=== PATIENT | female | born 1965 | race Caucasian/White ===

== ENCOUNTER → 2018-01-06 17:51 | Outpatient (CLI) | payer BC, SELFPAY ==
--- NOTE | 2018-01-06 17:52 | DI.MRI.S_ITS ---
PROCEDURE: MR KNEE RT WO CON INDICATIONS: catching of right knee TECHNIQUE: Noncontrast sagittal PD fast spin echo and T2 fast spin echo with fat saturation, sagittal 3-D FLASH with fat saturation; coronal T1 spin echo and PD fast spin echo with fat saturation, and axial PD fast spin echo with fat saturation through the knee. COMPARISON: [facility], MR, KNEE WITHOUT CONTRAST, 08/16/2014, 7:13. FINDINGS: Image quality: Excellent. 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 Complex tear involving the posterior horn, body of the lateral meniscus with marked truncation of the free margin. There is also partial extrusion of the body which demonstrates extremely macerated appearance Cruciate ligaments: The anterior and posterior cruciate ligaments appear intact. Medial structures: The medial collateral ligament appears intact. The posterior oblique ligament, semimembranosus tendon insertions, oblique popliteal ligament, and meniscocapsular junction appear intact. Visualized portions of the pes anserinus tendons appear normal. No abnormal bursal fluid. Lateral structures: The lateral collateral ligament demonstrates age indeterminate proximal sprain versus reactive change to meniscal pathology. The long and short heads of the biceps femoris tendon appear intact. The popliteus tendon appears normal; the popliteofibular ligament appears intact. The posterosuperior and anteroinferior popliteomeniscal fascicles appear intact. The arcuate and fabellofibular ligaments appear intact, on either side of the lateral inferior geniculate artery. Iliotibial band appears normal. Anterior structures: The quadriceps and patellar tendons appear intact although there is minimal probably chronic proximal and distal patellar tendinopathy. Mild prepatellar subcutaneous edema. Patellar alignment is normal. No femoral trochlear dysplasia or ventral trochlear prominence. No edema in the infrapatellar fat pad. Bones and cartilage: No bone marrow contusions or fractures. Within the medial compartment, there is low-grade surface fraying of the femoral and tibial articular cartilage. Within the lateral compartment, full thickness denudation of femoral and tibial articular cartilage is present. Within the patellofemoral compartment, there is mild diffuse partial thickness loss of the patellar and femoral trochlear cartilage without full-thickness defect. There is also near full-thickness posterior lateral femoral condyle articular cartilage loss with underlying subchondral signal change on image 16 series 5. Joint space: Guevara's cyst is present measuring 5.7 cm in the cephalocaudad dimension. Additionally, there is a ganglion cyst of the proximal tibiofibular articulation, with internal debris. This measures 1.2 x 1.2 cm on axial image 28 series 5 IMPRESSION: Complex tear of the lateral meniscus posterior horn and body with partial extrusion. 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 Guevara cyst. Ganglion cyst with internal debris at the proximal tibiofibular articulation. Dictated by: Bucky Stewart M.D. on 01/07/2018 at 12:51 Approved by: Bucky Stewart M.D. on 01/07/2018 at 13:04
== END ==
PROVIDERS: Family Provider Family Medicine; PCP Family Medicine; Visit Provider Family Medicine
DX: M25.561 Pain in right knee (principal); S83.271A Complex tear of lateral meniscus, current injury, right knee, initial encounter; M17.11 Unilateral primary osteoarthritis, right knee; M71.21 Synovial cyst of popliteal space [Baker], right knee; M67.461 Ganglion, right knee
CPT/HCPCS: 73721

== ENCOUNTER → 2018-04-10 09:27 | Outpatient (CLI) | payer BC, SELFPAY ==
[2018-04-10 10:13] LABS: Alanine Aminotransferase 31 IU/L (9-52); Albumin 4.6 g/dL (3.5-5.0); Albumin Globulin Ratio 1.7 (1.0-2.8); Alkaline Phosphatase 64 U/L (38-126); Aspartate Aminotransferase 22 IU/L (14-36); BUN Creatinine Ratio 13.8 (6-22); Bilirubin Total 0.6 mg/dL (0.2-1.3); Blood Urea Nitrogen 11 mg/dL (7-17); Calcium 9.7 mg/dL (8.4-10.2); Carbon Dioxide 25 mmol/L (22-32); Chloride 103 mmol/L (98-107); Cholesterol 211 mg/dL (140-199); Estimated Glomerular Filt Rate > 60.0 mL/min (>60); Globulin 2.7 g/dL (1.7-4.1); Glucose 109 mg/dL (70-100); HDL Cholesterol 69 mg/dL (40-60); HEMOLYSIS < 15 (0-50); LDL Cholesterol Calculated 115 mg/dL (<100); Potassium 4.8 mmol/L (3.4-5.1); Sodium 138 mmol/L (137-145); Total Protein 7.3 g/dL (6.3-8.2); Triglycerides 134 mg/dL (35-150)
[2018-04-10 10:28] LABS: Free T3, Triiodothyronine Free 2.94 pg/mL (2.77-5.27); Free T4, Direct Thyroxine 1.53 ng/dL (0.78-2.19)
[2018-04-10 10:42] LABS: Thyroid Stimulating Hormone 0.48 uIU/mL (0.47-4.68)
[2018-04-10 16:05] LABS: Add Manual Diff / Slide Review NO; Basophils Absolute Auto 0 /uL (0-100); Basophils Percent Auto 0.4 % (0-2); Eosinophils Absolute Auto 200 /uL (0-450); Hematocrit 46.4 % (36-46); Hemoglobin 15.1 g/dL (12.0-16.0); Lymphocytes Absolute Auto 2200 /uL (1100-4500); Mean Corpuscular HGB Conc 32.5 % (30-36); Mean Corpuscular Hemoglobin 32.1 PG (26-34); Mean Corpuscular Volume 98.8 fL (80-100); Monocytes Absolute Auto 700 /uL (0-900); Monocytes Percent Auto 8.3 % (3-14); Neutrophils Absolute Auto 5000 /uL (1500-7000); Neutrophils Percent Auto 62.3 % (50-75); Platelet Count 250 X10^3/uL (150-400); Red Cell Distribution Width 13.4 % (11.6-14.8)
== END ==
PROVIDERS: PCP Family Medicine; Visit Provider Family Medicine
DX: E03.9 Hypothyroidism, unspecified (principal); E66.9 Obesity, unspecified; F32.9 Major depressive disorder, single episode, unspecified; I10 Essential (primary) hypertension; Z00.01 Encounter for general adult medical examination with abnormal findings
CPT/HCPCS: 36415; 80053; 80061; 84439; 84443; 84481; 85025

== ENCOUNTER → 2018-05-30 08:12 | Outpatient (CLI) | payer OTHER, SELFPAY ==
--- NOTE | 2018-05-30 | DI.MRI.S_ITS ---
PROCEDURE: MR LUMBAR SPINE WO/W CON INDICATIONS: LUMBAR STENOSIS TECHNIQUE: Noncontrast sagittal T1 spin echo and T2 fast spin echo, sagittal STIR, axial T1 and T2 fast spin echo through the lumbar spine. In cases with scoliosis, additional coronal T2 fast spin echo may be performed. After the administration of contrast, sagittal and axial T1 spin echo with fat saturation through the lumbar spine. COMPARISON: [facility], CR, L-SPINE MINIMUM 4 VIEWS, 10/12/2015, 9:12. [facility], CT, L-SPINE WITHOUT CONTRAST, 10/12/2015, 8:54. [facility], MR, L-SPINE WITH CONTRAST, 03/14/2015, 19:36. [facility], MR, L-SPINE WITHOUT CONTRAST, 02/23/2015, 18:58. [facility], MR, L-SPINE WITHOUT CONTRAST, 11/01/2015, 10:50. FINDINGS: Image quality: Diagnostic, with note made of motion artifact. Alignment and curvature: There is mild grade 1 retrolisthesis at L2-L3, L4, and L4-L5. Minimal anterolisthesis is seen at L5-S1. Mild levoconvex scoliotic curvature is noted. Marrow: Marrow is of normal overall signal. No acute vertebral body compression fractures. No suspicious marrow enhancement. Spinal cord: Conus medullaris terminates at the L2 level. Visualized spinal cord demonstrates normal signal, without suspicious enhancement. Paraspinous soft tissues: Within the posterior postoperative bed, there is a rim-enhancing fluid collection seen, with a craniocaudal extent of 8 cm. Mild surrounding inflammatory changes can be seen, with generalized enhancement. T12-L1: No significant abnormality is seen. L1-L2: The disc height and disk signal are well-preserved. Mild generalized disc bulge is seen. Moderate facet joint hypertrophy is seen. Mild bilateral neural foraminal narrowing is seen. Moderate central canal narrowing is seen. When comparison is made with the prior examination, these findings are similar. L2-L3: Moderate to severe loss of disc height and disc signal is seen. Reactive marrow endplate changes are seen, which are hyperintense on T1-weighted and T2-weighted imaging and most consistent with fatty metaplasia (Modic type II changes). Moderate generalized disc bulge is seen. There has been removal of portions of the posterior elements. Moderate bilateral neural foraminal narrowing is seen. Moderate central canal narrowing is seen. The degree of central canal narrowing has improved compared to 2016. L3-L4: Moderate to severe loss of disc height and disc signal are seen. Endplate irregularity is seen. Reactive marrow endplate changes are seen, which are hyperintense on T1-weighted and T2-weighted imaging and most consistent with fatty metaplasia (Modic type II changes). There has been removal of portions of the posterior elements. Moderate facet joint hypertrophy is seen. Moderate disc bulge is seen, which is eccentric to the right. Moderate to severe bilateral neural foraminal narrowing is seen. There is a degree of compression seen upon the exiting nerve roots. Mild central canal narrowing is seen. Compared to 2016, the degree of central canal narrowing is clearly improved. L4-L5: At least moderate loss of disc height and disc signal can be seen. Endplate irregularity is seen. Reactive marrow endplate changes are seen, which demonstrate mixed T1 weighted and T2-weighted signal, and are attributed to a combination of edema and fatty metaplasia (Modic type I and Modic type II changes). Prominent facet hypertrophy is seen. There is moderate to severe bilateral neural foraminal narrowing seen, left greater than right. There is a degree of compression seen upon the exiting nerve roots. There has been removal of portions of the posterior elements. Mild central canal narrowing is seen. The degree of central canal narrowing is improved compared to the prior. L5-S1: Moderate loss of disc height is seen. Loss of disc signal is seen. Moderate disc bulge is seen, which is eccentric to the left. Moderate to prominent facet hypertrophy is seen. Moderate to severe bilateral neural foraminal narrowing is seen, left greater than right. There is a degree of compression seen upon the exiting nerve roots. Moderate central canal narrowing is seen. When comparison is made with the prior examination, these findings are similar. IMPRESSION: Since 2016, there has been removal of portions of the posterior elements, with improvement in the degrees of central canal narrowing. Numerous levels of neural foraminal narrowing are seen, with associated nerve root compression. Within the posterior postoperative bed, there is a seen a fluid collection with rim enhancement. This is felt most likely to be related to a benign postoperative seroma. Abscess is possible, yet considered to be less likely. Mild surrounding inflammatory changes are also seen. Dictated by: Graeme Avelar M.D. on 05/30/2018 at 9:15 Approved by: Graeme Avelar M.D. on 05/30/2018 at 9:25
== END ==
PROVIDERS: PCP Family Medicine; Visit Provider Neurological Surgery
DX: M48.061 Spinal stenosis, lumbar region without neurogenic claudication (principal)
CPT/HCPCS: 72158

== ENCOUNTER 2018-08-06 13:30 | Emergency (ER) | payer OTHER, BC, SELFPAY ==
--- NOTE | 2018-08-06 13:46 | DI.RAD.S_ITS ---
PROCEDURE: XR HAND LT MIN 3V INDICATIONS: Fell, pain on metacarpophalangeal joint of thumb TECHNIQUE: 3 views of the hand(s) acquired. COMPARISON: None. FINDINGS: Bones: No fractures or dislocations. Carpal bones are normally aligned. No suspicious bony lesions. Severe degenerative changes are present involving the basal joint of the thumb with prominent subluxation of the 1st metacarpal with respect to the trapezium. There may be fragmentation of the upper trapezium, which appears chronic. Minus variance is present. Soft tissues: No suspicious soft tissue calcifications. IMPRESSION: 1. No acute fracture of the left hand is appreciated. 2. Severe degenerative changes involving the basal joint of the thumb. Dictated by: Sanjay Mo M.D. on 08/06/2018 at 14:16 Approved by: Sanjay Mo M.D. on 08/06/2018 at 14:17
[2018-08-06 13:49] VITALS: BP 162/91; PULSE 66; RESP 16; TEMP 37.1; O2SAT 98; BMI 31.9
--- NOTE | 2018-08-06 13:55 | ED.UPPEXIN ---
HPI - Extremity Injury (Upper) <Stephany DelgadoWALTER - Last Filed: 08/06/18 20:39> General Chief Complaint: Extremity Injury, Upper Stated Complaint: Fall, thinks she broke her left hand Time Seen by Provider: 08/06/18 13:46 Source: patient Mode of arrival: ambulatory Limitations: no limitations History of Present Illness HPI narrative: 52-year-old female taking daily aspirin, presents emergency department today for complaints of constant 3/10 left thumb pain after tripping while she was feeling a bird feeder and falling on her knee and her left thumb. Patient's states the pain is worse with movement and better with rest, she has been icing it and took ibuprofen before coming to the emergency department. She states she landed on her left knee, she does not have this looked at, and she is not concerned significant injuries. Denies hitting her head, numbness, tingling, syncope, dizziness, chest pain, shortness of breath, or lacerations. MD complaint: injury to: left Onset (ago): hour(s) Place: home Severity: moderate Severity scale (1-10): 3 Relieving factors: cold therapy Exacerbating factors: movement of extremity Context: fall Treatments prior to arrival: cold therapy and NSAIDS Related Data Home Medications Medication Instructions Recorded Confirmed ASPIRIN (Aspirin) 81 mg PO Q DAY #0 01/15/11 05/21/18 amlodipine [Norvasc] 10 mg PO Q DAY #0 01/15/11 05/21/18 citalopram 20 mg tablet 20 mg PO DAILY 03/19/18 05/21/18 levothyroxine [Synthroid] 125 mcg PO DAILY 08/06/18 08/06/18 Previous Rx's Medication Instructions Recorded [estrogen pearls] 1 mg VAGINAL 2XW #30 tab-cap 04/14/18 albuterol sulfate HFA 90 2 puff INHALATION Q4HP PRN #3 inh 04/14/18 mcg/actuation aerosol inhaler pimecrolimus 1 % topical cream 1 applictn TOPICAL BID #30 gram 04/14/18 bupropion HCl SR 150 mg tablet,12 150 mg PO DAILY #30 each 08/11/18 hr sustained-release Allergies Allergy/AdvReac Type Severity Reaction Status Date / Time lisinopril [LISINOPRIL] Allergy Severe angioedema Verified 08/06/18 13:49 codeine [CODEINE] Allergy Mild nausea Verified 08/06/18 13:49 FLORA Inhibitors Allergy Verified 08/06/18 13:49 Opioids - Morphine Analogues AdvReac Verified 08/06/18 13:49 Review of Systems <WALTER Goldman - Last Filed: 08/06/18 20:39> Review of Systems REVIEW OF SYSTEMS: GENERAL: Denies fever or chills. HENT: No head trauma, hearing loss or sore throat. EYES: No loss of vision, double vision, eye pain, or irritation. CARDIOVASCULAR: No chest pain or syncope. RESPIRATORY: No shortness of breath or cough. GASTROINTESTINAL: No nausea, vomiting, diarrhea, or constipation. GENITOURINARY: No flank pain or dysuria. MUSCULOSKELETAL: No pain, weakness, or deformities. INTEGUMENTARY: No rash, lesions, or pruritus. NEURO: No numbness, tingling, memory loss, or confusion. PSYCH: No behavior or mood changes. PFSH <WALTER Goldman - Last Filed: 08/06/18 20:39> Medical History Anxiety (Chronic 1984) Asthma (Chronic 1974) Chronic back pain (Chronic 2004) Depression (Chronic 1984) Hypertension (Chronic 2009) Hypothyroidism (Chronic 2009) Ovarian cyst (Resolved) Surgical History History of cataract surgery (Acute ~01/2018) Anesthesia (Resolved) History of abdominoplasty (Resolved 1997) Family History Father Age: 81 Heart disease Hypertension Glaucoma Adenocarcinoma, lung Mother Age: 84 Alcoholism Brother No problems noted. Sister No problems noted. Social History marital status: household members: spouse occupational status: employed Smoking Status: Former smoker Family History Father Age: 81 Heart disease Hypertension Glaucoma Adenocarcinoma, lung Mother Age: 84 Alcoholism Brother No problems noted. Sister No problems noted. Social History marital status: household members: spouse occupational status: employed Smoking Status: Former smoker Exam <WALTER Goldman - Last Filed: 08/06/18 20:39> Initial Vital Signs Initial Vital Signs: Vital Signs Temperature 98.7 F 08/06/18 13:49 Pulse Rate 66 08/06/18 13:49 Respiratory Rate 16 08/06/18 13:49 Blood Pressure 162/91 H 08/06/18 13:49 Pulse Oximetry 98 08/06/18 13:49 PHYSICAL EXAMINATION: GENERAL: Well groomed, alert, and cooperative Answers questions promptly and appropriately. Vital signs noted. HENT: Normocephalic, atraumatic. RESPIRATORY: Normal respiratory rate, trachea midline, airway patent. No stridor, nasal flaring or accessory muscle use. MUSCULOSKELETAL: Normal gait and coordination. Equal tone and mass bilaterally. EXTREMITIES: CMS intact. Tenderness to metatarsal and proximal portion of thumb with palpation, full range of motion against resistance. No bruising or swelling noted. SKIN: Warm, dry, soft, appropriate color for ethnicity. No lesions, rashes, or wounds. NEURO: Alert and Oriented X 3. Good coordination. No ataxia, or sensory deficits, or cognitive issues. PSYCH: Appropriate affect and mood. <Evan Ruiz DO - Last Filed: 08/11/18 19:19> Initial Vital Signs Initial Vital Signs: Vital Signs Temperature 98.7 F 08/06/18 13:49 Pulse Rate 66 08/06/18 13:49 Respiratory Rate 16 08/06/18 13:49 Blood Pressure 162/91 H 08/06/18 13:49 Pulse Oximetry 98 08/06/18 13:49 Course <WALTER Goldman - Last Filed: 08/06/18 20:39> Orders Ordered: ED Orders 08/06/18 13:46 XR hand LT min 3V Stat Consultations Consultation #1: Patient staffed with Dr. Ruiz. Vital Signs - 8 hr 08/06/18 13:49 08/06/18 14:35 Temperature 98.7 F Pulse Rate 66 71 Respiratory Rate 16 16 Blood Pressure 162/91 H Blood Pressure [Right Arm] 130/70 Pulse Oximetry 98 <Evan Ruiz DO - Last Filed: 08/11/18 19:19> Orders Ordered: ED Orders 08/06/18 13:46 XR hand LT min 3V Stat Vital Signs - 8 hr 08/06/18 13:49 08/06/18 14:35 Temperature 98.7 F Pulse Rate 66 71 Respiratory Rate 16 16 Blood Pressure 162/91 H Blood Pressure [Right Arm] 130/70 Pulse Oximetry 98 MDM - Extremity Injury (Upper) <WALTER Goldman - Last Filed: 08/06/18 20:39> Medical Records Attestation: I reviewed the patient's medical records. Imaging Data Left hand: Radiologist's impression: [address] [address] XRay Report Signed Patient: Елена Carter [facility]#: [id number] : 1965Acct:[id number] Age/Sex: 52 / FDate of Service: 08/06/18 Loc: ED Accession Number: [id number] Procedure: XR hand LT min 3V Ordering Provider: Stephany Delgado PROCEDURE: XR HAND LT MIN 3V INDICATIONS: Fell, pain on metacarpophalangeal joint of thumb TECHNIQUE: 3 views of the hand(s) acquired. COMPARISON: None. FINDINGS: Bones: No fractures or dislocations. Carpal bones are normally aligned. No suspicious bony lesions. Severe degenerative changes are present involving the basal joint of the thumb with prominent subluxation of the 1st metacarpal with respect to the trapezium. There may be fragmentation of the upper trapezium, which appears chronic. Minus variance is present. Soft tissues: No suspicious soft tissue calcifications. IMPRESSION: 1. No acute fracture of the left hand is appreciated. 2. Severe degenerative changes involving the basal joint of the thumb. Dictated by: Sanjay Mo M.D. on 08/06/2018 at 14:16 Approved by: Sanjay Mo M.D. on 08/06/2018 at 14:17 [facility] Narrative Medical decision making narrative: Low suspicion for fracture you to lack of breathing, benign exam, and negative x-ray. Patient instructed to follow up for further testing if symptoms continue. Discharge Plan Departure Patient Disposition: Home Clinical Impression: Hand pain, left, Multiple allergies Contusion of left thumb Qualifiers: Encounter type: initial encounter Damage to nail status: with damage Qualified Code(s): S60.112A - Contusion of left thumb with damage to nail, initial encounter Discharge Date/Time: 08/06/18 14:45 Interventions: ED Discharge Assessment Last Done: 08/06/18 15:00 Instructions: DI for Contusion Activity Restrictions/Additional Instructions: Thank you for entrusting me with your care today. As discussed, her x-rays were negative for any fractures. However, if your pain persists I suggest being re-evaluated in a week or so. You the brace as needed for pain. You can use ibuprofen and ice for swelling. Please return to emergency department if you experience chest pain, shortness of breath for, changes in color of your limbs, uncontrolled vomiting, or syncope. Prescriptions: No Action ASPIRIN (Aspirin) 81 mg PO Q DAY Qty: 0 RF: 0 amlodipine [Norvasc] 10 MG tablet 10 mg PO Q DAY Qty: 0 RF: 0 bupropion HCl 150 mg tablet sustained-release 12 hr 150 mg PO DAILY Qty: 30 RF: 0 Ventolin HFA 90 mcg/actuation HFA aerosol inhaler 2 puff Inhalation Q4HP PRN (Reason: shortness of breath or wheezing) Qty: 3 RF: 3 pimecrolimus [Elidel] 1 % cream 1 applictn Topical BID Qty: 30 RF: 1 [estrogen pearls] 1 mg Vaginal 2XW Qty: 30 RF: 0 citalopram 20 mg tablet 20 mg PO DAILY RF: 0 levothyroxine [Synthroid] 125 mcg tablet 125 mcg PO DAILY RF: 0 Referrals: Reva Arteaga DO [Primary Care Provider] - <Evan Ruiz DO - Last Filed: 08/11/18 19:19> Cosign ED Attending Rebecca Attestation: I was immediately available in the department for consultation. Documentation has been reviewed. I agree with assessment and plan.
--- NOTE | 2018-08-06 13:59 | ED_ITS ---
HPI - Extremity Injury (Upper) <Stephany DelgadoWALTER - Last Filed: 08/06/18 20:39> General Chief Complaint: Extremity Injury, Upper Stated Complaint: Fall, thinks she broke her left hand Time Seen by Provider: 08/06/18 13:46 Source: patient Mode of arrival: ambulatory Limitations: no limitations History of Present Illness HPI narrative: 52-year-old female taking daily aspirin, presents emergency department today for complaints of constant 3/10 left thumb pain after tripping while she was feeling a bird feeder and falling on her knee and her left thumb. Patient's states the pain is worse with movement and better with rest, she has been icing it and took ibuprofen before coming to the emergency department. She states she landed on her left knee, she does not have this looked at, and she is not concerned significant injuries. Denies hitting her head, numbness, tingling, syncope, dizziness, chest pain, shortness of breath, or lacerations. MD complaint: injury to: left Onset (ago): hour(s) Place: home Severity: moderate Severity scale (1-10): 3 Relieving factors: cold therapy Exacerbating factors: movement of extremity Context: fall Treatments prior to arrival: cold therapy and NSAIDS Related Data Home Medications Medication Instructions Recorded Confirmed ASPIRIN (Aspirin) 81 mg PO Q DAY #0 01/15/11 05/21/18 amlodipine [Norvasc] 10 mg PO Q DAY #0 01/15/11 05/21/18 citalopram 20 mg tablet 20 mg PO DAILY 03/19/18 05/21/18 levothyroxine [Synthroid] 125 mcg PO DAILY 08/06/18 08/06/18 Previous Rx's Medication Instructions Recorded [estrogen pearls] 1 mg VAGINAL 2XW #30 tab-cap 04/14/18 albuterol sulfate HFA 90 2 puff INHALATION Q4HP PRN #3 inh 04/14/18 mcg/actuation aerosol inhaler pimecrolimus 1 % topical cream 1 applictn TOPICAL BID #30 gram 04/14/18 bupropion HCl SR 150 mg tablet,12 150 mg PO DAILY #30 each 08/11/18 hr sustained-release Allergies Allergy/AdvReac Type Severity Reaction Status Date / Time lisinopril [LISINOPRIL] Allergy Severe angioedema Verified 08/06/18 13:49 codeine [CODEINE] Allergy Mild nausea Verified 08/06/18 13:49 FLORA Inhibitors Allergy Verified 08/06/18 13:49 Opioids - Morphine Analogues AdvReac Verified 08/06/18 13:49 Review of Systems <WALTER Goldman - Last Filed: 08/06/18 20:39> Review of Systems REVIEW OF SYSTEMS: GENERAL: Denies fever or chills. HENT: No head trauma, hearing loss or sore throat. EYES: No loss of vision, double vision, eye pain, or irritation. CARDIOVASCULAR: No chest pain or syncope. RESPIRATORY: No shortness of breath or cough. GASTROINTESTINAL: No nausea, vomiting, diarrhea, or constipation. GENITOURINARY: No flank pain or dysuria. MUSCULOSKELETAL: No pain, weakness, or deformities. INTEGUMENTARY: No rash, lesions, or pruritus. NEURO: No numbness, tingling, memory loss, or confusion. PSYCH: No behavior or mood changes. PFSH <WALTER Goldman - Last Filed: 08/06/18 20:39> Medical History Anxiety (Chronic 1984) Asthma (Chronic 1974) Chronic back pain (Chronic 2004) Depression (Chronic 1984) Hypertension (Chronic 2009) Hypothyroidism (Chronic 2009) Ovarian cyst (Resolved) Surgical History History of cataract surgery (Acute ~01/2018) Anesthesia (Resolved) History of abdominoplasty (Resolved 1997) Family History Father Age: 81 Heart disease Hypertension Glaucoma Adenocarcinoma, lung Mother Age: 84 Alcoholism Brother No problems noted. Sister No problems noted. Social History marital status: household members: spouse occupational status: employed Smoking Status: Former smoker Family History Father Age: 81 Heart disease Hypertension Glaucoma Adenocarcinoma, lung Mother Age: 84 Alcoholism Brother No problems noted. Sister No problems noted. Social History marital status: household members: spouse occupational status: employed Smoking Status: Former smoker Exam <WALTER Goldman - Last Filed: 08/06/18 20:39> Initial Vital Signs Initial Vital Signs: Vital Signs Temperature 98.7 F 08/06/18 13:49 Pulse Rate 66 08/06/18 13:49 Respiratory Rate 16 08/06/18 13:49 Blood Pressure 162/91 H 08/06/18 13:49 Pulse Oximetry 98 08/06/18 13:49 PHYSICAL EXAMINATION: GENERAL: Well groomed, alert, and cooperative Answers questions promptly and appropriately. Vital signs noted. HENT: Normocephalic, atraumatic. RESPIRATORY: Normal respiratory rate, trachea midline, airway patent. No stridor, nasal flaring or accessory muscle use. MUSCULOSKELETAL: Normal gait and coordination. Equal tone and mass bilaterally. EXTREMITIES: CMS intact. Tenderness to metatarsal and proximal portion of thumb with palpation, full range of motion against resistance. No bruising or swelling noted. SKIN: Warm, dry, soft, appropriate color for ethnicity. No lesions, rashes, or wounds. NEURO: Alert and Oriented X 3. Good coordination. No ataxia, or sensory deficits, or cognitive issues. PSYCH: Appropriate affect and mood. <Evan Ruiz DO - Last Filed: 08/11/18 19:19> Initial Vital Signs Initial Vital Signs: Vital Signs Temperature 98.7 F 08/06/18 13:49 Pulse Rate 66 08/06/18 13:49 Respiratory Rate 16 08/06/18 13:49 Blood Pressure 162/91 H 08/06/18 13:49 Pulse Oximetry 98 08/06/18 13:49 Course <WALTER Goldman - Last Filed: 08/06/18 20:39> Orders Ordered: ED Orders 08/06/18 13:46 XR hand LT min 3V Stat Consultations Consultation #1: Patient staffed with Dr. Ruiz. Vital Signs - 8 hr 08/06/18 13:49 08/06/18 14:35 Temperature 98.7 F Pulse Rate 66 71 Respiratory Rate 16 16 Blood Pressure 162/91 H Blood Pressure [Right Arm] 130/70 Pulse Oximetry 98 <Evan Ruiz DO - Last Filed: 08/11/18 19:19> Orders Ordered: ED Orders 08/06/18 13:46 XR hand LT min 3V Stat Vital Signs - 8 hr 08/06/18 13:49 08/06/18 14:35 Temperature 98.7 F Pulse Rate 66 71 Respiratory Rate 16 16 Blood Pressure 162/91 H Blood Pressure [Right Arm] 130/70 Pulse Oximetry 98 MDM - Extremity Injury (Upper) <WALTER Goldman - Last Filed: 08/06/18 20:39> Medical Records Attestation: I reviewed the patient's medical records. Imaging Data Left hand: Radiologist's impression: [address] [address] XRay Report Signed Patient: Елена Carter [facility]#: [id number] : 1965Acct:[id number] Age/Sex: 52 / FDate of Service: 08/06/18 Loc: ED Accession Number: [id number] Procedure: XR hand LT min 3V Ordering Provider: Stephany Delgado PROCEDURE: XR HAND LT MIN 3V INDICATIONS: Fell, pain on metacarpophalangeal joint of thumb TECHNIQUE: 3 views of the hand(s) acquired. COMPARISON: None. FINDINGS: Bones: No fractures or dislocations. Carpal bones are normally aligned. No suspicious bony lesions. Severe degenerative changes are present involving the basal joint of the thumb with prominent subluxation of the 1st metacarpal with respect to the trapezium. There may be fragmentation of the upper trapezium, which appears chronic. Minus variance is present. Soft tissues: No suspicious soft tissue calcifications. IMPRESSION: 1. No acute fracture of the left hand is appreciated. 2. Severe degenerative changes involving the basal joint of the thumb. Dictated by: Sanjay Mo M.D. on 08/06/2018 at 14:16 Approved by: Sanjay Mo M.D. on 08/06/2018 at 14:17 [facility] Narrative Medical decision making narrative: Low suspicion for fracture you to lack of breathing, benign exam, and negative x-ray. Patient instructed to follow up for further testing if symptoms continue. Discharge Plan Departure Patient Disposition: Home Clinical Impression: Hand pain, left, Multiple allergies Contusion of left thumb Qualifiers: Encounter type: initial encounter Damage to nail status: with damage Qualified Code(s): S60.112A - Contusion of left thumb with damage to nail, initial encounter Discharge Date/Time: 08/06/18 14:45 Interventions: ED Discharge Assessment Last Done: 08/06/18 15:00 Instructions: DI for Contusion Activity Restrictions/Additional Instructions: Thank you for entrusting me with your care today. As discussed, her x-rays were negative for any fractures. However, if your pain persists I suggest being re- evaluated in a week or so. You the brace as needed for pain. You can use ibuprofen and ice for swelling. Please return to emergency department if you experience chest pain, shortness of breath for, changes in color of your limbs, uncontrolled vomiting, or syncope. Prescriptions: No Action ASPIRIN (Aspirin) 81 mg PO Q DAY Qty: 0 RF: 0 amlodipine [Norvasc] 10 MG tablet 10 mg PO Q DAY Qty: 0 RF: 0 bupropion HCl 150 mg tablet sustained-release 12 hr 150 mg PO DAILY Qty: 30 RF: 0 Ventolin HFA 90 mcg/actuation HFA aerosol inhaler 2 puff Inhalation Q4HP PRN (Reason: shortness of breath or wheezing) Qty: 3 RF: 3 pimecrolimus [Elidel] 1 % cream 1 applictn Topical BID Qty: 30 RF: 1 [estrogen pearls] 1 mg Vaginal 2XW Qty: 30 RF: 0 citalopram 20 mg tablet 20 mg PO DAILY RF: 0 levothyroxine [Synthroid] 125 mcg tablet 125 mcg PO DAILY RF: 0 Referrals: Reva Arteaga DO [Primary Care Provider] - <Evan Ruiz DO - Last Filed: 08/11/18 19:19> Cosign ED Attending Rebecca Attestation: I was immediately available in the depart ment for consultation. Documentation has been reviewed. I agree with assessment and plan.
[2018-08-06 14:35] VITALS: BP 130/70; PULSE 71; RESP 16
== END 2018-08-06 14:45 | disposition home or self-care (01) ==
PROVIDERS: Emergency Provider Nurse Practitioner; PCP Family Medicine
DX: S60.112A Contusion of left thumb with damage to nail, initial encounter (principal); M79.642 Pain in left hand; W01.0XXA Fall on same level from slipping, tripping and stumbling without subsequent striking against object, initial encounter; Z79.82 Long term (current) use of aspirin
CPT/HCPCS: 29130; 73130; 99282; 99283

== ENCOUNTER → 2018-11-20 08:30 | Outpatient (CLI) | payer OTHER, SELFPAY ==
--- NOTE | 2018-11-20 | DI.CT.S_ITS ---
PROCEDURE: CT LUMBAR SPINE WO CON INDICATIONS: Radiculopathy, lumbar region TECHNIQUE: Noncontrast 3 mm thick sections acquired from the T12 level to the sacrum. Sagittal and coronal reformats were constructed. For radiation dose reduction, the following was used: automated exposure control. COMPARISON: [facility], CT, L-SPINE WITHOUT CONTRAST, 10/12/2015, 8:54. [facility], CR, L-SPINE MINIMUM 4 VIEWS, 10/12/2015, 9:12. [facility], MR, L-SPINE WITHOUT CONTRAST, 11/01/2015, 10:50. [facility], MR, L-SPINE WITH CONTRAST, 03/14/2015, 19:36. [facility], MR, L-SPINE WITHOUT CONTRAST, 02/23/2015, 18:58. [facility], MR, MR LUMBAR SPINE WO/W CON, 05/30/2018, 8:29. FINDINGS: Image quality: Excellent. Bones: No acute vertebral body compression fractures. No suspicious lytic or blastic bony lesions. There is a stable bone island seen within the superior posterior aspect of the L1 vertebral body. Mild levoconvex scoliotic curvature is noted. There is mild retrolisthesis seen at L2-L3, L3-L4, and L4-L5, with mild grade 1 anterolisthesis at L5-S1. Bilateral pars defects are seen at L5. Postoperative change is seen, with removal of portions of posterior elements of L3 and L4. T11-T12: Moderate to severe loss of disc height is seen. Vacuum disc phenomenon is seen at this level. At least moderate disc bulge is seen. At least moderate bilateral neural foraminal narrowing can be seen. Moderate to severe central canal narrowing is seen. T12-L1: No significant abnormality is seen. L1-L2: The disc height is well-preserved. Moderate generalized disc bulge is seen. Moderate bilateral neural foraminal narrowing is seen. Moderate to prominent facet hypertrophy is seen. At least moderate central canal narrowing is seen. When comparison is made with the prior examination, these findings are similar. L2-L3: Moderate to severe loss of disc height and disc signal are seen. Moderate prominent disc bulge is seen. Endplate osteophyte formation can be seen, including posteriorly directed endplate osteophytes. Vacuum disc phenomenon is seen at this level. Moderate to severe bilateral neural foraminal narrowing is seen. Moderate central canal narrowing is seen. When comparison is made with the prior examination, these findings are similar. L3-L4: Moderate to severe loss of disc height and disc signal are seen. Endplate irregularity is seen. Endplate osteophytes are seen, including posteriorly directed osteophytes. There is severe bilateral neural foraminal narrowing seen. Moderate central canal narrowing is seen. When comparison is made with the prior examination, these findings are similar. L4-L5: Moderate to severe loss of disc height is seen. End plate irregularity and sclerosis can be seen. Endplate osteophyte formation is seen, including posteriorly directed endplate osteophytes. At least moderate central canal narrowing is seen. When comparison is made with the prior examination, these findings are similar. L5-S1: Moderate loss of disc height is seen. Vacuum disc phenomenon is seen at this level. Endplate irregularity and sclerosis can be seen. There is severe bilateral neural foraminal narrowing seen. Mild central canal narrowing is seen. When comparison is made with the prior examination, these findings are similar. Soft tissues: No retroperitoneal masses or hematomas. Visualized aorta is normal in caliber. IMPRESSION: Multiple levels of relatively prominent degenerative change are seen, which are similar to the prior examination. Dictated by: Graeme Avelar M.D. on 11/20/2018 at 9:11 Approved by: Graeme Avelar M.D. on 11/20/2018 at 9:19
== END ==
PROVIDERS: PCP Family Medicine; Visit Provider Neurological Surgery
DX: M47.26 Other spondylosis with radiculopathy, lumbar region (principal); M48.062 Spinal stenosis, lumbar region with neurogenic claudication
CPT/HCPCS: 72131

== ENCOUNTER 2019-02-01 17:55 | Emergency (ER) | payer OTHER, BC, SELFPAY ==
[2019-02-01 18:09] VITALS: BP 110/71; PULSE 86; RESP 18; TEMP 36.9; O2SAT 100
--- NOTE | 2019-02-01 19:01 | ED_ITS ---
HPI - Fever General Chief Complaint: Fever Stated Complaint: spinal surger T-10/spiked fever/vomiting Time Seen by Provider: 02/01/19 19:00 Source: patient Mode of arrival: Ambulatory Limitations: no limitations History of Present Illness HPI Narrative: The patient underwent lumbar surgery about 1.5 weeks ago. Yest erday she developed abdominal pain with nausea, vomiting fever. She also had a headache at a time. She has no rhinorrhea, sore throat, cough or chest pain. She has ongoing abdominal discomfort in the periumbilical area. She last vomited about 6:00 p.m. tonight. She has had no diarrhea, she has no lower abdominal pain. She has ongoing back pain since the surgery, but no increase in back pain. She has no significant change in neck pain, she has no lower extremity numbness or weakness. She has had no food that she would attribute to her GI symptoms. She had a fever 101 yesterday, there is no fever today. She denies dysuria or hematuria with the current symptoms. Related Data Home Medications Medication Instructions Recorded Confirmed ASPIRIN (Aspirin) 81 mg PO Q DAY #0 01/15/11 11/26/18 amlodipine [Norvasc] 10 mg PO Q DAY #0 01/15/11 11/26/18 citalopram 20 mg tablet 20 mg PO DAILY 03/19/18 11/26/18 levothyroxine [Synthroid] 125 mcg PO DAILY 08/06/18 11/26/18 gabapentin 300 mg capsule 300 mg PO BID 11/26/18 11/26/18 Previous Rx's Medication Instructions Recorded [estrogen pearls] 1 mg VAGINAL 2XW #30 tab-cap 04/14/18 albuterol sulfate 90 mcg/actuation 2 puff INHALATION Q4HP PRN #3 inh 04/14/18 aerosol inhaler pimecrolimus 1 % topical cream 1 applictn TOPICAL BID #30 gram 04/14/18 bupropion HCl 150 mg tablet,12 hr 150 mg PO DAILY #30 each 08/11/18 sustained-release ondansetron 4 mg PO Q4H PRN #14 tab 02/01/19 Allergies Allergy/AdvReac Type Severity Reaction Status Date / Time lisinopril [LISINOPRIL] Allergy Severe angioedema Verified 11/26/18 15:36 codeine [CODEINE] Allergy Mild nausea Verified 11/26/18 15:36 FLORA Inhibitors Allergy Verified 11/26/18 15:36 Opioids - Morphine Analogues AdvReac Verified 11/26/18 15:36 Review of Systems Constitutional Constitutional: Denies chills, Reports fever(s), Denies lethargy and Denies weakness Eyes Eyes: Denies change in vision and Denies eye discharge ENT Ears, Nose, Mouth, and Throat: Denies change in voice, Denies vertigo, Denies dizziness, Denies mouth pain, Denies nasal congestion, Denies neck pain and Denies sore throat Cardiovascular Cardiovascular: Denies chest pain, Denies irregular heart rhythm, Denies lightheadedness and Denies dyspnea Respiratory Respiratory: Denies cough, Denies dyspnea and Denies wheezing Gastrointestinal Gastrointestinal: Reports abdominal pain, Denies change in bowel habits, Denies diarrhea, Reports nausea and Reports vomiting Genitourinary Genitourinary: Denies hematuria, Denies dysuria, Denies flank pain, Denies urinary incontinence and Denies urinary urgency Musculoskeletal Musculoskeletal: Reports as per HPI, Reports back pain and Denies neck pain Integumentary/Breasts Skin/Breast: Denies pruritus, Denies erythema, Denies rash and Reports wounds (Recent lumbar surgery) Neurologic Neurologic: Denies confusion, Denies vertigo, Denies dizziness and Denies weakness Psychiatric Psychiatric: Denies anxiety, Denies confusion and Denies depression Hematologic/Lymphatic Hematologic/Lymphatic: Denies easy bleeding Allergic/Immunologic Allergic/Immunologic: Denies wheezing Patient History Medical History (Updated 02/01/19 @ 23:12 by Mike Fernandez MD) Anxiety (Chronic 1984) Asthma (Chronic 1974) Central sleep apnea (Chronic ~2013) Chronic back pain (Chronic 2004) Depression (Chronic 1984) Hypertension (Chronic 2009) Hypothyroidism (Chronic 2009) Obesity (BMI 30-39.9) (Chronic) Obstructive sleep apnea (Chronic ~2013) Ovarian cyst (Resolved) Surgical History (Updated 02/01/19 @ 19:22 by Mike Fernandez MD) Anesthesia (Resolved) History of abdominoplasty (Resolved 1997) History of cataract surgery (Acute ~01/2018) History of lumbar surgery (Acute) Family History Father Age: 82 Heart disease Hypertension Glaucoma Adenocarcinoma, lung Mother Age: 85 Alcoholism Brother No problems noted. Sister No problems noted. Social History marital status: household members: spouse occupational status: employed Smoking Status: Former smoker Smoking Status: Former smoker alcohol intake frequency: a few times a week Substance Use Type: marijuana Exam Initial Vital Signs Initial Vital Signs: Vital Signs Temperature 98.4 F 02/01/19 18:09 Pulse Rate 86 02/01/19 18:09 Respiratory Rate 18 02/01/19 18:09 Blood Pressure 110/71 02/01/19 18:09 Pulse Oximetry 100 02/01/19 18:09 Const General: cooperative and well developed Nutritional Appearance: well nourished Orientation: alert, awake, oriented x3 and not confused HENOH Head: normocephalic and atraumatic Mouth: oral mucosae normal and moist mucous membranes Throat: posterior oropharynx normal Eyes Conjunctivae: conjunctivae normal Neck Neck: no meningeal signs and No lymphadenopathy Resp Effort & Inspection: normal respiratory effort and able to speak in complete sentences Auscultation: clear to auscultation bilaterally, no rales, no rhonchi and no wheezes Cardio Rate: regular rate Rhythm: regular rhythm Heart Sounds: S1 normal, S2 normal, no click, no gallops, no murmurs and no rubs Pulses: normal peripheral pulses GI Inspection: non-distended Palpation: soft, no hepatosplenomegaly, No guarding, No pulsatile mass and tender (Periumbilical) Auscultation: normal bowel sounds Back/Spine/Pelvis Back: No CVA tenderness Other: Healing lumbar surgical site without inflammation, induration or fluctuance. The site seems to be healing well. Skin General: no rashes or lesions noted and No petechiae Neuro General: alert, oriented x3, gait normal and no focal motor deficits Speech: speech normal Motor: muscle tone normal throughout Extrem General: full ROM, no pedal edema and no calf tenderness Course Course Course Narrative: The patient has received 2 L of IV fluids. She has received Zofran as well as Toradol then Dilaudid for pain. CBC, procalcitonin and lactic acid were repeated after 2 L of hydration. All markers are improving. More importantly, the patient is feeling significantly better. She has no nausea vo miting, no abdominal discomfort the evaluation is most consistent with a gastroenteritis. There does not appear to be a complication of her recent back surgery. She was discharged home with Zofran for nausea. She has tramadol and Tylenol level at home. She is advised to return here for increasing pain, or fever. Orders Ordered: ED Orders 02/01/19 19:03 Blood Culture Stat Complete Blood Count AUTO DIFF Stat Comprehensive Metabolic Panel Stat Procalcitonin Stat 02/01/19 19:13 Lactate (Lactic Acid) Stat 02/01/19 21:07 Urine Microscopic Stat 02/01/19 21:37 Influenza A & B (PCR) Stat 02/01/19 21:55 Complete Blood Count AUTO DIFF Stat Lactate (Lactic Acid) Stat Procalcitonin Stat Discontinued Medications Hydromorphone HCl (Dilaudid) 1 mg IV NOW ONE Stop: 02/01/19 20:42 Last Admin: 02/01/19 20:52 Dose: 1 mg Documented by: JANICE Sodium Chloride (Normal Saline 0.9%) 1,000 mls @ 1,000 mls/hr IV BOLUS ONE Stop: 02/01/19 20:10 Last Infusion: 02/01/19 22:02 Dose: 0 mls/hr Documented by: Admin: 02/01/19 19:33 Dose: 1,000 mls/hr Documented by: JANICE Sodium Chloride (Normal Saline 0.9%) 1,000 mls @ 1,000 mls/hr IV BOLUS ONE Stop: 02/01/19 21:45 Last Infusion: 02/01/19 22:02 Dose: 0 mls/hr Documented by: Admin: 02/01/19 20:53 Dose: 1,000 mls/hr Documented by: JANICE Ketorolac Tromethamine (Toradol) 30 mg IV NOW ONE Stop: 02/01/19 19:12 Last Admin: 02/01/19 19:33 Dose: 30 mg Documented by: JANICE Ondansetron HCl (Zofran) 4 mg IV NOW ONE Stop: 02/01/19 19:12 Last Admin: 02/01/19 19:33 Dose: 4 mg Documented by: JANICE Ondansetron HCl (Zofran Odt Prepack) 1 bottle MISC SEEINSTR ONE Stop: 02/01/19 23:09 Vital Signs Vital signs: Vital Signs - 8 hr 02/01/19 18:09 02/01/19 21:06 02/01/19 23:44 Temperature 98.4 F Pulse Rate 86 81 88 Respiratory Rate 18 16 16 Blood Pressure 110/71 117/65 Blood Pressure [Right Arm] 124/70 Pulse Oximetry 100 97 97 MDM - Fever Lab Data Result diagrams: 02/01/19 21:55 02/01/19 19:03 Labs: Lab Results 02/01/19 02/01/19 02/01/19 Range/Units 19:03 19:03 19:03 WBC 28.7 H (4.5-11.0) X10^3/uL RBC 4.46 (4.0-5.2) X10^6/uL Hgb 14.6 (12.0-16.0) g/dL Hct 42.0 (36-46) % MCV 94.1 (80-100) fL MCH 32.7 (26-34) PG MCHC 34.8 (30-36) % RDW 12.7 (11.6-14.8) % Plt Count 192 (150-400) X10^3/uL Neut % (Auto) Not Reportable Lymph % (Auto) Not Reportable [place] % (Auto) Not Reportable Eos % (Auto) Not Reportable Baso % (Auto) Not Reportable Lymph # (Auto) Not Reportable [place] # (Auto) Not Reportable Baso # (Auto) Not Reportable Total Counted 100 Seg Neutrophils % 89.0 H (38-70) % Band Neutrophils % 6.0 (3-7) % Lymphocytes % (Manual) 2.0 L (25-45) % Monocytes % (Manual) 3.0 (2-11) % Neutrophils # (Manual) 76727 H (1211-2740) /uL RBC Morphology Normal morphology Sodium 137 (137-145) mmol/L Potassium 3.4 (3.4-5.1) mmol/L Chloride 101 (98-107) mmol/L Carbon Dioxide 28 (22-32) mmol/L BUN 11 (7-17) mg/dL Creatinine 0.90 (0.52-1.04) mg/dL Estimated GFR > 60.0 (>60) mL/min BUN/Creatinine Ratio 12.2 (6-22) Glucose 121 H (70-100) mg/dL Lactate (0.7-2.1) mmol/L Calcium 9.3 (8.4-10.2) mg/dL Total Bilirubin 0.8 (0.2-1.3) mg/dL AST 18 (14-36) IU/L ALT 16 (<35) IU/L Alkaline Phosphatase 73 (38-126) U/L Total Protein 7.2 (6.3-8.2) g/dL Albumin 4.1 (3.5-5.0) g/dL Globulin 3.1 (1.7-4.1) g/dL Albumin/Globulin Ratio 1.3 (1.0-2.8) Procalcitonin 1.40 H (<0.5) ng/mL Urine RBC (0-5/HPF) Urine WBC (0-5/HPF) Ur Squamous Epith Cells (0-5/HPF) Urine Bacteria (None) Ur Culture Indicated? Influenza A (RT-PCR) (NEGATIVE) Influenza B (RT-PCR) (NEGATIVE) 02/01/19 02/01/19 02/01/19 Range/Units 19:13 21:07 21:37 WBC (4.5-11.0) X10^3/uL RBC (4.0-5.2) X10^6/uL Hgb (12.0-16.0) g/dL Hct (36-46) % MCV (80-100) fL MCH (26-34) PG MCHC (30-36) % RDW (11.6-14.8) % Plt Count (150-400) X10^3/uL Neut % (Auto) Lymph % (Auto) [place] % (Auto) Eos % (Auto) Baso % (Auto) Lymph # (Auto) [place] # (Auto) Baso # (Auto) Total Counted Seg Neutrophils % (38-70) % Band Neutrophils % (3-7) % Lymphocytes % (Manual) (25-45) % Monocytes % (Manual) (2-11) % Neutrophils # (Manual) (9168-4391) /uL RBC Morphology Sodium (137-145) mmol/L Potassium (3.4-5.1) mmol/L Chloride (98-107) mmol/L Carbon Dioxide (22-32) mmol/L BUN (7-17) mg/dL Creatinine (0.52-1.04) mg/dL Estimated GFR (>60) mL/min BUN/Creatinine Ratio (6-22) Glucose (70-100) mg/dL Lactate 1.3 (0.7-2.1) mmol/L Calcium (8.4-10.2) mg/dL Total Bilirubin (0.2-1.3) mg/dL AST (14-36) IU/L ALT (<35) IU/L Alkaline Phosphatase (38-126) U/L Total Protein (6.3-8.2) g/dL Albumin (3.5-5.0) g/dL Globulin (1.7-4.1) g/dL Albumin/Globulin Ratio (1.0-2.8) Procalcitonin (<0.5) ng/mL Urine RBC 1-5/hpf (0-5/HPF) Urine WBC None seen (0-5/HPF) Ur Squamous Epith Cells 0-1 /hpf (0-5/HPF) Urine Bacteria Occasional (0-1) (None) Ur Culture Indicated? Cult not indicated Influenza A (RT-PCR) Flu a negative (NEGATIVE) Influenza B (RT-PCR) Flu b negative (NEGATIVE) 02/01/19 02/01/19 02/01/19 Range/Units 21:55 21:55 21:55 WBC 26.5 H (4.5-11.0) X10^3/uL RBC 3.93 L (4.0-5.2) X10^6/uL Hgb 12.7 (12.0-16.0) g/dL Hct 37.4 (36-46) % MCV 95.3 (80-100) fL MCH 32.3 (26-34) PG MCHC 33.8 (30-36) % RDW 12.6 (11.6-14.8) % Plt Count 169 (150-400) X10^3/uL Neut % (Auto) Not Reportable Lymph % (Auto) Not Reportable [place] % (Auto) Not Reportable Eos % (Auto) Not Reportable Baso % (Auto) Not Reportable Lymph # (Auto) Not Reportable [place] # (Auto) Not Reportable Baso # (Auto) Not Reportable Total Counted 100 Seg Neutrophils % 87.0 H (38-70) % Band Neutrophils % 3.0 (3-7) % Lymphocytes % (Manual) 3.0 L (25-45) % Monocytes % (Manual) 7.0 (2-11) % Neutrophils # (Manual) 15601 H (5049-1051) /uL RBC Morphology Normal morphology Sodium (137-145) mmol/L Potassium (3.4-5.1) mmol/L Chloride (98-107) mmol/L Carbon Dioxide (22-32) mmol/L BUN (7-17) mg/dL Creatinine (0.52-1.04) mg/dL Estimated GFR (>60) mL/min BUN/Creatinine Ratio (6-22) Glucose (70-100) mg/dL Lactate 0.7 (0.7-2.1) mmol/L Calcium (8.4-10.2) mg/dL Total Bilirubin (0.2-1.3) mg/dL AST (14-36) IU/L ALT (<35) IU/L Alkaline Phosphatase (38-126) U/L Total Protein (6.3-8.2) g/dL Albumin (3.5-5.0) g/dL Globulin (1.7-4.1) g/dL Albumin/Globulin Ratio (1.0-2.8) Procalcitonin 1.09 H (<0.5) ng/mL Urine RBC (0-5/HPF) Urine WBC (0-5/HPF) Ur Squamous Epith Cells (0-5/HPF) Urine Bacteria (None) Ur Culture Indicated? Influenza A (RT-PCR) (NEGATIVE) Influenza B (RT-PCR) (NEGATIVE) Urine Dip Bedside Urine Glucose Negative Bedside Urine Bilirubin - Negative Bedside Urine Ketone - Negative Urine Specific [place] 1.005 Bedside Urine Occult Blood + Bedside Urine pH 6.5 Bedside Urine Protein - Negative Bedside Urine Urobilinogen - Negative Bedside Urine Nitrite - Negative Bedside Urine Leukocytes +/- 15 Esterase Discharge Plan Departure Patient Disposition: Home Clinical Impression: Acute gastroenteritis Discharge Date/Time: 02/01/19 23:44 Instructions: DI for Viral Gastroenteritis -- Adult Activity Restrictions/Additional Instructions: Avoid anti-inflammatory such as Motrin or Aleve. Tylenol 2 tablets every 4 hours as needed for pain. Tramadol every 6 hours as needed for added pain control. Zofran every 4 hours as needed for nausea. Drink plenty of fluids and maintain good hydration. Advance to a normal diet as tolerated. Prescriptions: New ondansetron 4 mg tablet,disintegrating 4 mg PO Q4H PRN (Reason: nausea and vomiting) Qty: 14 RF: 0 No Action ASPIRIN (Aspirin) 81 mg PO Q DAY Qty: 0 RF: 0 amlodipine [Norvasc] 10 MG tablet 10 mg PO Q DAY Qty: 0 RF: 0 bupropion HCl 150 mg tablet sustained-release 12 hr 150 mg PO DAILY Qty: 30 RF: 0 Ventolin HFA 90 mcg/actuation HFA aerosol inhaler 2 puff Inhalation Q4HP PRN (Reason: shortness of breath or wheezing) Qty: 3 RF: 3 pimecrolimus [Elidel] 1 % cream 1 applictn Topical BID Qty: 30 RF: 1 [estrogen pearls] 1 mg Vaginal 2XW Qty: 30 RF: 0 citalopram 20 mg tablet 20 mg PO DAILY RF: 0 levothyroxine [Synthroid] 125 mcg tablet 125 mcg PO DAILY RF: 0 gabapentin 300 mg capsule 300 mg PO BID RF: 0 Referrals: Reva Arteaga DO [Primary Care Provider] -
[2019-02-01 19:28] LABS: Hemoglobin 14.6 g/dL (12.0-16.0); Mean Corpuscular HGB Conc 34.8 % (30-36); Mean Corpuscular Hemoglobin 32.7 PG (26-34); Mean Corpuscular Volume 94.1 fL (80-100); Platelet Count 192 X10^3/uL (150-400); Red Blood Cell Count 4.46 X10^6/uL (4.0-5.2); Red Cell Distribution Width 12.7 % (11.6-14.8); White Blood Cell Count 28.7 X10^3/uL (4.5-11.0)
[2019-02-01] MEDS: ONDANSETRON 4 MG/2 ML INJ IV (19:33)
[2019-02-01] MEDS: KETOROLAC 60 MG/2 ML VIAL 30 MG IV (19:33)
[2019-02-01] MEDS: SODIUM CHLORIDE 0.9% 1,000 ML 1000 ML IV ×2 (19:33→20:53)
[2019-02-01 19:40] LABS: Lactate (Lactic Acid) 1.3 mmol/L (0.7-2.1)
[2019-02-01 19:41] LABS: Alanine Aminotransferase 16 IU/L (<35); Albumin 4.1 g/dL (3.5-5.0); Albumin Globulin Ratio 1.3 (1.0-2.8); Alkaline Phosphatase 73 U/L (38-126); Aspartate Aminotransferase 18 IU/L (14-36); BUN Creatinine Ratio 12.2 (6-22); Bilirubin Total 0.8 mg/dL (0.2-1.3); Blood Urea Nitrogen 11 mg/dL (7-17); Calcium 9.3 mg/dL (8.4-10.2); Carbon Dioxide 28 mmol/L (22-32); Chloride 101 mmol/L (98-107); Estimated Glomerular Filt Rate > 60.0 mL/min (>60); Globulin 3.1 g/dL (1.7-4.1); Glucose 121 mg/dL (70-100); HEMOLYSIS 27 (0-50); Potassium 3.4 mmol/L (3.4-5.1); Sodium 137 mmol/L (137-145); Total Protein 7.2 g/dL (6.3-8.2)
[2019-02-01 19:44] LABS: Add Manual Diff / Slide Review YES
[2019-02-01 20:12] LABS: Neutrophils Absolute Manual 27265 /uL (3000-5900); RBC Morphology Normal Morphology; Total Cells Counted 100
[2019-02-01] MEDS: HYDROMORPHONE 1 MG INJ IV (20:52)
[2019-02-01 21:06] VITALS: BP 124/70; PULSE 81; RESP 16; O2SAT 97
[2019-02-01 21:19] LABS: WBC Urine None Seen (0-5/HPF)
[2019-02-01 21:32] LABS: Bacteria Urine Occasional (0-1); Culture Indicated Urine Cult Not Indicated; RBC Urine 1-5/HPF (0-5/HPF); Squamous Epithelial Cell Urine 0-1 /HPF (0-5/HPF)
[2019-02-01 22:08] LABS: Hematocrit 37.4 % (36-46); Hemoglobin 12.7 g/dL (12.0-16.0); Mean Corpuscular HGB Conc 33.8 % (30-36); Mean Corpuscular Hemoglobin 32.3 PG (26-34); Mean Corpuscular Volume 95.3 fL (80-100); Platelet Count 169 X10^3/uL (150-400); Red Blood Cell Count 3.93 X10^6/uL (4.0-5.2); Red Cell Distribution Width 12.6 % (11.6-14.8); White Blood Cell Count 26.5 X10^3/uL (4.5-11.0)
[2019-02-01 22:10] LABS: Add Manual Diff / Slide Review YES
[2019-02-01 22:12] LABS: Lactate (Lactic Acid) 0.7 mmol/L (0.7-2.1)
[2019-02-01 22:21] LABS: Influenza A - CEPHEID Flu A NEGATIVE (NEGATIVE); Influenza B - CEPHEID Flu B NEGATIVE (NEGATIVE)
[2019-02-01 22:32] LABS: Procalcitonin 1.09 ng/mL (<0.5)
[2019-02-01 22:38] LABS: Neutrophils Absolute Manual 23850 /uL (3000-5900); RBC Morphology Normal Morphology; Total Cells Counted 100
[2019-02-01 23:44] VITALS: BP 117/65; PULSE 88; RESP 16; O2SAT 97
[2019-02-02 12:34] LABS: Enterococcus species Not Detected (Not Detect); Listeria monocytogenes Not Detected (Not Detect); Methicillin-resistant gene Not Detected (Not Detect); Staphylococcus species Detected (Not Detect); Vancomycin-rest genes A/B Not Detected (Not Detect)
[2019-02-02 12:35] LABS: Acinetobacter baumannii Not Detected (Not Detect); Candida albicans Not Detected (Not Detect); Candida glabrata Not Detected (Not Detect); Candida krusei Not Detected (Not Detect); Candida parapsilosis Not Detected (Not Detect); Candida tropicalis Not Detected (Not Detect); E. coli Not Detected (Not Detect); Enterobacter cloacae complex Not Detected (Not Detect); Enterobacteriaceae species Not Detected (Not Detect); Haemophilus influenzae Not Detected (Not Detect); KPC (carbapenem-resist gene) Not Detected (Not Detect); Neisseria meningitidis Not Detected (Not Detect); Proteus species Not Detected (Not Detect); Pseudomonas aeruginosa Not Detected (Not Detect); Serratia marcescens Not Detected (Not Detect); Streptococcus agalactiae (Gr B Not Detected (Not Detect); Streptococcus pneumonia Not Detected (Not Detect); Streptococcus pyogenes (Gr A) Not Detected (Not Detect); Streptococcus species Not Detected (Not Detect)
== END 2019-02-01 23:44 | disposition home or self-care (01) ==
PROVIDERS: Emergency Provider Emergency Medicine; PCP Family Medicine
DX: K52.9 Noninfective gastroenteritis and colitis, unspecified (principal); Z98.890 Other specified postprocedural states; Y99.0 Civilian activity done for income or pay
CPT/HCPCS: 36415; 80053; 81003; 81015; 83605; 84145; 85025; 87040; 87150; 87186; 87205; 87502; 96361; 96374; 96375; 99281; 99284; J1170; J1885; J2405

== ENCOUNTER 2019-02-02 14:38 | Emergency (ER) | payer OTHER, BC, SELFPAY ==
[2019-02-02] VITALS (7 sets, daily range): BP systolic 119–135; BP diastolic 67–74; PULSE 70–86; RESP 15–20; TEMP 36.6; O2SAT 90–99
[2019-02-02] MEDS: SODIUM CHLORIDE 0.9% 1,000 ML 1000 ML IV (15:20)
[2019-02-02] MEDS: ONDANSETRON 4 MG/2 ML INJ IV ×2 (15:21→19:43)
[2019-02-02 15:27] LABS: Add Manual Diff / Slide Review NO; Basophils Absolute Auto 100 /uL (0-100); Basophils Percent Auto 0.5 % (0-2); Eosinophils Absolute Auto 100 /uL (0-450); Eosinophils Percent Auto 0.4 % (2-4); Hematocrit 38.5 % (36-46); Hemoglobin 12.9 g/dL (12.0-16.0); Lymphocytes Absolute Auto 1000 /uL (1100-4500); Lymphocytes Percent Auto 3.9 % (25-40); Mean Corpuscular HGB Conc 33.6 % (30-36); Mean Corpuscular Hemoglobin 32.3 PG (26-34); Mean Corpuscular Volume 96.1 fL (80-100); Monocytes Absolute Auto 1400 /uL (0-900); Monocytes Percent Auto 5.5 % (3-14); Neutrophils Absolute Auto 23200 /uL (1500-7000); Neutrophils Percent Auto 89.7 % (50-75); Platelet Count 163 X10^3/uL (150-400); Red Cell Distribution Width 12.9 % (11.6-14.8); White Blood Cell Count 25.9 X10^3/uL (4.5-11.0)
[2019-02-02 15:34] LABS: INR 1.4 (0.9-1.3); Prothrombin Time 16.1 SECONDS (10.1-12.7)
[2019-02-02 15:37] LABS: PTT Partial Thromboplastin Tim 30 SECONDS (26.4-36.2)
[2019-02-02 15:39] LABS: Alanine Aminotransferase 14 IU/L (<35); Albumin 3.7 g/dL (3.5-5.0); Albumin Globulin Ratio 1.3 (1.0-2.8); Alkaline Phosphatase 82 U/L (38-126); Aspartate Aminotransferase 13 IU/L (14-36); BUN Creatinine Ratio 12.5 (6-22); Bilirubin Total 0.8 mg/dL (0.2-1.3); Blood Urea Nitrogen 10 mg/dL (7-17); Carbon Dioxide 26 mmol/L (22-32); Chloride 105 mmol/L (98-107); Estimated Glomerular Filt Rate > 60.0 mL/min (>60); Globulin 2.9 g/dL (1.7-4.1); Glucose 102 mg/dL (70-100); HEMOLYSIS < 15 (0-50); Lactate (Lactic Acid) 1.1 mmol/L (0.7-2.1); Lipase 41 U/L (23-300); Sodium 140 mmol/L (137-145); Total Protein 6.6 g/dL (6.3-8.2)
[2019-02-02 15:40] LABS: Potassium 3.4 mmol/L (3.4-5.1)
--- NOTE | 2019-02-02 15:42 | ED_ITS ---
HPI - Recheck/Abnormal Lab/Rx General Chief Complaint: Recheck/Abnormal Lab/Rx Stated Complaint: positvie blood culture/told to come back in Time Seen by Provider: 02/02/19 15:24 Source: patient Mode of arrival: Ambulatory History of Present Illness HPI narrative: 53-year-old woman who is 2 weeks postop L3-[address] Abrams. Had been doing well postop until about 3 days ago when she started having aches chills nausea and vomiting. She was seen in the emergency room yesterday blood cultures were done and returned within 12 hours with 2/4 positive for Staph aureus. She continues to note significant fevers he is noting buttock and posterior upper thigh cramping as well as cramping through the upper thoracic region centrally. She has a slight headache without meningeal signs. She does not have significant abdominal pain nor chest pain. Her surgical site is clean and dry. There's no drainage from the area. Related Data Home Medications Medication Instructions Recorded Confirmed amlodipine [Norvasc] 10 mg PO Q DAY #0 01/15/11 02/02/19 aspirin 81 mg PO DAILY #0 01/15/11 02/02/19 citalopram 20 mg tablet 20 mg PO DAILY 03/19/18 02/02/19 levothyroxine [Synthroid] 125 mcg PO DAILY 08/06/18 02/02/19 gabapentin 300 mg capsule 300 mg PO BID 11/26/18 02/02/19 cyclobenzaprine 10 mg PO TID 02/02/19 02/02/19 Previous Rx's Medication Instructions Recorded [estrogen pearls] 1 mg VAGINAL 2XW #30 tab-cap 04/14/18 albuterol sulfate 90 mcg/actuation 2 puff INHALATION Q4HP PRN #3 inh 04/14/18 aerosol inhaler pimecrolimus 1 % topical cream 1 applictn TOPICAL BID #30 gram 04/14/18 bupropion HCl 150 mg tablet,12 hr 150 mg PO DAILY #30 each 08/11/18 sustained-release ondansetron 4 mg PO Q4H PRN #14 tab 02/01/19 Allergies Allergy/AdvReac Type Severity Reaction Status Date / Time lisinopril [LISINOPRIL] Allergy Severe angioedema Verified 11/26/18 15:36 codeine [CODEINE] Allergy Mild nausea Verified 11/26/18 15:36 FLORA Inhibitors Allergy Verified 11/26/18 15:36 Opioids - Morphine Analogues AdvReac Verified 11/26/18 15:36 Review of Systems Review of Systems ROS Unobtainable: All systems reviewed & are unremarkable except as noted in HPI and below Patient History Medical History Anxiety (Chronic 1984) Asthma (Chronic 1974) Central sleep apnea (Chronic ~2013) Chronic back pain (Chronic 2004) Depression (Chronic 1984) Hypertension (Chronic 2009) Hypothyroidism (Chronic 2009) Obesity (BMI 30-39.9) (Chronic) Obstructive sleep apnea (Chronic ~2013) Ovarian cyst (Resolved) Surgical History Anesthesia (Resolved) History of abdominoplasty (Resolved 1997) History of cataract surgery (Acute ~01/2018) History of lumbar surgery (Acute) Family History Father Age: 82 Heart disease Hypertension Glaucoma Adenocarcinoma, lung Mother Age: 85 Alcoholism Brother No problems noted. Sister No problems noted. Social History marital status: household members: spouse occupational status: employed Smoking Status: Former smoker Smoking Status: Former smoker alcohol intake frequency: a few times a week Substance Use Type: marijuana Exam Narrative Exam Narrative: General: Healthy appearing, in moderate distress. Able to give a complete and coherent history. Well-nourished well-developed HEENT: Moist mucous membranes, normal sclera with reactive pupils, Neck: No JVD, supple Respiratory: Lungs are clear to auscultation, no wheezing no rales no rhonchi. Full and symmetrical air movement Cardiac: Regular rate and rhythm no murmurs no bruits Abdomen: Soft nontender good bowel tones, no flank pain Skin: Warm and dry, no rashes Neurologic: Grossly neurologically intact with no obvious asymmetries or abnormalities Spine: nicely healing lumbar surgical site without erythema or obvious abscess Extremities: No trauma, well perfused Psych: Cooperative, appropriate insight and affect Initial Vital Signs Initial Vital Signs: Vital Signs Temperature 97.9 F 02/02/19 14:44 Pulse Rate 79 02/02/19 14:44 Respiratory Rate 20 02/02/19 14:44 Blood Pressure 135/74 02/02/19 14:44 Pulse Oximetry 99 02/02/19 14:44 Course Course Decision to Admit Date: 02/02/19 Decision to Admit time: 16:26 Additional Information: Have spoken to Dr Abrams. He recommended MR with and without contrast of the thoracic and lumbar spine. He also felt that admission was very appropriate and admitting to [facility] with a hospitalist consult would and neurosurgical consult would be the most effective way to care for this woman. He agreed with beginning antibiotics in the form of vancomycin and ceftriaxone. Pain has been moderately controlled at this time. Have spoken with the transfer center at [facility] to arrange transport as soon as the MRI has been completed. Dr. Abrams states that he can axis MRI results easily from [facility] Orders Ordered: ED Orders 02/02/19 14:57 Blood Culture Stat 02/02/19 15:08 Complete Blood Count AUTO DIFF Stat Comprehensive Metabolic Panel Stat Lactate (Lactic Acid) Stat Lipase Stat Partial Thromboplastin Time Stat Procalcitonin Stat Prothrombin Time INR Stat 02/02/19 15:54 MR lumbar spine wo/w con Stat MR thoracic spine wo/w con Stat 02/02/19 16:17 Urine Microscopic Stat Methocarbamol (Robaxin) 750 mg PO NOW ONE Stop: 02/02/19 19:06 Discontinued Medications Hydromorphone HCl (Dilaudid) 1 mg IV NOW ONE Stop: 02/02/19 15:55 Last Admin: 02/02/19 16:04 Dose: 1 mg Documented by: BENOIT Sodium Chloride (Normal Saline 0.9%) 1,000 mls @ 1,000 mls/hr IV BOLUS ONE Stop: 02/02/19 15:56 Last Infusion: 02/02/19 17:50 Dose: 0 mls/hr Documented by: Admin: 02/02/19 15:20 Dose: 1,000 mls/hr Documented by: TERRELL Ceftriaxone Sodium/Dextrose (Rocephin) 2 gm in 50 mls @ 100 mls/hr IV NOW ONE Stop: 02/02/19 16:24 Last Infusion: 02/02/19 16:32 Dose: 0 mls/hr Documented by: Admin: 02/02/19 16:04 Dose: 100 mls/hr Documented by: BENOIT Vancomycin HCl/Dextrose (Vancomycin) 1,500 mg in 300 mls @ 200 mls/hr IV 1730 HAZEL Stop: 02/02/19 18:59 Last Admin: 02/02/19 17:22 Dose: 200 mls/hr Documented by: TERRELL Ondansetron HCl (Zofran) 4 mg IV NOW ONE Stop: 02/02/19 15:18 Last Admin: 02/02/19 15:21 Dose: 4 mg Documented by: TERRELL Vancomycin HCl (Vancomycin Per Pharmacy) 1 request MISC NOW ONE Stop: 02/02/19 15:55 Last Admin: 02/02/19 18:13 Dose: Not Given Documented by: BENOIT Reevaluation(s) Reevaluation #1: Spoke with hospitalist at [facility], Dr. Billings. Accepts the patient. Working on the bed availability and then will arrange transport. She still has approximately 20 minutes in the MRI scanner. Time: 16:53 Reevaluation #2: MRI study and overall care is reviewed with Dr. Guevara, neurosurgeon. Patient will be transferred to [facility] to be admitted to the hospitalist service with neurosurgical consultation. She is stable at time of transfer and safe for transfer Time: 18:14 Vital Signs Vital signs: Vital Signs - 8 hr 02/02/19 14:44 02/02/19 15:20 02/02/19 15:26 Temperature 97.9 F Pulse Rate 79 72 76 Respiratory Rate 20 15 18 Blood Pressure 135/74 Blood Pressure [Right Arm] 122/70 122/70 Pulse Oximetry 99 97 98 02/02/19 18:40 Temperature Pulse Rate 86 Respiratory Rate 16 Blood Pressure Blood Pressure [Right Arm] 119/68 Pulse Oximetry 97 MDM - Recheck/Abnormal Lab/Rx Medical Records Attestation: I reviewed the patient's medical records. Lab Data Attestation: I reviewed the patient's lab results. Result diagrams: 02/02/19 15:08 02/02/19 15:08 Labs: Lab Results 02/02/19 02/02/19 02/02/19 Range/Units 15:08 15:08 15:08 WBC 25.9 H (4.5-11.0) X10^3/uL RBC 4.00 (4.0-5.2) X10^6/uL Hgb 12.9 (12.0-16.0) g/dL Hct 38.5 (36-46) % MCV 96.1 (80-100) fL MCH 32.3 (26-34) PG MCHC 33.6 (30-36) % RDW 12.9 (11.6-14.8) % Plt Count 163 (150-400) X10^3/uL Neut % (Auto) 89.7 H (50-75) % Lymph % (Auto) 3.9 L (25-40) % [place] % (Auto) 5.5 (3-14) % Eos % (Auto) 0.4 L (2-4) % Baso % (Auto) 0.5 (0-2) % Neut # (Auto) 75101 H (3779-8294) /uL Lymph # (Auto) 1000 L (7301-1698) /uL [place] # (Auto) 1400 H (0-900) /uL Eos # (Auto) 100 (0-450) /uL Baso # (Auto) 100 (0-100) /uL PT 16.1 H (10.1-12.7) SECONDS INR 1.4 H (0.9-1.3) APTT 30 (26.4-36.2) SECONDS Sodium (137-145) mmol/L Potassium (3.4-5.1) mmol/L Chloride (98-107) mmol/L Carbon Dioxide (22-32) mmol/L BUN (7-17) mg/dL Creatinine (0.52-1.04) mg/dL Estimated GFR (>60) mL/min BUN/Creatinine Ratio (6-22) Glucose (70-100) mg/dL Lactate (0.7-2.1) mmol/L Calcium (8.4-10.2) mg/dL Total Bilirubin (0.2-1.3) mg/dL AST (14-36) IU/L ALT (<35) IU/L Alkaline Phosphatase (38-126) U/L Total Protein (6.3-8.2) g/dL Albumin (3.5-5.0) g/dL Globulin (1.7-4.1) g/dL Albumin/Globulin Ratio (1.0-2.8) Lipase (23-300) U/L Procalcitonin 1.17 H (<0.5) ng/mL Urine RBC (0-5/HPF) Urine WBC (0-5/HPF) Ur Squamous Epith Cells (0-5/HPF) Urine Bacteria (None) Ur Culture Indicated? 02/02/19 02/02/19 02/02/19 Range/Units 15:08 15:08 16:17 WBC (4.5-11.0) X10^3/uL RBC (4.0-5.2) X10^6/uL Hgb (12.0-16.0) g/dL Hct (36-46) % MCV (80-100) fL MCH (26-34) PG MCHC (30-36) % RDW (11.6-14.8) % Plt Count (150-400) X10^3/uL Neut % (Auto) (50-75) % Lymph % (Auto) (25-40) % [place] % (Auto) (3-14) % Eos % (Auto) (2-4) % Baso % (Auto) (0-2) % Neut # (Auto) (4642-0925) /uL Lymph # (Auto) (4659-6021) /uL [place] # (Auto) (0-900) /uL Eos # (Auto) (0-450) /uL Baso # (Auto) (0-100) /uL PT (10.1-12.7) SECONDS INR (0.9-1.3) APTT (26.4-36.2) SECONDS Sodium 140 (137-145) mmol/L Potassium 3.4 (3.4-5.1) mmol/L Chloride 105 (98-107) mmol/L Carbon Dioxide 26 (22-32) mmol/L BUN 10 (7-17) mg/dL Creatinine 0.80 (0.52-1.04) mg/dL Estimated GFR > 60.0 (>60) mL/min BUN/Creatinine Ratio 12.5 (6-22) Glucose 102 H (70-100) mg/dL Lactate 1.1 (0.7-2.1) mmol/L Calcium 9.0 (8.4-10.2) mg/dL Total Bilirubin 0.8 (0.2-1.3) mg/dL AST 13 L (14-36) IU/L ALT 14 (<35) IU/L Alkaline Phosphatase 82 (38-126) U/L Total Protein 6.6 (6.3-8.2) g/dL Albumin 3.7 (3.5-5.0) g/dL Globulin 2.9 (1.7-4.1) g/dL Albumin/Globulin Ratio 1.3 (1.0-2.8) Lipase 41 (23-300) U/L Procalcitonin (<0.5) ng/mL Urine RBC 1-5/hpf (0-5/HPF) Urine WBC 0-1/hpf (0-5/HPF) Ur Squamous Epith Cells 1-5 /hpf (0-5/HPF) Urine Bacteria None seen (None) Ur Culture Indicated? Cult not indicated Urine Dip Bedside Urine Glucose 100 mg/dl Bedside Urine Bilirubin - Negative Bedside Urine Ketone - Negative Urine Specific [place] 1.010 Bedside Urine Occult Blood + Bedside Urine pH 7.0 Bedside Urine Protein +/- 15 Bedside Urine Urobilinogen +/- 1mg Bedside Urine Nitrite - Negative Bedside Urine Leukocytes - Negative Esterase Still significantly elevated white blood cell count. Blood cultures were repeated today. Two of 4 positive with Staph aureus last night. Lactic acid is currently pending. Imaging Data MRI lumbar spine with and without: Radiologist's impression: IMPRESSION: 1. There is a large rim-enhancing fluid collection at the dorsal midline of the operative bed, within the soft tissues having a craniocaudad length of 10.3 cm with a maximal AP and transverse dimension of 3.7 x 3.1 cm. 2. There is a anterior left-sided projection of the rim-enhancing fluid into the spinal canal through the operative bed to terminate adjacent to the L3-4 level of the left epidural space, but without visualized evidence of associated osteomyelitis, di scitis or a discrete epidural abscess above or below this level. The far anterior border of this left-sided epidural fluid extension is seen on series 15 image 27 post contrast imaging, L4-5 axial level. 3. Degenerative changes and postoperative change is present along the lumbosacral spine related to the recent operative intervention. Along the lower thoracic spine and the lumbosacral spine visualized no area of discitis or osteomyelitis is found. Note: Findings called to and discussed in detail with emergency physician caring for the patient. Dictated by: Roque Waldrop M.D. on 02/02/2019 at 17:46 MRI thoracic spine with and without contrast: Radiologist's impression: IMPRESSION: No epidural abscess, discitis or osteomyelitis is found. There is a pattern of generalized increased dural enhancement, a relatively nonspecific finding which can be associated with recent surgical intervention as is the reported clinical history for this patient. Please also refer to the lumbosacral spine MR scanning obtained today. Dictated by: Roque Waldrop M.D. on 02/02/2019 at 17:25 [facility] Narrative Medical decision making narrative: Significant worsening over the last 3 days with increasing pain spasms, fever, positive blood cultures, leukocytosis and headache. All strongly suggestive of a postoperative spinal infection. She currently is in MRI for further evaluation evaluation and will be transferred to [facility] for Dr. Abrams to further evaluate specifically in light of need for surgery or debridement with final diagnosis elucidated. At this time she is not tachycardic nor hypotensive and I do not suspect sepsis. Have started vancomycin and ceftriaxone. MRI confirmed a large abscess in the operative bed the L3-4 level without associated osteomyelitis diskitis or a discrete epidural abscess. Patient will be transferred to [facility] pain is controlled antibiotics have been initiated Critical Care Time Critical Care Time Critical Care Time: Yes Total Critical Care Time: 33 Attestation: Critical Care Time [33] minutes: Critical care time is separate from other billable procedures. This critical care time includes consultation with family and other consulting doctors, review of records, and interpretation of data from labs, EKGs and imaging as well as managements of possible epidural abscess, sepsis, significant neurologic compromise Discharge Plan Departure Patient Disposition: [facility] Clinical Impression: Post-operative wound abscess Complication, postoperative infection Qualifiers: Encounter type: subsequent encounter Postoperative infection type: deep incisional surgical site Qualified Code(s): T81.42XD - Infection following a procedure, deep incisional surgical site, subsequent encounter Prescriptions: No Action aspirin 81 mg Tablet,Delayed Release (Dr/Ec) 81 mg PO DAILY Qty: 0 RF: 0 amlodipine [Norvasc] 10 MG tablet 10 mg PO Q DAY Qty: 0 RF: 0 bupropion HCl 150 mg tablet sustained-release 12 hr 150 mg PO DAILY Qty: 30 RF: 0 Ventolin HFA 90 mcg/actuation HFA aerosol inhaler 2 puff Inhalation Q4HP PRN (Reason: shortness of breath or wheezing) Qty: 3 RF: 3 pimecrolimus [Elidel] 1 % cream 1 applictn Topical BID Qty: 30 RF: 1 [estrogen pearls] 1 mg Vaginal 2XW Qty: 30 RF: 0 citalopram 20 mg tablet 20 mg PO DAILY RF: 0 levothyroxine [Synthroid] 125 mcg tablet 125 mcg PO DAILY RF: 0 ondansetron 4 mg tablet,disintegrating 4 mg PO Q4H PRN (Reason: nausea and vomiting) Qty: 14 RF: 0 cyclobenzaprine 10 mg tablet 10 mg PO TID RF: 0 gabapentin 300 mg capsule 300 mg PO BID RF: 0 Referrals: Reva Arteaga DO [Primary Care Provider] -
--- NOTE | 2019-02-02 15:54 | DI.MRI.S_ITS ---
PROCEDURE: MR THORACIC SPINE WO/W CON INDICATIONS: fever, pain, + blood cultures 1.5 weeks post op L3-4 surg TECHNIQUE: Noncontrast sagittal T1 spin echo and T2 fast spin echo, sagittal STIR, axial T1 and T2 fast spin echo through the thoracic spine. After the administration of contrast, axial and sagittal T1 spin echo with fat saturation through the thoracic spine. COMPARISON: None. FINDINGS: Image quality: Excellent. Alignment and curvature: There is normal bony alignment. Marrow: Marrow is of normal overall signal. No acute vertebral body compression fractures. Spinal cord: Visualized spinal cord is of normal signal and size, without abnormal enhancement within. Note is made of generalized epidural enhancement consistent with the clinical history of recent surgical intervention. No epidural abscess is suspected. Paraspinous soft tissues: No paravertebral masses or abnormal enhancement. Note is made of dorsal soft tissue enhancement and edema within the fatty soft tissues extending from the low thoracic spine region below the imaging margin, in the lumbosacral spine region. Miscellaneous: Central canal and foramina appear widely patent at all scanned levels. IMPRESSION: No epidural abscess, discitis or osteomyelitis is found. There is a pattern of generalized increased dural enhancement, a relatively nonspecific finding which can be associated with recent surgical intervention as is the reported clinical history for this patient. Please also refer to the lumbosacral spine MR scanning obtained today. Dictated by: Roque Waldrop M.D. on 02/02/2019 at 17:25 Approved by: Roque Waldrop M.D. on 02/02/2019 at 17:29
--- NOTE | 2019-02-02 15:54 | DI.MRI.S_ITS ---
PROCEDURE: MR LUMBAR SPINE WO/W CON INDICATIONS: fever, pain, + blood cultures 1.5 weeks post op L3-4 surg TECHNIQUE: Noncontrast sagittal T1 spin echo and T2 fast spin echo, sagittal STIR, axial T1 and T2 fast spin echo through the lumbar spine. In cases with scoliosis, additional coronal T2 fast spin echo may be performed. After the administration of contrast, sagittal and axial T1 spin echo with fat saturation through the lumbar spine. COMPARISON: [facility], MR, MR LUMBAR SPINE WO/W CON, 05/30/2018, 8:29. FINDINGS: Image quality: Excellent. Alignment and curvature: There is normal bony alignment except for previously present mild retrolisthesis of L2 on L3 and slight anterolisthesis of L5 on S1. Marrow: Marrow is of normal overall signal. No acute vertebral body compression fractures or evidence of discitis/osteomyelitis. No suspicious marrow enhancement. Spinal cord: Conus medullaris terminates at the L1 level. Visualized spinal cord demonstrates normal signal, without suspicious enhancement. As was seen within the thoracic spine the dural surfaces aren't diffusely mildly enhancing, a finding often seen in the setting of recent operative intervention and not a definite indicator of infection along the dural surfaces. Paraspinous soft tissues: There is a posterior midline fluid collection that is abnormal, rim-enhancing, and has a maximal AP and transverse dimension of 3.7 x 10.3 cm. This tapers above and below, with the uppermost margin approximately that of the axial level of the L1-L2 disc space and the inferior extent at approximately the axial level of the L5-S1 disc space. The maximal transverse dimension is 3.1 cm. The inflammatory changes track anteriorly to the left of midline with a thin band of fluid tracking to the left margin of the thecal sac, near the left-sided facet joint medial border at L3-L4. IMPRESSION: 1. There is a large rim-enhancing fluid collection at the dorsal midline of the operative bed, within the soft tissues having a craniocaudad length of 10.3 cm with a maximal AP and transverse dimension of 3.7 x 3.1 cm. 2. There is a anterior left-sided projection of the rim-enhancing fluid into the spinal canal through the operative bed to terminate adjacent to the L3-4 level of the left epidural space, but without visualized evidence of associated osteomyelitis, discitis or a discrete epidural abscess above or below this level. The far anterior border of this left-sided epidural fluid extension is seen on series 15 image 27 post contrast imaging, L4-5 axial level. 3. Degenerative changes and postoperative change is present along the lumbosacral spine related to the recent operative intervention. Along the lower thoracic spine and the lumbosacral spine visualized no area of discitis or osteomyelitis is found. Note: Findings called to and discussed in detail with emergency physician caring for the patient. Dictated by: Roqeu Waldrop M.D. on 02/02/2019 at 17:46 Approved by: Roque Waldrop M.D. on 02/02/2019 at 17:59
[2019-02-02] MEDS: CEFTRIAXONE 2 GM/50 ML FROZ.PIGGY IV (16:04)
[2019-02-02] MEDS: HYDROMORPHONE 1 MG INJ IV ×2 (16:04→19:45)
[2019-02-02 16:18] LABS: Bacteria Urine None Seen
[2019-02-02 16:22] LABS: Procalcitonin 1.17 ng/mL (<0.5)
[2019-02-02 16:29] LABS: Culture Indicated Urine Cult Not Indicated; RBC Urine 1-5/HPF (0-5/HPF); Squamous Epithelial Cell Urine 1-5 /HPF (0-5/HPF); WBC Urine 0-1/HPF (0-5/HPF)
[2019-02-02] MEDS: VANCOMYCIN 1,500 MG/300 ML FROZ.PIGGY 200 MG IV (17:22)
[2019-02-02] MEDS: METHOCARBAMOL 500 MG TABLET 750 MG PO (19:35)
== END 2019-02-02 21:19 | disposition short-term general hospital (02) ==
PROVIDERS: Emergency Provider Emergency Medicine; PCP Family Medicine
DX: T81.49XA Infection following a procedure, other surgical site, initial encounter (principal); T81.42XD Infection following a procedure, deep incisional surgical site, subsequent encounter; Y99.0 Civilian activity done for income or pay
CPT/HCPCS: 36415; 72157; 72158; 80053; 81003; 81015; 83605; 83690; 84145; 85025; 85610; 85730; 87040; 96361; 96365; 96366; 96367; 96375; 96376; 99284; 99291; J0696; J1170; J2405

== ENCOUNTER → 2019-02-20 10:15 | Outpatient (CLI) | payer OTHER, BC, SELFPAY | PROVIDERS: PCP Family Medicine; Visit Provider Family Medicine | DX: S31.000A Unspecified open wound of lower back and pelvis without penetration into retroperitoneum, initial encounter (principal); T81.31XA Disruption of external operation (surgical) wound, not elsewhere classified, initial encounter | CPT/HCPCS: 11042; 99203 ==

== ENCOUNTER → 2019-02-24 08:58 | Outpatient (CLI) | payer OTHER, SELFPAY | PROVIDERS: PCP Family Medicine; Visit Provider Family Medicine | DX: S31.000A Unspecified open wound of lower back and pelvis without penetration into retroperitoneum, initial encounter (principal); T81.31XA Disruption of external operation (surgical) wound, not elsewhere classified, initial encounter | CPT/HCPCS: 11042; 97605 ==

== ENCOUNTER → 2019-02-24 11:09 | Outpatient (CLI) | payer OTHER, SELFPAY ==
[2019-02-24 11:53] LABS: Hematocrit 39.4 % (36-46); Hemoglobin 13.8 g/dL (12.0-16.0)
[2019-02-24 12:01] LABS: Albumin 4.4 g/dL (3.5-5.0)
== END ==
PROVIDERS: PCP Family Medicine; Visit Provider Family Medicine
DX: S31.000A Unspecified open wound of lower back and pelvis without penetration into retroperitoneum, initial encounter (principal); T81.31XA Disruption of external operation (surgical) wound, not elsewhere classified, initial encounter
CPT/HCPCS: 11042; 36415; 82040; 85014; 85018; 97605

== ENCOUNTER → 2019-02-26 14:05 | Outpatient (CLI) | payer OTHER, SELFPAY | PROVIDERS: PCP Family Medicine; Visit Provider Family Medicine | DX: S31.000A Unspecified open wound of lower back and pelvis without penetration into retroperitoneum, initial encounter (principal) | CPT/HCPCS: 97605 ==

== ENCOUNTER → 2019-03-05 14:04 | Outpatient (CLI) | payer OTHER, SELFPAY | PROVIDERS: PCP Family Medicine; Visit Provider Family Medicine | DX: S31.000A Unspecified open wound of lower back and pelvis without penetration into retroperitoneum, initial encounter (principal); T81.31XA Disruption of external operation (surgical) wound, not elsewhere classified, initial encounter | CPT/HCPCS: 11042; 97605 ==

== ENCOUNTER → 2019-03-09 11:27 | Outpatient (CLI) | payer OTHER, SELFPAY | PROVIDERS: PCP Family Medicine; Visit Provider Family Medicine | DX: S31.000A Unspecified open wound of lower back and pelvis without penetration into retroperitoneum, initial encounter (principal) | CPT/HCPCS: 97605 ==

== ENCOUNTER → 2019-03-12 10:35 | Outpatient (CLI) | payer OTHER, SELFPAY | PROVIDERS: PCP Family Medicine; Visit Provider Family Medicine | DX: S31.000A Unspecified open wound of lower back and pelvis without penetration into retroperitoneum, initial encounter (principal); T81.31XA Disruption of external operation (surgical) wound, not elsewhere classified, initial encounter | CPT/HCPCS: 11042; 97605 ==

== ENCOUNTER → 2019-03-17 15:02 | Outpatient (CLI) | payer OTHER, SELFPAY | PROVIDERS: PCP Family Medicine; Referring Provider Family Medicine; Visit Provider Family Medicine | DX: S31.000A Unspecified open wound of lower back and pelvis without penetration into retroperitoneum, initial encounter (principal) | CPT/HCPCS: 99213 ==

== ENCOUNTER → 2019-10-06 08:26 | Outpatient (CLI) | payer BC, SELFPAY ==
[2019-10-06 09:47] LABS: Add Manual Diff / Slide Review NO; Basophils Absolute Auto 100 /uL (0-100); Basophils Percent Auto 1.2 % (0-2); Eosinophils Absolute Auto 100 /uL (0-450); Eosinophils Percent Auto 2.3 % (2-4); Hematocrit 42.9 % (36-46); Hemoglobin 14.6 g/dL (12.0-16.0); Lymphocytes Absolute Auto 1600 /uL (1100-4500); Lymphocytes Percent Auto 25.6 % (25-40); Mean Corpuscular Hemoglobin 33.2 PG (26-34); Mean Corpuscular Volume 97.6 fL (80-100); Monocytes Absolute Auto 500 /uL (0-900); Monocytes Percent Auto 8.6 % (3-14); Neutrophils Absolute Auto 3800 /uL (1500-7000); Neutrophils Percent Auto 62.3 % (50-75); Platelet Count 235 X10^3/uL (150-400); Red Blood Cell Count 4.39 X10^6/uL (4.0-5.2); Red Cell Distribution Width 12.5 % (11.6-14.8); White Blood Cell Count 6.1 X10^3/uL (4.5-11.0)
[2019-10-06 10:15] LABS: Alanine Aminotransferase 15 IU/L (<35); Albumin 4.6 g/dL (3.5-5.0); Albumin Globulin Ratio 1.6 (1.0-2.8); Alkaline Phosphatase 65 U/L (38-126); Aspartate Aminotransferase 18 IU/L (14-36); BUN Creatinine Ratio 12.5 (6-22); Bilirubin Total 0.6 mg/dL (0.2-1.3); Blood Urea Nitrogen 13 mg/dL (7-17); Calcium 9.6 mg/dL (8.4-10.2); Carbon Dioxide 21 mmol/L (22-32); Chloride 107 mmol/L (98-107); Cholesterol 206 mg/dL (140-199); Estimated Glomerular Filt Rate 55.2 mL/min (>60); Globulin 2.8 g/dL (1.7-4.1); Glucose 109 mg/dL (70-100); HDL Cholesterol 50 mg/dL (40-60); HEMOLYSIS < 15 (0-50); LDL Cholesterol Calculated 108 mg/dL (<100); Potassium 4.3 mmol/L (3.4-5.1); Sodium 138 mmol/L (137-145); Total Protein 7.4 g/dL (6.3-8.2); Triglycerides 240 mg/dL (35-150)
[2019-10-06 10:44] LABS: TSH w/ Reflex to FT4 2.39 uIU/mL (0.47-4.68)
== END ==
PROVIDERS: PCP Family Medicine; Referring Provider Family Medicine; Visit Provider Family Medicine
DX: D64.9 Anemia, unspecified (principal); E03.9 Hypothyroidism, unspecified; E66.9 Obesity, unspecified; G47.33 Obstructive sleep apnea (adult) (pediatric); I10 Essential (primary) hypertension
CPT/HCPCS: 36415; 80053; 80061; 84443; 85025

== ENCOUNTER → 2019-10-09 13:00 | Outpatient (CLI) | payer BC, SELFPAY ==
[2019-10-09 13:13] LABS: Bacteria Urine None Seen
[2019-10-09 13:26] LABS: Appearance Urine UA CLEAR; Bilirubin Urine UA NEGATIVE (NEGATIVE); Color Urine UA YELLOW; Glucose Urine UA NEGATIVE (Negative); Ketones Urine UA NEGATIVE (NEGATIVE); Leukocyte Esterase Urine UA NEGATIVE (NEGATIVE); Nitrite Urine UA NEGATIVE (Negative); Occult Blood Urine UA TRACE-LYSED (Negative); Protein Urine UA NEGATIVE (Negative); Specific Gravity Urine UA <=1.005 (1.000-1.035); Urobilinogen Urine UA 0.2 E.U./dL (0.2)
[2019-10-09 13:30] LABS: pH Urine UA 7.5 (4.5-8.0)
[2019-10-09 13:34] LABS: RBC Urine 0-1/HPF (0-5/HPF); Squamous Epithelial Cell Urine 0-1 /HPF (0-5/HPF); WBC Urine 0-1/HPF (0-5/HPF)
[2019-10-09 13:35] LABS: Culture Indicated Urine Cult Not Indicated
[2019-10-09 15:09] LABS: Creatinine Urine Random 17.6 mg/dL
[2019-10-09 15:15] LABS: Microalbumin Urine Random < 0.6 mg/dL (0-1.6)
[2019-10-09 16:30] LABS: BUN Creatinine Ratio 15.6 (6-22); Blood Urea Nitrogen 14 mg/dL (7-17); Calcium 9.3 mg/dL (8.4-10.2); Carbon Dioxide 20 mmol/L (22-32); Chloride 106 mmol/L (98-107); Estimated Glomerular Filt Rate > 60.0 mL/min (>60); Glucose 97 mg/dL (70-100); HEMOLYSIS < 15 (0-50); Potassium 3.9 mmol/L (3.4-5.1); Sodium 137 mmol/L (137-145)
== END ==
PROVIDERS: PCP Family Medicine; Referring Provider Family Medicine; Visit Provider Family Medicine
DX: I10 Essential (primary) hypertension (principal)
CPT/HCPCS: 36415; 80048; 81001; 82043; 82570

== ENCOUNTER → 2019-10-14 16:48 | Outpatient (CLI) | payer BC, SELFPAY | PROVIDERS: PCP Family Medicine; Visit Provider Family Medicine | DX: N39.0 Urinary tract infection, site not specified (principal) | CPT/HCPCS: 87077; 87086; 87147 ==

== ENCOUNTER → 2019-11-06 13:19 | Outpatient (CLI) | payer BC, SELFPAY ==
[2019-11-06 13:25] LABS: Bacteria Urine None Seen; WBC Urine None Seen (0-5/HPF)
[2019-11-06 14:21] LABS: Appearance Urine UA CLEAR; Bilirubin Urine UA NEGATIVE (NEGATIVE); Color Urine UA YELLOW; Glucose Urine UA NEGATIVE (Negative); Ketones Urine UA NEGATIVE (NEGATIVE); Leukocyte Esterase Urine UA NEGATIVE (NEGATIVE); Nitrite Urine UA NEGATIVE (Negative); Occult Blood Urine UA 1+ (Negative); Protein Urine UA NEGATIVE (Negative); Specific Gravity Urine UA 1.015 (1.000-1.035); Urobilinogen Urine UA 0.2 E.U./dL (0.2)
[2019-11-06 14:24] LABS: pH Urine UA 7.5 (4.5-8.0)
[2019-11-06 14:25] LABS: Culture Indicated Urine Cult Not Indicated; RBC Urine 0-1/HPF (0-5/HPF)
[2019-11-06 15:35] LABS: Microalbumin Urine Random < 0.6 mg/dL (0-1.6)
== END ==
PROVIDERS: PCP Family Medicine; Referring Provider Family Medicine; Visit Provider Family Medicine
DX: I10 Essential (primary) hypertension (principal); R31.9 Hematuria, unspecified
CPT/HCPCS: 81001; 82043; 82570

== ENCOUNTER → 2019-12-28 09:14 | Outpatient (CLI) | payer OTHER, SELFPAY ==
[2019-12-28 10:32] LABS: Add Manual Diff / Slide Review NO; Basophils Absolute Auto 100 /uL (0-100); Basophils Percent Auto 0.6 % (0-2); Eosinophils Absolute Auto 200 /uL (0-450); Hematocrit 41.8 % (36-46); Hemoglobin 14.2 g/dL (12.0-16.0); Lymphocytes Absolute Auto 1700 /uL (1100-4500); Lymphocytes Percent Auto 22.5 % (25-40); Mean Corpuscular Hemoglobin 32.6 PG (26-34); Mean Corpuscular Volume 95.9 fL (80-100); Monocytes Absolute Auto 500 /uL (0-900); Monocytes Percent Auto 6.5 % (3-14); Neutrophils Absolute Auto 5300 /uL (1500-7000); Neutrophils Percent Auto 68.4 % (50-75); Platelet Count 214 X10^3/uL (150-400); Red Blood Cell Count 4.36 X10^6/uL (4.0-5.2); Red Cell Distribution Width 12.2 % (11.6-14.8); White Blood Cell Count 7.7 X10^3/uL (4.5-11.0)
[2019-12-28 10:56] LABS: Erythrocyte Sedimentation Rate 44 MM/HR (0-20)
[2019-12-28 14:47] LABS: C-Reactive Protein Quant 0.6 mg/dL (<1.0); Carbon Dioxide 24 mmol/L (22-32); Chloride 110 mmol/L (98-107); HEMOLYSIS < 15 (0-50); Potassium 3.9 mmol/L (3.4-5.1); Sodium 138 mmol/L (137-145)
== END ==
PROVIDERS: PCP Family Medicine; Referring Provider Orthopaedic Surgery; Visit Provider Orthopaedic Surgery
DX: Z01.812 Encounter for preprocedural laboratory examination (principal); Z01.818 Encounter for other preprocedural examination
CPT/HCPCS: 36415; 80051; 85025; 85651; 86140; 93005

== ENCOUNTER → 2020-01-09 10:05 | Outpatient (CLI) | payer OTHER, SELFPAY ==
[2020-01-09 11:06] LABS: COVID19 -Nasal RAPID Negative (Negative)
== END ==
PROVIDERS: PCP Family Medicine; Visit Provider Physician Assistant
DX: Z11.59 Encounter for screening for other viral diseases (principal)
CPT/HCPCS: 87635

== ENCOUNTER 2020-01-11 08:37 | Day surgery (SDC) | payer OTHER, SELFPAY ==
[2020-01-04 08:56] VITALS: BMI 29.8
[2020-01-11] VITALS (11 sets, daily range): BP systolic 98–122; BP diastolic 53–93; PULSE 67–87; RESP 12–20; TEMP 36–36.4; O2SAT 95–98; BMI 29.9
--- NOTE | 2020-01-11 08:56 | DI.RAD.S_ITS ---
PROCEDURE: XR KNEE RT 1TO2V INDICATIONS: post op films TECHNIQUE: To view(s) of the knee acquired. COMPARISON: None. FINDINGS: Bones: Patient is status post knee joint arthroplasty. Hardware components are in expected positions. Visualized bony structures are intact. Soft tissues: Overlying postoperative changes are noted. IMPRESSION: Normal alignment after right total knee arthroplasty. Dictated by: Roque Waldrop M.D. on 01/11/2020 at 12:58 Approved by: Roque Waldrop M.D. on 01/11/2020 at 12:58
[2020-01-11] MEDS: SCOPOLAMINE 1 PATCH TOP (09:25)
[2020-01-11] MEDS: ACETAMINOPHEN 325 MG TABLET 975 MG PO (09:25)
[2020-01-11] MEDS: CELECOXIB 200 MG CAPSULE PO (09:25)
[2020-01-11] MEDS: PREGABALIN 75 MG CAPSULE PO (09:26)
[2020-01-11] MEDS: LACTATED RINGERS 1,000 ML 42 ML IV ×2 (09:26→12:33)
--- NOTE | 2020-01-11 09:30 | PM.PREOP ---
Pre-operative Note COVID-19 COVID-19 status: Negative Result date/Date tested (Pos, Neg/Pending): 01/08/20 Interval Note History & Physical reviewed/Exam performed by Physician: Yes Changes to H&P: No
--- NOTE | 2020-01-11 09:31 | P.OP_ITS ---
Operative Date/Time/Diagnoses Date of procedure: 01/11/20 Time of procedure: 11:54 Pre-op diagnosis: Right knee osteoarthritis Post-op diagnosis: same Procedure & Clinicians Procedure: Right total knee arthroplasty Same procedure as scheduled: Yes Indications: The patient presents today for total knee arthroplasty after failure of conservative treatment. The nature of the procedure including the risks and benefits, alternatives, postoperative course and expected outcome were discussed and all questions answered. Consent was obtained. Operative site confirmed and marked. Surgeon: Georges Forde Certified Legal Investigator: Jh Mauricio Anesthesia Type: General, Spinal and Local Operative Notes Closure Type: primary Specimen(s): none sent Prosthetic devices, grafts, tissues, transplants, or devices: [facility] BCS: 6 femoral component, 4 tibial component, 10 mm BCS polyethylene tray and 32 x 9 mm round patella Applied: implant(s) Estimated Blood Loss (mL): 5 Blood products transfused: none Tourniquet time (min): 53 Procedure in detail: The patient was taken to the operative suite and placed under anesthesia. The patient was given prophylactic antibiotics prior to surgery. The patient was also given tranexamic acid, 1 g, just prior to surgery for postoperative hemostasis. The lateral knee was prepped and the joint injected with 20 mL of 1% Lidocaine with epinephrine. The knee was then prepped and draped in usual sterile fashion. The leg was exsanguinated with an Esmarch dressing and the tourniquet raised to 250 torr. A 15 cm anterior incision was made. Next a medial trivector arthrotomy was made. The extensor mechanism was marked to ensure accurate repair. Initial exposing dissection was carried out medially and laterally. The knee was then flexed and the intramedullary femoral guide valentin placed. The distal femoral cut was made in 6? of valgus at the +0 position. The femoral size was measured and the appropriate cutting block was then placed and the anterior, posterior and chamfer cuts made. The intramedullary tibial alignment valentin was then placed. The guide was set to remove approximately 9 mm from the less affected medial side. The proximal tibial cut was then made with an oscillating saw. All meniscus and bony debris was then removed. Posterior femoral osteophytes removed with a curved osteotome. Flexion extension gaps were checked. There is mild tightness laterally in both flexion extension. This was corrected using a 15 blade with a pie crust technique and the lateral capsule. The soft tissues were then injected with a combination of 20 mL of half percent Marcaine with epinephrine and 20 mL of Exparel. The trial components were then placed. The knee was then extended and the patellar thickness was measured and a cut made removing approximately 9 mm of bone. The patella was then sized and drilled. Some excess lateral bone was excised and the patellofemoral ligament released. The knee went into full extension and flexion beyond 130?. There was excellent medial-lateral balance throughout motion. Patellar tracking was excellent. The trial components were removed and the knee was cleansed with Pulsavac irrigation and dried. The final components were cemented with high viscosity vacuum mixed bone cement with antibiotics. The joint was filled with a dilute Betadine solution. The knee was held in extension and the patellar clamped until the cement was adequately cured. The knee was then irrigated. The extensor mechanism was closed with 5 interrupted #1 Vicryl sutures and a running Quill suture at approximately 90 degrees of flexion. The joint was then injected with a combination of 1 g of tranexamic acid and 20 mL of quarter percent Marcaine with epinephrine. The subcutaneous tissue was closed with 2 0 Vicryl. The skin was closed with absorbable subcuticular sutures and surgical adhesive. An Aquacel dressing and Balbir wrap were then applied. The patient tolerated the procedure well and was returned to recovery room in good condition. Complications: none Post-operative Condition: stable Disposition: PACU Plan for aftercare: [facility] Protocol.
[2020-01-11] MEDS: CEFAZOLIN 2 GM/100 ML FROZ.PIGGY IV ×2 (10:26→15:37)
--- NOTE | 2020-01-11 10:56 | SUR.OPER ---
Supine on padded OR bed. Pillow under head, arms secured on padded armboards <90 degree abduction. Safety belt across torso. Non-operative leg secured with tape over blanket over lower leg. Operative leg secured in Kaz positioner. Foam padded brace at thigh of operative leg.
[2020-01-11] MEDS: LIDOCAINE 1% W/EPI 20 ML INJ (11:01)
[2020-01-11] MEDS: BUPIVACAINE 0.25% W/ EPI (PF) 20 ML, TRANEXAMIC ACID 1,000 MG, SODIUM CHLORIDE 0.9% 10 ML INJ (11:01)
[2020-01-11] MEDS: TRANEXAMIC ACID 1,000 MG VIAL 1000 MG INJ (11:02)
[2020-01-11] MEDS: BUPIVACAINE 0.25% W/ EPI (PF) 40 ML, BUPIVACAINE LIPOSOME 266 MG, SODIUM CHLORIDE 0.9% ... INJ (11:02)
[2020-01-11] MEDS: LACTATED RINGERS 1,000 ML 100 ML IV (12:40)
[2020-01-11] MEDS: ACETAMINOPHEN 325 MG TABLET 650 MG PO (14:49)
[2020-01-11] MEDS: IBUPROFEN 400 MG TABLET PO ×2 (14:49→17:42)
--- NOTE | 2020-01-11 15:21 | PC.NURSE ---
PT RECEIVED TO ROOM 229 POST OP RIGHT TOTAL KNEE - FLORA WRAP TO LEG WITH NO OBVIOUS EDEMA OR DRAINAGE - + CMS ALTHOUGH SOMEWHAT NUMB AND FAR AWAY FEELING PER PT- MEDICATED WITH PO ACETAMINOPHEN/IBUPROFEN NEW ORDER RECEIVED FOR PO VISTARIL FOR C/O ITCH- VEGETARIAN DIET ORDERED VSS
[2020-01-11] MEDS: hydrOXYzine pamoate 25 MG CAPSULE PO (15:34)
--- NOTE | 2020-01-11 16:40 | PT.IIE ---
Current Diagnoses Unilateral primary osteoarthritis, right knee (01/11/20) Surgery Performed Operation Date: 01/11/20 10:00 Actual Procedures p Total Knee Arthroplasty(Right) - Georges Forde MD Surgical History (Last Updated 01/04/20 @ 09:14 by Zenia Cardoza RN) Anesthesia History of abdominoplasty (1997) History of cataract surgery (~01/2018) History of lumbar surgery History of surgery (01/2019) History of surgery (~02/2019) Medical History (Last Updated 10/07/19 @ 21:03 by Reva Arteaga DO) Anxiety (1984) Asthma (1974) Central sleep apnea (~2013) Chronic back pain (2004) Depression (1984) Hypertension (2009) Hypothyroidism (2009) Obesity (BMI 30-39.9) Obstructive sleep apnea (~2013) Ovarian cyst Physical Therapy Inpatient Evaluation/Re-Eval M1 PT/OT-IP Prior Functional Status Start: 01/11/20 13:30 Freq: NEEDED Status: Active Protocol: Document 01/11/20 16:16 AW (Rec: 01/11/20 16:40 AW [id number]) Medical Review Prior Functional Status Medical History Reviewed Yes Communication WNL. Pt is an effective verbal communicator. Mobility and Gait Pt ambulates without assistive device u to 2-3 miles. She uses trekking poles for hiking . Activities of Daily Living and IADL's Independent with all I/ADL's. 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 Prior Functional Level (Other details) Pt has had multiple spine surgeries since injury in 2017 . Social History Household Members spouse Living Arrangements House Number of Floors (Floors) Two Floors Number of Stairs To Enter/Railing? Level entrance. Pt plans to stay on the order entry administrator until able to manage stairs. Home Environment Standard Height Toilet,Tub/ Shower Home Equipment Front Wheel Walker,Straight Cane,Raised Toilet Seat w/ Armrests Employment Status Unemployed Additional Social History Comment Pt lives with her spouse, James , who works from home and will be available/able to assist. M2 PT-IP Current Condition Start: 01/11/20 13:30 Freq: NEEDED Status: Active Protocol: Document 01/11/20 16:16 AW (Rec: 01/11/20 16:40 AW [id number]) Physical Therapy Current Condition Current Condition Evaluation Date 01/11/20 Treatment Diagnosis R TKA; difficulty in walking Onset Date 01/11/20 Weight Bearing Status Weight Bearing Status Weight Bear as Tolerated M3 PT-IP Subjective Start: 01/11/20 13:30 Freq: NEEDED Status: Active Protocol: Document 01/11/20 16:16 AW (Rec: 01/11/20 16:40 AW [id number]) Subjective Physical Therapy Visit Type Type Initial Evaluation Visit Start Time 15:47 Visit Stop Time 16:10 Total Visit Minutes 23 Notes Pt's spouse, James, was present throughout. Number of PAI GOW DEALER Visits 0 Physical Therapy Visit Comments Patient Comments I'd really like to go home today. Patient Goals Return to more normal activity with less pain. Therapy Pain Assessment Pain When Pain Assessed During Mobility Pain Present Pain Present Denied Pain M4 PT-IP Mobility and Gait Start: 01/11/20 13:30 Freq: NEEDED Status: Active Protocol: Document 01/11/20 16:16 AW (Rec: 01/11/20 16:40 AW [id number]) PT-Bed Mobility Assessment Supine to Sit Supine to Sit Standby Assistance Sit to Supine Sit to Supine Standby Assistance Scooting Scooting to Edge of Bed Standby Assistance Scooting Up and Down in Bed Standby Assistance PT-Transfer Assessment Sit to and From Stand Sit to and from Stand Standby Assistance Equipment Transfer Assistive Device Gait Belt,Front Wheeled Walker Orthotic/Prosthetic Devices or Brace: No Transfers Transfer Destination Bed,Toilet Transfer Technique pt ambulated with FWW Transfer Ability Level of Assist Standby Assistance Comments Mobility Comments Pt was lying in the bed as PT arrived. RN reported she had already been up to the toilet with FWW. Pt completed all bed mobility with HOB [facility] SBA. BP was 119/65. Pt sat EOB and then stood with FWW SBA. She ambulated to the toilet where she transferred to and from SBA and completed all pericare IND. She then ambulated in the halls a total of 150 feet with FWW SBA. On return to the room, pt returned to the bed as ortho PA arrived. Gait Assessment Gait Gait Assistance Required: Standby Assistance Distance (Feet) 150 Assistive Devices Assistive Device Gait Belt,Front Wheeled Walker Orthotic/Prosthetic Devices or Brace: No Gait Deviations General Gait Pattern Antalgic,Decreased Stride Length,Decreased Feet Clearance,Flexed Trunk,Step-to Gait Factors Limiting Gait Function Factors Limiting Gait Function Decreased Activity Tolerance, Decreased Sensation,Decreased Strength,Limited Range of Motion,Pain Comments Gait Comments Gait was antalgic with decreased right stance time. Pt initiated gait with flexed trunk but was able to correct posture and gait pattern in response to cues. Stair Climbing Assessment Comments Stair Climbing Comments Not assessed. Pt will stay on the main level with no stairs to enter. PT-Balance Assessment Sitting Balance and Reactions Static Sitting Balance Ability Normal Dynamic Sitting Balance Ability Normal Standing Balance and Reactions Static Standing Balance Ability Good Dynamic Standing Balance Ability Good Device Used FWW M5 PT-IP Objective Assessments Start: 01/11/20 13:30 Freq: NEEDED Status: Active Protocol: Document 01/11/20 16:16 AW (Rec: 01/11/20 16:40 AW [id number]) Orientation Orientation/Cognition Level of Alertness Alert Orientation Name,Day of Week,Place, Situation Language Function Ability No Deficits Noted Safety Awareness Understands Safety Issues Memory Description No Deficits Noted Gross Range of Motion Lower Extremity ROM Assessment Right Impaired Strength Lower Extremity Strength Assessment Right Impaired Comments Strength Comments LLE grossly 5/5. R ankle eversion was limited on exam - likely due to effects of spinal anesthesia. Sensation Assessment Sensation Gross Sensation Right LE Impaired,Left LE Impaired Light Touch Impaired Sensation Description Numbness Muscle Tone Muscle Tone WNL Yes M6 PT-IP Treatment Start: 01/11/20 13:30 Freq: NEEDED Status: Active Protocol: Document 01/11/20 16:16 AW (Rec: 01/11/20 16:40 AW [id number]) Physical Therapy Treatment Exercises Exercises Ankle Pumps,Quad Sets,Heel Slides,Passive Knee Extension Hang Education Education Provided Weight Bearing Status,Post-Op Packet,Safety Other Treatments Other Treatment Performed Provided education on role of PT, plan of care, weightbearing status, and safe use of FWW. M7 PT-IP Assessment and Plan Start: 01/11/20 13:30 Freq: NEEDED Status: Active Protocol: Document 01/11/20 16:16 AW (Rec: 01/11/20 16:40 AW [id number]) PT Summary Assessment and Plan Potential Rehabilitation Potential Good Status of Condition at Evaluation Evolving Summary Impairments Pain,ROM,Strength,Sensation, Transfers,Gait,Activity Tolerance Assessment Summary Елена is a 54 yo woman seen for PT evaluation on POD0 following R TKA. She has history of multiple spine surgeries following an injury in 2017. Pt is independent in all regards at baseline. On evaluation, pt required no more than SBA for all mobility . PT anticipates pt will be safe for discharge with spouse assist once medically cleared . Pt will benefit from outpatient PT to progress ROM, strength, and functional mobility. Goals Bed Mobility Goal Independent Transfer Goal Independent,Front Wheeled Walker Gait Goal Independent,Front Wheel Walker Gait Distance 300 Days to Meet Goals 2 Frequency of Treatment Frequency Of Treatment Twice a Day Treatment Plan Physical Therapy Treatment Plan Bed Mobility Training,Transfer Training,Gait Training, Therapeutic Exercise,Balance Retraining,Post Op Education, Discharge Planning,Hot or Cold Pack Recommendations To Nursing Amount of Assist Needed Standby Assistance Discharge Recommendations PT Discharge Recommendations Home with Assistance, Outpatient PT Transportation Needs at Discharge Private Vehicle
[2020-01-11] MEDS: ONDANSETRON 4 MG ODT PO (16:53)
[2020-01-11] MEDS: HYDROMORPHONE 2 MG TABLET PO (17:11)
--- NOTE | 2020-01-11 17:56 | PC.NURSE ---
Pt discharge instructions given, questions answered, acknowledges understanding. IV in L forearm removed.. Pt escorted to car in WC per MACHINE FITTER. All belongings given to pt.
== END 2020-01-11 18:00 | disposition home or self-care (01) ==
LOC: OR 08:38 → AC 08:39 → ICU 12:41
PROVIDERS: PCP Family Medicine; Referring Provider Orthopaedic Surgery; Visit Provider Orthopaedic Surgery
PROC: 0SRC0JZ Replacement of Right Knee Joint with Synthetic Substitute, Open Approach (ICD-10-PCS; CPT 27447; principal; 2020-01-11 10:00)
DX: M17.11 Unilateral primary osteoarthritis, right knee (principal); I10 Essential (primary) hypertension; E03.9 Hypothyroidism, unspecified; G47.33 Obstructive sleep apnea (adult) (pediatric); J45.909 Unspecified asthma, uncomplicated; F41.9 Anxiety disorder, unspecified; E66.9 Obesity, unspecified; Z68.30 Body mass index [BMI] 30.0-30.9, adult
CPT/HCPCS: 27447; 73560; 87797; 97161; C1776; A9270; C9290; J0690; J1100; J2250; J2274; J2704

== ENCOUNTER → 2020-03-02 11:09 | Outpatient (CLI) | payer BC, SELFPAY ==
[2020-01-11 13:35] VITALS: BMI 29.9
--- NOTE | 2020-03-02 11:10 | DI.MG.S_ITS ---
BILATERAL DIGITAL SCREENING MAMMOGRAM 3D/2D WITH CAD: 03/02/2020 CLINICAL: Routine screening. Comparison is made to exams dated: 04/12/2016 mammogram - [facility], 12/03/2011 mammogram, and 09/29/2007 mammogram - [facility]. The tissue of both breasts is predominantly fatty. Current study was also evaluated with a Computer Aided Detection (CAD) system. No significant masses, calcifications, or other findings are seen in either breast. There has been no significant interval change. IMPRESSION: NEGATIVE There is no mammographic evidence of malignancy. A 1 year screening mammogram is recommended. This exam was interpreted at Station ID: [id number]. NOTE: For mammograms, a report in lay terms will be sent to the patient. Approximately 15% of breast malignancies will not be visualized mammographically. In the management of a palpable breast mass, a negative mammogram must not discourage biopsy of a clinically suspicious lesion. Electronically Signed By: Emily fletcher/onofre:03/02/2020 11:57:55 letter sent: Normal Exam ACR BI-RADS Category 1: Negative [id number]
== END ==
PROVIDERS: PCP Family Medicine; Referring Provider Family Medicine; Visit Provider Family Medicine
DX: Z12.31 Encounter for screening mammogram for malignant neoplasm of breast (principal)
CPT/HCPCS: 77063; 77067

== ENCOUNTER → 2020-03-11 11:03 | Outpatient (CLI) | payer OTHER, SELFPAY ==
[2020-01-11 13:35] VITALS: BMI 29.9
--- NOTE | 2020-03-11 | DI.RAD.S_ITS ---
PROCEDURE: FL KNEE INJECTION MR/CT LT COMPARISON: [facility], MR, MR KNEE LT W CON, 03/11/2020, 11:48. INDICATIONS: Internal derangement of left knee FINDINGS: After obtaining informed consent the medial left knee patellofemoral joint region was prepared and draped in sterile fashion and anesthetized with 1% lidocaine. Utilizing fluoroscopic guidance a 20 gauge needle was advanced into the joint space and through this pathway positioning was confirmed with a small amount of iodinated contrast. Thereafter the knee joint was treated with a dilute gadolinium/saline solution to assist in upcoming MR arthrography. IMPRESSION: Successful knee joint injection for MR arthrography. Dictated by: Roque Waldrop M.D. on 03/11/2020 at 12:52 Approved by: Roque Waldrop M.D. on 03/11/2020 at 12:53
--- NOTE | 2020-03-11 | DI.MRI.S_ITS ---
PROCEDURE: MR KNEE LT W CON INDICATIONS: Internal derangement of left knee TECHNIQUE: After the administration of 50 mL of dilute intra-articular Gadolinium contrast, sagittal T1 spin echo with fat saturation and PD fast spin echo with fat saturation, coronal T1 spin echo with and without fat saturation, coronal T2 fast spin echo with fat saturation, axial PD fast spin echo with fat saturation through the knee. COMPARISON: None. FINDINGS: Image quality: Excellent. Menisci: Amorphous high signal intensity within the posterior horn medial meniscus is present, without evidence of contrast within it on the fat saturated T1 sequences. 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 There is linear oblique and horizontally oriented high signal intensity within the lateral meniscal body and posterior horn, demonstrating superior and inferior articular surface extension, indicating complex tearing. There is lateral extrusion of the lateral meniscus. Detachment of the posterior horn lateral meniscus is present. Cruciate ligaments: The anterior and posterior cruciate ligaments appear intact. Medial structures: The medial collateral ligament appears intact. Visualized portions of the pes anserinus tendons appear normal. No abnormal bursal fluid. Lateral structures: The lateral collateral ligament, long and short heads of the biceps femoris tendon appear intact. The popliteus tendon appears normal. Iliotibial band appears normal. Anterior structures: The quadriceps and patellar tendons appear intact. Patellar alignment is normal. No femoral trochlear dysplasia or ventral trochlear prominence. No edema in the infrapatellar fat pad. Bone and cartilage: No bone marrow contusions or fractures. Mild tricompartmental periarticular osteophyte formation. There is moderate subchondral degenerative marrow edema and mild subchondral cyst formation within the mid and posterior weight-bearing aspects of the lateral femoral condyle. Mild subchondral degenerative marrow edema within the lateral tibial plateau. Mild tricompartmental periarticular osteophyte formation is present. Mild articular cartilage loss diffusely overlies the weight-bearing aspects of the medial femoral condyle and medial tibial plateau. Severe articular cartilage loss overlies the weight-bearing aspects of the lateral tibial plateau, as well as the mid and posterior weight-bearing aspects of the lateral femoral condyle. Articular cartilage fibrillation overlies the lateral patellar facet. Joint space: Small Guevara's cyst. Normal appearing synovial plicae are incidentally noted. No intra-articular bodies. IMPRESSION: 1. Tricompartmental osteoarthritis with associated articular cartilage loss. 2. Complex tearing of the lateral meniscus which demonstrates lateral extrusion and partial detachment. 3. Guevara's cyst. Dictated by: Reggie Elizalde M.D. on 03/11/2020 at 13:21 Approved by: Reggie Elizalde M.D. on 03/11/2020 at 13:25
== END ==
PROVIDERS: PCP Family Medicine; Referring Provider Family Medicine; Visit Provider Orthopaedic Surgery
DX: S83.232A Complex tear of medial meniscus, current injury, left knee, initial encounter (principal); M17.12 Unilateral primary osteoarthritis, left knee; M71.22 Synovial cyst of popliteal space [Baker], left knee
CPT/HCPCS: 27369; 73722; 77002

== ENCOUNTER → 2020-12-02 06:53 | Outpatient (CLI) | payer BC, SELFPAY ==
[2020-01-11 13:35] VITALS: BMI 29.9
[2020-12-02 08:16] LABS: Add Manual Diff / Slide Review NO; Basophils Absolute Auto 100 /uL (0-100); Basophils Percent Auto 1.2 % (0-2); Eosinophils Absolute Auto 300 /uL (0-450); Eosinophils Percent Auto 5.7 % (2-4); Hematocrit 42.6 % (36-46); Hemoglobin 14.2 g/dL (12.0-16.0); Lymphocytes Absolute Auto 1500 /uL (1100-4500); Lymphocytes Percent Auto 31.4 % (25-40); Mean Corpuscular HGB Conc 33.4 % (30-36); Mean Corpuscular Hemoglobin 32.4 PG (26-34); Mean Corpuscular Volume 97.1 fL (80-100); Monocytes Absolute Auto 600 /uL (0-900); Monocytes Percent Auto 12.4 % (3-14); Neutrophils Absolute Auto 2300 /uL (1500-7000); Neutrophils Percent Auto 49.3 % (50-75); Platelet Count 232 X10^3/uL (150-400); Red Blood Cell Count 4.39 X10^6/uL (4.0-5.2); Red Cell Distribution Width 12.1 % (11.6-14.8); White Blood Cell Count 4.7 X10^3/uL (4.5-11.0)
[2020-12-02 08:50] LABS: Alanine Aminotransferase 20 IU/L (<35); Albumin 4.4 g/dL (3.5-5.0); Albumin Globulin Ratio 1.5 (1.0-2.8); Alkaline Phosphatase 53 U/L (38-126); Aspartate Aminotransferase 25 IU/L (14-36); BUN Creatinine Ratio 16.9 (6-22); Bilirubin Total 0.5 mg/dL (0.2-1.3); Blood Urea Nitrogen 15 mg/dL (7-17); Calcium 9.4 mg/dL (8.4-10.2); Carbon Dioxide 29 mmol/L (22-32); Chloride 104 mmol/L (98-107); Cholesterol 229 mg/dL (140-199); Estimated Glomerular Filt Rate > 60.0 mL/min (>60); Globulin 2.9 g/dL (1.7-4.1); Glucose 104 mg/dL (70-100); HDL Cholesterol 55 mg/dL (40-60); HEMOLYSIS < 15 (0-50); LDL Cholesterol Calculated 144 mg/dL (<100); Potassium 4.3 mmol/L (3.4-5.1); Sodium 141 mmol/L (137-145); Total Protein 7.3 g/dL (6.3-8.2); Triglycerides 151 mg/dL (35-150)
[2020-12-02 09:23] LABS: TSH w/ Reflex to FT4 0.15 uIU/mL (0.47-4.68)
[2020-12-02 14:03] LABS: Free T4, Direct Thyroxine 1.42 ng/dL (0.78-2.19)
== END ==
PROVIDERS: PCP Family Medicine; Referring Provider Family Medicine; Visit Provider Family Medicine
DX: E03.9 Hypothyroidism, unspecified (principal); E66.9 Obesity, unspecified; I10 Essential (primary) hypertension
CPT/HCPCS: 36415; 80053; 80061; 84439; 84443; 85025

== ENCOUNTER → 2020-12-31 12:33 | Outpatient (CLI) | payer OTHER, BC, SELFPAY ==
[2020-01-11 13:35] VITALS: BMI 29.9
[2020-12-31 13:08] LABS: Add Manual Diff / Slide Review NO; Basophils Absolute Auto 100 /uL (0-100); Eosinophils Absolute Auto 200 /uL (0-450); Eosinophils Percent Auto 2.7 % (2-4); Hematocrit 41.4 % (36-46); Hemoglobin 14.3 g/dL (12.0-16.0); Lymphocytes Absolute Auto 2300 /uL (1100-4500); Lymphocytes Percent Auto 36.3 % (25-40); Mean Corpuscular HGB Conc 34.6 % (30-36); Mean Corpuscular Volume 95.4 fL (80-100); Monocytes Absolute Auto 600 /uL (0-900); Monocytes Percent Auto 9.4 % (3-14); Neutrophils Absolute Auto 3200 /uL (1500-7000); Neutrophils Percent Auto 50.6 % (50-75); Platelet Count 243 X10^3/uL (150-400); Red Blood Cell Count 4.34 X10^6/uL (4.0-5.2); Red Cell Distribution Width 12.3 % (11.6-14.8); White Blood Cell Count 6.3 X10^3/uL (4.5-11.0)
[2020-12-31 13:44] LABS: BUN Creatinine Ratio 15.7 (6-22); Blood Urea Nitrogen 14 mg/dL (7-17); Calcium 9.6 mg/dL (8.4-10.2); Carbon Dioxide 25 mmol/L (22-32); Chloride 104 mmol/L (98-107); Estimated Glomerular Filt Rate > 60.0 mL/min (>60); Glucose 93 mg/dL (70-100); HEMOLYSIS < 15 (0-50); Potassium 4.1 mmol/L (3.4-5.1); Sodium 138 mmol/L (137-145)
== END ==
PROVIDERS: PCP Family Medicine; Referring Provider Orthopaedic Surgery; Visit Provider Orthopaedic Surgery
DX: Z01.812 Encounter for preprocedural laboratory examination (principal); E66.9 Obesity, unspecified; R73.01 Impaired fasting glucose
CPT/HCPCS: 36415; 80048; 85025; 93005; 93010

== ENCOUNTER → 2021-01-09 14:42 | Outpatient (CLI) | payer OTHER, SELFPAY ==
[2020-01-11 13:35] VITALS: BMI 29.9
[2021-01-09 16:08] LABS: COVID19 -Nasal RAPID Negative (Negative)
== END ==
PROVIDERS: PCP Family Medicine; Referring Provider Nurse Practitioner Family; Visit Provider Nurse Practitioner Family
DX: Z20.822 Contact with and (suspected) exposure to COVID-19 (principal)
CPT/HCPCS: 87635

== ENCOUNTER → 2022-01-16 13:52 | Outpatient (CLI) | payer OTHER, SELFPAY ==
[2020-01-11 13:35] VITALS: BMI 29.9
--- NOTE | 2022-01-16 13:57 | DI.RAD.S_ITS ---
PROCEDURE: XR LUMBAR SPINE MIN 4V INDICATIONS: BACK PAIN TECHNIQUE: 5 views of the lumbar spine acquired, including flexion and extension views. COMPARISON: [facility], MR, MR LUMBAR SPINE WITHOUT CONTRAST, 06/09/2021, 10:17. CT, CT LUMBAR SPINE WO CON, 11/20/2018, 8:32. FINDINGS: Bones: 5 nonrib-bearing vertebrae are present. Mild levoscoliosis centered at the L3-L4 level. 3 mm retrolisthesis L2-L3 and L3-L4 and L4-L5. 2 mm spondylolisthesis L5-S1. Multilevel disc height loss with endplate sclerosis and spurring, severe at the L2-L3, L3-L4, L4-L5 and L5-S1 levels. Moderate facet joint arthropathy L4-L5 and L5-S1. No vertebral body compression fractures. No suspicious bony lesions. Soft tissues: Overlying bowel gas pattern is normal. No suspicious soft tissue calcifications. IMPRESSION: 1. Multilevel lumbar spine spondylosis. Dictated by: Jorgito Larose [facility] Interpreted: Reena Uribe MD on 01/16/2022 at 14:54 Transcribed by: JERONIMO on 01/16/2022 at 14:59 Approved by: Reena Uribe M.D. on 01/16/2022 at 16:16
== END ==
PROVIDERS: Referring Provider Physical Medicine & Rehabilitation; Visit Provider Physical Medicine & Rehabilitation
DX: M47.816 Spondylosis without myelopathy or radiculopathy, lumbar region (principal); M47.817 Spondylosis without myelopathy or radiculopathy, lumbosacral region; M54.9 Dorsalgia, unspecified; G89.29 Other chronic pain; Z98.890 Other specified postprocedural states
CPT/HCPCS: 72110

== ENCOUNTER 2022-02-27 12:30 | Outpatient (CLI) | payer OTHER, SELFPAY ==
[2020-01-11 13:35] VITALS: BMI 29.9
[2022-02-27] VITALS (10 sets, daily range): BP systolic 97–140; BP diastolic 52–79; PULSE 68–76; RESP 10–20; TEMP 36.3; O2SAT 95–97
--- NOTE | 2022-02-27 12:31 | DI.RAD.S_ITS ---
PROCEDURE: PAIN L/S TRANSFORAMINAL INJECT INDICATIONS: SPONDYLOSIS COMPARISON: None. FINDINGS: Fluoroscopic spot filming was performed to verify placement of spinal needles at the bilateral L4-L5 and L5-S1 neural foramina level(s), as labeled on the films. Appropriate location(s) of the needle tip(s) was confirmed by injection of iodinated contrast. IMPRESSION: Access needles at the bilateral L4-L5 and L5-S1 neural foramina for transforaminal epidural steroid injection. Dictated by: Dia Raza MD, PhD on 02/27/2022 at 14:18 Approved by: Dia Raza MD, PhD on 02/27/2022 at 14:19
[2022-02-27] MEDS: MIDAZOLAM 2 MG/2 ML VIAL 4 MG IV (13:20)
[2022-02-27] MEDS: DEXAMETHASONE 10 MG/ML VIAL 20 MG INJ (13:21)
[2022-02-27] MEDS: IOPAMIDOL 15 ML VIAL 3 ML INJ (13:21)
[2022-02-27] MEDS: BETAMETHASONE 30 MG/5 ML MDV 6 MG INJ (13:21)
[2022-02-27] MEDS: BUPIVACAINE 0.25% (PF) VIAL 2 ML INJ (13:22)
--- NOTE | 2022-02-27 13:38 | P.PCN_ITS ---
Date/Time/Diagnoses Date of procedure: 02/27/22 Time of procedure: 13:39 Pre-procedure diagnosis: 1. FORAMINAL STENOSIS WITH LE SYMPTOMS Post-procedure diagnosis: same Procedure Notes Procedure: 1. FLUOROSCOPICALLY GUIDED CONTRAST CONTROLLED TRANSFORAMINAL EPIDURAL STEROID INJECTION - LEFT L4/5 Indications: Елена is referred by Dr. Leyva for treatment of Foraminal Stenosis with Left LE Symptoms Physician: Mike Bean Total Fluoroscopy time (seconds): 20 Total sedation minutes: 16 Complications: none Procedure in detail & Post-procedure care: FINDINGS Foraminal Nerve Root Compression secondary to disc disease and facet hypertrophy DESCRIPTION OF PROCEDURE Following review of allergy and review of potential side effects and complications, including, but not necessarily limited to, infection, allergic reaction, local tissue breakdown, stroke, temporary or permanent nerve injury, paralysis, and possible , the patient indicated that the patient understood and agreed to proceed. An informed consent document was signed by the patient, witnessed by a nurse, and placed in the patient's chart. Additionally, other treatment options including medications, modalities, and physical therapy were reviewed with the patient. After review of previous anaesthesic history and IV conscious sedation the patient was deemed safe to proceed with today?s procedure with IV conscious sedation as ASA class II designation. Safety time-out was performed to confirm patient ID, procedure to be performed and site of procedure. IV sedation was accomplished with a combination of 4mg of Versed administered by the RN after DO order, titrated to patient comfort during the course of the procedure while the patient remained responsive to all verbal commands In the prone position following sterile prep and drape of the lumbar region, the left L4/5 posterior neuroforamen was identified fluoroscopically. The skin was anesthetized via a 25-gauge 1.5-inch needle with 1% lidocaine solution. At this point, a 25-gauge 3.5-inch spinal needle was atraumatically introduced and advanced under fluoroscopic guidance through the posterior left L4/5 neuroforamen to approximately the anterior aspect of the canal. Depth was confirmed on lateral view. Following negative aspiration, injection of approximately 1.5 cc of Isovue 200 under live fluoroscopy in the AP view confirmed excellent flow along the nerve root, into the epidural space without vascular or intrathecal uptake observed Radiological data, including multiple fluoroscopic views of the lumbosacral spine, reveal a spinal needle at the left L4/5 posterior neuroforamen. Subsequent views show flow of contrast material flowing superiorly and inferiorly along the nerve root confirming epidural flow. Subsequently, a test dose of 1.5 cc of 1% lidocaine solution was administered and patient was observed for two minutes for signs or symptoms of complications, including abdominal pain, shortness of breath, bilateral upper or lower extremity weakness, nausea and vomiting, prior to steroid injection. At this point, a total of 3cc or 20mg of dexamethasone and 6mg of betamethasone was injected without incident. The procedure tolerated the procedure well without signs or symptoms of complications prior to transfer to the recovery area continued monitoring without incident. The patient was then transferred to the recovery area where they were observed for an appropriate time after the injection. The patient reported a VAS score of 7 prior to the procedure and a post- procedure VAS of 0. POST OP INSTRUCTIONS The patient was provided a Pain Log to continue to record their response to the target-specific procedure prior to follow-up visit with their referring physician. Additionally, specific post-injection care instructions and a contact number to our office were provided if concerns arise regarding possible complications associated with the procedure are suspected.
--- NOTE | 2022-02-27 13:40 | P.PCN_ITS ---
Date/Time/Diagnoses Date of procedure: 02/27/22 Time of procedure: 13:40 Pre-procedure diagnosis: 1. FORAMINAL STENOSIS WITH LE SYMPTOMS Post-procedure diagnosis: same Procedure Notes Procedure: 1. FLUOROSCOPICALLY GUIDED CONTRAST CONTROLLED TRANSFORAMINAL EPIDURAL STEROID INJECTION - Left L5/S1 Indications: Елена is referred by Dr. Leyva for treatment of Foraminal Stenosis with Left LE Symptoms Physician: Mike Bean Total Fluoroscopy time (seconds): 20 Total sedation minutes: 16 Complications: none Procedure in detail & Post-procedure care: FINDINGS Foraminal Nerve Root Compression secondary to disc disease and facet hypertrophy DESCRIPTION OF PROCEDURE Following review of allergy and review of potential side effects and complications, including, but not necessarily limited to, infection, allergic reaction, local tissue breakdown, stroke, temporary or permanent nerve injury, paralysis, and possible , the patient indicated that the patient understood and agreed to proceed. An informed consent document was signed by the patient, witnessed by a nurse, and placed in the patient's chart. Additionally, other treatment options including medications, modalities, and physical therapy were reviewed with the patient. After review of previous anaesthesic history and IV conscious sedation the patient was deemed safe to proceed with today?s procedure with IV conscious sedation as ASA class II designation. Safety time-out was performed to confirm patient ID, procedure to be performed and site of procedure. IV sedation was accomplished with a combination of 4mg of Versed was administered by the RN after DO order, titrated to patient comfort during the course of the procedure while the patient remained responsive to all verbal commands In the prone position following sterile prep and drape of the lumbar region, the Left L5/S1 posterior neuroforamen was identified fluoroscopically. The skin was anesthetized via a 25-gauge 1.5-inch needle with 1% lidocaine solution. At this point, a 22-gauge 5-inch spinal needle was atraumatically introduced and advanced under fluoroscopic guidance through the posterior Left L5/S1 neuroforamen to approximately the anterior aspect of the canal. Depth was confirmed on lateral view. Following negative aspiration, injection of approximately 1.5 cc of Isovue 200 under live fluoroscopy in the AP view confirmed excellent flow along the nerve root, into the epidural space without vascular or intrathecal uptake observed Radiological data, including multiple fluoroscopic views of the lumbosacral spine, reveal a spinal needle at the Left L5/S1 posterior neuroforamen. Subsequent views show flow of contrast material flowing superiorly and inferiorly along the nerve root confirming epidural flow. Subsequently, a test dose of 1.5 cc of 1% lidocaine solution was administered and patient was observed for two minutes for signs or symptoms of complications, including abdominal pain, shortness of breath, bilateral upper or lower extremity weakness, nausea and vomiting, prior to steroid injection. At this point, a total of 3cc or 20mg of dexamethasone and 6mg of betamethasone was injected without incident. The procedure tolerated the procedure well without signs or symptoms of complications prior to transfer to the recovery area continued monitoring without incident. The patient was then transferred to the recovery area where they were observed for an appropriate time after the injection. The patient reported a VAS score of 7 prior to the procedure and a post-procedure VAS of 0. POST OP INSTRUCTIONS The patient was provided a Pain Log to continue to record their response to the target-specific procedure prior to follow-up visit with their referring physici an. Additionally, specific post-injection care instructions and a contact number to our office were provided if concerns arise regarding possible complications associated with the procedure are suspected.
--- NOTE | 2022-02-27 13:59 | PC.NURSE ---
Patient with c/o LLE weakness (at baseline) and a little worse post injection. Apparent to this RN more so is RLE weakness but the patient denies. Held for an additional 10 minutes post sedation protocol policy timeline due to that weakness. Patient reports that she is ready to go home and that her weakness is just fine. James, patient's SO to stand by assist out of the vehicle into the house which has no steps. Patient is insistent on discharge and that her weakness is at baseline.
== END 2022-02-27 14:04 | disposition home or self-care (01) ==
PROVIDERS: PCP Family Medicine; Referring Provider Physical Medicine & Rehabilitation; Visit Provider Physical Medicine & Rehabilitation
DX: M48.061 Spinal stenosis, lumbar region without neurogenic claudication (principal); M51.16 Intervertebral disc disorders with radiculopathy, lumbar region; M48.07 Spinal stenosis, lumbosacral region; M51.17 Intervertebral disc disorders with radiculopathy, lumbosacral region
CPT/HCPCS: 64483; 64484; 99152; J0702; J1100; J2250; J3490

== ENCOUNTER → 2022-03-16 08:21 | Outpatient (CLI) | payer BC, SELFPAY ==
[2020-01-11 13:35] VITALS: BMI 29.9
[2022-03-16 09:21] LABS: Hematocrit 39.4 % (36-46); Hemoglobin 13.6 g/dL (12.0-16.0); Mean Corpuscular HGB Conc 34.4 % (30-36); Mean Corpuscular Hemoglobin 33.2 PG (26-34); Mean Corpuscular Volume 96.4 fL (80-100); Platelet Count 209 X10^3/uL (150-400); Red Blood Cell Count 4.08 X10^6/uL (4.0-5.2); Red Cell Distribution Width 12.5 % (11.6-14.8); White Blood Cell Count 7.7 X10^3/uL (4.5-11.0)
[2022-03-16 10:22] LABS: Alanine Aminotransferase 17 IU/L (<35); Albumin 4.2 g/dL (3.5-5.0); Albumin Globulin Ratio 1.4 (1.0-2.8); Alkaline Phosphatase 51 U/L (38-126); Aspartate Aminotransferase 19 IU/L (14-36); Bilirubin Total 0.5 mg/dL (0.2-1.3); Blood Urea Nitrogen 16 mg/dL (7-17); Calcium 8.9 mg/dL (8.4-10.2); Carbon Dioxide 26 mmol/L (22-32); Chloride 102 mmol/L (98-107); Cholesterol 250 mg/dL (140-199); Estimated Glomerular Filt Rate > 60 mL/min (>60); Glucose 90 mg/dL (70-100); HDL Cholesterol 65 mg/dL (40-60); HEMOLYSIS < 15 (0-50); LDL Cholesterol Calculated 145 mg/dL (<100); Potassium 4.5 mmol/L (3.4-5.1); Sodium 138 mmol/L (137-145); Total Protein 7.2 g/dL (6.3-8.2); Triglycerides 201 mg/dL (35-150)
[2022-03-16 10:35] LABS: Free T3, Triiodothyronine Free 2.84 pg/mL (2.77-5.27); Free T4, Direct Thyroxine 1.36 ng/dL (0.78-2.19)
[2022-03-16 10:49] LABS: Thyroid Stimulating Hormone 0.272 uIU/mL (0.47-4.68)
[2022-03-16 10:55] LABS: Creatinine Urine Random 77.5 mg/dL
[2022-03-16 11:00] LABS: Microalbumin Urine Random < 0.6 mg/dL (0-1.6)
== END ==
PROVIDERS: PCP Family Medicine; Referring Provider Family Medicine; Visit Provider Family Medicine
DX: E03.9 Hypothyroidism, unspecified (principal); I10 Essential (primary) hypertension; Z01.419 Encounter for gynecological examination (general) (routine) without abnormal findings
CPT/HCPCS: 36415; 80053; 80061; 82043; 82570; 84439; 84443; 84481; 85027

== ENCOUNTER → 2022-05-05 10:03 | Outpatient (CLI) | payer MEDICARE, BC, SELFPAY ==
[2020-01-11 13:35] VITALS: BMI 29.9
--- NOTE | 2022-05-05 10:04 | DI.MG.S_ITS ---
BILATERAL DIGITAL SCREENING MAMMOGRAM 3D/2D WITH CAD: 05/05/2022 CLINICAL: Routine screening. Comparison is made to exams dated: 03/02/2020 mammogram, 04/12/2016 mammogram - [facility], and 12/03/2011 mammogram - [facility]. Both breasts are almost entirely fatty (category a/<25% glandular tissue). Current study was also evaluated with a Computer Aided Detection (CAD) system. No significant masses, calcifications, or other findings are seen in either breast. There has been no significant interval change. IMPRESSION: NEGATIVE There is no mammographic evidence of malignancy. A 1 year screening mammogram is recommended. Based on the Tyrer Cuzick model (a risk assessment model) the patient's lifetime risk is 5.7% and her 10 year risk is 1.8%. According to the ACR, ACS, and NCCN guidelines, an annual breast MRI exam along with mammogram is recommended if the patient's lifetime risk is 20% or greater. This exam was interpreted at Station ID: [id number]. NOTE: For mammograms, a report in lay terms will be sent to the patient. Approximately 15% of breast malignancies will not be visualized mammographically. In the management of a palpable breast mass, a negative mammogram must not discourage biopsy of a clinically suspicious lesion. Electronically Signed By: Dante [email or web address]:05/07/2022 09:05:22 letter sent: Normal Exam ACR BI-RADS Category 1: Negative [id number]
== END ==
PROVIDERS: PCP Family Medicine; Referring Provider Family Medicine; Visit Provider Family Medicine
DX: Z12.31 Encounter for screening mammogram for malignant neoplasm of breast (principal)
CPT/HCPCS: 77063; 77067

== ENCOUNTER 2022-06-26 10:26 | Outpatient (CLI) | payer OTHER, SELFPAY ==
[2020-01-11 13:35] VITALS: BMI 29.9
[2022-05-24 15:45] VITALS: BMI 29.9
[2022-06-26] VITALS (8 sets, daily range): BP systolic 117–135; BP diastolic 57–77; PULSE 67–77; RESP 12–20; O2SAT 96–98
--- NOTE | 2022-06-26 10:28 | DI.RAD.S_ITS ---
PROCEDURE: PAIN L/S TRANSFORAMINAL INJECT INDICATIONS: SPINAL STENOSIS COMPARISON: [facility], , PAIN L/S TRANSFORAMINAL INJECT, 02/27/2022, 14:19. FINDINGS: Fluoroscopic spot filming was performed to verify placement of a spinal needle at the L4-L5 level, as labeled on the films. Appropriate location of the needle tip was confirmed by injection of iodinated contrast. IMPRESSION: Intraprocedural examination within normal limits. Dictated by: Graeme Avelar M.D. on 06/26/2022 at 17:21 Approved by: Graeme Avelar M.D. on 06/26/2022 at 17:21
[2022-06-26] MEDS: MIDAZOLAM 2 MG/2 ML VIAL IV (12:03)
[2022-06-26] MEDS: BUPIVACAINE 0.25% (PF) VIAL 2 ML INJ (12:09)
[2022-06-26] MEDS: DEXAMETHASONE 10 MG/ML VIAL 20 MG INJ (12:09)
[2022-06-26] MEDS: BETAMETHASONE 30 MG/5 ML MDV 6 MG INJ (12:11)
[2022-06-26] MEDS: IOPAMIDOL 15 ML VIAL 3 ML INJ (12:11)
--- NOTE | 2022-06-26 12:21 | P.PCN_ITS ---
Date/Time/Diagnoses Date of procedure: 06/26/22 Time of procedure: 12:21 Pre-procedure diagnosis: 1. FORAMINAL STENOSIS WITH LE SYMPTOMS Post-procedure diagnosis: same Procedure Notes Procedure: 1. FLUOROSCOPICALLY GUIDED CONTRAST CONTROLLED TRANSFORAMINAL EPIDURAL STEROID INJECTION - LEFT L4/5 Indications: Елена is referred by Dr. Leyva for treatment of Foraminal Stenosis with Left LE Symptoms Physician: Mike Bean Total Fluoroscopy time (seconds): 13 Total sedation minutes: 14 Complications: none Procedure in detail & Post-procedure care: FINDINGS Foraminal Nerve Root Compression secondary to disc disease and facet hypertrophy DESCRIPTION OF PROCEDURE Following review of allergy and review of potential side effects and complications, including, but not necessarily limited to, infection, allergic reaction, local tissue breakdown, stroke, temporary or permanent nerve injury, paralysis, and possible , the patient indicated that the patient understood and agreed to proceed. An informed consent document was signed by the patient, witnessed by a nurse, and placed in the patient's chart. Additionally, other treatment options including medications, modalities, and physical therapy were reviewed with the patient. After review of previous anaesthesic history and IV conscious sedation the patient was deemed safe to proceed with today?s procedure with IV conscious sedation as ASA class II designation. Safety time-out was performed to confirm patient ID, procedure to be performed and site of procedure. IV sedation was accomplished with a combination of 2mg of Versed administered by the RN after DO order, titrated to patient comfort during the course of the procedure while the patient remained responsive to all verbal commands In the prone position following sterile prep and drape of the lumbar region, the left L4/5 posterior neuroforamen was identified fluoroscopically. The skin was anesthetized via a 25-gauge 1.5-inch needle with 1% lidocaine solution. At this point, a 25-gauge 3.5-inch spinal needle was atraumatically introduced and advanced under fluoroscopic guidance through the posterior left L4/5 neuroforamen to approximately the anterior aspect of the canal. Depth was confirmed on lateral view. Following negative aspiration, injection of approximately 1.5 cc of Isovue 200 under live fluoroscopy in the AP view confirmed excellent flow along the nerve root, into the epidural space without vascular or intrathecal uptake observed Radiological data, including multiple fluoroscopic views of the lumbosacral spine, reveal a spinal needle at the left L4/5 posterior neuroforamen. Subsequent views show flow of contrast material flowing superiorly and inferiorly along the nerve root confirming epidural flow. Subsequently, a test dose of 1.5 cc of 1% lidocaine solution was administered and patient was observed for two minutes for signs or symptoms of complications, including abdominal pain, shortness of breath, bilateral upper or lower extremity weakness, nausea and vomiting, prior to steroid injection. At this point, a total of 3cc or 20mg of dexamethasone and 6mg of betamethasone was injected without incident. The procedure tolerated the procedure well without signs or symptoms of complications prior to transfer to the recovery area continued monitoring without incident. The patient was then transferred to the recovery area where they were observed for an appropriate time after the injection. The patient reported a VAS score of 7 prior to the procedure and a post- procedure VAS of 0. POST OP INSTRUCTIONS The patient was provided a Pain Log to continue to record their response to the target-specific procedure prior to follow-up visit with their referring physician. Additionally, specific post-injection care instructions and a contact number to our office were provided if concerns arise regarding possible complications associated with the procedure are suspected.
== END 2022-06-26 12:38 | disposition home or self-care (01) ==
LOC: RAD 10:28
PROVIDERS: PCP Family Medicine; Referring Provider Physical Medicine & Rehabilitation; Visit Provider Physical Medicine & Rehabilitation
DX: M48.061 Spinal stenosis, lumbar region without neurogenic claudication (principal); M51.16 Intervertebral disc disorders with radiculopathy, lumbar region
CPT/HCPCS: 64483; 99152; J0702; J1100; J2250; J3490

== ENCOUNTER → 2022-08-17 10:19 | Outpatient (CLI) | payer OTHER, SELFPAY ==
[2022-05-24 15:45] VITALS: BMI 29.9
[2022-08-17 11:27] LABS: Cholesterol 243 mg/dL (140-199); HDL Cholesterol 72 mg/dL (40-60); LDL Cholesterol Calculated 123 mg/dL (<100); Triglycerides 238 mg/dL (35-150)
[2022-08-17 11:53] LABS: Free T3, Triiodothyronine Free 4.18 pg/mL (2.77-5.27); Free T4, Direct Thyroxine 1.38 ng/dL (0.78-2.19)
[2022-08-17 12:07] LABS: Thyroid Stimulating Hormone 0.016 uIU/mL (0.47-4.68)
[2022-08-18 04:09] LABS: Labcorp Hemoglobin (Hb) A1c 5.1 % (4.8-5.6)
== END ==
PROVIDERS: PCP Family Medicine; Referring Provider Family Medicine; Visit Provider Family Medicine
DX: E03.9 Hypothyroidism, unspecified (principal); I10 Essential (primary) hypertension
CPT/HCPCS: 36415; 80061; 83036; 84439; 84443; 84481

== ENCOUNTER 2022-09-13 10:25 | Outpatient (CLI) | payer OTHER, SELFPAY ==
[2022-05-24 15:45] VITALS: BMI 29.9
[2022-09-13] VITALS (8 sets, daily range): BP systolic 98–129; BP diastolic 55–73; PULSE 62–79; RESP 13–20; TEMP 36.7; O2SAT 95–98
--- NOTE | 2022-09-13 10:26 | DI.RAD.S_ITS ---
PROCEDURE: PAIN L/S TRANSFORAMINAL INJECT INDICATIONS: SPONDYLOSIS COMPARISON: [facility], , PAIN L/S TRANSFORAMINAL INJECT, 06/26/2022, 12:08. FINDINGS: Fluoroscopic spot filming was performed to verify placement of spinal needles on the left at the L4-L5 and L5-S1 levels, as labeled on the films. Appropriate location of the needle tips was confirmed by injection of iodinated contrast. IMPRESSION: Intraprocedural examination demonstrating appropriate positions of the needles. Dictated by: Graeme Avelar M.D. on 09/13/2022 at 12:57 Approved by: Graeme Avelar M.D. on 09/13/2022 at 12:58
[2022-09-13] MEDS: MIDAZOLAM 2 MG/2 ML VIAL IV (11:32)
[2022-09-13] MEDS: BETAMETHASONE 30 MG/5 ML MDV 6 MG INJ (11:37)
[2022-09-13] MEDS: DEXAMETHASONE 10 MG/ML VIAL 20 MG INJ (11:37)
[2022-09-13] MEDS: IOPAMIDOL 15 ML VIAL 3 ML INJ (11:37)
[2022-09-13] MEDS: BUPIVACAINE 0.25% (PF) VIAL 2 ML INJ (11:38)
--- NOTE | 2022-09-13 11:54 | PM.PROC.IR.1 ---
Date/Time/Diagnoses Date of procedure: 09/13/22 Time of procedure: 11:54 Pre-procedure diagnosis: 1. FORAMINAL STENOSIS WITH LE SYMPTOMS Post-procedure diagnosis: same Procedure Notes Procedure: 1. FLUOROSCOPICALLY GUIDED CONTRAST CONTROLLED TRANSFORAMINAL EPIDURAL STEROID INJECTION - Left L5/S1 Indications: Елена is referred by Dr. Leyva for treatment of Foraminal Stenosis with Left LE Symptoms Physician: Mike Bean Total Fluoroscopy time (seconds): 13 Total sedation minutes: 15 Complications: none Procedure in detail & Post-procedure care: FINDINGS Foraminal Nerve Root Compression secondary to disc disease and facet hypertrophy DESCRIPTION OF PROCEDURE Following review of allergy and review of potential side effects and complications, including, but not necessarily limited to, infection, allergic reaction, local tissue breakdown, stroke, temporary or permanent nerve injury, paralysis, and possible , the patient indicated that the patient understood and agreed to proceed. An informed consent document was signed by the patient, witnessed by a nurse, and placed in the patient's chart. Additionally, other treatment options including medications, modalities, and physical therapy were reviewed with the patient. After review of previous anaesthesic history and IV conscious sedation the patient was deemed safe to proceed with today?s procedure with IV conscious sedation as ASA class II designation. Safety time-out was performed to confirm patient ID, procedure to be performed and site of procedure. IV sedation was accomplished with a combination of 2mg of Versed and 50mcg was administered by the RN after DO order, titrated to patient comfort during the course of the procedure while the patient remained responsive to all verbal commands In the prone position following sterile prep and drape of the lumbar region, the Left L5/S1 posterior neuroforamen was identified fluoroscopically. The skin was anesthetized via a 25-gauge 1.5-inch needle with 1% lidocaine solution. At this point, a 25-gauge 3.5-inch spinal needle was atraumatically introduced and advanced under fluoroscopic guidance through the posterior Left L5/S1 neuroforamen to approximately the anterior aspect of the canal. Depth was confirmed on lateral view. Following negative aspiration, injection of approximately 1.5 cc of Isovue 200 under live fluoroscopy in the AP view confirmed excellent flow along the nerve root, into the epidural space without vascular or intrathecal uptake observed Radiological data, including multiple fluoroscopic views of the lumbosacral spine, reveal a spinal needle at the Left L5/S1 posterior neuroforamen. Subsequent views show flow of contrast material flowing superiorly and inferiorly along the nerve root confirming epidural flow. Subsequently, a test dose of 1.5cc of 1% lidocaine solution was administered and patient was observed for two minutes for signs or symptoms of complications, including abdominal pain, shortness of breath, bilateral upper or lower extremity weakness, nausea and vomiting, prior to steroid injection. At this point, a total of 3cc or 20mg of dexamethasone and 6mg of betamethasone was injected without incident. The procedure tolerated the procedure well without signs or symptoms of complications prior to transfer to the recovery area continued monitoring without incident. The patient was then transferred to the recovery area where they were observed for an appropriate time after the injection. The patient reported a VAS score of 8 prior to the procedure and a post-procedure VAS of 1. POST OP INSTRUCTIONS The patient was provided a Pain Log to continue to record their response to the target-specific procedure prior to follow-up visit with their referring physician. Additionally, specific post-injection care instructions and a contact number to our office were provided if concerns arise regarding possible complications associated with the procedure are suspected.
--- NOTE | 2022-09-13 11:55 | PM.PROC.IR.1 ---
Date/Time/Diagnoses Date of procedure: 09/13/22 Time of procedure: 11:55 Pre-procedure diagnosis: 1. FORAMINAL STENOSIS WITH LE SYMPTOMS Post-procedure diagnosis: same Procedure Notes Procedure: 1. FLUOROSCOPICALLY GUIDED CONTRAST CONTROLLED TRANSFORAMINAL EPIDURAL STEROID INJECTION - LEFT L4/5 Indications: Елена is referred by Dr. Leyva for treatment of Foraminal Stenosis with Left LE Symptoms Physician: Mike Bean Total Fluoroscopy time (seconds): 13 Total sedation minutes: 15 Complications: none Procedure in detail & Post-procedure care: FINDINGS Foraminal Nerve Root Compression secondary to disc disease and facet hypertrophy DESCRIPTION OF PROCEDURE Following review of allergy and review of potential side effects and complications, including, but not necessarily limited to, infection, allergic reaction, local tissue breakdown, stroke, temporary or permanent nerve injury, paralysis, and possible , the patient indicated that the patient understood and agreed to proceed. An informed consent document was signed by the patient, witnessed by a nurse, and placed in the patient's chart. Additionally, other treatment options including medications, modalities, and physical therapy were reviewed with the patient. After review of previous anaesthesic history and IV conscious sedation the patient was deemed safe to proceed with today?s procedure with IV conscious sedation as ASA class II designation. Safety time-out was performed to confirm patient ID, procedure to be performed and site of procedure. IV sedation was accomplished with a combination of 2mg of Versed administered by the RN after DO order, titrated to patient comfort during the course of the procedure while the patient remained responsive to all verbal commands In the prone position following sterile prep and drape of the lumbar region, the left L4/5 posterior neuroforamen was identified fluoroscopically. The skin was anesthetized via a 25-gauge 1.5-inch needle with 1% lidocaine solution. At this point, a 25-gauge 3.5-inch spinal needle was atraumatically introduced and advanced under fluoroscopic guidance through the posterior left L4/5 neuroforamen to approximately the anterior aspect of the canal. Depth was confirmed on lateral view. Following negative aspiration, injection of approximately 1.5 cc of Isovue 200 under live fluoroscopy in the AP view confirmed excellent flow along the nerve root, into the epidural space without vascular or intrathecal uptake observed Radiological data, including multiple fluoroscopic views of the lumbosacral spine, reveal a spinal needle at the left L4/5 posterior neuroforamen. Subsequent views show flow of contrast material flowing superiorly and inferiorly along the nerve root confirming epidural flow. Subsequently, a test dose of 1.5 cc of 1% lidocaine solution was administered and patient was observed for two minutes for signs or symptoms of complications, including abdominal pain, shortness of breath, bilateral upper or lower extremity weakness, nausea and vomiting, prior to steroid injection. At this point, a total of 3cc or 20mg of dexamethasone and 6mg of betamethasone was injected without incident. The procedure tolerated the procedure well without signs or symptoms of complications prior to transfer to the recovery area continued monitoring without incident. The patient was then transferred to the recovery area where they were observed for an appropriate time after the injection. The patient reported a VAS score of 8 prior to the procedure and a post-procedure VAS of 1. POST OP INSTRUCTIONS The patient was provided a Pain Log to continue to record their response to the target-specific procedure prior to follow-up visit with their referring physician. Additionally, specific post-injection care instructions and a contact number to our office were provided if concerns arise regarding possible complications associated with the procedure are suspected.
== END 2022-09-13 12:10 | disposition home or self-care (01) ==
LOC: RAD 10:26
PROVIDERS: PCP Family Medicine; Referring Provider Physical Medicine & Rehabilitation; Visit Provider Physical Medicine & Rehabilitation
DX: M48.061 Spinal stenosis, lumbar region without neurogenic claudication (principal); M48.07 Spinal stenosis, lumbosacral region; M51.17 Intervertebral disc disorders with radiculopathy, lumbosacral region; M51.16 Intervertebral disc disorders with radiculopathy, lumbar region; M47.27 Other spondylosis with radiculopathy, lumbosacral region; M47.26 Other spondylosis with radiculopathy, lumbar region
CPT/HCPCS: 64483; 64484; 99152; J0702; J1100; J2250; J3490

== ENCOUNTER → 2022-11-29 15:59 | Outpatient (CLI) | payer OTHER, SELFPAY ==
[2022-05-24 15:45] VITALS: BMI 29.9
--- NOTE | 2022-11-29 | DI.RAD.S_ITS ---
PROCEDURE: XR THORACIC SPINE 2V INDICATIONS: CHRONIC LBP TECHNIQUE: 3 views of the thoracic spine were acquired. COMPARISON: [facility], MR, MR THORACIC SPINE WO/W CON, 02/02/2019, 16:07. FINDINGS: Bones: No fractures or dislocations. No suspicious bony lesions. 12 pairs of ribs are noted, and appear intact where visualized. Mild right convexity curvature thoracolumbar spine centered T11. Multilevel degenerative changes of the thoracic spine are present. Soft tissues: No paravertebral stripe thickening. IMPRESSION: No thoracic vertebral body compression fracture identified. Dictated by: Robert Gonzalez M.D. on 11/30/2022 at 8:21 Approved by: Robert Gonzalez M.D. on 11/30/2022 at 8:26
--- NOTE | 2022-11-29 | DI.RAD.S_ITS ---
PROCEDURE: XR LUMBAR SPINE MIN 4V INDICATIONS: CHRONIC LBP TECHNIQUE: 5 views of the lumbar spine were acquired, including bilateral oblique views. COMPARISON: [facility], TONY, XR LUMBAR SPINE MIN 4V, 01/16/2022, 14:24. [facility], CR, L-SPINE MINIMUM 4 VIEWS, 10/12/2015, 9:12. FINDINGS: Bones: 5 nonrib-bearing vertebrae are present. No vertebral body compression fractures. No suspicious bony lesions. Minimal left convexity curvature centered at L3-L4. Severe multilevel degenerative changes with disc height loss, endplate spurring, and facet arthropathy. At least mild multilevel bony foraminal narrowing on oblique views. 4 mm anterolisthesis L5 on S1 4 mm retrolisthesis L4 on L5 6 mm retrolisthesis L3 on L4 5 mm retrolisthesis L2 on L3 Soft tissues: Overlying bowel gas pattern is normal. No suspicious soft tissue calcifications. IMPRESSION: Multilevel degenerative changes of the lumbar spine. Dictated by: Robert Gonzalez M.D. on 11/30/2022 at 8:16 Approved by: Robert Gonzalez M.D. on 11/30/2022 at 8:21
== END ==
PROVIDERS: PCP Family Medicine; Referring Provider Neurological Surgery; Visit Provider Neurological Surgery
DX: M54.50 Low back pain, unspecified (principal); G89.29 Other chronic pain; M54.6 Pain in thoracic spine
CPT/HCPCS: 72070; 72110

== ENCOUNTER → 2022-12-21 07:31 | Outpatient (CLI) | payer OTHER, SELFPAY ==
[2022-05-24 15:45] VITALS: BMI 29.9
[2022-12-21 09:16] LABS: Cholesterol 208 mg/dL (140-199); HDL Cholesterol 69 mg/dL (40-60); LDL Cholesterol Calculated 110 mg/dL (<100); Triglycerides 147 mg/dL (35-150)
[2022-12-21 09:21] LABS: High Sensitivity CRP - Cardiac 0.9 mg/L (1.0-3.0)
[2022-12-23 20:32] LABS: Lipoprotein (a) 9.3 nmol/L (<75.0)
== END ==
PROVIDERS: PCP Family Medicine; Referring Provider Family Medicine; Visit Provider Family Medicine
DX: E78.2 Mixed hyperlipidemia (principal); E03.9 Hypothyroidism, unspecified; I10 Essential (primary) hypertension
CPT/HCPCS: 36415; 80061; 83695; 86140

== ENCOUNTER → 2023-03-12 14:54 | Outpatient (CLI) | payer OTHER, SELFPAY ==
[2022-05-24 15:45] VITALS: BMI 29.9
[2023-03-15 03:34] LABS: Estradiol 6.3 pg/mL (.); Estriol,Serum <0.1 ng/mL (.); Estrone,Serum 16 pg/mL (.)
[2023-03-31 19:40] LABS: Estradiol, Sensitive 6.5
== END ==
PROVIDERS: PCP Family Medicine; Referring Provider Family Medicine; Visit Provider Family Medicine
DX: N95.9 Unspecified menopausal and perimenopausal disorder (principal); Z79.890 Hormone replacement therapy
CPT/HCPCS: 36415; 82670; 82677; 82679

== ENCOUNTER → 2023-06-03 13:25 | Outpatient (CLI) | payer OTHER, SELFPAY ==
[2022-05-24 15:45] VITALS: BMI 29.9
[2023-06-03 14:17] LABS: Add Manual Diff / Slide Review NO; Basophils Absolute Auto 100 /uL (0-100); Basophils Percent Auto 0.8 % (0-2); Eosinophils Absolute Auto 100 /uL (0-450); Eosinophils Percent Auto 1.6 % (2-4); Hematocrit 41.7 % (36-46); Hemoglobin 14.4 g/dL (12.0-16.0); Lymphocytes Absolute Auto 2100 /uL (1100-4500); Lymphocytes Percent Auto 29.4 % (25-40); Mean Corpuscular HGB Conc 34.6 % (30-36); Mean Corpuscular Hemoglobin 32.5 PG (26-34); Monocytes Absolute Auto 600 /uL (0-900); Monocytes Percent Auto 8.5 % (3-14); Neutrophils Absolute Auto 4300 /uL (1500-7000); Neutrophils Percent Auto 59.7 % (50-75); Platelet Count 192 X10^3/uL (150-400); Red Blood Cell Count 4.43 X10^6/uL (4.0-5.2); Red Cell Distribution Width 12.5 % (11.6-14.8); White Blood Cell Count 7.2 X10^3/uL (4.5-11.0)
[2023-06-03 14:37] LABS: BUN Creatinine Ratio 14.1 (6-22); Blood Urea Nitrogen 13 mg/dL (7-17); Calcium 9.4 mg/dL (8.4-10.2); Carbon Dioxide 28 mmol/L (22-32); Chloride 103 mmol/L (98-107); Estimated Glomerular Filt Rate > 60 mL/min (>60); Glucose 81 mg/dL (70-100); HEMOLYSIS < 15 (0-50); Potassium 4.2 mmol/L (3.4-5.1); Sodium 137 mmol/L (137-145)
== END ==
PROVIDERS: PCP Family Medicine; Referring Provider Neurological Surgery; Visit Provider Physician Assistant
DX: M48.062 Spinal stenosis, lumbar region with neurogenic claudication (principal); M54.16 Radiculopathy, lumbar region
CPT/HCPCS: 36415; 80048; 85025

== ENCOUNTER → 2023-09-05 10:09 | Outpatient (CLI) | payer OTHER, SELFPAY ==
[2022-05-24 15:45] VITALS: BMI 29.9
--- NOTE | 2023-09-05 10:14 | DI.RAD.S_ITS ---
PROCEDURE: XR LUMBAR SPINE MIN 4V INDICATIONS: BACK PAIN TECHNIQUE: 5 views of the lumbar spine acquired, including flexion and extension views. COMPARISON: [facility], , XR LUMBAR SPINE MIN 4V, 11/29/2022, 16:09. FINDINGS: Bones: 5 nonrib-bearing vertebrae are present. There is mild S shaped scoliosis of thoracolumbar spine not significantly changed in appearance compared to previous study. 6 mm retrolisthesis at L1-2, L2-3, L3-4 and L4-5 levels are seen. There is also 6 mm anterolisthesis of L5 on S1. Degenerative endplate changes, loss of disc height and bilateral facet arthrosis throughout lumbar spine is seen. No acute vertebral body compression fractures. No suspicious bony lesions. Soft tissues: Overlying bowel gas pattern is normal. No suspicious soft tissue calcifications. Flexion/extension: There is decreased range of motion without dynamic instability. IMPRESSION: 1. Mild S shaped scoliosis of thoracolumbar spine unchanged from prior study. Grade 1 retrolisthesis at L1-2 through L4-5 levels and grade 1 anterolisthesis at L5-S1 level. No acute compression fracture. Degenerative disc disease throughout lumbar spine. 2. Decreased range of motion on lateral flexion and extension views with preserved lumbar spine alignment. Dictated by: Chadwick Morris M.D. on 09/05/2023 at 13:22 Approved by: Chadwick Morris M.D. on 09/05/2023 at 13:24
== END ==
PROVIDERS: PCP Family Medicine; Referring Provider Neurological Surgery; Visit Provider Neurological Surgery
DX: M51.36 Other intervertebral disc degeneration, lumbar region (principal); M43.16 Spondylolisthesis, lumbar region; M43.17 Spondylolisthesis, lumbosacral region; M41.9 Scoliosis, unspecified; M54.50 Low back pain, unspecified; G89.29 Other chronic pain
CPT/HCPCS: 72110

== ENCOUNTER → 2023-09-16 14:02 | Outpatient (CLI) | payer OTHER, SELFPAY ==
[2022-05-24 15:45] VITALS: BMI 29.9
[2023-09-19 12:36] LABS: Dehydroepiandrosterone Sulfate 73.3 ug/dL (29.4-220.5)
[2023-09-19 13:43] LABS: Estradiol 15.6 pg/mL (.); Estriol,Serum <0.1 ng/mL (.); Estrone,Serum 18 pg/mL (.)
[2023-09-22 22:36] LABS: Percent Free Testosterone 1.11 % (0.50-2.80); Testosterone Free 0.12 ng/dL (0.10-0.85); Testosterone Total 10.6 ng/dL (.)
== END ==
PROVIDERS: PCP Family Medicine; Referring Provider Family Medicine; Visit Provider Family Medicine
DX: R68.82 Decreased libido (principal); Z79.890 Hormone replacement therapy
CPT/HCPCS: 36415; 82627; 82670; 82677; 82679; 84402; 84403

== ENCOUNTER → 2023-09-23 14:17 | Outpatient (CLI) | payer OTHER, SELFPAY ==
[2022-05-24 15:45] VITALS: BMI 29.9
--- NOTE | 2023-09-23 14:18 | DI.RAD.S_ITS ---
PROCEDURE: XR DEXA AXIAL SKELETON INDICATIONS: Bone Density Screening COMPARISON: None. FINDINGS: Lumbar Spine, L1, L3, and L4: Bone mineral density 1.199 g/cm2, T score 1.3, normal. Left Hip: Bone mineral density 0.810 g/cm2, T score -1.1, osteopenia. Left Femoral Neck: Bone mineral density 0.658 g/cm2, T score -1.7, osteopenia. Right Hip: Bone mineral density 0.828 g/cm2, T score -0.9, normal. Right Femoral Neck: Bone mineral density 0.688 g/cm2, T score -1.4, osteopenia. Fracture Risk Calculation (when applicable): 10-year fracture risk of a major osteoporotic fracture 8.0% and of a hip fracture 0.8%. (T score greater or equal to -1.0 to: NORMAL) (T score from -1.1 to -2.4: OSTEOPENIA) (T score less than or equal to -2.5: OSTEOPOROSIS) IMPRESSION: Osteopenia in bilateral hips elevates patient's 10 year fracture risk as described. Follow-up guidelines as follows: Osteoporosis: Consider a repeat DEXA and Vertebral Fracture Assessment (VFA) exam in 2 years or sooner if medically necessary, to reassess this patient's status. Osteopenia: Consider a repeat DEXA in 2-3 years to reassess this patient's status, or if there is a new clinical indication. Normal: Consider a repeat DEXA in 5 years or sooner, or if there is a new clinical indication. All treatment decisions require clinical judgment and consideration of individual patient factors, including patient preferences, comorbidities, previous drug use, risk factors not captured in the FRAX model (e.g., frailty, falls, vitamin D deficiency, increased bone turnover, interval significant decline in bone density ) and possible under- or over-estimation of fracture risk by FRAX. In addition, the NOF Guide recommends that FDA-approved medical therapies be considered in postmenopausal women and men age >= 50 years with a: * Hip or vertebral (clinical or morphometric) fracture * T-score of <=-2.5 at the spine or hip * Ten-year fracture probability by FRAX of >= 3% for hip fracture or >=20% for major osteoporotic fracture. People with diagnosed cases of osteoporosis or at high risk for fracture should have regular bone mineral density tests. For patients eligible for Medicare, routine testing is allowed once every 2 years. The testing frequency can be increased to one year for patients who have rapidly progressing disease, those who are receiving or discontinuing medical therapy to restore bone mass, or have additional risk factors. Dictated by: Emily Keating M.D. on 09/23/2023 at 16:51 Approved by: Emily Keating M.D. on 09/23/2023 at 16:52
--- NOTE | 2023-09-23 14:18 | DI.MG.S_ITS ---
BILATERAL DIGITAL SCREENING MAMMOGRAM 3D/2D WITH CAD: 09/23/2023 CLINICAL: Routine screening. Comparison is made to exams dated: 05/05/2022 mammogram, 03/02/2020 mammogram, and 04/12/2016 mammogram - [facility]. There are scattered areas of fibroglandular density in both breasts (category b / 25%-50% glandular tissue). Current study was also evaluated with a Computer Aided Detection (CAD) system. No significant masses, calcifications, or other findings are seen in either breast. There has been no significant interval change. IMPRESSION: NEGATIVE There is no mammographic evidence of malignancy. A 1 year screening mammogram is recommended. Based on the Tyrer Cuzick model (a risk assessment model) the patient's lifetime risk is 8.7% and her 10 year risk is 3.0%. According to the ACR, ACS, and NCCN guidelines, an annual breast MRI exam along with mammogram is recommended if the patient's lifetime risk is 20% or greater. This exam was interpreted at Station ID: [id number]. NOTE: For mammograms, a report in lay terms will be sent to the patient. Approximately 15% of breast malignancies will not be visualized mammographically. In the management of a palpable breast mass, a negative mammogram must not discourage biopsy of a clinically suspicious lesion. Electronically Signed By: Robert dee/onofre:09/23/2023 16:19:03 letter sent: Normal Exam ACR BI-RADS Category 1: Negative [id number]
== END ==
PROVIDERS: PCP Family Medicine; Referring Provider Family Medicine; Visit Provider Family Medicine
DX: Z12.31 Encounter for screening mammogram for malignant neoplasm of breast (principal); M85.89 Other specified disorders of bone density and structure, multiple sites; R92.323 Mammographic fibroglandular density, bilateral breasts
CPT/HCPCS: 77063; 77067; 77080

== ENCOUNTER → 2023-11-19 12:05 | Outpatient (CLI) | payer OTHER, SELFPAY ==
[2022-05-24 15:45] VITALS: BMI 29.9
[2023-11-19 14:18] LABS: TSH w/ Reflex to FT4 0.02 uIU/mL (0.47-4.68)
[2023-11-19 15:04] LABS: Free T4, Direct Thyroxine 1.42 ng/dL (0.78-2.19)
== END ==
PROVIDERS: PCP Family Medicine; Referring Provider Family Medicine; Visit Provider Family Medicine
DX: E03.9 Hypothyroidism, unspecified (principal); M85.80 Other specified disorders of bone density and structure, unspecified site; Z78.0 Asymptomatic menopausal state; Z79.890 Hormone replacement therapy
CPT/HCPCS: 36415; 82523; 82570; 82627; 82670; 84402; 84403; 84439; 84443

== ENCOUNTER → 2023-11-26 15:10 | Outpatient (CLI) | payer OTHER, SELFPAY ==
[2022-05-24 15:45] VITALS: BMI 29.9
--- NOTE | 2023-11-26 15:11 | DI.MRI.S_ITS ---
PROCEDURE: MR LUMBAR SPINE WO CON INDICATIONS: CHRONIC BILATERAL LOW BACK PAIN TECHNIQUE: Noncontrast sagittal T1 spin echo and T2 fast echo, sagittal STIR, and T2 fast spin echo through the lumbar spine. In cases with scoliosis, additional coronal T2 fast spin echo may be performed. COMPARISON: [facility] Outside Film, MR, MR LUMBAR SPINE WITHOUT CONTRAST, 06/09/2021, 10:17. FINDINGS: Image quality: Excellent Mild levoscoliosis of the lumbar spine, centered at L3. Mild retrolisthesis of L2 on L3, L3 on L4, L4 on L5. Grade 1 anterolisthesis of L5 on S1. Left pars defect at L5-S1. Multilevel fibrovascular endplate change, most pronounced and severe at L1-2. A small bone island is seen in the posterior L1 vertebral body. Conus terminates at L1-2, and is unremarkable. Right neural foraminal stenosis: Mild at L1-2, L2-3. Severe at L3-4, L4-5, and L5-S1. Left neural foraminal stenosis: Mild at L1-2, L2-3. Moderate at L3-4, L4-5 and L5-S1. Disc bulge at T10-T11, resulting in mild central canal stenosis, incompletely evaluated on sagittal view only. Axial images: T11-T12: Disc bulge. Severe bilateral facet arthropathy. Mild central canal stenosis. T12-L1: Disc bulge. Moderate bilateral facet arthropathy. No central canal stenosis. L1-2: Disc bulge. Mild bilateral facet arthropathy. Posterior decompression. No central canal stenosis. There is a small fluid collection in the midline subcutaneous fat of the posterior back, measuring 0.8 by 3.9 cm (axial by craniocaudal dimension. L2-3: Posterior decompression. Moderate right, mild left facet arthropathy. No central canal stenosis. Posterior disc uncovering. L3-4: Posterior decompression. Posterior disc uncovering. Severe right, mild left facet arthropathy. No central canal stenosis. L4-5: Severe right, moderate left facet arthropathy. No central canal stenosis. Visualized sacrum is intact. No abdominal aortic aneurysm. Small bilateral renal cysts. IMPRESSION: 1. Interval posterior decompression at L1-2 with small subcutaneous fluid collection in the midline posterior back. 2. Additional posterior decompression at L2-L4. 3. No significant central canal stenosis of the lumbar spine. 4. Multilevel neural foraminal stenosis as described above. Dictated by: Karma Dickey M.D. on 11/26/2023 at 16:16 Approved by: Karma Dickey M.D. on 11/26/2023 at 16:30
== END ==
PROVIDERS: PCP Family Medicine; Referring Provider Neurological Surgery; Visit Provider Neurological Surgery
DX: M47.816 Spondylosis without myelopathy or radiculopathy, lumbar region (principal); M51.360 Other intervertebral disc degeneration, lumbar region with discogenic back pain only; M48.061 Spinal stenosis, lumbar region without neurogenic claudication; M47.817 Spondylosis without myelopathy or radiculopathy, lumbosacral region; N28.1 Cyst of kidney, acquired; G89.29 Other chronic pain
CPT/HCPCS: 72148

== ENCOUNTER 2024-08-06 14:58 | Outpatient (CLI) | payer OTHER, SELFPAY ==
[2024-03-11 15:52] VITALS: BMI 29.9
[2024-08-06 16:05] VITALS: BP 128/72; PULSE 68; RESP 16; TEMP 36.8; O2SAT 99
[2024-08-06 16:21] VITALS: BP 141/63; PULSE 70; RESP 16; O2SAT 98
[2024-08-06] MEDS: MIDAZOLAM 2 MG/2 ML VIAL IV (16:25)
[2024-08-06] MEDS: BUPIVACAINE 0.5% (PF) 10 ML VIAL 2 ML INJ (16:27)
[2024-08-06] MEDS: iopamidoL 15 ML VIAL 3 ML INJ (16:27)
[2024-08-06 16:30] VITALS: BP 138/68; PULSE 69; RESP 16; O2SAT 97
--- NOTE | 2024-08-06 16:42 | P.PCN_ITS ---
Date/Time/Diagnoses Date of procedure: 08/06/24 Time of procedure: 16:42 Pre-procedure diagnosis: 1. FACET ARTHROPATHY Post-procedure diagnosis: same Procedure Notes Procedure: 1. Left L4, L5 and S1 MB BLOCKS LA Indications: Елена is referred by Dr. Leyva for treatment of Left Axial LBP. Physician: Mike Bean Total Fluoroscopy time (seconds): 7 Total sedation minutes: 12 Complications: none Procedure in detail & Post-procedure care: DESCRIPTION OF PROCEDURE Fluoroscopically guided, contrast-controlled left L4, L5 and S1 medial branch blocks with 0.5cc of 0.5% Marcaine. Following review of allergy and review of potential side effects and complications, including, but not necessarily limited to, infection, allergic reaction, local tissue breakdown, nerve injury, paralysis, stroke and possible , the patient indicated that the patient understood and agreed to proceed. An informed consent document was signed by the patient, witnessed by a nurse, and placed in the patient's chart. After review of previous anaesthesic history and IV conscious sedation the patient was deemed safe to proceed with today?s procedure with IV conscious sedation as ASA class II designation. Safety time-out was performed to confirm patient ID, procedure to be performed and site of procedure. IV sedation was accomplished with a combination of 2mg of Versed was administered by the RN after DO order, titrated to patient comfort during the course of the procedure while the patient remained responsive to all verbal commands. In the prone position, following sterile prep and drape of the lumbar region, t he left L4, L5 and S1 anatomical location of the medial branch of the dorsal ramus was identified fluoroscopically. Subsequently an anesthetic skin wheal using 1% lidocaine solution was initiated at each of the anatomical spots. Subsequently then a 22-gauge 3.5-inch spinal needle was atraumatically introduced and advanced under fluoroscopic guidance at each of the corresponding sites at the left L4, L5 and S1 MB. After negative aspiration, 0.2cc of Isovue 200 was injected, confirming placement without vascular or intrathecal uptake. Subsequently then 0.5cc of 0.5% Marcaine solution was injected at each of the corresponding sites at the left L4, L5 and S1 medial branch locations. The patient tolerated the procedure well without signs or symptoms of complications. The patient tolerated the procedure well without signs or symptoms of complications prior to transfer to the recovery area continued monitoring without incident. Post-procedure, the patient was monitored initiating provocative activities to measure the amount of relief from block of the facetogenic pain. The patient reported a VAS of 7 prior to the procedure and a post-procedure VAS of 1. It has been a pleasure to assist in the diagnostic and therapeutic care of your patient. POST OP INSTRUCTIONS The patient was provided with a Pain Log to complete over the next several hours and subsequent days prior to the patient's follow up with the ordering physician. If the patient has coil winding supervisor relief to the solution applied, then they may be a candidate for medial branch rhizotomy. The patient is aware, was provided, once again, with a Pain Log and will follow up with the referring physician for review and clinical correlation.
[2024-08-06 16:45] VITALS: BP 113/72; PULSE 70; RESP 16; O2SAT 96
[2024-08-06 16:50] VITALS: BP 126/78; PULSE 67; RESP 16; O2SAT 96
[2024-08-06 16:56] VITALS: BP 135/71; PULSE 66; RESP 16; O2SAT 99
== END 2024-08-06 17:00 | disposition admitted as inpatient to this hospital (09) ==
PROVIDERS: Family Provider Family Medicine; PCP Family Medicine; Referring Provider Family Medicine; Visit Provider Physical Medicine & Rehabilitation
DX: M47.816 Spondylosis without myelopathy or radiculopathy, lumbar region (principal); M47.817 Spondylosis without myelopathy or radiculopathy, lumbosacral region
CPT/HCPCS: 64493; 64494; 99152; J2250

== ENCOUNTER 2024-09-18 11:30 | Outpatient (RCR) | payer OTHER, SELFPAY ==
[2024-03-11 15:52] VITALS: BMI 29.9
--- NOTE | 2024-04-29 15:40 | PT.OIE ---
Current Diagnoses Spondylosis without myelopathy or radiculopathy, lumbar region (04/29/24) Other specified postprocedural states (04/29/24) Past Medical History (Last Reviewed 03/11/24 @ 15:46 by Mike Bean DO) Anxiety (1984) Asthma (1974) Central sleep apnea (~2013) Chronic back pain (2004) Depression (1984) Facet arthropathy, lumbar Hypertension (2009) Hypothyroidism (2009) Impaired fasting glucose Left foot drop Lumbosacral radiculopathy at L5 Obesity (BMI 30-39.9) Obstructive sleep apnea (~2013) Ovarian cyst Spondylolisthesis, lumbar region Past Surgical History (Last Reviewed 03/11/24 @ 15:46 by Mike Bean DO) Anesthesia History of abdominoplasty (1997) History of cataract surgery (~01/2018) History of lumbar surgery History of surgery (01/2019) History of surgery (~02/2019) History of total right knee replacement (01/11/20) Visit Care Team Role Provider Type Rajani Leyva DO Family Provider Physician Primary Care Provider Specialty: Medical Address: [address] [place] [address], [address], [place], [address] Email: [email or web address] Mike Bean DO Attending Provider Physician Referring Provider Specialty: Interventional Radiology Physiatry Pain Management Address: [facility] [place], [address] Email: [email or web address] Physical Therapy Initial Evaluation PT-OP-A Visit Information Start: 04/29/24 12:57 Freq: Status: Active Protocol: Document 04/29/24 12:20 DCW (Rec: 04/29/24 13:03 DCW [id number]) Out-Patient Physical Therapy Visit Information Visit Information Visit Type Initial Evaluation Visit Start Time 12:20 Visit Stop Time 13:00 Visit Number 1 Number of NUTRITION SPECIALIST Visits 0 Evaluation Information Evaluation Date 04/29/24 PT-OP-B Current Condition Start: 04/29/24 12:57 Freq: Status: Active Protocol: Document 04/29/24 12:20 DCW (Rec: 04/30/24 15:40 DCW [id number]) Current Condition History of Current Condition Onset Date Multi-year history Current Complaints Low back pain, occasional radicular symptoms History of Current Condition Pt is a 58 year old female presenting with a multi-year history of low back pain, complicated by multiple surgeries, including multi- level laminectomies, the most recent being in May 2023, which was an L1-2 lami decompression. Pt notes this most recent surgery seemed to help a lot with her radicular symptoms, as well as prior left foot drop, although she does still have occasional left-sided symptoms. Reports her lumbar pain is constant, but Gabapentin and Celebrex seem to help a lot. Admits most of her preferred activities, including gardening, driving, and hiking , all aggravate her back. Has been in PT previously off and on at a different clinic, but felt like she needed a fresh start elsewhere. Treatment Goals Patient/Caregiver Goals I want to get stronger and be better able to do things that I need to do. PT-OP-C Subjective Start: 04/29/24 12:57 Freq: Status: Active Protocol: Document 04/29/24 12:20 DCW (Rec: 04/29/24 13:03 DCW [id number]) OP-PT Subjective Patient Comments Patient Comments I've been in PT for a while elsewhere, and just feel like I hit a wall, and I'm ready for something different. Patient Questionnaires Oswestry Low Back Index Oswestry Score 21/50 = 42% Oswestry Impairment 40 to 59% Impaired (Score 40- 59) PT-OP-K Range of Motion Start: 04/29/24 12:57 Freq: Status: Active Protocol: Document 04/29/24 12:20 DCW (Rec: 04/30/24 15:40 DCW [id number]) Lumbar Spine Range of Motion Lumbar Spine Active Degrees Testing Position Standing Flexion 83 Extension 10 Lateral Flexion Left 52 Lateral Flexion Right 53 Comments Lateral flexion measured in cm from fingertips to floor PT-OP-L Special Tests Start: 04/29/24 12:57 Freq: Status: Active Protocol: Document 04/29/24 12:20 DCW (Rec: 04/30/24 15:40 DCW [id number]) Special Tests Lumbar Spine Special Tests ROSARIO Test Results Negative Straight Leg Raise Test Results Negative Slump Test Results Negative Compression Test Results Positive with left rotation and left lateral flexion A-P Shearing Test Results Mildly positive PT-OP-M Strength Start: 04/29/24 12:57 Freq: Status: Active Protocol: Document 04/29/24 12:20 DCW (Rec: 04/30/24 15:40 DCW [id number]) Hip Strength Hip Manual Muscle Testing Right Flexion (L2) 4 Good Abduction 4 Good Adduction 4 Good External Rotation 4 Good Internal Rotation 4 Good Left Flexion (L2) 3+ Fair+ Abduction 3+ Fair+ Adduction 3+ Fair+ External Rotation 4 Good Internal Rotation 4 Good Knee Strength Knee Manual Muscle Testing Right Flexion (S2) 4 Good Extension (L3) 4 Good Left Flexion (S2) 4- Good- Extension (L3) 4- Good- Ankle/Foot Strength Ankle and Foot Manual Muscle Testing Right Dorsiflexion (L4) 4 Good Left Dorsiflexion (L4) 3+ Fair+ PT-OP-Q Treatments Start: 04/29/24 12:57 Freq: Status: Active Protocol: Document 04/29/24 12:20 DCW (Rec: 04/29/24 13:03 DCW [id number]) Therapeutic Exercises Supine Exercises PPT Supine Exercise Name PPT /c Bracing Sitting Exercises Piriformis Sitting Exercise Name Figure-4 stretch Side bilateral PT-OP-T Assessment and Plan Start: 04/29/24 12:57 Freq: Status: Active Protocol: Document 04/29/24 12:20 DCW (Rec: 04/30/24 15:40 DCW [id number]) Physical Therapy Assessment Rehab Potential Rehabilitation Potential Fair Evaluation Complexity Number of Personal Factors/Comorbidities 3 or More Number of Body Systems Impaired 4 or More Clinical Presentation at Evaluation Unstable Impairments Impairments Activity Tolerance,Functional Activities,Functional Mobility ,Pain,ROM,Soft Tissue Mobility ,Strength,Tone Other Concerns Barriers to Rehabilitation Chronicity of condition, multiple surgeries, prior rehab attempts, radicular symptoms Goals Three Impairment Pt unable to hike uphill without pain Usp Goal (LTG) Pt to report ability to hike uphill for 10 minutes with <3/ 10 lumbar pain LTG Duration 06/29/24 Two Impairment Pt must restrict gardening to 20 minutes due to pain Event Promoter Goal (LTG) Pt to improve hip MMT to at least 4/5 in all planes and improved core stabilization in order to increase amount of time she can spend doing gardening pain-free to >45 minutes LTG Duration 06/29/24 One Impairment Pt does not have an appropriate home exercise program Short Term Goal (STG) Pt to be independent and compliant with an appropriate HEP STG Duration 05/30/24 Assessment Summary Assessment Pt presents with signs and symptoms consistent with referring diagnosis. Pt exhibits decreased left-sided LE strength, limitations in lumbar mobility, and a decreased ability to participate in her preferred activities. Limited to ~20 minutes while gardening, and is in quite a lot of pain when driving more than 60+ minutes , making trips to [place] difficult. Also limited with her ability to hike, as uphill ambulation is very difficult. Pt did have difficulty with simple PPT and abdominal bracing, stating it increased pain in her back. Pt instructed to practice PPT with 50% TrA contraction to perform without pain. Pt also provided with seated piriformis stretch, as she frequently experiences a deep posterior pain in her left hip . Pt should benefit from core and LE strengthening, STM, flexibility, increasing activity tolerance, and pain control. Physical Therapy Plan Frequency and Duration Frequency of Treatment 2x/Week Plan of Care Start Date 04/29/24 Plan of Care End Date 06/29/24 Therapeutic Interventions Therapeutic Interventions Home Exercise Program,Joint Mobilizations,Manual Therapy, Neuromuscular Re-education, Patient/Caregiver Education, Self-Care/Home Management,Soft Tissue Mobilization, Therapeutic Activities, Therapeutic Exercises Modalities Cold Pack/Ice Massage,Electric Stimulation,Hot Packs Next Visit Focus/Plan Next Note Type Treatment Note Next Visit Plan Hip/core strengthening, flexibility, activity tolerance, pain control
--- NOTE | 2024-04-29 15:41 | PT.OPPOC ---
Physical, Occupational & Speech Therapy At [facility] Current Diagnoses Spondylosis without myelopathy or radiculopathy, lumbar region (04/29/24) Other specified postprocedural states (04/29/24) Visit Care Team Role Provider Type Rajani Leyva DO Family Provider Physician Primary Care Provider Specialty: Medical Address: [address] [place] [address], [address], [place], [address] Email: [email or web address] Mike Bean DO Attending Provider Physician Referring Provider Specialty: Interventional Radiology Physiatry Pain Management Address: [address], [place], [address] Email: [email or web address] Plan Of Care PT-OP-B Current Condition Start: 04/29/24 12:57 Freq: Status: Active Protocol: Document 04/29/24 12:20 DCW (Rec: 04/30/24 15:40 DCW [id number]) Current Condition History of Current Condition Onset Date Multi-year history Current Complaints Low back pain, occasional radicular symptoms History of Current Condition Pt is a 58 year old female presenting with a multi-year history of low back pain, complicated by multiple surgeries, including multi- level laminectomies, the most recent being in May 2023, which was an L1-2 lami decompression. Pt notes this most recent surgery seemed to help a lot with her radicular symptoms, as well as prior left foot drop, although she does still have occasional left-sided symptoms. Reports her lumbar pain is constant, but Gabapentin and Celebrex seem to help a lot. Admits most of her preferred activities, including gardening, driving, and hiking , all aggravate her back. Has been in PT previously off and on at a different clinic, but felt like she needed a fresh start elsewhere. Treatment Goals Patient/Caregiver Goals I want to get stronger and be better able to do things that I need to do. PT-OP-T Assessment and Plan Start: 04/29/24 12:57 Freq: Status: Active Protocol: Document 04/29/24 12:20 DCW (Rec: 04/30/24 15:40 [facility] [id number]) Physical Therapy Assessment Rehab Potential Rehabilitation Potential Fair Evaluation Complexity Number of Personal Factors/Comorbidities 3 or More Number of Body Systems Impaired 4 or More Clinical Presentation at Evaluation Unstable Impairments Impairments Activity Tolerance,Functional Activities,Functional Mobility ,Pain,ROM,Soft Tissue Mobility ,Strength,Tone Other Concerns Barriers to Rehabilitation Chronicity of condition, multiple surgeries, prior rehab attempts, radicular symptoms Goals Three Impairment Pt unable to hike uphill without pain Shelter Goal (LTG) Pt to report ability to hike uphill for 10 minutes with <3/ 10 lumbar pain LTG Duration 06/29/24 Two Impairment Pt must restrict gardening to 20 minutes due to pain Occupancy Specialist Goal (LTG) Pt to improve hip MMT to at least 4/5 in all planes and improved core stabilization in order to increase amount of time she can spend doing gardening pain-free to >45 minutes LTG Duration 06/29/24 One Impairment Pt does not have an appropriate home exercise program Short Term Goal (STG) Pt to be independent and compliant with an appropriate HEP STG Duration 05/30/24 Assessment Summary Assessment Pt presents with signs and symptoms consistent with referring diagnosis. Pt exhibits decreased left-sided LE strength, limitations in lumbar mobility, and a decreased ability to participate in her preferred activities. Limited to ~20 minutes while gardening, and is in quite a lot of pain when driving more than 60+ minutes , making trips to [place] difficult. Also limited with her ability to hike, as uphill ambulation is very difficult. Pt did have difficulty with simple PPT and abdominal bracing, stating it increased pain in her back. Pt instructed to practice PPT with 50% TrA contraction to perform without pain. Pt also provided with seated piriformis stretch, as she frequently experiences a deep posterior pain in her left hip . Pt should benefit from core and LE strengthening, STM, flexibility, increasing activity tolerance, and pain control. Physical Therapy Plan Frequency and Duration Frequency of Treatment 2x/Week Plan of Care Start Date 04/29/24 Plan of Care End Date 06/29/24 Therapeutic Interventions Therapeutic Interventions Home Exercise Program,Joint Mobilizations,Manual Therapy, Neuromuscular Re-education, Patient/Caregiver Education, Self-Care/Home Management,Soft Tissue Mobilization, Therapeutic Activities, Therapeutic Exercises Modalities Cold Pack/Ice Massage,Electric Stimulation,Hot Packs Next Visit Focus/Plan Next Note Type Treatment Note Next Visit Plan Hip/core strengthening, flexibility, activity tolerance, pain control Plan of Care Dates Plan of Care Start Date 04/29/24 Plan of Care End Date 06/29/24 Electronically Signed by: Regino Graff, PT 04/30/24 [id number] If you are in agreement with this Plan of Care, please return a signed and dated copy. I have reviewed this Plan of Care and certify that the skilled therapy services above are required to meet the patient?s needs. Physician Signature Date Printed Name and Credentials Clinical Instructor Signature Printed Name and Credentials
--- NOTE | 2024-05-04 14:33 | PT.OTN ---
Current Diagnoses Spondylosis without myelopathy or radiculopathy, lumbar region (05/04/24) Other specified postprocedural states (05/04/24) Physical Therapy Treatment Note PT-OP-A Visit Information Start: 04/29/24 12:57 Freq: Status: Active Protocol: Document 05/04/24 13:45 DCW (Rec: 05/04/24 14:31 DCW [id number]) Out-Patient Physical Therapy Visit Information Visit Information Visit Type Treatment Note Visit Start Time 13:45 Visit Stop Time 14:30 Visit Number 2 Number of NONPROFIT FUNDRAISER Visits 0 Evaluation Information Evaluation Date 04/29/24 PT-OP-B Current Condition Start: 04/29/24 12:57 Freq: Status: Active Protocol: Document 04/29/24 12:20 DCW (Rec: 04/30/24 15:40 DCW [id number]) Current Condition History of Current Condition Onset Date Multi-year history Current Complaints Low back pain, occasional radicular symptoms History of Current Condition Pt is a 58 year old female presenting with a multi-year history of low back pain, complicated by multiple surgeries, including multi- level laminectomies, the most recent being in May 2023, which was an L1-2 lami decompression. Pt notes this most recent surgery seemed to help a lot with her radicular symptoms, as well as prior left foot drop, although she does still have occasional left-sided symptoms. Reports her lumbar pain is constant, but Gabapentin and Celebrex seem to help a lot. Admits most of her preferred activities, including gardening, driving, and hiking , all aggravate her back. Has been in PT previously off and on at a different clinic, but felt like she needed a fresh start elsewhere. Treatment Goals Patient/Caregiver Goals I want to get stronger and be better able to do things that I need to do. PT-OP-C Subjective Start: 04/29/24 12:57 Freq: Status: Active Protocol: Document 05/04/24 13:45 DCW (Rec: 05/04/24 14:33 DCW [id number]) OP-PT Subjective Patient Comments Patient Comments Pt reports she has been practicing HEP, Posterior Pelvic Tilts are going better, pt able to perform without back pain when remembering to not tighten too forcefully. PT-OP-K Range of Motion Start: 04/29/24 12:57 Freq: Status: Active Protocol: Document 04/29/24 12:20 DCW (Rec: 04/30/24 15:40 DCW [id number]) Lumbar Spine Range of Motion Lumbar Spine Active Degrees Testing Position Standing Flexion 83 Extension 10 Lateral Flexion Left 52 Lateral Flexion Right 53 Comments Lateral flexion measured in cm from fingertips to floor PT-OP-L Special Tests Start: 04/29/24 12:57 Freq: Status: Active Protocol: Document 04/29/24 12:20 DCW (Rec: 04/30/24 15:40 DCW [id number]) Special Tests Lumbar Spine Special Tests ROSARIO Test Results Negative Straight Leg Raise Test Results Negative Slump Test Results Negative Compression Test Results Positive with left rotation and left lateral flexion A-P Shearing Test Results Mildly positive PT-OP-M Strength Start: 04/29/24 12:57 Freq: Status: Active Protocol: Document 04/29/24 12:20 DCW (Rec: 04/30/24 15:40 DCW [id number]) Hip Strength Hip Manual Muscle Testing Right Flexion (L2) 4 Good Abduction 4 Good Adduction 4 Good External Rotation 4 Good Internal Rotation 4 Good Left Flexion (L2) 3+ Fair+ Abduction 3+ Fair+ Adduction 3+ Fair+ External Rotation 4 Good Internal Rotation 4 Good Knee Strength Knee Manual Muscle Testing Right Flexion (S2) 4 Good Extension (L3) 4 Good Left Flexion (S2) 4- Good- Extension (L3) 4- Good- Ankle/Foot Strength Ankle and Foot Manual Muscle Testing Right Dorsiflexion (L4) 4 Good Left Dorsiflexion (L4) 3+ Fair+ PT-OP-Q Treatments Start: 04/29/24 12:57 Freq: Status: Active Protocol: Document 05/04/24 13:45 DCW (Rec: 05/04/24 14:31 DCW [id number]) Gym Equipment Therapeutic Ball Trunk Flexion Exercise Details Trunk Flexion Stretch Ball Size/Color Green - 65 cm Body Position Sitting Bridging Exercise Details Bridging /c feet on T-ball Ball Size/Color Red - 55 cm LTR Exercise Details LTR Ball Size/Color Red - 55 cm Body Position Supine Therapeutic Exercises Supine Exercises SLR Supine Exercise Name PPT /c SLR Side bilateral Marching Supine Exercise Name Marching /c PPT Side bilateral Standing Exercises Hip Extension Standing Exercise Name Hip Extension Side bilateral Resistance Green Rows Standing Exercise Name Rows Side bilateral Pec Stretch Standing Exercise Name Corner Pec Stretch Side bilateral Pallof Press Standing Exercise Name Pallof Press Side bilateral Resistance Green Other Exercises Resisted Ambulation Other Exercise Name Resisted Side-stepping Resistance Green PT-OP-T Assessment and Plan Start: 04/29/24 12:57 Freq: Status: Active Protocol: Document 05/04/24 13:45 DCW (Rec: 05/04/24 14:31 DCW [id number]) Physical Therapy Assessment Impairments Impairments Activity Tolerance,Functional Activities,Functional Mobility ,Pain,ROM,Soft Tissue Mobility ,Strength,Tone Goals Three Impairment Pt unable to hike uphill without pain Long-Term Goal (LTG) Pt to report ability to hike uphill for 10 minutes with <3/ 10 lumbar pain LTG Duration 06/29/24 Two Impairment Pt must restrict gardening to 20 minutes due to pain Switch Tender Goal (LTG) Pt to improve hip MMT to at least 4/5 in all planes and improved core stabilization in order to increase amount of time she can spend doing gardening pain-free to >45 minutes LTG Duration 06/29/24 One Impairment Pt does not have an appropriate home exercise program Short Term Goal (STG) Pt to be independent and compliant with an appropriate HEP STG Duration 05/30/24 Assessment Summary Assessment Tolerated treatment well, pt admits frustration to how quickly core and hip muscles fatigue. Added some posture exercises due to pt complaints of frequently feeling like she has a forward flexed posture at baseline, especially when first getting up in the morning. Continue to focus on core/hip strength and activity tolerance. Physical Therapy Plan Frequency and Duration Frequency of Treatment 2x/Week Plan of Care Start Date 04/29/24 Plan of Care End Date 06/29/24 Therapeutic Interventions Therapeutic Interventions Home Exercise Program,Joint Mobilizations,Manual Therapy, Neuromuscular Re-education, Patient/Caregiver Education, Self-Care/Home Management,Soft Tissue Mobilization, Therapeutic Activities, Therapeutic Exercises Modalities Cold Pack/Ice Massage,Electric Stimulation,Hot Packs Next Visit Focus/Plan Next Note Type Treatment Note Next Visit Plan Hip/core strengthening, flexibility, activity tolerance, pain control
--- NOTE | 2024-05-14 14:52 | PT.OTN ---
Current Diagnoses Spondylosis without myelopathy or radiculopathy, lumbar region (05/14/24) Other specified postprocedural states (05/14/24) Physical Therapy Treatment Note PT-OP-A Visit Information Start: 04/29/24 12:57 Freq: Status: Active Protocol: Document 05/14/24 12:58 AB (Rec: 05/14/24 14:52 AB [id number]) Out-Patient Physical Therapy Visit Information Visit Information Visit Type Treatment Note Visit Start Time 13:04 Visit Stop Time 13:48 Visit Number 3 Number of ENGRAVING PRESS OPERATOR Visits 1 Evaluation Information Evaluation Date 04/29/24 PT-OP-B Current Condition Start: 04/29/24 12:57 Freq: Status: Active Protocol: Document 04/29/24 12:20 DCW (Rec: 04/30/24 15:40 DCW [id number]) Current Condition History of Current Condition Onset Date Multi-year history Current Complaints Low back pain, occasional radicular symptoms History of Current Condition Pt is a 58 year old female presenting with a multi-year history of low back pain, complicated by multiple surgeries, including multi- level laminectomies, the most recent being in May 2023, which was an L1-2 lami decompression. Pt notes this most recent surgery seemed to help a lot with her radicular symptoms, as well as prior left foot drop, although she does still have occasional left-sided symptoms. Reports her lumbar pain is constant, but Gabapentin and Celebrex seem to help a lot. Admits most of her preferred activities, including gardening, driving, and hiking , all aggravate her back. Has been in PT previously off and on at a different clinic, but felt like she needed a fresh start elsewhere. Treatment Goals Patient/Caregiver Goals I want to get stronger and be better able to do things that I need to do. PT-OP-C Subjective Start: 04/29/24 12:57 Freq: Status: Active Protocol: Document 05/14/24 12:58 AB (Rec: 05/14/24 14:52 AB [id number]) OP-PT Subjective Patient Comments Patient Comments Patient reports feeling stiffer post having a massage yesterday, comments it was a deeper massage, comments she went for a walk and that helped. 3.5/10 back pain start of session. PT-OP-K Range of Motion Start: 04/29/24 12:57 Freq: Status: Active Protocol: Document 04/29/24 12:20 DCW (Rec: 04/30/24 15:40 DCW [id number]) Lumbar Spine Range of Motion Lumbar Spine Active Degrees Testing Position Standing Flexion 83 Extension 10 Lateral Flexion Left 52 Lateral Flexion Right 53 Comments Lateral flexion measured in cm from fingertips to floor PT-OP-L Special Tests Start: 04/29/24 12:57 Freq: Status: Active Protocol: Document 04/29/24 12:20 DCW (Rec: 04/30/24 15:40 DCW [id number]) Special Tests Lumbar Spine Special Tests ROSARIO Test Results Negative Straight Leg Raise Test Results Negative Slump Test Results Negative Compression Test Results Positive with left rotation and left lateral flexion A-P Shearing Test Results Mildly positive PT-OP-M Strength Start: 04/29/24 12:57 Freq: Status: Active Protocol: Document 04/29/24 12:20 DCW (Rec: 04/30/24 15:40 DCW [id number]) Hip Strength Hip Manual Muscle Testing Right Flexion (L2) 4 Good Abduction 4 Good Adduction 4 Good External Rotation 4 Good Internal Rotation 4 Good Left Flexion (L2) 3+ Fair+ Abduction 3+ Fair+ Adduction 3+ Fair+ External Rotation 4 Good Internal Rotation 4 Good Knee Strength Knee Manual Muscle Testing Right Flexion (S2) 4 Good Extension (L3) 4 Good Left Flexion (S2) 4- Good- Extension (L3) 4- Good- Ankle/Foot Strength Ankle and Foot Manual Muscle Testing Right Dorsiflexion (L4) 4 Good Left Dorsiflexion (L4) 3+ Fair+ PT-OP-Q Treatments Start: 04/29/24 12:57 Freq: Status: Active Protocol: Document 05/14/24 12:58 AB (Rec: 05/14/24 14:52 AB [id number]) Therapeutic Exercises Supine Exercises abdominal bracing with LE movement Supine Exercise Name 1. bent knee fall out 2. LE ext from hooklying Reps/Minutes 1. X 1 2. X 10 Comments verbal cues to brace as LE moves away from core piriformis Supine Exercise Name from hooklying Reps/Minutes 60 sec X 2 each LE Comments verbal and tactile Sitting Exercises Rhythmic stabilization Sitting Exercise Name HEP Resistance light to very light Reps/Minutes 2-3 min Comments all directions fwd, back lat, rot very light with rot Piriformis Sitting Exercise Name Figure-4 stretch Side bilateral Resistance HEP Reps/Minutes 60 sec each each LE Standing Exercises calf stretch Standing Exercise Name gastroc and soleus Side left Reps/Minutes 60 sec each Comments verbal and visual cues Pec Stretch Standing Exercise Name Corner Pec Stretch Side bilateral Reps/Minutes 60 sec each UE Comments single arm on wall this session Pallof Press Standing Exercise Name Pallof Press Side bilateral Resistance level one light blue Equipment Used Radio Engineer band issued due to c/ o back pain with band used at home Comments vc to monitored for pain and VC to lower UE's Manual Therapy Treatment Manual Techniques MET for R AI L PI and pubic shotgun Reps/Duration 6 X 6 sec each Comments with dowel from hooklying position PT-OP-T Assessment and Plan Start: 04/29/24 12:57 Freq: Status: Active Protocol: Document 05/14/24 12:58 AB (Rec: 05/14/24 14:52 AB [id number]) Physical Therapy Assessment Goals Three Impairment Pt unable to hike uphill without pain Mcfp Goal (LTG) Pt to report ability to hike uphill for 10 minutes with <3/ 10 lumbar pain LTG Duration 06/29/24 Two Impairment Pt must restrict gardening to 20 minutes due to pain Mcfp Goal (LTG) Pt to improve hip MMT to at least 4/5 in all planes and improved core stabilization in order to increase amount of time she can spend doing gardening pain-free to >45 minutes LTG Duration 06/29/24 One Impairment Pt does not have an appropriate home exercise program Short Term Goal (STG) Pt to be independent and compliant with an appropriate HEP STG Duration 05/30/24 Assessment Summary Assessment Елена rates pain 1/10 back pain 2/10 glute pain end of session. Of note L great toe 5 cm from wall with knee to wall PROM body over ankle DF. Physical Therapy Plan Frequency and Duration Frequency of Treatment 2x/Week Plan of Care Start Date 04/29/24 Plan of Care End Date 06/29/24 Therapeutic Interventions Therapeutic Interventions Home Exercise Program,Joint Mobilizations,Manual Therapy, Neuromuscular Re-education, Patient/Caregiver Education, Self-Care/Home Management,Soft Tissue Mobilization, Therapeutic Activities, Therapeutic Exercises Modalities Cold Pack/Ice Massage,Electric Stimulation,Hot Packs Next Visit Focus/Plan Next Note Type Treatment Note Next Visit Plan Hip/core strengthening, flexibility, activity tolerance, pain control
--- NOTE | 2024-06-01 13:02 | PT.OTN ---
Current Diagnoses Spondylosis without myelopathy or radiculopathy, lumbar region (06/01/24) Other specified postprocedural states (06/01/24) Physical Therapy Treatment Note PT-OP-A Visit Information Start: 04/29/24 12:57 Freq: Status: Active Protocol: Document 06/01/24 12:16 DCW (Rec: 06/01/24 13:02 DCW [id number]) Out-Patient Physical Therapy Visit Information Visit Information Visit Type Treatment Note Visit Start Time 12:16 Visit Stop Time 13:00 Visit Number 4 Number of CRAWLER TRACTOR OPERATOR Visits 0 Evaluation Information Evaluation Date 04/29/24 PT-OP-B Current Condition Start: 04/29/24 12:57 Freq: Status: Active Protocol: Document 04/29/24 12:20 DCW (Rec: 04/30/24 15:40 DCW [id number]) Current Condition History of Current Condition Onset Date Multi-year history Current Complaints Low back pain, occasional radicular symptoms History of Current Condition Pt is a 58 year old female presenting with a multi-year history of low back pain, complicated by multiple surgeries, including multi- level laminectomies, the most recent being in May 2023, which was an L1-2 lami decompression. Pt notes this most recent surgery seemed to help a lot with her radicular symptoms, as well as prior left foot drop, although she does still have occasional left-sided symptoms. Reports her lumbar pain is constant, but Gabapentin and Celebrex seem to help a lot. Admits most of her preferred activities, including gardening, driving, and hiking , all aggravate her back. Has been in PT previously off and on at a different clinic, but felt like she needed a fresh start elsewhere. Treatment Goals Patient/Caregiver Goals I want to get stronger and be better able to do things that I need to do. PT-OP-C Subjective Start: 04/29/24 12:57 Freq: Status: Active Protocol: Document 06/01/24 12:16 DCW (Rec: 06/01/24 13:02 DCW [id number]) OP-PT Subjective Patient Comments Patient Comments I was traveling, and I am stiff and sore today. Otherwise, I do think I'm doing much better. Has had a little bit of tingling down her left glute, but nothing worse. Swimming causes a little bit of spasm in her low back, but feels better after stretching. Has been able to walk 3+ miles without numbness PT-OP-K Range of Motion Start: 04/29/24 12:57 Freq: Status: Active Protocol: Document 04/29/24 12:20 DCW (Rec: 04/30/24 15:40 DCW [id number]) Lumbar Spine Range of Motion Lumbar Spine Active Degrees Testing Position Standing Flexion 83 Extension 10 Lateral Flexion Left 52 Lateral Flexion Right 53 Comments Lateral flexion measured in cm from fingertips to floor PT-OP-L Special Tests Start: 04/29/24 12:57 Freq: Status: Active Protocol: Document 04/29/24 12:20 DCW (Rec: 04/30/24 15:40 DCW [id number]) Special Tests Lumbar Spine Special Tests ROSARIO Test Results Negative Straight Leg Raise Test Results Negative Slump Test Results Negative Compression Test Results Positive with left rotation and left lateral flexion A-P Shearing Test Results Mildly positive PT-OP-M Strength Start: 04/29/24 12:57 Freq: Status: Active Protocol: Document 04/29/24 12:20 DCW (Rec: 04/30/24 15:40 DCW [id number]) Hip Strength Hip Manual Muscle Testing Right Flexion (L2) 4 Good Abduction 4 Good Adduction 4 Good External Rotation 4 Good Internal Rotation 4 Good Left Flexion (L2) 3+ Fair+ Abduction 3+ Fair+ Adduction 3+ Fair+ External Rotation 4 Good Internal Rotation 4 Good Knee Strength Knee Manual Muscle Testing Right Flexion (S2) 4 Good Extension (L3) 4 Good Left Flexion (S2) 4- Good- Extension (L3) 4- Good- Ankle/Foot Strength Ankle and Foot Manual Muscle Testing Right Dorsiflexion (L4) 4 Good Left Dorsiflexion (L4) 3+ Fair+ PT-OP-Q Treatments Start: 04/29/24 12:57 Freq: Status: Active Protocol: Document 06/01/24 12:16 DCW (Rec: 06/01/24 13:02 DCW [id number]) Gym Equipment Therapeutic Ball Pelvic Tilts Exercise Details Pelvic Tilts/Circles Ball Size/Color Green - 65 cm Body Position Sitting LTR Exercise Details LTR Ball Size/Color Red - 55 cm Body Position Supine Therapeutic Exercises Sidelying Exercises Open Book Sidelying Exercise Name Open Book Side bilateral Comments VCs to follow arm with eyes to increase rotation Standing Exercises Hip Hiking Standing Exercise Name Hip Hiking Side bilateral Equipment Used 6 step Pallof Press Standing Exercise Name Pallof Press Side bilateral Resistance Blue Comments Review of proper technique Manual Therapy Treatment Consent Patient gave verbal consent for manual Yes treatment Soft Tissue Mobilization Paraspinals Body Location T/L paraspinals, L>R Mobilization Type Sustained Pressure,Trigger Point Release Intensity/Depth Moderate Body Position Sidelying PT-OP-T Assessment and Plan Start: 04/29/24 12:57 Freq: Status: Active Protocol: Document 06/01/24 12:16 DCW (Rec: 06/01/24 13:02 DCW [id number]) Physical Therapy Assessment Impairments Impairments Activity Tolerance,Functional Activities,Functional Mobility ,Pain,ROM,Soft Tissue Mobility ,Strength,Tone Goals Three Impairment Pt unable to hike uphill without pain Penitentiary Goal (LTG) Pt to report ability to hike uphill for 10 minutes with <3/ 10 lumbar pain LTG Duration 06/29/24 Two Impairment Pt must restrict gardening to 20 minutes due to pain Ground Support Equipment Mechanic Goal (LTG) Pt to improve hip MMT to at least 4/5 in all planes and improved core stabilization in order to increase amount of time she can spend doing gardening pain-free to >45 minutes LTG Duration 06/29/24 One Impairment Pt does not have an appropriate home exercise program Short Term Goal (STG) Pt to be independent and compliant with an appropriate HEP STG Duration 05/30/24 Assessment Summary Assessment Pt had difficult time with segmental movement of hips vs back, instructed to work on lateral hip movement and PPT/ APT in sitting. Continue to focus on functional mobility, pain control, and strengthening. Physical Therapy Plan Frequency and Duration Frequency of Treatment 2x/Week Plan of Care Start Date 04/29/24 Plan of Care End Date 06/29/24 Therapeutic Interventions Therapeutic Interventions Home Exercise Program,Joint Mobilizations,Manual Therapy, Neuromuscular Re-education, Patient/Caregiver Education, Self-Care/Home Management,Soft Tissue Mobilization, Therapeutic Activities, Therapeutic Exercises Modalities Cold Pack/Ice Massage,Electric Stimulation,Hot Packs Next Visit Focus/Plan Next Note Type Treatment Note Next Visit Plan Hip/core strengthening, flexibility, activity tolerance, pain control
--- NOTE | 2024-06-04 15:14 | PT.OTN ---
Physical Therapy Treatment Note PT-OP-A Visit Information Start: 04/29/24 12:57 Freq: Status: Active Protocol: Document 06/04/24 13:07 NBM (Rec: 06/04/24 13:51 NBM Laptop) Out-Patient Physical Therapy Visit Information Visit Information Visit Type Treatment Note Visit Start Time 13:08 Visit Stop Time 13:49 Visit Number 5 Number of SENIOR SHAREPOINT DEVELOPER Visits 1 PT-OP-B Current Condition Start: 04/29/24 12:57 Freq: Status: Active Protocol: Document 04/29/24 12:20 DCW (Rec: 04/30/24 15:40 DCW [id number]) Current Condition History of Current Condition Onset Date Multi-year history Current Complaints Low back pain, occasional radicular symptoms History of Current Condition Pt is a 58 year old female presenting with a multi-year history of low back pain, complicated by multiple surgeries, including multi- level laminectomies, the most recent being in May 2023, which was an L1-2 lami decompression. Pt notes this most recent surgery seemed to help a lot with her radicular symptoms, as well as prior left foot drop, although she does still have occasional left-sided symptoms. Reports her lumbar pain is constant, but Gabapentin and Celebrex seem to help a lot. Admits most of her preferred activities, including gardening, driving, and hiking , all aggravate her back. Has been in PT previously off and on at a different clinic, but felt like she needed a fresh start elsewhere. Treatment Goals Patient/Caregiver Goals I want to get stronger and be better able to do things that I need to do. PT-OP-C Subjective Start: 04/29/24 12:57 Freq: Status: Active Protocol: Document 06/04/24 13:07 NBM (Rec: 06/04/24 13:51 NBM Laptop) OP-PT Subjective Patient Comments Patient Comments Елена reports when pain starts during exercises she tends to push through the pain to complete exercises, like this morning pain started with practicing single leg balance , and she's been gardening more with the weather, so is more sore. She notices she holds her breath. PT-OP-K Range of Motion Start: 04/29/24 12:57 Freq: Status: Active Protocol: Document 04/29/24 12:20 DCW (Rec: 04/30/24 15:40 DCW [id number]) Lumbar Spine Range of Motion Lumbar Spine Active Degrees Testing Position Standing Flexion 83 Extension 10 Lateral Flexion Left 52 Lateral Flexion Right 53 Comments Lateral flexion measured in cm from fingertips to floor PT-OP-L Special Tests Start: 04/29/24 12:57 Freq: Status: Active Protocol: Document 04/29/24 12:20 DCW (Rec: 04/30/24 15:40 DCW [id number]) Special Tests Lumbar Spine Special Tests ROSARIO Test Results Negative Straight Leg Raise Test Results Negative Slump Test Results Negative Compression Test Results Positive with left rotation and left lateral flexion A-P Shearing Test Results Mildly positive PT-OP-M Strength Start: 04/29/24 12:57 Freq: Status: Active Protocol: Document 04/29/24 12:20 DCW (Rec: 04/30/24 15:40 DCW [id number]) Hip Strength Hip Manual Muscle Testing Right Flexion (L2) 4 Good Abduction 4 Good Adduction 4 Good External Rotation 4 Good Internal Rotation 4 Good Left Flexion (L2) 3+ Fair+ Abduction 3+ Fair+ Adduction 3+ Fair+ External Rotation 4 Good Internal Rotation 4 Good Knee Strength Knee Manual Muscle Testing Right Flexion (S2) 4 Good Extension (L3) 4 Good Left Flexion (S2) 4- Good- Extension (L3) 4- Good- Ankle/Foot Strength Ankle and Foot Manual Muscle Testing Right Dorsiflexion (L4) 4 Good Left Dorsiflexion (L4) 3+ Fair+ PT-OP-Q Treatments Start: 04/29/24 12:57 Freq: Status: Active Protocol: Document 06/04/24 13:07 NB (Rec: 06/04/24 13:51 NBM Laptop) Gym Equipment Therapeutic Ball Pelvic Tilts Exercise Details Pelvic Tilts/Circles w/ TrA and breath focus Ball Size/Color Green - 65 cm Body Position Sitting Comments a/p, m/l, CW/CCW w/ hold for stretch as needed. -i/s to pt in self-monitoring TrA medial to ASIS and use of visual aids. improves segmental hip mobility. Therapeutic Activity Therapeutic Activity body mechanics Comments gardening 1/2 kneel and tall and short kneel. Improving self-awareness for TrA activation and breath and discussion of breaks as needed for positional changes instead of pushing through pain. Self-Care/Home Management Treatment Education Patient Education Body Mechanics,Home Exercise Program,Pain Management, Posture Other Education -Edu to pt of TrA m. A&P with interrelationship of diaphragm and pelvic floor to better understand why not to breathhold with exercises. - Muscle relaxation w/ diaphragmatic breathing in short kneeling for pain management w/ Thank you, body mantra. -Education to pt of upright posture correction and pt's tendency to overcorrect from thoracolumbar junction, and how to incorporate core and breath with posture and activity. PT-OP-T Assessment and Plan Start: 04/29/24 12:57 Freq: Status: Active Protocol: Document 06/04/24 13:07 NBM (Rec: 06/04/24 13:51 NBM Laptop) Physical Therapy Assessment Goals Three Impairment Pt unable to hike uphill without pain Correction Goal (LTG) Pt to report ability to hike uphill for 10 minutes with <3/ 10 lumbar pain LTG Duration 06/29/24 Two Impairment Pt must restrict gardening to 20 minutes due to pain Hospital Aide Goal (LTG) Pt to improve hip MMT to at least 4/5 in all planes and improved core stabilization in order to increase amount of time she can spend doing gardening pain-free to >45 minutes LTG Duration 06/29/24 One Impairment Pt does not have an appropriate home exercise program Short Term Goal (STG) Pt to be independent and compliant with an appropriate HEP STG Duration 05/30/24 Assessment Summary Assessment Treatment focus on segmental hip mobility, core strengthening, body mechanics with gardening, and posture. Significant time spent discussing importance of pain- free range with activities and how to incorporate Transverse abdominis m. and breathwork to improve low back pain, and pt is provided muscle relaxation technique with diaphragmatic breathing and mantra to improve pain management. Елена corona improved segmental hip mobility seated on therapy ball and improved self- awareness of appropriate TrA activation, breath, and upright posture. Physical Therapy Plan Frequency and Duration Frequency of Treatment 2x/Week Plan of Care Start Date 04/29/24 Plan of Care End Date 06/29/24 Therapeutic Interventions Therapeutic Interventions Home Exercise Program,Joint Mobilizations,Manual Therapy, Neuromuscular Re-education, Patient/Caregiver Education, Self-Care/Home Management,Soft Tissue Mobilization, Therapeutic Activities, Therapeutic Exercises Modalities Cold Pack/Ice Massage,Electric Stimulation,Hot Packs Next Visit Focus/Plan Next Note Type Treatment Note Next Visit Plan Hip/core strengthening, flexibility, activity tolerance, pain control
--- NOTE | 2024-06-08 13:00 | PT.OTN ---
Current Diagnoses Spondylosis without myelopathy or radiculopathy, lumbar region (06/08/24) Other specified postprocedural states (06/08/24) Physical Therapy Treatment Note PT-OP-A Visit Information Start: 04/29/24 12:57 Freq: Status: Active Protocol: Document 06/08/24 12:15 DCW (Rec: 06/08/24 13:00 DCW [id number]) Out-Patient Physical Therapy Visit Information Visit Information Visit Type Treatment Note Visit Start Time 12:16 Visit Stop Time 13:00 Visit Number 6 Number of WIRE WELDER Visits 0 Evaluation Information Evaluation Date 04/29/24 PT-OP-B Current Condition Start: 04/29/24 12:57 Freq: Status: Active Protocol: Document 04/29/24 12:20 DCW (Rec: 04/30/24 15:40 DCW [id number]) Current Condition History of Current Condition Onset Date Multi-year history Current Complaints Low back pain, occasional radicular symptoms History of Current Condition Pt is a 58 year old female presenting with a multi-year history of low back pain, complicated by multiple surgeries, including multi- level laminectomies, the most recent being in May 2023, which was an L1-2 lami decompression. Pt notes this most recent surgery seemed to help a lot with her radicular symptoms, as well as prior left foot drop, although she does still have occasional left-sided symptoms. Reports her lumbar pain is constant, but Gabapentin and Celebrex seem to help a lot. Admits most of her preferred activities, including gardening, driving, and hiking , all aggravate her back. Has been in PT previously off and on at a different clinic, but felt like she needed a fresh start elsewhere. Treatment Goals Patient/Caregiver Goals I want to get stronger and be better able to do things that I need to do. PT-OP-C Subjective Start: 04/29/24 12:57 Freq: Status: Active Protocol: Document 06/08/24 12:15 DCW (Rec: 06/08/24 13:00 DCW [id number]) OP-PT Subjective Patient Comments Patient Comments If I were to give it an all- day average, I'd say it's about a 2.5. Sometimes better, sometimes worse. 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 Over the past few years, it has seemed like there was always another surgery over the horizon, and I actually don't feel like that right now. PT-OP-K Range of Motion Start: 04/29/24 12:57 Freq: Status: Active Protocol: Document 04/29/24 12:20 DCW (Rec: 04/30/24 15:40 DCW [id number]) Lumbar Spine Range of Motion Lumbar Spine Active Degrees Testing Position Standing Flexion 83 Extension 10 Lateral Flexion Left 52 Lateral Flexion Right 53 Comments Lateral flexion measured in cm from fingertips to floor PT-OP-L Special Tests Start: 04/29/24 12:57 Freq: Status: Active Protocol: Document 04/29/24 12:20 DCW (Rec: 04/30/24 15:40 DCW [id number]) Special Tests Lumbar Spine Special Tests ROSARIO Test Results Negative Straight Leg Raise Test Results Negative Slump Test Results Negative Compression Test Results Positive with left rotation and left lateral flexion A-P Shearing Test Results Mildly positive PT-OP-M Strength Start: 04/29/24 12:57 Freq: Status: Active Protocol: Document 04/29/24 12:20 DCW (Rec: 04/30/24 15:40 DCW [id number]) Hip Strength Hip Manual Muscle Testing Right Flexion (L2) 4 Good Abduction 4 Good Adduction 4 Good External Rotation 4 Good Internal Rotation 4 Good Left Flexion (L2) 3+ Fair+ Abduction 3+ Fair+ Adduction 3+ Fair+ External Rotation 4 Good Internal Rotation 4 Good Knee Strength Knee Manual Muscle Testing Right Flexion (S2) 4 Good Extension (L3) 4 Good Left Flexion (S2) 4- Good- Extension (L3) 4- Good- Ankle/Foot Strength Ankle and Foot Manual Muscle Testing Right Dorsiflexion (L4) 4 Good Left Dorsiflexion (L4) 3+ Fair+ PT-OP-Q Treatments Start: 04/29/24 12:57 Freq: Status: Active Protocol: Document 06/08/24 12:15 DCW (Rec: 06/08/24 13:00 DCW [id number]) Gym Equipment Therapeutic Ball Trunk Flexion Exercise Details Trunk Flexion Stretch Ball Size/Color Red - 75 cm Body Position Sitting Comments Forward, Lateral lean Therapeutic Exercises Prone Exercises Child's Pose Prone Exercise Name Child's pose Plank Prone Exercise Name Kneeling plank Sitting Exercises Trunk extension Sitting Exercise Name Trunk Extension vs T-band Resistance Lv 3 Manual Therapy Treatment Soft Tissue Mobilization Paraspinals Body Location T/L paraspinals, L>R Mobilization Type Sustained Pressure,Trigger Point Release Intensity/Depth Moderate Body Position Sitting PT-OP-T Assessment and Plan Start: 04/29/24 12:57 Freq: Status: Active Protocol: Document 06/08/24 12:15 DCW (Rec: 06/08/24 13:00 DCW [id number]) Physical Therapy Assessment Impairments Impairments Activity Tolerance,Functional Activities,Functional Mobility ,Pain,ROM,Soft Tissue Mobility ,Strength,Tone Goals Three Impairment Pt unable to hike uphill without pain 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 Goal (LTG) Pt to report ability to hike uphill for 10 minutes with <3/ 10 lumbar pain LTG Duration 06/29/24 Two Impairment Pt must restrict gardening to 20 minutes due to pain [facility] Goal (LTG) Pt to improve hip MMT to at least 4/5 in all planes and improved core stabilization in order to increase amount of time she can spend doing gardening pain-free to >45 minutes LTG Duration 06/29/24 One Impairment Pt does not have an appropriate home exercise program Short Term Goal (STG) Pt to be independent and compliant with an appropriate HEP STG Duration 05/30/24 Assessment Summary Assessment Pt discussed clunk in low back occasionally with certain movements, able to somewhat replicate in on the clinic today, felt as though a T/L paraspinal muscle gliding over a bony prominence. Spent today focused on lumbar stretching and strengthening, pt happy with this focus. Physical Therapy Plan Frequency and Duration Frequency of Treatment 2x/Week Plan of Care Start Date 04/29/24 Plan of Care End Date 06/29/24 Therapeutic Interventions Therapeutic Interventions Home Exercise Program,Joint Mobilizations,Manual Therapy, Neuromuscular Re-education, Patient/Caregiver Education, Self-Care/Home Management,Soft Tissue Mobilization, Therapeutic Activities, Therapeutic Exercises Modalities Cold Pack/Ice Massage,Electric Stimulation,Hot Packs Next Visit Focus/Plan Next Note Type Treatment Note Next Visit Plan Hip/core strengthening, flexibility, activity tolerance, pain control
--- NOTE | 2024-06-11 15:45 | PT.OTN ---
Current Diagnoses Spondylosis without myelopathy or radiculopathy, lumbar region (06/11/24) Other specified postprocedural states (06/11/24) Physical Therapy Treatment Note PT-OP-A Visit Information Start: 04/29/24 12:57 Freq: Status: Active Protocol: Document 06/11/24 13:03 NBM (Rec: 06/11/24 13:56 NBM Laptop) Out-Patient Physical Therapy Visit Information Visit Information Visit Type Treatment Note Visit Start Time 13:04 Visit Stop Time 13:54 Visit Number 7 Number of NIPPLE MACHINE OPERATOR Visits 1 PT-OP-B Current Condition Start: 04/29/24 12:57 Freq: Status: Active Protocol: Document 04/29/24 12:20 DCW (Rec: 04/30/24 15:40 DCW [id number]) Current Condition History of Current Condition Onset Date Multi-year history Current Complaints Low back pain, occasional radicular symptoms History of Current Condition Pt is a 58 year old female presenting with a multi-year history of low back pain, complicated by multiple surgeries, including multi- level laminectomies, the most recent being in May 2023, which was an L1-2 lami decompression. Pt notes this most recent surgery seemed to help a lot with her radicular symptoms, as well as prior left foot drop, although she does still have occasional left-sided symptoms. Reports her lumbar pain is constant, but Gabapentin and Celebrex seem to help a lot. Admits most of her preferred activities, including gardening, driving, and hiking , all aggravate her back. Has been in PT previously off and on at a different clinic, but felt like she needed a fresh start elsewhere. Treatment Goals Patient/Caregiver Goals I want to get stronger and be better able to do things that I need to do. PT-OP-C Subjective Start: 04/29/24 12:57 Freq: Status: Active Protocol: Document 06/11/24 13:03 NBM (Rec: 06/11/24 13:56 NBM Laptop) OP-PT Subjective Patient Comments Patient Comments Елена reports she's trying to be more conscientious and mindful of what she's doing, and realized this morning she would have felt better if she had stretched first, so she stopped and stretched for two minutes and did feel better. She is more mindful of using core and it is challenging for her to use core and glutes and breathe at same time. Marching on back feels easy. She did the deep breathing exercises with mantra a few times this week and is changing her perspective to appreciate her body instead of resent it. PT-OP-K Range of Motion Start: 04/29/24 12:57 Freq: Status: Active Protocol: Document 04/29/24 12:20 DCW (Rec: 04/30/24 15:40 DCW [id number]) Lumbar Spine Range of Motion Lumbar Spine Active Degrees Testing Position Standing Flexion 83 Extension 10 Lateral Flexion Left 52 Lateral Flexion Right 53 Comments Lateral flexion measured in cm from fingertips to floor PT-OP-L Special Tests Start: 04/29/24 12:57 Freq: Status: Active Protocol: Document 04/29/24 12:20 DCW (Rec: 04/30/24 15:40 DCW [id number]) Special Tests Lumbar Spine Special Tests ROSARIO Test Results Negative Straight Leg Raise Test Results Negative Slump Test Results Negative Compression Test Results Positive with left rotation and left lateral flexion A-P Shearing Test Results Mildly positive PT-OP-M Strength Start: 04/29/24 12:57 Freq: Status: Active Protocol: Document 04/29/24 12:20 DCW (Rec: 04/30/24 15:40 DCW [id number]) Hip Strength Hip Manual Muscle Testing Right Flexion (L2) 4 Good Abduction 4 Good Adduction 4 Good External Rotation 4 Good Internal Rotation 4 Good Left Flexion (L2) 3+ Fair+ Abduction 3+ Fair+ Adduction 3+ Fair+ External Rotation 4 Good Internal Rotation 4 Good Knee Strength Knee Manual Muscle Testing Right Flexion (S2) 4 Good Extension (L3) 4 Good Left Flexion (S2) 4- Good- Extension (L3) 4- Good- Ankle/Foot Strength Ankle and Foot Manual Muscle Testing Right Dorsiflexion (L4) 4 Good Left Dorsiflexion (L4) 3+ Fair+ PT-OP-Q Treatments Start: 04/29/24 12:57 Freq: Status: Active Protocol: Document 06/11/24 13:03 NBM (Rec: 06/11/24 13:56 NBM Laptop) Therapeutic Exercises Supine Exercises bridging Supine Exercise Name w/ TrA and breath Reps/Minutes x1 Comments small range. Pain guarding, apprehension, breathholding observed. abdominal bracing with LE movement Supine Exercise Name added to HEP: 1. bent knee fall out 2. LE ext from hooklying (heel slides) Side bilateral Equipment Used w/ breathwork, self-monitoring TrA medial to ASIS, 2. pillow case on feet Reps/Minutes x10 ea w/ breathwork (= 10 breaths ea) Comments 1. cues for smaller range to avoid overactivation 2. tactile cues for PPT Marching Supine Exercise Name Marching /c PPT - verbal review. Side bilateral Equipment Used TrA activation w/ breath challenged at lower level core progression ex. Comments pt i/s to focus on core progression ex's to work up to PPT Supine Exercise Name 1. w/ TrA focus (HEP) Equipment Used self-monitoring TrA medial to ASIS, breathwork Reps/Minutes 10 x2 breathcyles Comments full relaxation between reps. Cues for overactivation, breathholding Sidelying Exercises Open Book Sidelying Exercise Name Open Book - verbal review w/ TrA/breath focus Side bilateral Comments VCs to follow arm with eyes to increase rotation Standing Exercises QL Doorway stretch Standing Exercise Name added to HEP Side bilateral Equipment Used doorway Reps/Minutes 10 breath hold ea Comments Start/End of session.That feels so good My muscles want to do it again. Pallof Press Standing Exercise Name Pallof Press Side bilateral Resistance Lvl 4 Blue> Lvl 3 green Reps/Minutes x10 ea (= 10 breathcycles) Comments cues for breathwork and posture. B lumbar tightness Lvl4 improves to R Lvl3 Self-Care/Home Management Treatment Education Patient Education Body Mechanics,Home Exercise Program,Pain Management, Posture Other Education -I/s pt in self-monitoring TrA m. medial to ASIS in supine. -QL doorway stretch and Core progression ex's added to HEP: PPT w/ TrA, BKFO, Heel Slides , - HO given. Pt i/s to focus on core progression ex's working up to . PT-OP-T Assessment and Plan Start: 04/29/24 12:57 Freq: Status: Active Protocol: Document 06/11/24 13:03 NBM (Rec: 06/11/24 13:56 NBM Laptop) Physical Therapy Assessment Goals Three Impairment Pt unable to hike uphill without pain Mcfp Goal (LTG) Pt to report ability to hike uphill for 10 minutes with <3/ 10 lumbar pain LTG Duration 06/29/24 Two Impairment Pt must restrict gardening to 20 minutes due to pain Mcfp Goal (LTG) Pt to improve hip MMT to at least 4/5 in all planes and improved core stabilization in order to increase amount of time she can spend doing gardening pain-free to >45 minutes LTG Duration 06/29/24 One Impairment Pt does not have an appropriate home exercise program Short Term Goal (STG) Pt to be independent and compliant with an appropriate HEP 06/12/24: QL doorway stretch and Core progression ex's added to HEP: PPT w/ TrA, BKFO , Heel Slides, - HO given. Pt i/s to focus on core progression ex's working up to marching. STG Duration 05/30/24 Assessment Summary Assessment Елена demonstrates improving self-awareness of tight muscles, appropriate TrA activation, breathwork, and pain management techniques today. QL doorway stretch and Core progression ex's added to HEP: PPT w/ TrA, BKFO, Heel Slides - HO given. Pt is challenged to maintain Transverse abdominis m. activation with breath in lower level core progression exercises, and reports appropriate fatigue in core, so is instructed to focus on core progression ex's working up to marching. Breathwork improves with cueing to count in breathcycles instead of seconds. Physical Therapy Plan Frequency and Duration Frequency of Treatment 2x/Week Plan of Care Start Date 04/29/24 Plan of Care End Date 06/29/24 Therapeutic Interventions Therapeutic Interventions Home Exercise Program,Joint Mobilizations,Manual Therapy, Neuromuscular Re-education, Patient/Caregiver Education, Self-Care/Home Management,Soft Tissue Mobilization, Therapeutic Activities, Therapeutic Exercises Modalities Cold Pack/Ice Massage,Electric Stimulation,Hot Packs Next Visit Focus/Plan Next Note Type Treatment Note Next Visit Plan Hip/core strengthening, flexibility, activity tolerance, pain control
--- NOTE | 2024-06-15 13:01 | PT.OTN ---
Current Diagnoses Spondylosis without myelopathy or radiculopathy, lumbar region (06/15/24) Other specified postprocedural states (06/15/24) Physical Therapy Treatment Note PT-OP-A Visit Information Start: 04/29/24 12:57 Freq: Status: Active Protocol: Document 06/15/24 12:15 DCW (Rec: 06/15/24 13:01 DCW [id number]) Out-Patient Physical Therapy Visit Information Visit Information Visit Type Treatment Note Visit Start Time 12:15 Visit Stop Time 13:00 Visit Number 8 Number of HAT AND CAP PARTS CUTTER HAND Visits 0 Evaluation Information Evaluation Date 04/29/24 PT-OP-B Current Condition Start: 04/29/24 12:57 Freq: Status: Active Protocol: Document 04/29/24 12:20 DCW (Rec: 04/30/24 15:40 DCW [id number]) Current Condition History of Current Condition Onset Date Multi-year history Current Complaints Low back pain, occasional radicular symptoms History of Current Condition Pt is a 58 year old female presenting with a multi-year history of low back pain, complicated by multiple surgeries, including multi- level laminectomies, the most recent being in May 2023, which was an L1-2 lami decompression. Pt notes this most recent surgery seemed to help a lot with her radicular symptoms, as well as prior left foot drop, although she does still have occasional left-sided symptoms. Reports her lumbar pain is constant, but Gabapentin and Celebrex seem to help a lot. Admits most of her preferred activities, including gardening, driving, and hiking , all aggravate her back. Has been in PT previously off and on at a different clinic, but felt like she needed a fresh start elsewhere. Treatment Goals Patient/Caregiver Goals I want to get stronger and be better able to do things that I need to do. PT-OP-C Subjective Start: 04/29/24 12:57 Freq: Status: Active Protocol: Document 06/15/24 12:15 DCW (Rec: 06/15/24 13:01 DCW [id number]) OP-PT Subjective Patient Comments Patient Comments Pt has been focusing on slowing down and performing exercises more consciously and with breathing. Has not been noticing the clunking her her back as often. PT-OP-K Range of Motion Start: 04/29/24 12:57 Freq: Status: Active Protocol: Document 04/29/24 12:20 DCW (Rec: 04/30/24 15:40 DCW [id number]) Lumbar Spine Range of Motion Lumbar Spine Active Degrees Testing Position Standing Flexion 83 Extension 10 Lateral Flexion Left 52 Lateral Flexion Right 53 Comments Lateral flexion measured in cm from fingertips to floor PT-OP-L Special Tests Start: 04/29/24 12:57 Freq: Status: Active Protocol: Document 04/29/24 12:20 DCW (Rec: 04/30/24 15:40 DCW [id number]) Special Tests Lumbar Spine Special Tests ROSARIO Test Results Negative Straight Leg Raise Test Results Negative Slump Test Results Negative Compression Test Results Positive with left rotation and left lateral flexion A-P Shearing Test Results Mildly positive PT-OP-M Strength Start: 04/29/24 12:57 Freq: Status: Active Protocol: Document 04/29/24 12:20 DCW (Rec: 04/30/24 15:40 DCW [id number]) Hip Strength Hip Manual Muscle Testing Right Flexion (L2) 4 Good Abduction 4 Good Adduction 4 Good External Rotation 4 Good Internal Rotation 4 Good Left Flexion (L2) 3+ Fair+ Abduction 3+ Fair+ Adduction 3+ Fair+ External Rotation 4 Good Internal Rotation 4 Good Knee Strength Knee Manual Muscle Testing Right Flexion (S2) 4 Good Extension (L3) 4 Good Left Flexion (S2) 4- Good- Extension (L3) 4- Good- Ankle/Foot Strength Ankle and Foot Manual Muscle Testing Right Dorsiflexion (L4) 4 Good Left Dorsiflexion (L4) 3+ Fair+ PT-OP-Q Treatments Start: 04/29/24 12:57 Freq: Status: Active Protocol: Document 06/15/24 12:15 DCW (Rec: 06/15/24 13:01 DCW [id number]) Gym Equipment Shuttle Recovery Unilateral Squats Resistance 37# Bilateral Squats Details VCs for core stabilization Resistance 62# Therapeutic Ball Trunk Rotation Exercise Details Resisted Trunk Rotation Ball Size/Color Green - 65 cm Lv 3 T-band Body Position Sitting Therapeutic Exercises Other Exercises BOSU Lunge Other Exercise Name BOSU Lunge Side bilateral Equipment Used Blue BOSU Manual Therapy Treatment Soft Tissue Mobilization Paraspinals Body Location T/L paraspinals, L>R Mobilization Type Sustained Pressure,Trigger Point Release Intensity/Depth Moderate Body Position Sitting PT-OP-T Assessment and Plan Start: 04/29/24 12:57 Freq: Status: Active Protocol: Document 06/15/24 12:15 DCW (Rec: 06/15/24 13:01 DCW [id number]) Physical Therapy Assessment Impairments Impairments Activity Tolerance,Functional Activities,Functional Mobility ,Pain,ROM,Soft Tissue Mobility ,Strength,Tone Goals Three Impairment Pt unable to hike uphill without pain Usp Goal (LTG) Pt to report ability to hike uphill for 10 minutes with <3/ 10 lumbar pain LTG Duration 06/29/24 Two Impairment Pt must restrict gardening to 20 minutes due to pain Usp Goal (LTG) Pt to improve hip MMT to at least 4/5 in all planes and improved core stabilization in order to increase amount of time she can spend doing gardening pain-free to >45 minutes LTG Duration 06/29/24 One Impairment Pt does not have an appropriate home exercise program Short Term Goal (STG) Pt to be independent and compliant with an appropriate HEP 06/12/24: QL doorway stretch and Core progression ex's added to HEP: PPT w/ TrA, BKFO , Heel Slides, - HO given. Pt i/s to focus on core progression ex's working up to . STG Duration 05/30/24 Assessment Summary Assessment Pt showing improvement with activity tolerance, getting much better with abdominal bracing during exercise, although continues to require occasional cueing to not hold breath. Feeling more optimistic about getting her left leg stronger. Physical Therapy Plan Frequency and Duration Frequency of Treatment 2x/Week Plan of Care Start Date 04/29/24 Plan of Care End Date 06/29/24 Therapeutic Interventions Therapeutic Interventions Home Exercise Program,Joint Mobilizations,Manual Therapy, Neuromuscular Re-education, Patient/Caregiver Education, Self-Care/Home Management,Soft Tissue Mobilization, Therapeutic Activities, Therapeutic Exercises Modalities Cold Pack/Ice Massage,Electric Stimulation,Hot Packs Next Visit Focus/Plan Next Note Type Treatment Note Next Visit Plan Hip/core strengthening, flexibility, activity tolerance, pain control
--- NOTE | 2024-06-17 13:00 | PT.OTN ---
Current Diagnoses Spondylosis without myelopathy or radiculopathy, lumbar region (06/30/24) Other specified postprocedural states (06/30/24) Physical Therapy Treatment Note PT-OP-A Visit Information Start: 04/29/24 12:57 Freq: Status: Active Protocol: Document 07/01/24 14:17 DCW (Rec: 06/17/24 13:05 DCW [id number]) Out-Patient Physical Therapy Visit Information Visit Information Visit Type Progress Note Visit Start Time 12:15 Visit Stop Time 13:00 Visit Number 9 Number of SKI TOPPER Visits 0 Evaluation Information Evaluation Date 04/29/24 PT-OP-B Current Condition Start: 04/29/24 12:57 Freq: Status: Active Protocol: Document 04/29/24 12:20 DCW (Rec: 04/30/24 15:40 DCW [id number]) Current Condition History of Current Condition Onset Date Multi-year history Current Complaints Low back pain, occasional radicular symptoms History of Current Condition Pt is a 58 year old female presenting with a multi-year history of low back pain, complicated by multiple surgeries, including multi- level laminectomies, the most recent being in May 2023, which was an L1-2 lami decompression. Pt notes this most recent surgery seemed to help a lot with her radicular symptoms, as well as prior left foot drop, although she does still have occasional left-sided symptoms. Reports her lumbar pain is constant, but Gabapentin and Celebrex seem to help a lot. Admits most of her preferred activities, including gardening, driving, and hiking , all aggravate her back. Has been in PT previously off and on at a different clinic, but felt like she needed a fresh start elsewhere. Treatment Goals Patient/Caregiver Goals I want to get stronger and be better able to do things that I need to do. PT-OP-C Subjective Start: 04/29/24 12:57 Freq: Status: Active Protocol: Document 07/01/24 14:17 DCW (Rec: 06/17/24 13:05 DCW [id number]) OP-PT Subjective Patient Comments Patient Comments Pt notes the workout last visit made her really notice the disparity on strength between her legs. PT-OP-K Range of Motion Start: 04/29/24 12:57 Freq: Status: Active Protocol: Document 04/29/24 12:20 DCW (Rec: 04/30/24 15:40 DCW [id number]) Lumbar Spine Range of Motion Lumbar Spine Active Degrees Testing Position Standing Flexion 83 Extension 10 Lateral Flexion Left 52 Lateral Flexion Right 53 Comments Lateral flexion measured in cm from fingertips to floor PT-OP-L Special Tests Start: 04/29/24 12:57 Freq: Status: Active Protocol: Document 04/29/24 12:20 DCW (Rec: 04/30/24 15:40 DCW [id number]) Special Tests Lumbar Spine Special Tests ROSARIO Test Results Negative Straight Leg Raise Test Results Negative Slump Test Results Negative Compression Test Results Positive with left rotation and left lateral flexion A-P Shearing Test Results Mildly positive PT-OP-M Strength Start: 04/29/24 12:57 Freq: Status: Active Protocol: Document 04/29/24 12:20 DCW (Rec: 04/30/24 15:40 WAW [id number]) Hip Strength Hip Manual Muscle Testing Right Flexion (L2) 4 Good Abduction 4 Good Adduction 4 Good External Rotation 4 Good Internal Rotation 4 Good Left Flexion (L2) 3+ Fair+ Abduction 3+ Fair+ Adduction 3+ Fair+ External Rotation 4 Good Internal Rotation 4 Good Knee Strength Knee Manual Muscle Testing Right Flexion (S2) 4 Good Extension (L3) 4 Good Left Flexion (S2) 4- Good- Extension (L3) 4- Good- Ankle/Foot Strength Ankle and Foot Manual Muscle Testing Right Dorsiflexion (L4) 4 Good Left Dorsiflexion (L4) 3+ Fair+ PT-OP-Q Treatments Start: 04/29/24 12:57 Freq: Status: Active Protocol: Document 07/01/24 14:17 DCW (Rec: 06/17/24 13:05 DCW [id number]) Gym Equipment Shuttle Recovery Unilateral Squats Resistance 37# Bilateral Squats Details VCs for core stabilization Resistance 62# Therapeutic Exercises Sidelying Exercises Triple Threat Sidelying Exercise Name Clam, RClam, Abd Other Exercises Resisted Ambulation Other Exercise Name Resisted Side-stepping Resistance Green Manual Therapy Treatment Soft Tissue Mobilization Paraspinals Body Location T/L paraspinals, L>R Mobilization Type Sustained Pressure,Trigger Point Release Intensity/Depth Moderate Body Position Sitting PT-OP-T Assessment and Plan Start: 04/29/24 12:57 Freq: Status: Active Protocol: Document 07/01/24 14:17 DCW (Rec: 06/17/24 13:05 DCW [id number]) Physical Therapy Assessment Impairments Impairments Activity Tolerance,Functional Activities,Functional Mobility ,Pain,ROM,Soft Tissue Mobility ,Strength,Tone Goals Three Impairment Pt unable to hike uphill without pain Fresh Foods Clerk Goal (LTG) Pt to report ability to hike uphill for 10 minutes with <3/ 10 lumbar pain LTG Duration 08/17/24 Two Impairment Pt must restrict gardening to 20 minutes due to pain Long-Term Goal (LTG) Pt to improve hip MMT to at least 4/5 in all planes and improved core stabilization in order to increase amount of time she can spend doing gardening pain-free to >45 minutes LTG Duration 08/17/24 One Impairment Pt does not have an appropriate home exercise program Short Term Goal (STG) Pt to be independent and compliant with an appropriate HEP 06/12/24: QL doorway stretch and Core progression ex's added to HEP: PPT w/ TrA, BKFO , Heel Slides, - HO given. Pt i/s to focus on core progression ex's working up to marching. STG Duration Met Assessment Summary Assessment Focused more today on glute med strengthening today, pt noting she feels this is a big area of weakness for her. Also discussed potential for trial of laser treatment, pt interested in trying. Great response to manual treatment today. Pt overall making some good improvement with hip and core strengthening, feeling like it has been easier bracing her abdomen and helping to stabilize her low back. Continue to focus on strength, stability, and activity tolerance. Physical Therapy Plan Frequency and Duration Frequency of Treatment 2x/Week Plan of Care Start Date 06/17/24 Plan of Care End Date 08/17/24 Therapeutic Interventions Therapeutic Interventions Home Exercise Program,Joint Mobilizations,Manual Therapy, Neuromuscular Re-education, Patient/Caregiver Education, Self-Care/Home Management,Soft Tissue Mobilization, Therapeutic Activities, Therapeutic Exercises Modalities Cold Pack/Ice Massage,Electric Stimulation,Hot Packs Next Visit Focus/Plan Next Note Type Treatment Note Next Visit Plan Hip/core strengthening, flexibility, activity tolerance, pain control
--- NOTE | 2024-06-17 13:00 | PT.OPPOC ---
Physical, Occupational & Speech Therapy At [facility] Current Diagnoses Spondylosis without myelopathy or radiculopathy, lumbar region (06/30/24) Other specified postprocedural states (06/30/24) Visit Care Team Role Provider Type Rajani Leyva DO Family Provider Physician Primary Care Provider Specialty: Medical Address: [address] [place] [address], [address], [place], [address] Email: [email or web address] Mike Bean DO Attending Provider Physician Referring Provider Specialty: Interventional Radiology Physiatry Pain Management Address: [address], [place], [address] Email: [email or web address] Plan Of Care PT-OP-B Current Condition Start: 04/29/24 12:57 Freq: Status: Active Protocol: Document 04/29/24 12:20 DCW (Rec: 04/30/24 15:40 DCW [id number]) Current Condition History of Current Condition Onset Date Multi-year history Current Complaints Low back pain, occasional radicular symptoms History of Current Condition Pt is a 58 year old female presenting with a multi-year history of low back pain, complicated by multiple surgeries, including multi- level laminectomies, the most recent being in May 2023, which was an L1-2 lami decompression. Pt notes this most recent surgery seemed to help a lot with her radicular symptoms, as well as prior left foot drop, although she does still have occasional left-sided symptoms. Reports her lumbar pain is constant, but Gabapentin and Celebrex seem to help a lot. Admits most of her preferred activities, including gardening, driving, and hiking , all aggravate her back. Has been in PT previously off and on at a different clinic, but felt like she needed a fresh start elsewhere. Treatment Goals Patient/Caregiver Goals I want to get stronger and be better able to do things that I need to do. PT-OP-T Assessment and Plan Start: 04/29/24 12:57 Freq: Status: Active Protocol: Document 07/01/24 14:17 DCW (Rec: 06/17/24 13:05 [facility] [id number]) Physical Therapy Assessment Impairments Impairments Activity Tolerance,Functional Activities,Functional Mobility ,Pain,ROM,Soft Tissue Mobility ,Strength,Tone Goals Three Impairment Pt unable to hike uphill without pain Snf Goal (LTG) Pt to report ability to hike uphill for 10 minutes with <3/ 10 lumbar pain LTG Duration 08/17/24 Two Impairment Pt must restrict gardening to 20 minutes due to pain Snf Goal (LTG) Pt to improve hip MMT to at least 4/5 in all planes and improved core stabilization in order to increase amount of time she can spend doing gardening pain-free to >45 minutes LTG Duration 08/17/24 One Impairment Pt does not have an appropriate home exercise program Short Term Goal (STG) Pt to be independent and compliant with an appropriate HEP 06/12/24: QL doorway stretch and Core progression ex's added to HEP: PPT w/ TrA, BKFO , Heel Slides, - HO given. Pt i/s to focus on core progression ex's working up to . STG Duration Met Assessment Summary Assessment Focused more today on glute med strengthening today, pt noting she feels this is a big area of weakness for her. Also discussed potential for trial of laser treatment, pt interested in trying. Great response to manual treatment today. Pt overall making some good improvement with hip and core strengthening, feeling like it has been easier bracing her abdomen and helping to stabilize her low back. Continue to focus on strength, stability, and activity tolerance. Physical Therapy Plan Frequency and Duration Frequency of Treatment 2x/Week Plan of Care Start Date 06/17/24 Plan of Care End Date 08/17/24 Therapeutic Interventions Therapeutic Interventions Home Exercise Program,Joint Mobilizations,Manual Therapy, Neuromuscular Re-education, Patient/Caregiver Education, Self-Care/Home Management,Soft Tissue Mobilization, Therapeutic Activities, Therapeutic Exercises Modalities Cold Pack/Ice Massage,Electric Stimulation,Hot Packs Next Visit Focus/Plan Next Note Type Treatment Note Next Visit Plan Hip/core strengthening, flexibility, activity tolerance, pain control Plan of Care Dates Plan of Care Start Date 06/17/24 Plan of Care End Date 08/17/24 Electronically Signed by: Regino Graff, PT 07/01/24 8670 If you are in agreement with this Plan of Care, please return a signed and dated copy. I have reviewed this Plan of Care and certify that the skilled therapy services above are required to meet the patient?s needs. Physician Signature Date Printed Name and Credentials Clinical Instructor Signature Printed Name and Credentials
--- NOTE | 2024-06-17 13:05 | PT.OTN ---
Current Diagnoses Spondylosis without myelopathy or radiculopathy, lumbar region (06/17/24) Other specified postprocedural states (06/17/24) Physical Therapy Treatment Note PT-OP-A Visit Information Start: 04/29/24 12:57 Freq: Status: Active Protocol: Document 06/17/24 12:15 DCW (Rec: 06/17/24 13:05 DCW [id number]) Out-Patient Physical Therapy Visit Information Visit Information Visit Type Treatment Note Visit Start Time 12:15 Visit Stop Time 13:00 Visit Number 9 Number of BINDERY MACHINE TENDER Visits 0 Evaluation Information Evaluation Date 04/29/24 PT-OP-B Current Condition Start: 04/29/24 12:57 Freq: Status: Active Protocol: Document 04/29/24 12:20 DCW (Rec: 04/30/24 15:40 DCW [id number]) Current Condition History of Current Condition Onset Date Multi-year history Current Complaints Low back pain, occasional radicular symptoms History of Current Condition Pt is a 58 year old female presenting with a multi-year history of low back pain, complicated by multiple surgeries, including multi- level laminectomies, the most recent being in May 2023, which was an L1-2 lami decompression. Pt notes this most recent surgery seemed to help a lot with her radicular symptoms, as well as prior left foot drop, although she does still have occasional left-sided symptoms. Reports her lumbar pain is constant, but Gabapentin and Celebrex seem to help a lot. Admits most of her preferred activities, including gardening, driving, and hiking , all aggravate her back. Has been in PT previously off and on at a different clinic, but felt like she needed a fresh start elsewhere. Treatment Goals Patient/Caregiver Goals I want to get stronger and be better able to do things that I need to do. PT-OP-C Subjective Start: 04/29/24 12:57 Freq: Status: Active Protocol: Document 06/17/24 12:15 DCW (Rec: 06/17/24 13:05 DCW [id number]) OP-PT Subjective Patient Comments Patient Comments Pt notes the workout last visit made her really notice the disparity on strength between her legs. PT-OP-K Range of Motion Start: 04/29/24 12:57 Freq: Status: Active Protocol: Document 04/29/24 12:20 DCW (Rec: 04/30/24 15:40 DCW [id number]) Lumbar Spine Range of Motion Lumbar Spine Active Degrees Testing Position Standing Flexion 83 Extension 10 Lateral Flexion Left 52 Lateral Flexion Right 53 Comments Lateral flexion measured in cm from fingertips to floor PT-OP-L Special Tests Start: 04/29/24 12:57 Freq: Status: Active Protocol: Document 04/29/24 12:20 DCW (Rec: 04/30/24 15:40 DCW [id number]) Special Tests Lumbar Spine Special Tests ROSARIO Test Results Negative Straight Leg Raise Test Results Negative Slump Test Results Negative Compression Test Results Positive with left rotation and left lateral flexion A-P Shearing Test Results Mildly positive PT-OP-M Strength Start: 04/29/24 12:57 Freq: Status: Active Protocol: Document 04/29/24 12:20 DCW (Rec: 04/30/24 15:40 DCW [id number]) Hip Strength Hip Manual Muscle Testing Right Flexion (L2) 4 Good Abduction 4 Good Adduction 4 Good External Rotation 4 Good Internal Rotation 4 Good Left Flexion (L2) 3+ Fair+ Abduction 3+ Fair+ Adduction 3+ Fair+ External Rotation 4 Good Internal Rotation 4 Good Knee Strength Knee Manual Muscle Testing Right Flexion (S2) 4 Good Extension (L3) 4 Good Left Flexion (S2) 4- Good- Extension (L3) 4- Good- Ankle/Foot Strength Ankle and Foot Manual Muscle Testing Right Dorsiflexion (L4) 4 Good Left Dorsiflexion (L4) 3+ Fair+ PT-OP-Q Treatments Start: 04/29/24 12:57 Freq: Status: Active Protocol: Document 06/17/24 12:15 DCW (Rec: 06/17/24 13:05 DCW [id number]) Gym Equipment Shuttle Recovery Unilateral Squats Resistance 37# Bilateral Squats Details VCs for core stabilization Resistance 62# Therapeutic Exercises Sidelying Exercises Triple Threat Sidelying Exercise Name Clam, RClam, Abd Other Exercises Resisted Ambulation Other Exercise Name Resisted Side-stepping Resistance Green Manual Therapy Treatment Soft Tissue Mobilization Paraspinals Body Location T/L paraspinals, L>R Mobilization Type Sustained Pressure,Trigger Point Release Intensity/Depth Moderate Body Position Sitting PT-OP-T Assessment and Plan Start: 04/29/24 12:57 Freq: Status: Active Protocol: Document 06/17/24 12:15 DCW (Rec: 06/17/24 13:05 DCW [id number]) Physical Therapy Assessment Impairments Impairments Activity Tolerance,Functional Activities,Functional Mobility ,Pain,ROM,Soft Tissue Mobility ,Strength,Tone Goals Three Impairment Pt unable to hike uphill without pain Senior Living Goal (LTG) Pt to report ability to hike uphill for 10 minutes with <3/ 10 lumbar pain LTG Duration 06/29/24 Two Impairment Pt must restrict gardening to 20 minutes due to pain Scrap Separator Goal (LTG) Pt to improve hip MMT to at least 4/5 in all planes and improved core stabilization in order to increase amount of time she can spend doing gardening pain-free to >45 minutes LTG Duration 06/29/24 One Impairment Pt does not have an appropriate home exercise program Short Term Goal (STG) Pt to be independent and compliant with an appropriate HEP 06/12/24: QL doorway stretch and Core progression ex's added to HEP: PPT w/ TrA, BKFO , Heel Slides, - HO given. Pt i/s to focus on core progression ex's working up to marching. STG Duration 05/30/24 Assessment Summary Assessment Focused more today on glute med strengthening today, pt noting she feels this is a big area of weakness for her. Also discussed potential for trial of laser treatment, pt interested in trying. Great response to manual treatment today. Physical Therapy Plan Frequency and Duration Frequency of Treatment 2x/Week Plan of Care Start Date 04/29/24 Plan of Care End Date 06/29/24 Therapeutic Interventions Therapeutic Interventions Home Exercise Program,Joint Mobilizations,Manual Therapy, Neuromuscular Re-education, Patient/Caregiver Education, Self-Care/Home Management,Soft Tissue Mobilization, Therapeutic Activities, Therapeutic Exercises Modalities Cold Pack/Ice Massage,Electric Stimulation,Hot Packs Next Visit Focus/Plan Next Note Type Treatment Note Next Visit Plan Hip/core strengthening, flexibility, activity tolerance, pain control
--- NOTE | 2024-06-24 15:30 | PT.OTN ---
Current Diagnoses Spondylosis without myelopathy or radiculopathy, lumbar region (06/24/24) Other specified postprocedural states (06/24/24) Physical Therapy Treatment Note PT-OP-A Visit Information Start: 04/29/24 12:57 Freq: Status: Active Protocol: Document 06/24/24 13:12 NBM (Rec: 06/24/24 13:52 NBM Laptop) Out-Patient Physical Therapy Visit Information Visit Information Visit Type Treatment Note Visit Start Time 13:08 Visit Stop Time 13:46 Visit Number 10 Number of WASH PLANT OPERATOR Visits 1 Evaluation Information Evaluation Date 04/29/24 PT-OP-B Current Condition Start: 04/29/24 12:57 Freq: Status: Active Protocol: Document 04/29/24 12:20 DCW (Rec: 04/30/24 15:40 DCW [id number]) Current Condition History of Current Condition Onset Date Multi-year history Current Complaints Low back pain, occasional radicular symptoms History of Current Condition Pt is a 58 year old female presenting with a multi-year history of low back pain, complicated by multiple surgeries, including multi- level laminectomies, the most recent being in May 2023, which was an L1-2 lami decompression. Pt notes this most recent surgery seemed to help a lot with her radicular symptoms, as well as prior left foot drop, although she does still have occasional left-sided symptoms. Reports her lumbar pain is constant, but Gabapentin and Celebrex seem to help a lot. Admits most of her preferred activities, including gardening, driving, and hiking , all aggravate her back. Has been in PT previously off and on at a different clinic, but felt like she needed a fresh start elsewhere. Treatment Goals Patient/Caregiver Goals I want to get stronger and be better able to do things that I need to do. PT-OP-C Subjective Start: 04/29/24 12:57 Freq: Status: Active Protocol: Document 06/24/24 13:12 NBM (Rec: 06/24/24 13:52 NBM Laptop) OP-PT Subjective Patient Comments Patient Comments Елена reports she's done all of her exercises today except for seated rotation because she wasn't sure how to hold the band. She has not been doing them every day. She saw PCP yesterday who is pleased with PT and referred for another 12 visits which is pending authorization. He recommends a diagnostic nerve block, L2-L5 or possibly to S1 . Next appointment with PCP is scheduled November 30. She has greater awareness of posture and pain since starting PT, and when she's aware of using core she notices less pain. 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 PT-OP-K Range of Motion Start: 04/29/24 12:57 Freq: Status: Active Protocol: Document 04/29/24 12:20 DCW (Rec: 04/30/24 15:40 DCW [id number]) Lumbar Spine Range of Motion Lumbar Spine Active Degrees Testing Position Standing Flexion 83 Extension 10 Lateral Flexion Left 52 Lateral Flexion Right 53 Comments Lateral flexion measured in cm from fingertips to floor PT-OP-L Special Tests Start: 04/29/24 12:57 Freq: Status: Active Protocol: Document 04/29/24 12:20 DCW (Rec: 04/30/24 15:40 DCW [id number]) Special Tests Lumbar Spine Special Tests ROSARIO Test Results Negative Straight Leg Raise Test Results Negative Slump Test Results Negative Compression Test Results Positive with left rotation and left lateral flexion A-P Shearing Test Results Mildly positive PT-OP-M Strength Start: 04/29/24 12:57 Freq: Status: Active Protocol: Document 04/29/24 12:20 DCW (Rec: 04/30/24 15:40 DCW [id number]) Hip Strength Hip Manual Muscle Testing Right Flexion (L2) 4 Good Abduction 4 Good Adduction 4 Good External Rotation 4 Good Internal Rotation 4 Good Left Flexion (L2) 3+ Fair+ Abduction 3+ Fair+ Adduction 3+ Fair+ External Rotation 4 Good Internal Rotation 4 Good Knee Strength Knee Manual Muscle Testing Right Flexion (S2) 4 Good Extension (L3) 4 Good Left Flexion (S2) 4- Good- Extension (L3) 4- Good- Ankle/Foot Strength Ankle and Foot Manual Muscle Testing Right Dorsiflexion (L4) 4 Good Left Dorsiflexion (L4) 3+ Fair+ PT-OP-Q Treatments Start: 04/29/24 12:57 Freq: Status: Active Protocol: Document 06/24/24 13:12 NBM (Rec: 06/24/24 13:52 NBM Laptop) Gym Equipment Therapeutic Ball Core Exercise Details 1. Marching > Heel raises 2. LAQs Ball Size/Color 65 cm green Body Position Sitting Reps/Duration x10 Comments marching too challenging. Heel raises challenging L>R. added to HEP Trunk Rotation Exercise Details Resisted Trunk Rotation Ball Size/Color Green - 65 cm Lv 3 T-band - both ends wrapped around UE Body Position Sitting Comments cues for breath, maintaining neutral C-spine. PPT cues into neutral lumbar spine increase R rotation. Pelvic Tilts Comments a/p focus to get pt out of hyperextension bias into neutral lumbar spine, initial tactile cues. Trunk Flexion Exercise Details Trunk Flexion Stretch Ball Size/Color Green - 65 cm Body Position Sitting Reps/Duration 30 Comments Forward, Lateral lean Therapeutic Exercises Other Exercises BOSU Lunge Other Exercise Name BOSU Lunge Side bilateral Equipment Used Blue BOSU Reps/Minutes x10 ea Comments cues for feet hip width, foot placment Self-Care/Home Management Treatment Education Other Education Discussion with pt re: HEP progression for seated on physioball as pt wants to add marching and LAQs which were difficult for pt to control thoracolumbar hyperextension at this time. Pt agrees to perform slowly with breathwork following order and cues from handout. Added to HEP and provided order for core ex's seated on physioball: 1. Thoracic rotation 2. alt Heel raises 3. alt Marching 4. alt LAQs, all with TrA and breath focus throughout - HEP emailed . PT-OP-T Assessment and Plan Start: 04/29/24 12:57 Freq: Status: Active Protocol: Document 06/24/24 13:12 NBM (Rec: 06/24/24 13:52 NBM Laptop) Physical Therapy Assessment Goals Three Impairment Pt unable to hike uphill without pain Head Waiter/Waitress Banquet Goal (LTG) Pt to report ability to hike uphill for 10 minutes with <3/ 10 lumbar pain LTG Duration 06/29/24 Two Impairment Pt must restrict gardening to 20 minutes due to pain Head Waiter/Waitress Banquet Goal (LTG) Pt to improve hip MMT to at least 4/5 in all planes and improved core stabilization in order to increase amount of time she can spend doing gardening pain-free to >45 minutes 06/24/24: Pt reports takes breaks after about 20 minutes when gardening. LTG Duration 06/29/24 One Impairment Pt does not have an appropriate home exercise program Short Term Goal (STG) Pt to be independent and compliant with an appropriate HEP 06/12/24: QL doorway stretch and Core progression ex's added to HEP: PPT w/ TrA, BKFO , Heel Slides, - HO given. Pt i/s to focus on core progression ex's working up to marching. STG Duration 05/30/24 Assessment Summary Assessment Елена requires tactile cues for posterior pelvic tilt into neutral lumbar spine to increase R trunk rotation when seated on physioball. Pt is appropriately challenged with Transverse abdominis m. activation with breathwork while performing alternating heel raises seated on physioball. After discussion with pt re: need to be mindful of thoracolumbar hyperextension bias and breathholding physioball core series added to HEP in specific order with TrA and breath focus throughout: 1. Paloff Press. 2. Thoracic rotation 3. alt Heel raises 4. alt Marching 5. LAQs - HEP emailed. Physical Therapy Plan Frequency and Duration Frequency of Treatment 2x/Week Plan of Care Start Date 04/29/24 Plan of Care End Date 06/29/24 Therapeutic Interventions Therapeutic Interventions Home Exercise Program,Joint Mobilizations,Manual Therapy, Neuromuscular Re-education, Patient/Caregiver Education, Self-Care/Home Management,Soft Tissue Mobilization, Therapeutic Activities, Therapeutic Exercises Modalities Cold Pack/Ice Massage,Electric Stimulation,Hot Packs Next Visit Focus/Plan Next Note Type Treatment Note Next Visit Plan Next: Review seated core on physioball; trial BOSU ex's for home. Consider laser, STM. POC: Hip/core strengthening, flexibility, activity tolerance, pain control
--- NOTE | 2024-06-24 15:30 | PT.OTN ---
Physical Therapy Treatment Note PT-OP-A Visit Information Start: 04/29/24 12:57 Freq: Status: Active Protocol: Document 06/24/24 13:12 NBM (Rec: 06/24/24 13:52 NBM Laptop) Out-Patient Physical Therapy Visit Information Visit Information Visit Type Treatment Note Visit Start Time 13:08 Visit Stop Time 13:46 Visit Number 10 Number of CONTINUITY PERSON Visits 1 Evaluation Information Evaluation Date 04/29/24 PT-OP-B Current Condition Start: 04/29/24 12:57 Freq: Status: Active Protocol: Document 04/29/24 12:20 DCW (Rec: 04/30/24 15:40 DCW [id number]) Current Condition History of Current Condition Onset Date Multi-year history Current Complaints Low back pain, occasional radicular symptoms History of Current Condition Pt is a 58 year old female presenting with a multi-year history of low back pain, complicated by multiple surgeries, including multi- level laminectomies, the most recent being in May 2023, which was an L1-2 lami decompression. Pt notes this most recent surgery seemed to help a lot with her radicular symptoms, as well as prior left foot drop, although she does still have occasional left-sided symptoms. Reports her lumbar pain is constant, but Gabapentin and Celebrex seem to help a lot. Admits most of her preferred activities, including gardening, driving, and hiking , all aggravate her back. Has been in PT previously off and on at a different clinic, but felt like she needed a fresh start elsewhere. Treatment Goals Patient/Caregiver Goals I want to get stronger and be better able to do things that I need to do. PT-OP-C Subjective Start: 04/29/24 12:57 Freq: Status: Active Protocol: Document 06/24/24 13:12 NBM (Rec: 06/24/24 13:52 NBM Laptop) OP-PT Subjective Patient Comments Patient Comments Елена reports she's done all of her exercises today except for seated rotation because she wasn't sure how to hold the band. She has not been doing them every day. She saw PCP yesterday who is pleased with PT and referred for another 12 visits which is pending authorization. He recommends a diagnostic nerve block, L2-L5 or possibly to S1 . Next appointment with PCP is scheduled November 30. She has greater awareness of posture and pain since starting PT, and when she's aware of using core she notices less pain. 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 PT-OP-K Range of Motion Start: 04/29/24 12:57 Freq: Status: Active Protocol: Document 04/29/24 12:20 DCW (Rec: 04/30/24 15:40 DCW [id number]) Lumbar Spine Range of Motion Lumbar Spine Active Degrees Testing Position Standing Flexion 83 Extension 10 Lateral Flexion Left 52 Lateral Flexion Right 53 Comments Lateral flexion measured in cm from fingertips to floor PT-OP-L Special Tests Start: 04/29/24 12:57 Freq: Status: Active Protocol: Document 04/29/24 12:20 DCW (Rec: 04/30/24 15:40 DCW [id number]) Special Tests Lumbar Spine Special Tests ROSARIO Test Results Negative Straight Leg Raise Test Results Negative Slump Test Results Negative Compression Test Results Positive with left rotation and left lateral flexion A-P Shearing Test Results Mildly positive PT-OP-M Strength Start: 04/29/24 12:57 Freq: Status: Active Protocol: Document 04/29/24 12:20 DCW (Rec: 04/30/24 15:40 DCW [id number]) Hip Strength Hip Manual Muscle Testing Right Flexion (L2) 4 Good Abduction 4 Good Adduction 4 Good External Rotation 4 Good Internal Rotation 4 Good Left Flexion (L2) 3+ Fair+ Abduction 3+ Fair+ Adduction 3+ Fair+ External Rotation 4 Good Internal Rotation 4 Good Knee Strength Knee Manual Muscle Testing Right Flexion (S2) 4 Good Extension (L3) 4 Good Left Flexion (S2) 4- Good- Extension (L3) 4- Good- Ankle/Foot Strength Ankle and Foot Manual Muscle Testing Right Dorsiflexion (L4) 4 Good Left Dorsiflexion (L4) 3+ Fair+ PT-OP-Q Treatments Start: 04/29/24 12:57 Freq: Status: Active Protocol: Document 06/24/24 13:12 NBM (Rec: 06/24/24 13:52 NBM Laptop) Gym Equipment Therapeutic Ball Core Exercise Details 1. Marching > Heel raises 2. LAQs Ball Size/Color 65 cm green Body Position Sitting Reps/Duration x10 Comments marching too challenging. Heel raises challenging L>R. added to HEP Trunk Rotation Exercise Details Resisted Trunk Rotation Ball Size/Color Green - 65 cm Lv 3 T-band - both ends wrapped around UE Body Position Sitting Comments cues for breath, maintaining neutral C-spine. PPT cues into neutral lumbar spine increase R rotation. Pelvic Tilts Comments a/p focus to get pt out of hyperextension bias into neutral lumbar spine, initial tactile cues. Trunk Flexion Exercise Details Trunk Flexion Stretch Ball Size/Color Green - 65 cm Body Position Sitting Reps/Duration 30 Comments Forward, Lateral lean Therapeutic Exercises Other Exercises BOSU Lunge Other Exercise Name BOSU Lunge Side bilateral Equipment Used Blue BOSU Reps/Minutes x10 ea Comments cues for feet hip width, foot placment Self-Care/Home Management Treatment Education Other Education Discussion with pt re: HEP progression for seated on physioball as pt wants to add marching and LAQs which were difficult for pt to control thoracolumbar hyperextension at this time. Pt agrees to perform slowly with breathwork following order and cues from handout. Added to HEP and provided order for core ex's seated on physioball: 1. Thoracic rotation 2. alt Heel raises 3. alt Marching 4. alt LAQs, all with TrA and breath focus throughout - HEP emailed . PT-OP-T Assessment and Plan Start: 04/29/24 12:57 Freq: Status: Active Protocol: Document 06/24/24 13:12 NBM (Rec: 06/24/24 13:52 NBM Laptop) Physical Therapy Assessment Goals Three Impairment Pt unable to hike uphill without pain Group Home Goal (LTG) Pt to report ability to hike uphill for 10 minutes with <3/ 10 lumbar pain LTG Duration 08/17/24 Two Impairment Pt must restrict gardening to 20 minutes due to pain Group Home Goal (LTG) Pt to improve hip MMT to at least 4/5 in all planes and improved core stabilization in order to increase amount of time she can spend doing gardening pain-free to >45 minutes 06/24/24: Pt reports takes breaks after about 20 minutes when gardening. LTG Duration 08/17/24 One Impairment Pt does not have an appropriate home exercise program Short Term Goal (STG) Pt to be independent and compliant with an appropriate HEP 06/12/24: QL doorway stretch and Core progression ex's added to HEP: PPT w/ TrA, BKFO , Heel Slides, - HO given. Pt i/s to focus on core progression ex's working up to marching. STG Duration Met Assessment Summary Assessment Елена requires tactile cues for posterior pelvic tilt into neutral lumbar spine to increase R trunk rotation when seated on physioball. Pt is appropriately challenged with Transverse abdominis m. activation with breathwork while performing alternating heel raises seated on physioball. After discussion with pt re: need to be mindful of thoracolumbar hyperextension bias and breathholding physioball core series added to HEP in specific order with TrA and breath focus throughout: 1. Paloff Press. 2. Thoracic rotation 3. alt Heel raises 4. alt Marching 5. LAQs - HEP emailed. Physical Therapy Plan Frequency and Duration Frequency of Treatment 2x/Week Plan of Care Start Date 06/17/24 Plan of Care End Date 08/17/24 Therapeutic Interventions Therapeutic Interventions Home Exercise Program,Joint Mobilizations,Manual Therapy, Neuromuscular Re-education, Patient/Caregiver Education, Self-Care/Home Management,Soft Tissue Mobilization, Therapeutic Activities, Therapeutic Exercises Modalities Cold Pack/Ice Massage,Electric Stimulation,Hot Packs Next Visit Focus/Plan Next Note Type Treatment Note Next Visit Plan Next: Review seated core on physioball; trial BOSU ex's for home. Consider laser, STM. POC: Hip/core strengthening, flexibility, activity tolerance, pain control
--- NOTE | 2024-06-30 15:19 | PT.OTN ---
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 Pt notes this most recent surgery seemed to help a lot with her radicular symptoms, as well as prior left foot drop, although she does still have occasional left-sided symptoms. Reports her lumbar pain is constant, but Gabapentin and Celebrex seem to help a lot. Admits most of her preferred activities, including gardening, driving, and hiking , all aggravate her back. Has been in PT previously off and on at a different clinic, but felt like she needed a fresh start elsewhere. Treatment Goals Patient/Caregiver Goals I want to get stronger and be better able to do things that I need to do. PT-OP-C Subjective Start: 04/29/24 12:57 Freq: Status: Active Protocol: Document 06/30/24 13:14 NBM (Rec: 06/30/24 17:31 NBM Laptop) OP-PT Subjective Patient Comments Patient Comments Елена reports her ex's are going well. She pulled macho for an hour and wasn't as stiff as she expected to be the next morning, and used LTR to loosen up. She stretches quads in the morning. She inflated BOSU and wants more exercises for it. PT-OP-K Range of Motion Start: 04/29/24 12:57 Freq: Status: Active Protocol: Document 04/29/24 12:20 DCW (Rec: 04/30/24 15:40 DCW [id number]) Lumbar Spine Range of Motion Lumbar Spine Active Degrees Testing Position Standing Flexion 83 Extension 10 Lateral Flexion Left 52 Lateral Flexion Right 53 Comments Lateral flexion measured in cm from fingertips to floor PT-OP-L Special Tests Start: 04/29/24 12:57 Freq: Status: Active Protocol: Document 04/29/24 12:20 DCW (Rec: 04/30/24 15:40 DCW [id number]) Special Tests Lumbar Spine Special Tests ROSARIO Test Results Negative Straight Leg Raise Test Results Negative Slump Test Results Negative Compression Test Results Positive with left rotation and left lateral flexion A-P Shearing Test Results Mildly positive PT-OP-M Strength Start: 04/29/24 12:57 Freq: Status: Active Protocol: Document 04/29/24 12:20 DCW (Rec: 04/30/24 15:40 DCW [id number]) Hip Strength Hip Manual Muscle Testing Right Flexion (L2) 4 Good Abduction 4 Good Adduction 4 Good External Rotation 4 Good Internal Rotation 4 Good Left Flexion (L2) 3+ Fair+ Abduction 3+ Fair+ Adduction 3+ Fair+ External Rotation 4 Good Internal Rotation 4 Good Knee Strength Knee Manual Muscle Testing Right Flexion (S2) 4 Good Extension (L3) 4 Good Left Flexion (S2) 4- Good- Extension (L3) 4- Good- Ankle/Foot Strength Ankle and Foot Manual Muscle Testing Right Dorsiflexion (L4) 4 Good Left Dorsiflexion (L4) 3+ Fair+ PT-OP-Q Treatments Start: 04/29/24 12:57 Freq: Status: Active Protocol: Document 06/30/24 13:14 NB (Rec: 06/30/24 17:31 NBM Laptop) Gym Equipment Therapeutic Ball LTR Exercise Details LTR verbal review Ball Size/Color Red - 55 cm Body Position Supine Therapeutic Exercises Supine Exercises Hip Flexor stretch Supine Exercise Name 1. lunge position 2. Stef position Side bilateral Equipment Used 1. yoga mat, self-monitors for neutral spine 2. plinth, stool under foot Reps/Minutes 60 ea Comments 1. initial cues for setup 2. L >R tightness. cues for PPT, painfree range Standing Exercises Quad stretch Standing Exercise Name Personal HEP: facing away from high bed with foot resting on it, trunk ext Side bilateral Equipment Used plinth Comments Demos LE misalignment, excessive thoracic extension, mod to lunge position Other Exercises BOSU Other Exercise Name HEP: 1.DL Squat 2.Lat lunge 3. SL balance 4.Step up 5.flat: DL/SL balance Side bilateral Equipment Used B handrail prn Reps/Minutes x5 ea Comments cues for feet hip width, hip hinge, gluteal activation, TrA , breathwork BOSU Lunge Other Exercise Name BOSU Lunge Side bilateral Equipment Used dome side Reps/Minutes x10 ea Comments cues for feet hip width, foot placment PT-OP-T Assessment and Plan Start: 04/29/24 12:57 Freq: Status: Active Protocol: Document 06/30/24 13:14 NBM (Rec: 06/30/24 17:31 NBM Laptop) Physical Therapy Assessment Goals Three Impairment Pt unable to hike uphill without pain Looper Fixer Goal (LTG) Pt to report ability to hike uphill for 10 minutes with <3/ 10 lumbar pain LTG Duration 08/17/24 Two Impairment Pt must restrict gardening to 20 minutes due to pain Looper Fixer Goal (LTG) Pt to improve hip MMT to at least 4/5 in all planes and improved core stabilization in order to increase amount of time she can spend doing gardening pain-free to >45 minutes 06/24/24: Pt reports takes breaks after about 20 minutes when gardening. LTG Duration 08/17/24 One Impairment Pt does not have an appropriate home exercise program Short Term Goal (STG) Pt to be independent and compliant with an appropriate HEP 06/12/24: QL doorway stretch and Core progression ex's added to HEP: PPT w/ TrA, BKFO , Heel Slides, - HO given. Pt i/s to focus on core progression ex's working up to . STG Duration Met Assessment Summary Assessment Treatment focus on flexibility and hip/core strengthening utilizing BOSU to progress home HEP now that pt has a BOSU at home. Елена is challenged to demonstrate quad stretch with LE alignment so this is modified to hip flexor stretch in lunge position with positive feedback. She demonstrates L>R hip flexor tightness with Stef stretch. She requires cues with BOSU exercises for feet hip width, hip hinge, gluteal activation, TrA, breathwork - BOSU HEP HO given, and a copy of 06/24/24 physioball HEP. She demos improved self-awareness. Physical Therapy Plan Frequency and Duration Frequency of Treatment 2x/Week Plan of Care Start Date 06/17/24 Plan of Care End Date 08/17/24 Therapeutic Interventions Therapeutic Interventions Home Exercise Program,Joint Mobilizations,Manual Therapy, Neuromuscular Re-education, Patient/Caregiver Education, Self-Care/Home Management,Soft Tissue Mobilization, Therapeutic Activities, Therapeutic Exercises Modalities Cold Pack/Ice Massage,Electric Stimulation,Hot Packs Next Visit Focus/Plan Next Note Type Treatment Note Next Visit Plan Next: Review seated core on physioball; trial BOSU ex's for home. Consider laser, STM. POC: Hip/core strengthening, flexibility, activity tolerance, pain control
--- NOTE | 2024-07-02 15:18 | PT.OTN ---
Current Diagnoses Spondylosis without myelopathy or radiculopathy, lumbar region (07/02/24) Other specified postprocedural states (07/02/24) Physical Therapy Treatment Note PT-OP-A Visit Information Start: 04/29/24 12:57 Freq: Status: Active Protocol: Document 07/02/24 14:30 DCW (Rec: 07/02/24 15:18 DCW [id number]) Out-Patient Physical Therapy Visit Information Visit Information Visit Type Treatment Note Visit Start Time 14:30 Visit Stop Time 15:15 Visit Number 12 Number of INSTRUMENTATION MANAGER Visits 0 Evaluation Information Evaluation Date 04/29/24 PT-OP-B Current Condition Start: 04/29/24 12:57 Freq: Status: Active Protocol: Document 04/29/24 12:20 DCW (Rec: 04/30/24 15:40 DCW [id number]) Current Condition History of Current Condition Onset Date Multi-year history Current Complaints Low back pain, occasional radicular symptoms History of Current Condition Pt is a 58 year old female presenting with a multi-year history of low back pain, complicated by multiple surgeries, including multi- level laminectomies, the most recent being in May 2023, which was an L1-2 lami decompression. Pt notes this most recent surgery seemed to help a lot with her radicular symptoms, as well as prior left foot drop, although she does still have occasional left-sided symptoms. Reports her lumbar pain is constant, but Gabapentin and Celebrex seem to help a lot. Admits most of her preferred activities, including gardening, driving, and hiking , all aggravate her back. Has been in PT previously off and on at a different clinic, but felt like she needed a fresh start elsewhere. Treatment Goals Patient/Caregiver Goals I want to get stronger and be better able to do things that I need to do. PT-OP-C Subjective Start: 04/29/24 12:57 Freq: Status: Active Protocol: Document 07/02/24 14:30 DCW (Rec: 07/02/24 15:18 DCW [id number]) OP-PT Subjective Patient Comments Patient Comments Pt reports she was out walking her dogs before her appointment, and noticed that while wearing her boots, the difference in her gait between her left and right foot is much more noticeable. Feels her left foot is much more of a flat foot slap vs a good heel-toe on the right PT-OP-K Range of Motion Start: 04/29/24 12:57 Freq: Status: Active Protocol: Document 04/29/24 12:20 DCW (Rec: 04/30/24 15:40 DCW [place] [id number]) Lumbar Spine Range of Motion Lumbar Spine Active Degrees Testing Position Standing Flexion 83 Extension 10 Lateral Flexion Left 52 Lateral Flexion Right 53 Comments Lateral flexion measured in cm from fingertips to floor PT-OP-L Special Tests Start: 04/29/24 12:57 Freq: Status: Active Protocol: Document 04/29/24 12:20 DCW (Rec: 04/30/24 15:40 DCW [place] [id number]) Special Tests Lumbar Spine Special Tests ROSARIO Test Results Negative Straight Leg Raise Test Results Negative Slump Test Results Negative Compression Test Results Positive with left rotation and left lateral flexion A-P Shearing Test Results Mildly positive PT-OP-M Strength Start: 04/29/24 12:57 Freq: Status: Active Protocol: Document 04/29/24 12:20 DCW (Rec: 04/30/24 15:40 DCW [place] [id number]) Hip Strength Hip Manual Muscle Testing Right Flexion (L2) 4 Good Abduction 4 Good Adduction 4 Good External Rotation 4 Good Internal Rotation 4 Good Left Flexion (L2) 3+ Fair+ Abduction 3+ Fair+ Adduction 3+ Fair+ External Rotation 4 Good Internal Rotation 4 Good Knee Strength Knee Manual Muscle Testing Right Flexion (S2) 4 Good Extension (L3) 4 Good Left Flexion (S2) 4- Good- Extension (L3) 4- Good- Ankle/Foot Strength Ankle and Foot Manual Muscle Testing Right Dorsiflexion (L4) 4 Good Left Dorsiflexion (L4) 3+ Fair+ PT-OP-Q Treatments Start: 04/29/24 12:57 Freq: Status: Active Protocol: Document 07/02/24 14:30 DCW (Rec: 07/02/24 15:18 DCW [id number]) Gym Equipment Shuttle Balance Red Details PF/DF, Staggered, lateral weight shift Therapeutic Exercises Sitting Exercises Dorsiflexion Sitting Exercise Name Dorsiflexion Side left Resistance Lv 2 Reps/Minutes to fatigue Other Exercises BOSU Lunge Other Exercise Name BOSU Lunge Side bilateral Equipment Used Blue BOSU, Blue/white sport core /c lateral pull Reps/Minutes x10 ea Comments cues for feet hip width, foot placment Gait Training Gait Activity Heel-toe Comments Focus on left foot heel-toe movement, limiting foot slap following heel strike Neuro Re-Education Treatment Balance Activities BOSU Details SLS, DLS Surface frequent UE support PT-OP-T Assessment and Plan Start: 04/29/24 12:57 Freq: Status: Active Protocol: Document 07/02/24 14:30 DCW (Rec: 07/02/24 15:18 DCW [id number]) Physical Therapy Assessment Impairments Impairments Activity Tolerance,Functional Activities,Functional Mobility ,Pain,ROM,Soft Tissue Mobility ,Strength,Tone Goals Three Impairment Pt unable to hike uphill without pain Reconciliation Analyst Goal (LTG) Pt to report ability to hike uphill for 10 minutes with <3/ 10 lumbar pain LTG Duration 06/29/24 Two Impairment Pt must restrict gardening to 20 minutes due to pain Reconciliation Analyst Goal (LTG) Pt to improve hip MMT to at least 4/5 in all planes and improved core stabilization in order to increase amount of time she can spend doing gardening pain-free to >45 minutes 06/24/24: Pt reports takes breaks after about 20 minutes when gardening. LTG Duration 06/29/24 One Impairment Pt does not have an appropriate home exercise program Short Term Goal (STG) Pt to be independent and compliant with an appropriate HEP 06/12/24: QL doorway stretch and Core progression ex's added to HEP: PPT w/ TrA, BKFO , Heel Slides, - HO given. Pt i/s to focus on core progression ex's working up to marching. STG Duration 05/30/24 Assessment Summary Assessment Pt presents today with increased fatigue and weakness through her left anterior tib after walking her dog before PT. Noticeable decrease in muscle mass on left mariee, as well as increased foot slap during gait while wearing heavier boots today. All likely secondary effects from prior radicular symptoms present pre-surgical intervention. Focused more on LE/ankle strengthening and stabilization today, will do well with this in the future, in addition to prior back and core strengthening. Physical Therapy Plan Frequency and Duration Frequency of Treatment 2x/Week Plan of Care Start Date 06/17/24 Plan of Care End Date 08/17/24 Therapeutic Interventions Therapeutic Interventions Home Exercise Program,Joint Mobilizations,Manual Therapy, Neuromuscular Re-education, Patient/Caregiver Education, Self-Care/Home Management,Soft Tissue Mobilization, Therapeutic Activities, Therapeutic Exercises Modalities Cold Pack/Ice Massage,Electric Stimulation,Hot Packs Next Visit Focus/Plan Next Note Type Treatment Note Next Visit Plan Next: Review seated core on physioball; trial ALLYN ex's for home. Consider laser, STM. POC: Hip/core strengthening, flexibility, activity tolerance, pain control
--- NOTE | 2024-07-08 11:54 | PT.OTN ---
Current Diagnoses Spondylosis without myelopathy or radiculopathy, lumbar region (07/08/24) Other specified postprocedural states (07/08/24) Physical Therapy Treatment Note PT-OP-A Visit Information Start: 04/29/24 12:57 Freq: Status: Active Protocol: Document 07/08/24 10:52 DCW (Rec: 07/08/24 11:54 DCW [id number]) Out-Patient Physical Therapy Visit Information Visit Information Visit Type Treatment Note Visit Note Student PT Amador Holliday participated in treatment session w/ PT direct supervision and direction Visit Start Time 10:52 Visit Stop Time 11:31 Visit Number 13 Number of FIELD NATURALIST Visits 0 Evaluation Information Evaluation Date 04/29/24 PT-OP-B Current Condition Start: 04/29/24 12:57 Freq: Status: Active Protocol: Document 04/29/24 12:20 DCW (Rec: 04/30/24 15:40 DCW [id number]) Current Condition History of Current Condition Onset Date Multi-year history Current Complaints Low back pain, occasional radicular symptoms History of Current Condition Pt is a 58 year old female presenting with a multi-year history of low back pain, complicated by multiple surgeries, including multi- level laminectomies, the most recent being in May 2023, which was an L1-2 lami decompression. Pt notes this most recent surgery seemed to help a lot with her radicular symptoms, as well as prior left foot drop, although she does still have occasional left-sided symptoms. Reports her lumbar pain is constant, but Gabapentin and Celebrex seem to help a lot. Admits most of her preferred activities, including gardening, driving, and hiking , all aggravate her back. Has been in PT previously off and on at a different clinic, but felt like she needed a fresh start elsewhere. Treatment Goals Patient/Caregiver Goals I want to get stronger and be better able to do things that I need to do. PT-OP-C Subjective Start: 04/29/24 12:57 Freq: Status: Active Protocol: Document 07/08/24 10:52 DCW (Rec: 07/08/24 11:54 DCW [id number]) OP-PT Subjective Patient Comments Patient Comments Yesterday was a rough day. 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, and was pretty sore last night, had some PT-OP-K Range of Motion Start: 04/29/24 12:57 Freq: Status: Active Protocol: Document 04/29/24 12:20 DCW (Rec: 04/30/24 15:40 DCW [id number]) Lumbar Spine Range of Motion Lumbar Spine Active Degrees Testing Position Standing Flexion 83 Extension 10 Lateral Flexion Left 52 Lateral Flexion Right 53 Comments Lateral flexion measured in cm from fingertips to floor PT-OP-L Special Tests Start: 04/29/24 12:57 Freq: Status: Active Protocol: Document 04/29/24 12:20 DCW (Rec: 04/30/24 15:40 DCW [id number]) Special Tests Lumbar Spine Special Tests ROSARIO Test Results Negative Straight Leg Raise Test Results Negative Slump Test Results Negative Compression Test Results Positive with left rotation and left lateral flexion A-P Shearing Test Results Mildly positive PT-OP-M Strength Start: 04/29/24 12:57 Freq: Status: Active Protocol: Document 04/29/24 12:20 DCW (Rec: 04/30/24 15:40 DCW [id number]) Hip Strength Hip Manual Muscle Testing Right Flexion (L2) 4 Good Abduction 4 Good Adduction 4 Good External Rotation 4 Good Internal Rotation 4 Good Left Flexion (L2) 3+ Fair+ Abduction 3+ Fair+ Adduction 3+ Fair+ External Rotation 4 Good Internal Rotation 4 Good Knee Strength Knee Manual Muscle Testing Right Flexion (S2) 4 Good Extension (L3) 4 Good Left Flexion (S2) 4- Good- Extension (L3) 4- Good- Ankle/Foot Strength Ankle and Foot Manual Muscle Testing Right Dorsiflexion (L4) 4 Good Left Dorsiflexion (L4) 3+ Fair+ PT-OP-Q Treatments Start: 04/29/24 12:57 Freq: Status: Active Protocol: Document 07/08/24 10:52 DCW (Rec: 07/08/24 11:54 DCW [id number]) Gym Equipment Shuttle Recovery Unilateral Squats Resistance 50# Shuttle Recovery Platform Unstable Bilateral Squats Resistance 62# Shuttle Recovery Platform Unstable Shuttle Balance Red Details PF/DF, Staggered, lateral weight shift Therapeutic Exercises Standing Exercises calf stretch Standing Exercise Name gastroc stretch and PF Side bilateral Equipment Used PHIL Reps/Minutes 40 Stretch Other Exercises BOSU Other Exercise Name DL Squat Side bilateral Equipment Used B handrail prn Comments Black side up ALLYN Howell Other Exercise Name ALLYN Lungkalpesh Side bilateral Equipment Used Black BOSU Reps/Minutes x10 ea Gait Training Gait Activity Heel-toe Comments Decrease compensatory strategies secondary to decreased dorsiflexion and mild steppage gait. PT-OP-T Assessment and Plan Start: 04/29/24 12:57 Freq: Status: Active Protocol: Document 07/08/24 10:52 DCW (Rec: 07/08/24 11:54 DCW [id number]) Physical Therapy Assessment Impairments Impairments Activity Tolerance,Functional Activities,Functional Mobility ,Pain,ROM,Soft Tissue Mobility ,Strength,Tone Goals Three Impairment Pt unable to hike uphill without pain Community Resource Consultant Goal (LTG) Pt to report ability to hike uphill for 10 minutes with <3/ 10 lumbar pain LTG Duration 08/17/24 Two Impairment Pt must restrict gardening to 20 minutes due to pain Senior Living Goal (LTG) Pt to improve hip MMT to at least 4/5 in all planes and improved core stabilization in order to increase amount of time she can spend doing gardening pain-free to >45 minutes 06/24/24: Pt reports takes breaks after about 20 minutes when gardening. LTG Duration 08/17/24 One Impairment Pt does not have an appropriate home exercise program Short Term Goal (STG) Pt to be independent and compliant with an appropriate HEP 06/12/24: QL doorway stretch and Core progression ex's added to HEP: PPT w/ TrA, BKFO , Heel Slides, - HO given. Pt i/s to focus on core progression ex's working up to . STG Duration Met Assessment Summary Assessment Focused again today on mainly ankle strengthening and stability due to decreased left dorsiflexion. Pt displaying fatigue in left ankle as session progressed. Doing well progressing home exercises, although her BOSU has sprung a leak. Continue to focus on hip/core strengthening, ankle mobility during gait, general balance challenges, and thoracolumbar mobility. Physical Therapy Plan Frequency and Duration Frequency of Treatment 2x/Week Plan of Care Start Date 06/17/24 Plan of Care End Date 08/17/24 Therapeutic Interventions Therapeutic Interventions Home Exercise Program,Joint Mobilizations,Manual Therapy, Neuromuscular Re-education, Patient/Caregiver Education, Self-Care/Home Management,Soft Tissue Mobilization, Therapeutic Activities, Therapeutic Exercises Modalities Cold Pack/Ice Massage,Electric Stimulation,Hot Packs Next Visit Focus/Plan Next Note Type Treatment Note Next Visit Plan Next: Review seated core on physioball; Consider laser, STM. POC: Hip/core strengthening, flexibility, activity tolerance, pain control
--- NOTE | 2024-07-15 11:16 | PT.OTN ---
Current Diagnoses Spondylosis without myelopathy or radiculopathy, lumbar region (07/15/24) Other specified postprocedural states (07/15/24) Physical Therapy Treatment Note PT-OP-A Visit Information Start: 04/29/24 12:57 Freq: Status: Active Protocol: Document 07/15/24 11:16 NBM (Rec: 07/15/24 12:34 NBM Laptop) Out-Patient Physical Therapy Visit Information Visit Information Visit Type Treatment Note Visit Start Time 11:28 Visit Stop Time 12:12 Visit Number 14 Number of CHIEF ENGINEERING DIVISION Visits 1 Evaluation Information Evaluation Date 04/29/24 PT-OP-B Current Condition Start: 04/29/24 12:57 Freq: Status: Active Protocol: Document 04/29/24 12:20 DCW (Rec: 04/30/24 15:40 DCW [id number]) Current Condition History of Current Condition Onset Date Multi-year history Current Complaints Low back pain, occasional radicular symptoms History of Current Pt is a 58 year old female presenting with a multi-year Condition history of low back pain, complicated by multiple surgeries, including multi-level laminectomies, the most recent being in May 2023, which was an L1-2 lami decompression. Pt notes this most recent surgery seemed to help a lot with her radicular symptoms, as well as prior left foot drop, although she does still have occasional left-sided symptoms. Reports her lumbar pain is constant, but Gabapentin and Celebrex seem to help a lot. Admits most of her preferred activities, including gardening, driving, and hiking, all aggravate her back. Has been in PT previously off and on at a different clinic, but felt like she needed a fresh start elsewhere. Treatment Goals Patient/Caregiver I want to get stronger and be better able to do things Goals that I need to do. PT-OP-C Subjective Start: 04/29/24 12:57 Freq: Status: Active Protocol: Document 07/15/24 11:16 NBM (Rec: 07/15/24 12:34 NBM Laptop) OP-PT Subjective Patient Comments Patient Comments Елена reports she took dogs on beach yesterday and cleaned more macho the other day, but decided to leave the pile of pinecones for to take care of because otherwise her body will pay for it. She's been caring for the house the past month while spouse is out of town and is frustrated with some things she can't do with her body. She's been feeling lazy in the mornings and even though she is motivated and intends to do at least 20 min PT exercises the day goes by and she hasn't done them. Her BOSU is leaking air. PT-OP-K Range of Motion Start: 04/29/24 12:57 Freq: Status: Active Protocol: Document 04/29/24 12:20 DCW (Rec: 04/30/24 15:40 DCW [id number]) Lumbar Spine Range of Motion Lumbar Spine Active Degrees Testing Position Standing Flexion 83 Extension 10 Lateral Flexion Left 52 Lateral Flexion 53 Right Comments Lateral flexion measured in cm from fingertips to floor PT-OP-L Special Tests Start: 04/29/24 12:57 Freq: Status: Active Protocol: Document 04/29/24 12:20 DCW (Rec: 04/30/24 15:40 DCW [id number]) Special Tests Lumbar Spine Special Tests ROSARIO Test Results Negative Straight Leg Raise Test Results Negative Slump Test Results Negative Compression Test Results Positive with left rotation and left lateral flexion A-P Shearing Test Results Mildly positive PT-OP-M Strength Start: 04/29/24 12:57 Freq: Status: Active Protocol: Document 04/29/24 12:20 DCW (Rec: 04/30/24 15:40 DCW [id number]) Hip Strength Hip Manual Muscle Testing Right Flexion (L2) 4 Good Abduction 4 Good Adduction 4 Good External Rotation 4 Good Internal Rotation 4 Good Left Flexion (L2) 3+ Fair+ Abduction 3+ Fair+ Adduction 3+ Fair+ External Rotation 4 Good Internal Rotation 4 Good Knee Strength Knee Manual Muscle Testing Right Flexion (S2) 4 Good Extension (L3) 4 Good Left Flexion (S2) 4- Good- Extension (L3) 4- Good- Ankle/Foot Strength Ankle and Foot Manual Muscle Testing Right Dorsiflexion (L4) 4 Good Left Dorsiflexion (L4) 3+ Fair+ PT-OP-Q Treatments Start: 04/29/24 12:57 Freq: Status: Active Protocol: Document 07/15/24 11:16 NBM (Rec: 07/15/24 12:34 NBM Laptop) Gym Equipment Shuttle Recovery Unilateral Squats Details Jan Resistance 50# Shuttle Recovery Unstable Platform Bilateral Squats Resistance 62# Shuttle Recovery Unstable Platform Shuttle Balance Red Details PF/DF focus, ELECTRONIC FUNDS TRANSFER COORDINATOR prn, distant focal point Comments WBOS, NBOS, Staggered -DL balance, a/p weightshifting (staggered with L Tib ant. con/ecc strengthening focus to fatigue: ant quiet, posterior loud) -CGA w/ Fernando x1 at pelvis for anterior lean Therapeutic Exercises Sitting Exercises Dorsiflexion Sitting Exercise seated/standing Dorsiflexion: balance bag on foot, Name place into bucket Side left Equipment Used R handrail standing Reps/Minutes 2x13 ea Comments vc LE alignment Standing Exercises calf stretch Standing Exercise gastroc stretch and PF Name Side bilateral Equipment Used Shuttle Recovery 50# Reps/Minutes 60 Stretch Comments vc for breath Self-Care/Home Management Treatment Education Patient Education Body Mechanics,Home Exercise Program,Pain Management, Posture,Safety Other Education Discussion of current barriers to consistent HEP. Pt reports most energy in mornings and tends to do standing activities to fatigue and then low energy end of day. Discussed completing PT exercises in first part of day, and edu to pt re: energy pacing throughout day so as not to go until fatigued and pay for it later. PT-OP-T Assessment and Plan Start: 04/29/24 12:57 Freq: Status: Active Protocol: Document 07/15/24 11:16 NBM (Rec: 07/15/24 12:34 NBM Laptop) Physical Therapy Assessment Impairments Impairments Activity Tolerance,Functional Activities,Functional Mobility,Pain,ROM,Soft Tissue Mobility,Strength,Tone Goals Three Impairment Pt unable to hike uphill without pain Longterm Goal (LTG) Pt to report ability to hike uphill for 10 minutes with <3/10 lumbar pain LTG Duration 08/17/24 Two Impairment Pt must restrict gardening to 20 minutes due to pain Mail Processing Machine Operator Goal (LTG) Pt to improve hip MMT to at least 4/5 in all planes and improved core stabilization in order to increase amount of time she can spend doing gardening pain-free to >45 minutes 06/24/24: Pt reports takes breaks after about 20 minutes when gardening. LTG Duration 08/17/24 One Impairment Pt does not have an appropriate home exercise program Short Term Goal (STG Pt to be independent and compliant with an appropriate ) HEP 06/12/24: QL doorway stretch and Core progression ex's added to HEP: PPT w/ TrA, BKFO, Heel Slides, - HO given . Pt i/s to focus on core progression ex's working up to . STG Duration Met Assessment Summary Assessment Continued ankle strengthening and stability focus to address decreased L dorsiflexion, and pt reports fatigue in L Tibialis anterior m. during Shuttle Balance activity. She demos improved single leg balance bilaterally needing minimal hand hold support with dorsiflexion activity. Edu to pt re: energy pacing throughout day with exercises in the morning, and so as not to push until fatigued and for pain management. Physical Therapy Plan Frequency and Duration Frequency of 2x/Week Treatment Plan of Care Start 06/17/24 Date Plan of Care End 08/17/24 Date Therapeutic Interventions Therapeutic Home Exercise Program,Joint Mobilizations,Manual Interventions Therapy,Neuromuscular Re-education,Patient/Caregiver Education,Self-Care/Home Management,Soft Tissue Mobilization,Therapeutic Activities,Therapeutic Exercises Modalities Cold Pack/Ice Massage,Electric Stimulation,Hot Packs Next Visit Focus/Plan Next Note Type Treatment Note Next Visit Plan Next: Review seated core on physioball; Consider laser, STM. POC: Hip/core strengthening, flexibility, activity tolerance, pain control
--- NOTE | 2024-07-15 16:34 | PT.OTN ---
Current Diagnoses Spondylosis without myelopathy or radiculopathy, lumbar region (07/15/24) Other specified postprocedural states (07/15/24) Physical Therapy Treatment Note PT-OP-A Visit Information Start: 04/29/24 12:57 Freq: Status: Active Protocol: Document 07/15/24 11:16 NBM (Rec: 07/15/24 12:34 NBM Laptop) Out-Patient Physical Therapy Visit Information Visit Information Visit Type Treatment Note Visit Start Time 11:28 Visit Stop Time 12:12 Visit Number 14 Number of CARDIAC NURSE SPECIALIST Visits 1 Evaluation Information Evaluation Date 04/29/24 PT-OP-B Current Condition Start: 04/29/24 12:57 Freq: Status: Active Protocol: Document 04/29/24 12:20 DCW (Rec: 04/30/24 15:40 DCW [id number]) Current Condition History of Current Condition Onset Date Multi-year history Current Complaints Low back pain, occasional radicular symptoms History of Current Condition Pt is a 58 year old female presenting with a multi-year history of low back pain, complicated by multiple surgeries, including multi- level laminectomies, the most recent being in May 2023, which was an L1-2 lami decompression. Pt notes this most recent surgery seemed to help a lot with her radicular symptoms, as well as prior left foot drop, although she does still have occasional left-sided symptoms. Reports her lumbar pain is constant, but Gabapentin and Celebrex seem to help a lot. Admits most of her preferred activities, including gardening, driving, and hiking , all aggravate her back. Has been in PT previously off and on at a different clinic, but felt like she needed a fresh start elsewhere. Treatment Goals Patient/Caregiver Goals I want to get stronger and be better able to do things that I need to do. PT-OP-C Subjective Start: 04/29/24 12:57 Freq: Status: Active Protocol: Document 07/15/24 11:16 NBM (Rec: 07/15/24 12:34 NBM Laptop) OP-PT Subjective Patient Comments Patient Comments Елена reports she took dogs on beach yesterday and cleaned more macho the other day, but decided to leave the pile of pinecones for to take care of because otherwise her body will pay for it. 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 She's been feeling lazy in the mornings and even though she is motivated and intends to do at least 20 min PT exercises the day goes by and she hasn't done them. Her BOSU is leaking air. PT-OP-K Range of Motion Start: 04/29/24 12:57 Freq: Status: Active Protocol: Document 04/29/24 12:20 DCW (Rec: 04/30/24 15:40 DCW [id number]) Lumbar Spine Range of Motion Lumbar Spine Active Degrees Testing Position Standing Flexion 83 Extension 10 Lateral Flexion Left 52 Lateral Flexion Right 53 Comments Lateral flexion measured in cm from fingertips to floor PT-OP-L Special Tests Start: 04/29/24 12:57 Freq: Status: Active Protocol: Document 04/29/24 12:20 DCW (Rec: 04/30/24 15:40 DCW [id number]) Special Tests Lumbar Spine Special Tests ROSARIO Test Results Negative Straight Leg Raise Test Results Negative Slump Test Results Negative Compression Test Results Positive with left rotation and left lateral flexion A-P Shearing Test Results Mildly positive PT-OP-M Strength Start: 04/29/24 12:57 Freq: Status: Active Protocol: Document 04/29/24 12:20 DCW (Rec: 04/30/24 15:40 DCW [id number]) Hip Strength Hip Manual Muscle Testing Right Flexion (L2) 4 Good Abduction 4 Good Adduction 4 Good External Rotation 4 Good Internal Rotation 4 Good Left Flexion (L2) 3+ Fair+ Abduction 3+ Fair+ Adduction 3+ Fair+ External Rotation 4 Good Internal Rotation 4 Good Knee Strength Knee Manual Muscle Testing Right Flexion (S2) 4 Good Extension (L3) 4 Good Left Flexion (S2) 4- Good- Extension (L3) 4- Good- Ankle/Foot Strength Ankle and Foot Manual Muscle Testing Right Dorsiflexion (L4) 4 Good Left Dorsiflexion (L4) 3+ Fair+ PT-OP-Q Treatments Start: 04/29/24 12:57 Freq: Status: Active Protocol: Document 07/15/24 11:16 NBM (Rec: 07/15/24 12:34 NBM Laptop) Gym Equipment Shuttle Recovery Unilateral Squats Details Jan Resistance 50# Shuttle Recovery Platform Unstable Bilateral Squats Resistance 62# Shuttle Recovery Platform Unstable Shuttle Balance Red Details PF/DF focus, BUTCHER SCULLION prn, distant focal point Comments WBOS, NBOS, Staggered -DL balance, a/p weightshifting (staggered with L Tib ant. con/ecc strengthening focus to fatigue : ant quiet, posterior loud) -CGA w/ Fernando x1 at pelvis for anterior lean Therapeutic Exercises Sitting Exercises Dorsiflexion Sitting Exercise Name seated/standing Dorsiflexion: balance bag on foot, place into bucket Side left Equipment Used R handrail standing Reps/Minutes 2x13 ea Comments vc LE alignment Standing Exercises calf stretch Standing Exercise Name gastroc stretch and PF Side bilateral Equipment Used Shuttle Recovery 50# Reps/Minutes 60 Stretch Comments vc for breath Self-Care/Home Management Treatment Education Patient Education Body Mechanics,Home Exercise Program,Pain Management, Posture,Safety Other Education Discussion of current barriers to consistent HEP. Pt reports most energy in mornings and tends to do standing activities to fatigue and then low energy end of day. Discussed completing PT exercises in first part of day , and edu to pt re: energy pacing throughout day so as not to go until fatigued and pay for it later. PT-OP-T Assessment and Plan Start: 04/29/24 12:57 Freq: Status: Active Protocol: Document 07/15/24 11:16 NBM (Rec: 07/15/24 12:34 NB Laptop) Physical Therapy Assessment Impairments Impairments Activity Tolerance,Functional Activities,Functional Mobility ,Pain,ROM,Soft Tissue Mobility ,Strength,Tone Goals Three Impairment Pt unable to hike uphill without pain Solder Sprayer Goal (LTG) Pt to report ability to hike uphill for 10 minutes with <3/ 10 lumbar pain LTG Duration 08/17/24 Two Impairment Pt must restrict gardening to 20 minutes due to pain Jail Goal (LTG) Pt to improve hip MMT to at least 4/5 in all planes and improved core stabilization in order to increase amount of time she can spend doing gardening pain-free to >45 minutes 06/24/24: Pt reports takes breaks after about 20 minutes when gardening. LTG Duration 08/17/24 One Impairment Pt does not have an appropriate home exercise program Short Term Goal (STG) Pt to be independent and compliant with an appropriate HEP 06/12/24: QL doorway stretch and Core progression ex's added to HEP: PPT w/ TrA, BKFO , Heel Slides, - HO given. Pt i/s to focus on core progression ex's working up to . STG Duration Met Assessment Summary Assessment Continued ankle strengthening and stability focus to address decreased L dorsiflexion, and pt reports fatigue in L Tibialis anterior m. during Shuttle Balance activity. She demos improved single leg balance bilaterally needing minimal hand hold support with dorsiflexion activity. Edu to pt re: energy pacing throughout day so as not to push until fatigued and for pain management. Physical Therapy Plan Frequency and Duration Frequency of Treatment 2x/Week Plan of Care Start Date 06/17/24 Plan of Care End Date 08/17/24 Therapeutic Interventions Therapeutic Interventions Home Exercise Program,Joint Mobilizations,Manual Therapy, Neuromuscular Re-education, Patient/Caregiver Education, Self-Care/Home Management,Soft Tissue Mobilization, Therapeutic Activities, Therapeutic Exercises Modalities Cold Pack/Ice Massage,Electric Stimulation,Hot Packs Next Visit Focus/Plan Next Note Type Treatment Note Next Visit Plan Next: Review seated core on physioball; Consider laser, STM. POC: Hip/core strengthening, flexibility, activity tolerance, pain control
--- NOTE | 2024-07-21 15:53 | PT.OTN ---
Current Diagnoses Spondylosis without myelopathy or radiculopathy, lumbar region (07/21/24) Other specified postprocedural states (07/21/24) Physical Therapy Treatment Note PT-OP-A Visit Information Start: 04/29/24 12:57 Freq: Status: Active Protocol: Document 07/21/24 14:06 NBM (Rec: 07/21/24 15:50 NBM Laptop) Out-Patient Physical Therapy Visit Information Visit Information Visit Type Treatment Note Visit Start Time 13:46 Visit Stop Time 14:35 Visit Number 15 Number of RN STARS Visits 2 Evaluation Information Evaluation Date 04/29/24 PT-OP-B Current Condition Start: 04/29/24 12:57 Freq: Status: Active Protocol: Document 04/29/24 12:20 DCW (Rec: 04/30/24 15:40 DCW [id number]) Current Condition History of Current Condition Onset Date Multi-year history Current Complaints Low back pain, occasional radicular symptoms History of Current Pt is a 58 year old female presenting with a multi-year Condition history of low back pain, complicated by multiple surgeries, including multi-level laminectomies, the most recent being in May 2023, which was an L1-2 lami decompression. Pt notes this most recent surgery seemed to help a lot with her radicular symptoms, as well as prior left foot drop, although she does still have occasional left-sided symptoms. Reports her lumbar pain is constant, but Gabapentin and Celebrex seem to help a lot. Admits most of her preferred activities, including gardening, driving, and hiking, all aggravate her back. Has been in PT previously off and on at a different clinic, but felt like she needed a fresh start elsewhere. Treatment Goals Patient/Caregiver I want to get stronger and be better able to do things Goals that I need to do. PT-OP-C Subjective Start: 04/29/24 12:57 Freq: Status: Active Protocol: Document 07/21/24 14:06 NBM (Rec: 07/21/24 15:50 NBM Laptop) OP-PT Subjective Patient Comments Patient Comments Елена reports she's been able to complete exercises regularly by doing them first thing in the morning and then feels better about resting as needed throughout the day. She's been able garden about thirty minutes before needing to change activity. She's stretching all of the time. Her BOSU stays inflated if she keeps it on the flat side and she thinks her double leg balance has improved but single leg is still really hard. PT-OP-K Range of Motion Start: 04/29/24 12:57 Freq: Status: Active Protocol: Document 04/29/24 12:20 DCW (Rec: 04/30/24 15:40 DCW [id number]) Lumbar Spine Range of Motion Lumbar Spine Active Degrees Testing Position Standing Flexion 83 Extension 10 Lateral Flexion Left 52 Lateral Flexion 53 Right Comments Lateral flexion measured in cm from fingertips to floor PT-OP-L Special Tests Start: 04/29/24 12:57 Freq: Status: Active Protocol: Document 04/29/24 12:20 DCW (Rec: 04/30/24 15:40 DCW [id number]) Special Tests Lumbar Spine Special Tests ROSARIO Test Results Negative Straight Leg Raise Test Results Negative Slump Test Results Negative Compression Test Results Positive with left rotation and left lateral flexion A-P Shearing Test Results Mildly positive PT-OP-M Strength Start: 04/29/24 12:57 Freq: Status: Active Protocol: Document 04/29/24 12:20 DCW (Rec: 04/30/24 15:40 DCW [id number]) Hip Strength Hip Manual Muscle Testing Right Flexion (L2) 4 Good Abduction 4 Good Adduction 4 Good External Rotation 4 Good Internal Rotation 4 Good Left Flexion (L2) 3+ Fair+ Abduction 3+ Fair+ Adduction 3+ Fair+ External Rotation 4 Good Internal Rotation 4 Good Knee Strength Knee Manual Muscle Testing Right Flexion (S2) 4 Good Extension (L3) 4 Good Left Flexion (S2) 4- Good- Extension (L3) 4- Good- Ankle/Foot Strength Ankle and Foot Manual Muscle Testing Right Dorsiflexion (L4) 4 Good Left Dorsiflexion (L4) 3+ Fair+ PT-OP-Q Treatments Start: 04/29/24 12:57 Freq: Status: Active Protocol: Document 07/21/24 14:06 NBM (Rec: 07/21/24 15:50 NBM Laptop) Gym Equipment Shuttle Recovery Unilateral Squats Details Jan Resistance 50# Shuttle Recovery Unstable Platform Reps/Time x15 ea Bilateral Squats Details vc for equal WBing Resistance 62# Shuttle Recovery Unstable Platform Reps/Time x20 Shuttle Balance Red Details PF/DF focus, MANAGER ADMINISTRATION prn, CGA Comments WBOS, Staggered B -DL balance no MANAGER ADMINISTRATION - pt able to still level platform within ~2' -a/p weightshift -demos improved eccentric control w/ cues -Balloon volleyball w/ aide - CGA,pt self-recovers balance as needed Therapeutic Ball Core Exercise Details 1. Heel raises 2. Marching 3. LAQs 4. DF focus Ball Size/Color 65 cm green Body Position Sitting Reps/Duration x10 ea Comments HEP review. Occ cues TrA and breath. Demos improved control. DF focus: -LAQs w/ L DF focus -w/ Lvl 1 Tb around forefeet: 1.seated alt marching 2. Seated alt DF, L>R challenging Therapeutic Exercises Standing Exercises QL Doorway stretch Standing Exercise verbal review Name Side bilateral Equipment Used doorway Reps/Minutes 10 breath hold ea calf stretch Standing Exercise gastroc/soleus stretch Name Side bilateral Equipment Used handrail, edu for soleus/gastroc/Achilles t. anatomy and relationshp w/ DF Reps/Minutes 30-45 ea Comments vc for breath, painfree range Other Exercises BOSU Other Exercise Name Step up Side bilateral Reps/Minutes x5 ea Comments cues gluteal activation, recip arm motion Neuro Re-Education Treatment Balance Activities SLS Details Jan Surface firm Equipment handrail prn Reps/Duration 30s trials ea Comments L 7s max, R 30s no UE support w/ occasional sway PT-OP-T Assessment and Plan Start: 04/29/24 12:57 Freq: Status: Active Protocol: Document 07/21/24 14:06 NBM (Rec: 07/21/24 15:50 NBM Laptop) Physical Therapy Assessment Impairments Impairments Activity Tolerance,Functional Activities,Functional Mobility,Pain,ROM,Soft Tissue Mobility,Strength,Tone Goals Three Impairment Pt unable to hike uphill without pain Longterm Goal (LTG) Pt to report ability to hike uphill for 10 minutes with <3/10 lumbar pain LTG Duration 08/17/24 Two Impairment Pt must restrict gardening to 20 minutes due to pain Longterm Goal (LTG) Pt to improve hip MMT to at least 4/5 in all planes and improved core stabilization in order to increase amount of time she can spend doing gardening pain-free to >45 minutes 06/24/24: Pt reports takes breaks after about 20 minutes when gardening. 07/21/24: Pt reports can garden pain-free up to 30 minutes. LTG Duration 08/17/24 (07/21/24: progressing) One Impairment Pt does not have an appropriate home exercise program Short Term Goal (STG Pt to be independent and compliant with an appropriate ) HEP 06/12/24: QL doorway stretch and Core progression ex's added to HEP: PPT w/ TrA, BKFO, Heel Slides, - HO given . Pt i/s to focus on core progression ex's working up to . STG Duration Met Assessment Summary Assessment Treatment focus on core stabilization and balance with ankle strengthening and stability due to decreased L dorsiflexion. She is more challenged w/ L single leg balance today requiring handhold assist after 7 seconds and is challenged with single leg balance bilaterally with step ups onto BOSU dome. She is able to demonstrate eccentric control with staggered stance anteroposterior weightshifting bilaterally with cueing and repetition, and self-recovers balance consistently with balloon volleyball on Shuttle Balance. Lunge position calf stretch for gastrocnemius and soleus m. is added to HEP w/ edu to pt regarding interrelationship with dorsiflexion. Physical Therapy Plan Frequency and Duration Frequency of 2x/Week Treatment Plan of Care Start 06/17/24 Date Plan of Care End 08/17/24 Date Therapeutic Interventions Therapeutic Home Exercise Program,Joint Mobilizations,Manual Interventions Therapy,Neuromuscular Re-education,Patient/Caregiver Education,Self-Care/Home Management,Soft Tissue Mobilization,Therapeutic Activities,Therapeutic Exercises Modalities Cold Pack/Ice Massage,Electric Stimulation,Hot Packs Next Visit Focus/Plan Next Note Type Treatment Note Next Visit Plan Next: Continue ankle strengthening/stability for L DF weakness. Consider laser, STM. POC: Hip/core strengthening, flexibility, activity tolerance, pain control
--- NOTE | 2024-07-24 12:38 | PT.OTN ---
Current Diagnoses Spondylosis without myelopathy or radiculopathy, lumbar region (07/24/24) Other specified postprocedural states (07/24/24) Physical Therapy Treatment Note PT-OP-A Visit Information Start: 04/29/24 12:57 Freq: Status: Active Protocol: Document 07/24/24 11:47 NBM (Rec: 07/24/24 12:38 NBM Laptop) Out-Patient Physical Therapy Visit Information Visit Information Visit Type Treatment Note Visit Start Time 11:40 Visit Stop Time 12:20 Visit Number 16 Number of HOME HEALTH CARE RESPIRATORY THERAPIST Visits 3 Evaluation Information Evaluation Date 04/29/24 PT-OP-B Current Condition Start: 04/29/24 12:57 Freq: Status: Active Protocol: Document 04/29/24 12:20 DCW (Rec: 04/30/24 15:40 DCW [id number]) Current Condition History of Current Condition Onset Date Multi-year history Current Complaints Low back pain, occasional radicular symptoms History of Current Pt is a 58 year old female presenting with a multi-year Condition history of low back pain, complicated by multiple surgeries, including multi-level laminectomies, the most recent being in May 2023, which was an L1-2 lami decompression. Pt notes this most recent surgery seemed to help a lot with her radicular symptoms, as well as prior left foot drop, although she does still have occasional left-sided symptoms. Reports her lumbar pain is constant, but Gabapentin and Celebrex seem to help a lot. Admits most of her preferred activities, including gardening, driving, and hiking, all aggravate her back. Has been in PT previously off and on at a different clinic, but felt like she needed a fresh start elsewhere. Treatment Goals Patient/Caregiver I want to get stronger and be better able to do things Goals that I need to do. PT-OP-C Subjective Start: 04/29/24 12:57 Freq: Status: Active Protocol: Document 07/24/24 11:47 NBM (Rec: 07/24/24 12:38 NBM Laptop) OP-PT Subjective Patient Comments Patient Comments Елена reports she hasn't exercised yet this morning because she was coming to PT. She has been doing stretches and walks. She did calf stretch after walk yesterday. Lying down exercises are easier but standing exercises are challenging especially on one leg. PT-OP-K Range of Motion Start: 04/29/24 12:57 Freq: Status: Active Protocol: Document 04/29/24 12:20 DCW (Rec: 04/30/24 15:40 DCW [id number]) Lumbar Spine Range of Motion Lumbar Spine Active Degrees Testing Position Standing Flexion 83 Extension 10 Lateral Flexion Left 52 Lateral Flexion 53 Right Comments Lateral flexion measured in cm from fingertips to floor PT-OP-L Special Tests Start: 04/29/24 12:57 Freq: Status: Active Protocol: Document 04/29/24 12:20 DCW (Rec: 04/30/24 15:40 DCW [id number]) Special Tests Lumbar Spine Special Tests ROSARIO Test Results Negative Straight Leg Raise Test Results Negative Slump Test Results Negative Compression Test Results Positive with left rotation and left lateral flexion A-P Shearing Test Results Mildly positive PT-OP-M Strength Start: 04/29/24 12:57 Freq: Status: Active Protocol: Document 04/29/24 12:20 DCW (Rec: 04/30/24 15:40 DCW [id number]) Hip Strength Hip Manual Muscle Testing Right Flexion (L2) 4 Good Abduction 4 Good Adduction 4 Good External Rotation 4 Good Internal Rotation 4 Good Left Flexion (L2) 3+ Fair+ Abduction 3+ Fair+ Adduction 3+ Fair+ External Rotation 4 Good Internal Rotation 4 Good Knee Strength Knee Manual Muscle Testing Right Flexion (S2) 4 Good Extension (L3) 4 Good Left Flexion (S2) 4- Good- Extension (L3) 4- Good- Ankle/Foot Strength Ankle and Foot Manual Muscle Testing Right Dorsiflexion (L4) 4 Good Left Dorsiflexion (L4) 3+ Fair+ PT-OP-Q Treatments Start: 04/29/24 12:57 Freq: Status: Active Protocol: Document 07/24/24 11:47 NBM (Rec: 07/24/24 12:38 NBM Laptop) Gym Equipment Shuttle Balance Red Details PF/DF focus, PUBLIC RELATIONS ANALYST prn, close SBA>CGA Comments WBOS, NBOS, Staggered B -DL balance no PUBLIC RELATIONS ANALYST -a/p weight shift -demos improved eccentric control w/ cues -Balloon volleyball w/ aide a/p NBOS, Staggered and m/l WBOS - CGA Therapeutic Exercises Sidelying Exercises Triple Threat Sidelying Exercise HEP review: Clam, RClam, Abd Name Side bilateral Reps/Minutes x10 ea Comments cues for straight leg, heel drive, breath Open Book Sidelying Exercise Open Book - HEP review Name Side bilateral Reps/Minutes x5 ea Comments VCs for scap setting Other Exercises Resisted Ambulation Other Exercise Name Resisted Side-stepping Resistance Lvl 2 at ankles> wrapped twice Equipment Used handrail Reps/Minutes x15 ft ea (to fatigue) Comments cues L neutral foot, eccentric control PT-OP-T Assessment and Plan Start: 04/29/24 12:57 Freq: Status: Active Protocol: Document 07/24/24 11:47 NBM (Rec: 07/24/24 12:38 NBM Laptop) Physical Therapy Assessment Impairments Impairments Activity Tolerance,Functional Activities,Functional Mobility,Pain,ROM,Soft Tissue Mobility,Strength,Tone Goals Three Impairment Pt unable to hike uphill without pain Custodial Goal (LTG) Pt to report ability to hike uphill for 10 minutes with <3/10 lumbar pain LTG Duration 08/17/24 Two Impairment Pt must restrict gardening to 20 minutes due to pain Retail Business Manager Goal (LTG) Pt to improve hip MMT to at least 4/5 in all planes and improved core stabilization in order to increase amount of time she can spend doing gardening pain-free to >45 minutes 06/24/24: Pt reports takes breaks after about 20 minutes when gardening. 07/21/24: Pt reports can garden pain-free up to 30 minutes. LTG Duration 08/17/24 (07/21/24: progressing) One Impairment Pt does not have an appropriate home exercise program Short Term Goal (STG Pt to be independent and compliant with an appropriate ) HEP 06/12/24: QL doorway stretch and Core progression ex's added to HEP: PPT w/ TrA, BKFO, Heel Slides, - HO given . Pt i/s to focus on core progression ex's working up to apriling. STG Duration Met Assessment Summary Assessment Елена requires cues for Triple Threat for breath, straight leg and heel drive which improves DF, and cervical alignment. She demos improving balance on Shuttle Balance requiring close SBA mainly today with occasional CGA in staggered stance and with balloon volleyball reaching outside of base of support. She self-stretches calf as needed end of session. Physical Therapy Plan Frequency and Duration Frequency of 2x/Week Treatment Plan of Care Start 06/17/24 Date Plan of Care End 08/17/24 Date Therapeutic Interventions Therapeutic Home Exercise Program,Joint Mobilizations,Manual Interventions Therapy,Neuromuscular Re-education,Patient/Caregiver Education,Self-Care/Home Management,Soft Tissue Mobilization,Therapeutic Activities,Therapeutic Exercises Modalities Cold Pack/Ice Massage,Electric Stimulation,Hot Packs Next Visit Focus/Plan Next Note Type Treatment Note Next Visit Plan Next: Continue ankle strengthening/stability for L DF weakness. Consider laser, STM. POC: Hip/core strengthening, flexibility, activity tolerance, pain control
--- NOTE | 2024-07-28 15:48 | PT.OTN ---
Current Diagnoses Spondylosis without myelopathy or radiculopathy, lumbar region (07/28/24) Other specified postprocedural states (07/28/24) Physical Therapy Treatment Note PT-OP-A Visit Information Start: 04/29/24 12:57 Freq: Status: Active Protocol: Document 07/28/24 13:10 NBM (Rec: 07/28/24 15:12 NBM Laptop) Out-Patient Physical Therapy Visit Information Visit Information Visit Type Treatment Note Visit Start Time 13:05 Visit Stop Time 13:47 Visit Number 17 Number of BUSINESS PROCESS ASSOCIATE Visits 4 Evaluation Information Evaluation Date 04/29/24 PT-OP-B Current Condition Start: 04/29/24 12:57 Freq: Status: Active Protocol: Document 04/29/24 12:20 DCW (Rec: 04/30/24 15:40 DCW [id number]) Current Condition History of Current Condition Onset Date Multi-year history Current Complaints Low back pain, occasional radicular symptoms History of Current Pt is a 58 year old female presenting with a multi-year Condition history of low back pain, complicated by multiple surgeries, including multi-level laminectomies, the most recent being in May 2023, which was an L1-2 lami decompression. Pt notes this most recent surgery seemed to help a lot with her radicular symptoms, as well as prior left foot drop, although she does still have occasional left-sided symptoms. Reports her lumbar pain is constant, but Gabapentin and Celebrex seem to help a lot. Admits most of her preferred activities, including gardening, driving, and hiking, all aggravate her back. Has been in PT previously off and on at a different clinic, but felt like she needed a fresh start elsewhere. Treatment Goals Patient/Caregiver I want to get stronger and be better able to do things Goals that I need to do. PT-OP-C Subjective Start: 04/29/24 12:57 Freq: Status: Active Protocol: Document 07/28/24 13:10 NBM (Rec: 07/28/24 13:52 NBM Laptop) OP-PT Subjective Patient Comments Patient Comments Елена reports no pain currently. She has been trying to pace her energy and went for a walk this morning. Balance is still challenging. PT-OP-K Range of Motion Start: 04/29/24 12:57 Freq: Status: Active Protocol: Document 04/29/24 12:20 DCW (Rec: 04/30/24 15:40 DCW [id number]) Lumbar Spine Range of Motion Lumbar Spine Active Degrees Testing Position Standing Flexion 83 Extension 10 Lateral Flexion Left 52 Lateral Flexion 53 Right Comments Lateral flexion measured in cm from fingertips to floor PT-OP-L Special Tests Start: 04/29/24 12:57 Freq: Status: Active Protocol: Document 04/29/24 12:20 DCW (Rec: 04/30/24 15:40 DCW [id number]) Special Tests Lumbar Spine Special Tests ROSARIO Test Results Negative Straight Leg Raise Test Results Negative Slump Test Results Negative Compression Test Results Positive with left rotation and left lateral flexion A-P Shearing Test Results Mildly positive PT-OP-M Strength Start: 04/29/24 12:57 Freq: Status: Active Protocol: Document 04/29/24 12:20 DCW (Rec: 04/30/24 15:40 DCW [id number]) Hip Strength Hip Manual Muscle Testing Right Flexion (L2) 4 Good Abduction 4 Good Adduction 4 Good External Rotation 4 Good Internal Rotation 4 Good Left Flexion (L2) 3+ Fair+ Abduction 3+ Fair+ Adduction 3+ Fair+ External Rotation 4 Good Internal Rotation 4 Good Knee Strength Knee Manual Muscle Testing Right Flexion (S2) 4 Good Extension (L3) 4 Good Left Flexion (S2) 4- Good- Extension (L3) 4- Good- Ankle/Foot Strength Ankle and Foot Manual Muscle Testing Right Dorsiflexion (L4) 4 Good Left Dorsiflexion (L4) 3+ Fair+ PT-OP-Q Treatments Start: 04/29/24 12:57 Freq: Status: Active Protocol: Document 07/28/24 13:10 NBM (Rec: 07/28/24 13:52 NBM Laptop) Gym Equipment Shuttle Recovery Unilateral Squats Details Jan Resistance 50# Shuttle Recovery Unstable Platform Reps/Time x15 ea Bilateral Squats Details min cues for equal WBing, pt self corrects LE alignment and breath Resistance 62# Shuttle Recovery Unstable Platform Reps/Time 2x20 Shuttle Balance Red Details PF/DF focus, HIV COUNSELOR prn, close SBA>CGA Reps/Duration after shoes tightened Comments WBOS, NBOS, Staggered B, wide tandem (CGA>Fernando at hips) -DL balance no HIV COUNSELOR>occ finger touch prn -a/p weight shift -demos improved confidence and eccentric control Therapeutic Exercises Sidelying Exercises Triple Threat Sidelying Exercise HEP review: Clam, RClam, Abd- verbal review Name Side bilateral Reps/Minutes x10 ea Comments cues for straight leg, heel drive, breath Standing Exercises calf stretch Standing Exercise gastroc/soleus stretch Name Side bilateral Equipment Used handrail Reps/Minutes 30-45 ea Comments good form, maintains heel contac; 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 carpenter Other Exercises BOSU Other Exercise Name Step up Side bilateral Equipment Used rails prn Reps/Minutes x10 ea Comments cues gluteal activation, recip arm motion BOSU Lunge Other Exercise Name BOSU Lunge Side bilateral Equipment Used dome Reps/Minutes x10 ea Resisted Ambulation Other Exercise Name Resisted Side-stepping Resistance Lvl 2 at ankles Equipment Used no UE support to simulate how pt does ta home Reps/Minutes 2x15 ft ea Comments cues L neutral foot, DF L>R, upright posture, smaller range Neuro Re-Education Treatment Balance Activities SLS Details Jan Surface firm Equipment handrail prn Reps/Duration 30s trial ea Comments max L 22s, R 28s no UE support w/ occasional sway Self-Care/Home Management Treatment Education Patient Education Body Mechanics,Home Exercise Program,Pain Management, Safety Other Education Edu to pt to tie shoes instead of slipping on/off to improve ankle stability. Afterwards pt performs Shuttle Recovery and Shuttle Balance. PT-OP-T Assessment and Plan Start: 04/29/24 12:57 Freq: Status: Active Protocol: Document 07/28/24 13:10 NBM (Rec: 07/28/24 13:52 NBM Laptop) Physical Therapy Assessment Impairments Impairments Activity Tolerance,Functional Activities,Functional Mobility,Pain,ROM,Soft Tissue Mobility,Strength,Tone Goals Three Impairment Pt unable to hike uphill without pain Longterm Goal (LTG) Pt to report ability to hike uphill for 10 minutes with <3/10 lumbar pain 07/28/24: Pt has not yet challenged this goal and will try to. LTG Duration 08/17/24 Two Impairment Pt must restrict gardening to 20 minutes due to pain Fish Hatchery Inspector Goal (LTG) Pt to improve hip MMT to at least 4/5 in all planes and improved core stabilization in order to increase amount of time she can spend doing gardening pain-free to >45 minutes 06/24/24: Pt reports takes breaks after about 20 minutes when gardening. 07/21/24: Pt reports can garden pain-free up to 30 minutes. LTG Duration 08/17/24 (07/21/24: progressing) One Impairment Pt does not have an appropriate home exercise program Short Term Goal (STG Pt to be independent and compliant with an appropriate ) HEP 06/12/24: QL doorway stretch and Core progression ex's added to HEP: PPT w/ TrA, BKFO, Heel Slides, - HO given . Pt i/s to focus on core progression ex's working up to apriling. STG Duration Met Assessment Summary Assessment Treatment focus on LE strengthening and balance. Елена remains painfree throughout session and requires cues L>R LE for maintaining dorsiflexion, neutral foot, and upright posture with resisted sidesteps and corrects with cueing. Shoes are observed to be loosely tie an pt is educated to tighten and tie laces instead of slipping shoes on/off to improve ankle stability. Physical Therapy Plan Frequency and Duration Frequency of 2x/Week Treatment Plan of Care Start 06/17/24 Date Plan of Care End 08/17/24 Date Therapeutic Interventions Therapeutic Home Exercise Program,Joint Mobilizations,Manual Interventions Therapy,Neuromuscular Re-education,Patient/Caregiver Education,Self-Care/Home Management,Soft Tissue Mobilization,Therapeutic Activities,Therapeutic Exercises Modalities Cold Pack/Ice Massage,Electric Stimulation,Hot Packs Next Visit Focus/Plan Next Note Type Treatment Note Next Visit Plan Next: Increase Shuttle Recovery resistance as tolerated . Continue ankle strengthening/stability for L DF weakness. Consider laser, STM. POC: Hip/core strengthening, flexibility, activity tolerance, pain control
--- NOTE | 2024-08-03 13:02 | PT.OTN ---
Current Diagnoses Spondylosis without myelopathy or radiculopathy, lumbar region (08/03/24) Other specified postprocedural states (08/03/24) Physical Therapy Treatment Note PT-OP-A Visit Information Start: 04/29/24 12:57 Freq: Status: Active Protocol: Document 08/03/24 12:17 DCW (Rec: 08/03/24 13:01 DCW [id number]) Out-Patient Physical Therapy Visit Information Visit Information Visit Type Treatment Note Visit Start Time 12:17 Visit Stop Time 13:00 Visit Number 18 Number of BEVERAGE STEWARD Visits 0 Evaluation Information Evaluation Date 04/29/24 PT-OP-B Current Condition Start: 04/29/24 12:57 Freq: Status: Active Protocol: Document 04/29/24 12:20 DCW (Rec: 04/30/24 15:40 DCW [id number]) Current Condition History of Current Condition Onset Date Multi-year history Current Complaints Low back pain, occasional radicular symptoms History of Current Pt is a 58 year old female presenting with a multi-year Condition history of low back pain, complicated by multiple surgeries, including multi-level laminectomies, the most recent being in May 2023, which was an L1-2 lami decompression. Pt notes this most recent surgery seemed to help a lot with her radicular symptoms, as well as prior left foot drop, although she does still have occasional left-sided symptoms. Reports her lumbar pain is constant, but Gabapentin and Celebrex seem to help a lot. Admits most of her preferred activities, including gardening, driving, and hiking, all aggravate her back. Has been in PT previously off and on at a different clinic, but felt like she needed a fresh start elsewhere. Treatment Goals Patient/Caregiver I want to get stronger and be better able to do things Goals that I need to do. PT-OP-C Subjective Start: 04/29/24 12:57 Freq: Status: Active Protocol: Document 08/03/24 12:17 DCW (Rec: 08/03/24 13:01 DCW [id number]) OP-PT Subjective Patient Comments Patient Comments Pt reports her right shoulder has really been killing her recently, feels she overuses it for most activities . Aside from that, I feel pretty good. Has been doing a series of exercises at least every other day. It's challenging, but they don't hurt. PT-OP-K Range of Motion Start: 04/29/24 12:57 Freq: Status: Active Protocol: Document 04/29/24 12:20 DCW (Rec: 04/30/24 15:40 DCW [id number]) Lumbar Spine Range of Motion Lumbar Spine Active Degrees Testing Position Standing Flexion 83 Extension 10 Lateral Flexion Left 52 Lateral Flexion 53 Right Comments Lateral flexion measured in cm from fingertips to floor PT-OP-L Special Tests Start: 04/29/24 12:57 Freq: Status: Active Protocol: Document 04/29/24 12:20 DCW (Rec: 04/30/24 15:40 DCW [id number]) Special Tests Lumbar Spine Special Tests ROSARIO Test Results Negative Straight Leg Raise Test Results Negative Slump Test Results Negative Compression Test Results Positive with left rotation and left lateral flexion A-P Shearing Test Results Mildly positive PT-OP-M Strength Start: 04/29/24 12:57 Freq: Status: Active Protocol: Document 04/29/24 12:20 DCW (Rec: 04/30/24 15:40 DCW [id number]) Hip Strength Hip Manual Muscle Testing Right Flexion (L2) 4 Good Abduction 4 Good Adduction 4 Good External Rotation 4 Good Internal Rotation 4 Good Left Flexion (L2) 3+ Fair+ Abduction 3+ Fair+ Adduction 3+ Fair+ External Rotation 4 Good Internal Rotation 4 Good Knee Strength Knee Manual Muscle Testing Right Flexion (S2) 4 Good Extension (L3) 4 Good Left Flexion (S2) 4- Good- Extension (L3) 4- Good- Ankle/Foot Strength Ankle and Foot Manual Muscle Testing Right Dorsiflexion (L4) 4 Good Left Dorsiflexion (L4) 3+ Fair+ PT-OP-Q Treatments Start: 04/29/24 12:57 Freq: Status: Active Protocol: Document 08/03/24 12:17 DCW (Rec: 08/03/24 13:01 DCW [id number]) Gym Equipment Shuttle Balance Red Details PF/DF focus, BALE OPENER prn, close SBA>CGA Comments WBOS, Staggered (rebounder green ball toss), lateral weight shift Therapeutic Exercises Sidelying Exercises Elevated Reverse Clam Sidelying Exercise Elevated Reverse Clamshell Name Side bilateral Standing Exercises Hip Hiking Standing Exercise Hip Hiking Name Side bilateral Equipment Used 6 step Other Exercises Resisted Ambulation Other Exercise Name Resisted Side-stepping Resistance Lvl 3 at ankles Equipment Used no UE support Reps/Minutes 4x10 ft ea Neuro Re-Education Treatment Balance Activities SLS Details SLS - Golf pick-up Comments Ball/Cone transfers SLS PT-OP-T Assessment and Plan Start: 04/29/24 12:57 Freq: Status: Active Protocol: Document 08/03/24 12:17 DCW (Rec: 08/03/24 13:01 DCW [id number]) Physical Therapy Assessment Impairments Impairments Activity Tolerance,Functional Activities,Functional Mobility,Pain,ROM,Soft Tissue Mobility,Strength,Tone Goals Three Impairment Pt unable to hike uphill without pain [facility] Goal (LTG) Pt to report ability to hike uphill for 10 minutes with <3/10 lumbar pain 07/28/24: Pt has not yet challenged this goal and will try to. LTG Duration 08/17/24 Two Impairment Pt must restrict gardening to 20 minutes due to pain [facility] Goal (LTG) Pt to improve hip MMT to at least 4/5 in all planes and improved core stabilization in order to increase amount of time she can spend doing gardening pain-free to >45 minutes 06/24/24: Pt reports takes breaks after about 20 minutes when gardening. 07/21/24: Pt reports can garden pain-free up to 30 minutes. LTG Duration 08/17/24 (07/21/24: progressing) One Impairment Pt does not have an appropriate home exercise program Short Term Goal (STG Pt to be independent and compliant with an appropriate ) HEP 06/12/24: QL doorway stretch and Core progression ex's added to HEP: PPT w/ TrA, BKFO, Heel Slides, - HO given . Pt i/s to focus on core progression ex's working up to apriling. STG Duration Met Assessment Summary Assessment Pt notes that overall she is feeling much better, but is still struggling some with just normal daily activities, such as walking her dog or vacuuming. Continue to focus on core and leg strengthening, improved tolerance to activity, and balance/left LE function. Physical Therapy Plan Frequency and Duration Frequency of 2x/Week Treatment Plan of Care Start 06/17/24 Date Plan of Care End 08/17/24 Date Therapeutic Interventions Therapeutic Home Exercise Program,Joint Mobilizations,Manual Interventions Therapy,Neuromuscular Re-education,Patient/Caregiver Education,Self-Care/Home Management,Soft Tissue Mobilization,Therapeutic Activities,Therapeutic Exercises Modalities Cold Pack/Ice Massage,Electric Stimulation,Hot Packs Next Visit Focus/Plan Next Note Type Treatment Note Next Visit Plan Next: Increase Shuttle Recovery resistance as tolerated . Continue ankle strengthening/stability for L DF weakness. Consider laser, STM. POC: Hip/core strengthening, flexibility, activity tolerance, pain control
--- NOTE | 2024-08-11 17:08 | PT.OTN ---
Current Diagnoses Spondylosis without myelopathy or radiculopathy, lumbar region (08/11/24) Other specified postprocedural states (08/11/24) Physical Therapy Treatment Note PT-OP-A Visit Information Start: 04/29/24 12:57 Freq: Status: Active Protocol: Document 08/11/24 13:08 NBM (Rec: 08/11/24 13:53 NBM Laptop) Out-Patient Physical Therapy Visit Information Visit Information Visit Type Treatment Note Visit Start Time 13:05 Visit Stop Time 13:51 Visit Number 19 Number of SPECIALIST PHYSICIAN Visits 1 Evaluation Information Evaluation Date 04/29/24 PT-OP-B Current Condition Start: 04/29/24 12:57 Freq: Status: Active Protocol: Document 04/29/24 12:20 DCW (Rec: 04/30/24 15:40 DCW [id number]) Current Condition History of Current Condition Onset Date Multi-year history Current Complaints Low back pain, occasional radicular symptoms History of Current Pt is a 58 year old female presenting with a multi-year Condition history of low back pain, complicated by multiple surgeries, including multi-level laminectomies, the most recent being in May 2023, which was an L1-2 lami decompression. Pt notes this most recent surgery seemed to help a lot with her radicular symptoms, as well as prior left foot drop, although she does still have occasional left-sided symptoms. Reports her lumbar pain is constant, but Gabapentin and Celebrex seem to help a lot. Admits most of her preferred activities, including gardening, driving, and hiking, all aggravate her back. Has been in PT previously off and on at a different clinic, but felt like she needed a fresh start elsewhere. Treatment Goals Patient/Caregiver I want to get stronger and be better able to do things Goals that I need to do. PT-OP-C Subjective Start: 04/29/24 12:57 Freq: Status: Active Protocol: Document 08/11/24 13:08 NBM (Rec: 08/11/24 13:53 NBM Laptop) OP-PT Subjective Patient Comments Patient Comments Елена reports she's a bit tired and stiff. She had a lidocaine injection on the L side of back which has helped immensely and her follow up is 11/30; she notices now how painful the R is. She likes the challenge with the Shuttle Balance. PT-OP-K Range of Motion Start: 04/29/24 12:57 Freq: Status: Active Protocol: Document 04/29/24 12:20 DCW (Rec: 04/30/24 15:40 DCW [id number]) Lumbar Spine Range of Motion Lumbar Spine Active Degrees Testing Position Standing Flexion 83 Extension 10 Lateral Flexion Left 52 Lateral Flexion 53 Right Comments Lateral flexion measured in cm from fingertips to floor PT-OP-L Special Tests Start: 04/29/24 12:57 Freq: Status: Active Protocol: Document 04/29/24 12:20 DCW (Rec: 04/30/24 15:40 DCW [id number]) Special Tests Lumbar Spine Special Tests ROSARIO Test Results Negative Straight Leg Raise Test Results Negative Slump Test Results Negative Compression Test Results Positive with left rotation and left lateral flexion A-P Shearing Test Results Mildly positive PT-OP-M Strength Start: 04/29/24 12:57 Freq: Status: Active Protocol: Document 04/29/24 12:20 DCW (Rec: 04/30/24 15:40 DCW [id number]) Hip Strength Hip Manual Muscle Testing Right Flexion (L2) 4 Good Abduction 4 Good Adduction 4 Good External Rotation 4 Good Internal Rotation 4 Good Left Flexion (L2) 3+ Fair+ Abduction 3+ Fair+ Adduction 3+ Fair+ External Rotation 4 Good Internal Rotation 4 Good Knee Strength Knee Manual Muscle Testing Right Flexion (S2) 4 Good Extension (L3) 4 Good Left Flexion (S2) 4- Good- Extension (L3) 4- Good- Ankle/Foot Strength Ankle and Foot Manual Muscle Testing Right Dorsiflexion (L4) 4 Good Left Dorsiflexion (L4) 3+ Fair+ PT-OP-Q Treatments Start: 04/29/24 12:57 Freq: Status: Active Protocol: Document 08/11/24 13:08 NBM (Rec: 08/11/24 13:53 NBM Laptop) Gym Equipment Therapeutic Ball Trunk Rotation Exercise Details pt's personal crooks theraband wrapped around elbows in 90 degrees flexion Ball Size/Color 65 cm green Body Position Sitting Reps/Duration x10 ea Comments cues for TrA w/breath, scapular setting and avoiding thoracolumbar extension compensation with fatigue. Therapeutic Exercises Standing Exercises Kitchen sink stretch Side bilateral Equipment Used Shuttle Balance handrail Reps/Minutes 30 Comments for R low back and hip pain; positive feedback response . Rows Standing Exercise Rows Name Side bilateral Equipment Used seated on 65 cm ball, pt's own crooks theraband Comments cues for scapular setting, TrA activation, breath Pallof Press Standing Exercise Pallof Press Name Side bilateral Resistance Pt's personal crooks>Lvl 5 Carlin Equipment Used seated on 65 cm ball, pt's own crooks Tb Reps/Minutes x10 ea (= 10 breathcycles) Comments cues for breath, posture, scap. Thoracolumbar ext comp improves crooks>plum. Manual Therapy Treatment Consent Patient gave verbal Yes consent for manual treatment Soft Tissue Mobilization Hip Body Location R Gluteus Russ/Medius, Pirformis, superior gluteal border of iliac crest Mobilization Type Cross-Friction,Rolling,Strumming,Sustained Pressure, Trigger Point Release Intensity/Depth Superficial>Moderate Body Position Sidelying Comments w/ Functional Movement and breathwork Paraspinals Body Location R T/L paraspinals, QL Mobilization Type Sustained Pressure,Trigger Point Release,Other Intensity/Depth Moderate Body Position Sidelying Comments Manual pin and stretch to R QL x30s w/ breathwork PT-OP-T Assessment and Plan Start: 04/29/24 12:57 Freq: Status: Active Protocol: Document 08/11/24 13:08 NB (Rec: 08/11/24 13:53 NBM Laptop) Physical Therapy Assessment Goals Three Impairment Pt unable to hike uphill without pain Usp Goal (LTG) Pt to report ability to hike uphill for 10 minutes with <3/10 lumbar pain 07/28/24: Pt has not yet challenged this goal and will try to. LTG Duration 08/17/24 Two Impairment Pt must restrict gardening to 20 minutes due to pain Telecom Analyst Goal (LTG) Pt to improve hip MMT to at least 4/5 in all planes and improved core stabilization in order to increase amount of time she can spend doing gardening pain-free to >45 minutes 06/24/24: Pt reports takes breaks after about 20 minutes when gardening. 07/21/24: Pt reports can garden pain-free up to 30 minutes. LTG Duration 08/17/24 (07/21/24: progressing) One Impairment Pt does not have an appropriate home exercise program Short Term Goal (STG Pt to be independent and compliant with an appropriate ) HEP 06/12/24: QL doorway stretch and Core progression ex's added to HEP: PPT w/ TrA, BKFO, Heel Slides, - HO given . Pt i/s to focus on core progression ex's working up to marching. STG Duration Met Assessment Summary Assessment Елена presents with R>L back pain, and R hip pain starts during seated trunk rotation on physioball; treatment focus seated core strengthening w/ pt's personal theraband, and on alleviating pain and palpable muscle tension which both improve following manual therapy. She is able to tolerate increasing intensity of STM with cues for breathwork to address pain apprehension and guarding. Pt requires cues for thoracolumbar extension compensation with fatigue when seated on physioball. Physical Therapy Plan Frequency and Duration Frequency of 2x/Week Treatment Plan of Care Start 06/17/24 Date Plan of Care End 08/17/24 Date Therapeutic Interventions Therapeutic Home Exercise Program,Joint Mobilizations,Manual Interventions Therapy,Neuromuscular Re-education,Patient/Caregiver Education,Self-Care/Home Management,Soft Tissue Mobilization,Therapeutic Activities,Therapeutic Exercises Modalities Cold Pack/Ice Massage,Electric Stimulation,Hot Packs Next Visit Focus/Plan Next Note Type Treatment Note Next Visit Plan Next: Increase Shuttle Recovery resistance as tolerated . Continue ankle strengthening/stability for L DF weakness. Consider laser, STM. POC: Hip/core strengthening, flexibility, activity tolerance, pain control
--- NOTE | 2024-08-14 14:52 | PT.OTN ---
Current Diagnoses Spondylosis without myelopathy or radiculopathy, lumbar region (08/14/24) Other specified postprocedural states (08/14/24) Physical Therapy Treatment Note PT-OP-A Visit Information Start: 04/29/24 12:57 Freq: Status: Active Protocol: Document 08/14/24 13:01 AB (Rec: 08/14/24 13:48 AB Laptop) Out-Patient Physical Therapy Visit Information Visit Information Visit Type Treatment Note Visit Start Time 13:02 Visit Stop Time 13:47 Visit Number 20 Number of RN OTOLARYNGOLOGY Visits 2 Evaluation Information Evaluation Date 04/29/24 PT-OP-B Current Condition Start: 04/29/24 12:57 Freq: Status: Active Protocol: Document 04/29/24 12:20 DCW (Rec: 04/30/24 15:40 DCW [id number]) Current Condition History of Current Condition Onset Date Multi-year history Current Complaints Low back pain, occasional radicular symptoms History of Current Pt is a 58 year old female presenting with a multi-year Condition history of low back pain, complicated by multiple surgeries, including multi-level laminectomies, the most recent being in May 2023, which was an L1-2 lami decompression. Pt notes this most recent surgery seemed to help a lot with her radicular symptoms, as well as prior left foot drop, although she does still have occasional left-sided symptoms. Reports her lumbar pain is constant, but Gabapentin and Celebrex seem to help a lot. Admits most of her preferred activities, including gardening, driving, and hiking, all aggravate her back. Has been in PT previously off and on at a different clinic, but felt like she needed a fresh start elsewhere. Treatment Goals Patient/Caregiver I want to get stronger and be better able to do things Goals that I need to do. PT-OP-C Subjective Start: 04/29/24 12:57 Freq: Status: Active Protocol: Document 08/14/24 13:01 AB (Rec: 08/14/24 13:48 AB Laptop) OP-PT Subjective Patient Comments Patient Comments Елена reports she is better, comments her neck hurts, has a massage scheduled for later this afternoon. Patient reports she started rows and R shoulder is jacked up and suspects this aggravated her neck, rates pain 2-3/10 start of session. PT-OP-K Range of Motion Start: 04/29/24 12:57 Freq: Status: Active Protocol: Document 04/29/24 12:20 DCW (Rec: 04/30/24 15:40 DCW [id number]) Lumbar Spine Range of Motion Lumbar Spine Active Degrees Testing Position Standing Flexion 83 Extension 10 Lateral Flexion Left 52 Lateral Flexion 53 Right Comments Lateral flexion measured in cm from fingertips to floor PT-OP-L Special Tests Start: 04/29/24 12:57 Freq: Status: Active Protocol: Document 04/29/24 12:20 DCW (Rec: 04/30/24 15:40 DCW [id number]) Special Tests Lumbar Spine Special Tests ROSARIO Test Results Negative Straight Leg Raise Test Results Negative Slump Test Results Negative Compression Test Results Positive with left rotation and left lateral flexion A-P Shearing Test Results Mildly positive PT-OP-M Strength Start: 04/29/24 12:57 Freq: Status: Active Protocol: Document 04/29/24 12:20 DCW (Rec: 04/30/24 15:40 DCW [id number]) Hip Strength Hip Manual Muscle Testing Right Flexion (L2) 4 Good Abduction 4 Good Adduction 4 Good External Rotation 4 Good Internal Rotation 4 Good Left Flexion (L2) 3+ Fair+ Abduction 3+ Fair+ Adduction 3+ Fair+ External Rotation 4 Good Internal Rotation 4 Good Knee Strength Knee Manual Muscle Testing Right Flexion (S2) 4 Good Extension (L3) 4 Good Left Flexion (S2) 4- Good- Extension (L3) 4- Good- Ankle/Foot Strength Ankle and Foot Manual Muscle Testing Right Dorsiflexion (L4) 4 Good Left Dorsiflexion (L4) 3+ Fair+ PT-OP-Q Treatments Start: 04/29/24 12:57 Freq: Status: Active Protocol: Document 08/14/24 13:01 AB (Rec: 08/14/24 13:48 AB Laptop) Gym Equipment Shuttle Recovery Unilateral Squats Details Jan Resistance 50# Shuttle Recovery Unstable Platform Reps/Time x15 ea Bilateral Squats Details monitored for pain Resistance 75 Shuttle Recovery Unstable Platform Reps/Time 15X2 Therapeutic Exercises Supine Exercises quadratus lumborum Supine Exercise Name HEP Reps/Minutes 60 sec each LE Comments verbal cues Sitting Exercises Piriformis Sitting Exercise knee across chest from hooklying Name Side bilateral Resistance HEP Reps/Minutes 60 sec each each LE Standing Exercises QL Doorway stretch Standing Exercise HEP Name Side bilateral Equipment Used doorway Reps/Minutes one min Rows Standing Exercise Rows Name Side bilateral Equipment Used seated on 65 cm ball, level 3 [place] Reps/Minutes 12 Comments vc for abd bracing and monitored for pain Manual Therapy Treatment Soft Tissue Mobilization Hip Body Location R Gluteus Russ/Medius, Pirformis, superior gluteal border of iliac crest Mobilization Type Cross-Friction,Rolling Intensity/Depth Moderate Body Position Sidelying Paraspinals Body Location QL Mobilization Type Cross-Friction,Sustained Pressure Intensity/Depth Moderate Body Position Sidelying Manual Techniques MET for R AI L PI and pubic shotgun Reps/Duration 6 sec X 6 each Comments with dowel from hooklying position PT-OP-T Assessment and Plan Start: 04/29/24 12:57 Freq: Status: Active Protocol: Document 08/14/24 13:01 AB (Rec: 08/14/24 13:48 AB Laptop) Physical Therapy Assessment Goals Three Impairment Pt unable to hike uphill without pain Custodial Goal (LTG) Pt to report ability to hike uphill for 10 minutes with <3/10 lumbar pain 07/28/24: Pt has not yet challenged this goal and will try to. LTG Duration 08/17/24 Two Impairment Pt must restrict gardening to 20 minutes due to pain Press Clipper Goal (LTG) Pt to improve hip MMT to at least 4/5 in all planes and improved core stabilization in order to increase amount of time she can spend doing gardening pain-free to >45 minutes 06/24/24: Pt reports takes breaks after about 20 minutes when gardening. 07/21/24: Pt reports can garden pain-free up to 30 minutes. LTG Duration 08/17/24 (07/21/24: progressing) One Impairment Pt does not have an appropriate home exercise program Short Term Goal (STG Pt to be independent and compliant with an appropriate ) HEP 06/12/24: QL doorway stretch and Core progression ex's added to HEP: PPT w/ TrA, BKFO, Heel Slides, - HO given . Pt i/s to focus on core progression ex's working up to marching. STG Duration Met Assessment Summary Assessment Patient reports back pain inc post rows seated on ball, but reports pain decreased post manual, stretches, shuttle recovery end of session. Physical Therapy Plan Frequency and Duration Frequency of 2x/Week Treatment Plan of Care Start 06/17/24 Date Plan of Care End 08/17/24 Date Next Visit Focus/Plan Next Note Type Treatment Note Next Visit Plan Next: Increase Shuttle Recovery resistance as tolerated . Continue ankle strengthening/stability for L DF weakness. Consider laser, STM. POC: Hip/core strengthening, flexibility, activity tolerance, pain control
--- NOTE | 2024-08-19 12:39 | PT.OTN ---
Current Diagnoses Spondylosis without myelopathy or radiculopathy, lumbar region (08/19/24) Other specified postprocedural states (08/19/24) Physical Therapy Treatment Note PT-OP-A Visit Information Start: 04/29/24 12:57 Freq: Status: Active Protocol: Document 08/19/24 11:45 NBM (Rec: 08/19/24 12:39 NBM Laptop) Out-Patient Physical Therapy Visit Information Visit Information Visit Type Treatment Note Visit Start Time 11:40 Visit Stop Time 12:25 Visit Number 21 Number of WATER PIPE INSTALLER Visits 3 Evaluation Information Evaluation Date 04/29/24 PT-OP-B Current Condition Start: 04/29/24 12:57 Freq: Status: Active Protocol: Document 04/29/24 12:20 DCW (Rec: 04/30/24 15:40 DCW [id number]) Current Condition History of Current Condition Onset Date Multi-year history Current Complaints Low back pain, occasional radicular symptoms History of Current Pt is a 58 year old female presenting with a multi-year Condition history of low back pain, complicated by multiple surgeries, including multi-level laminectomies, the most recent being in May 2023, which was an L1-2 lami decompression. Pt notes this most recent surgery seemed to help a lot with her radicular symptoms, as well as prior left foot drop, although she does still have occasional left-sided symptoms. Reports her lumbar pain is constant, but Gabapentin and Celebrex seem to help a lot. Admits most of her preferred activities, including gardening, driving, and hiking, all aggravate her back. Has been in PT previously off and on at a different clinic, but felt like she needed a fresh start elsewhere. Treatment Goals Patient/Caregiver I want to get stronger and be better able to do things Goals that I need to do. PT-OP-C Subjective Start: 04/29/24 12:57 Freq: Status: Active Protocol: Document 08/19/24 11:45 NBM (Rec: 08/19/24 12:39 NBM Laptop) OP-PT Subjective Patient Comments Patient Comments Елена had a massage last week which felt really good and has another one in two weeks. Gardening is going better but she does modify how long and what type of projects she does. PT-OP-K Range of Motion Start: 04/29/24 12:57 Freq: Status: Active Protocol: Document 04/29/24 12:20 DCW (Rec: 04/30/24 15:40 DCW [id number]) Lumbar Spine Range of Motion Lumbar Spine Active Degrees Testing Position Standing Flexion 83 Extension 10 Lateral Flexion Left 52 Lateral Flexion 53 Right Comments Lateral flexion measured in cm from fingertips to floor PT-OP-L Special Tests Start: 04/29/24 12:57 Freq: Status: Active Protocol: Document 04/29/24 12:20 DCW (Rec: 04/30/24 15:40 DCW [id number]) Special Tests Lumbar Spine Special Tests ROSARIO Test Results Negative Straight Leg Raise Test Results Negative Slump Test Results Negative Compression Test Results Positive with left rotation and left lateral flexion A-P Shearing Test Results Mildly positive PT-OP-M Strength Start: 04/29/24 12:57 Freq: Status: Active Protocol: Document 04/29/24 12:20 DCW (Rec: 04/30/24 15:40 DCW [id number]) Hip Strength Hip Manual Muscle Testing Right Flexion (L2) 4 Good Abduction 4 Good Adduction 4 Good External Rotation 4 Good Internal Rotation 4 Good Left Flexion (L2) 3+ Fair+ Abduction 3+ Fair+ Adduction 3+ Fair+ External Rotation 4 Good Internal Rotation 4 Good Knee Strength Knee Manual Muscle Testing Right Flexion (S2) 4 Good Extension (L3) 4 Good Left Flexion (S2) 4- Good- Extension (L3) 4- Good- Ankle/Foot Strength Ankle and Foot Manual Muscle Testing Right Dorsiflexion (L4) 4 Good Left Dorsiflexion (L4) 3+ Fair+ PT-OP-Q Treatments Start: 04/29/24 12:57 Freq: Status: Active Protocol: Document 08/19/24 11:45 NBM (Rec: 08/19/24 12:39 NBM Laptop) Gym Equipment Shuttle Balance Red Details DURABLE 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 pt self-corrects for gluteal activation instead of thoracolumbar extension compensation. Neuro Re-Education Treatment Balance Activities BOSU Surface UE support prn Equipment dome Comments BOSU HEP: Squats, fwd/lat lunges, step ups ~10-15 ea Balance: DL 30s, 60s (15 breaths), SL 30s B (~8-10 breaths) cues for shifting more weight into heels for DL squats, fwd lunge; gluteal activation for SL balance. PT-OP-T Assessment and Plan Start: 04/29/24 12:57 Freq: Status: Active Protocol: Document 08/19/24 11:45 NBM (Rec: 08/19/24 12:39 NBM Laptop) Physical Therapy Assessment Goals Three Impairment Pt unable to hike uphill without pain Client Services Vice President Goal (LTG) Pt to report ability to hike uphill for 10 minutes with <3/10 lumbar pain 07/28/24: Pt has not yet challenged this goal and will try to. LTG Duration 08/17/24 Two Impairment Pt must restrict gardening to 20 minutes due to pain Client Services Vice President Goal (LTG) Pt to improve hip MMT to at least 4/5 in all planes and improved core stabilization in order to increase amount of time she can spend doing gardening pain-free to >45 minutes 06/24/24: Pt reports takes breaks after about 20 minutes when gardening. 07/21/24: Pt reports can garden pain-free up to 30 minutes. LTG Duration 08/17/24 (07/21/24: progressing) One Impairment Pt does not have an appropriate home exercise program Short Term Goal (STG Pt to be independent and compliant with an appropriate ) HEP 06/12/24: QL doorway stretch and Core progression ex's added to HEP: PPT w/ TrA, BKFO, Heel Slides, - HO given . Pt i/s to focus on core progression ex's working up to . STG Duration Met Assessment Summary Assessment Balance focus today with HEP BOSU review and Shuttle Balance on red clips. Pt is encouraged to use breath counts instead of seconds to avoid breath holding, and is cued in single leg balance on BOSU dome for gluteal activation instead of thoracolumbar extension compensation, and demos improved form following. She is educated on use of balance strategies such as proprioceptive input w/ finger touch which she tends towards. She demos improved balance with step ups and single leg balance on BOSU, and is encouraged to use stretches and tennis ball for self-STM as needed. Physical Therapy Plan Frequency and Duration Frequency of 2x/Week Treatment Plan of Care Start 06/17/24 Date Plan of Care End 08/17/24 Date Therapeutic Interventions Therapeutic Home Exercise Program,Joint Mobilizations,Manual Interventions Therapy,Neuromuscular Re-education,Patient/Caregiver Education,Self-Care/Home Management,Soft Tissue Mobilization,Therapeutic Activities,Therapeutic Exercises Modalities Cold Pack/Ice Massage,Electric Stimulation,Hot Packs Next Visit Focus/Plan Next Note Type Treatment Note Next Visit Plan Next: Increase Shuttle Recovery resistance as tolerated . Continue ankle strengthening/stability for L DF weakness. Consider laser, STM. POC: Hip/core strengthening, flexibility, activity tolerance, pain control
--- NOTE | 2024-08-26 13:55 | PT.OTN ---
Addendum entered and electronically signed by Regino Graff, PT 08/26/24 16:36: PT direct supervision and direction to student PT Amador Holliday throughout session Original Note: Current Diagnoses Spondylosis without myelopathy or radiculopathy, lumbar region (08/26/24) Other specified postprocedural states (08/26/24) Physical Therapy Treatment Note PT-OP-A Visit Information Start: 04/29/24 12:57 Freq: Status: Active Protocol: Document 08/26/24 11:30 LFG (Rec: 08/26/24 12:26 LFG [id number]) Out-Patient Physical Therapy Visit Information Visit Information Visit Type Progress Note Visit Start Time 11:30 Visit Stop Time 12:14 Visit Number 22 Number of 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 AND 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 APPRENTICE Visits 0 Evaluation Information Evaluation Date 04/29/24 PT-OP-B Current Condition Start: 04/29/24 12:57 Freq: Status: Active Protocol: Document 04/29/24 12:20 DCW (Rec: 04/30/24 15:40 DCW [id number]) Current Condition History of Current Condition Onset Date Multi-year history Current Complaints Low back pain, occasional radicular symptoms History of Current Pt is a 58 year old female presenting with a multi-year Condition history of low back pain, complicated by multiple surgeries, including multi-level laminectomies, the most recent being in May 2023, which was an L1-2 lami decompression. Pt notes this most recent surgery seemed to help a lot with her radicular symptoms, as well as prior left foot drop, although she does still have occasional left-sided symptoms. Reports her lumbar pain is constant, but Gabapentin and Celebrex seem to help a lot. Admits most of her preferred activities, including gardening, driving, and hiking, all aggravate her back. Has been in PT previously off and on at a different clinic, but felt like she needed a fresh start elsewhere. Treatment Goals Patient/Caregiver I want to get stronger and be better able to do things Goals that I need to do. PT-OP-C Subjective Start: 04/29/24 12:57 Freq: Status: Active Protocol: Document 08/26/24 11:30 LFG (Rec: 08/26/24 12:26 LFG [id number]) OP-PT Subjective Patient Comments Patient Comments Patient reports feeling better in the lower back especially on the left side since receiving injection 3 weeks ago but now is starting to notice the R side more. Has a next appt with Dr Bean in Nov. Aware more visits may not be approved. PT-OP-K Range of Motion Start: 04/29/24 12:57 Freq: Status: Active Protocol: Document 04/29/24 12:20 DCW (Rec: 04/30/24 15:40 DCW [id number]) Lumbar Spine Range of Motion Lumbar Spine Active Degrees Testing Position Standing Flexion 83 Extension 10 Lateral Flexion Left 52 Lateral Flexion 53 Right Comments Lateral flexion measured in cm from fingertips to floor PT-OP-L Special Tests Start: 04/29/24 12:57 Freq: Status: Active Protocol: Document 04/29/24 12:20 DCW (Rec: 04/30/24 15:40 DCW [id number]) Special Tests Lumbar Spine Special Tests ROSARIO Test Results Negative Straight Leg Raise Test Results Negative Slump Test Results Negative Compression Test Results Positive with left rotation and left lateral flexion A-P Shearing Test Results Mildly positive PT-OP-M Strength Start: 04/29/24 12:57 Freq: Status: Active Protocol: Document 08/26/24 11:30 LFG (Rec: 08/26/24 11:39 LFG [id number]) Hip Strength Hip Manual Muscle Testing Right Flexion (L2) 4+ Good+ Abduction 4+ Good+ Adduction 4+ Good+ External Rotation 4+ Good+ Internal Rotation 4+ Good+ Left Flexion (L2) 4 Good Abduction 4 Good Adduction 4 Good External Rotation 4 Good Internal Rotation 4 Good Knee Strength Knee Manual Muscle Testing Right Flexion (S2) 4+ Good+ Extension (L3) 4+ Good+ Left Flexion (S2) 4 Good Extension (L3) 4 Good Ankle/Foot Strength Ankle and Foot Manual Muscle Testing Right Dorsiflexion (L4) 4+ Good+ Left Dorsiflexion (L4) 4- Good- PT-OP-Q Treatments Start: 04/29/24 12:57 Freq: Status: Active Protocol: Document 08/26/24 11:30 LFG (Rec: 08/26/24 12:26 LFG [id number]) Gym Equipment Shuttle Recovery Unilateral Squats Details Bilateral, heel drive cues no low back complaints Resistance 67# Shuttle Recovery Unstable Platform Reps/Time x15 ea Bilateral Squats Details low back complaints, improved with heel drive cues Resistance 75#, 100# Shuttle Recovery Unstable Platform Reps/Time 25x, 15x Therapeutic Exercises Supine Exercises Curl up Supine Exercise Name Curl up Reps/Minutes 5 sec holds x 8 Comments neck/upper back tightness, cues to relax UEs Lumbar rotation Supine Exercise Name Lumbar rotations - legs crossed Side bilateral Reps/Minutes x5 Comments pt reports feeling good bugs Supine Exercise Name bugs - LE only Reps/Minutes 2x8 Comments cues to limit ROM to point of loss of neutral spine Prone Exercises Bird dogs Prone Exercise Name Bird dog - modified attempt Reps/Minutes x8 Comments cues for posture, maintaining and correcting Sidelying Exercises Triple Threat Sidelying Exercise triple threat + 1 Name Side bilateral Reps/Minutes till fatigue Open Book Sidelying Exercise Open Book Name Side bilateral Reps/Minutes x8 PT-OP-T Assessment and Plan Start: 04/29/24 12:57 Freq: Status: Active Protocol: Document 08/26/24 11:30 LFG (Rec: 08/26/24 12:26 LFG [id number]) Physical Therapy Assessment Goals Three Impairment Pt unable to hike uphill without pain Group Home Goal (LTG) Pt to report ability to hike uphill for 10 minutes with <3/10 lumbar pain 07/28/24: Pt has not yet challenged this goal and will try to. LTG Duration 11/12/24 Two Impairment Pt must restrict gardening to 20 minutes due to pain Group Home Goal (LTG) Pt to improve hip MMT to at least 4/5 in all planes and improved core stabilization in order to increase amount of time she can spend doing gardening pain-free to >45 minutes 06/24/24: Pt reports takes breaks after about 20 minutes when gardening. 07/21/24: Pt reports can garden pain-free up to 30 minutes. 08/26/24: Goal MET LTG Duration MET One Impairment Pt does not have an appropriate home exercise program Short Term Goal (STG Pt to be independent and compliant with an appropriate ) HEP 06/12/24: QL doorway stretch and Core progression ex's added to HEP: PPT w/ TrA, BKFO, Heel Slides, - HO given . Pt i/s to focus on core progression ex's working up to . STG Duration Met Assessment Summary Assessment Patient demonstrated improved bilateral LE strength in retesting, and reports lower sxs have significantly improved since injections. Patient able to handle increased resistance in shuttle recovery. Patient was challenged in introduction to new core exercise but was able perform with minimal sxs flare ups. Good breath work recall throughout the session. Patient continues to demonstrate difficulties in [place] like vacuuming, laundry, and carrying it upstairs. Recommend continuing core/hip/LE strengthening, activity tolerance, and pain management. Continues Physical Therapy Plan Frequency and Duration Frequency of 2x/Week Treatment Plan of Care Start 08/26/24 Date Plan of Care End 11/12/24 Date Therapeutic Interventions Therapeutic Home Exercise Program,Joint Mobilizations,Manual Interventions Therapy,Neuromuscular Re-education,Patient/Caregiver Education,Self-Care/Home Management,Soft Tissue Mobilization,Therapeutic Activities,Therapeutic Exercises Modalities Cold Pack/Ice Massage,Electric Stimulation,Hot Packs Next Visit Focus/Plan Next Note Type Treatment Note Next Visit Plan Next: Increase Shuttle Recovery resistance as tolerated . Continue ankle strengthening/stability for L DF weakness. Consider laser, STM. POC: Hip/core strengthening, flexibility, activity tolerance, pain control
--- NOTE | 2024-08-26 16:33 | PT.OPPN ---
Addendum entered and electronically signed by Regino Graff, PT 08/26/24 16:37: PT direct supervision and direction to student PT Amador Holliday throughout session Original Note: Current Diagnoses Spondylosis without myelopathy or radiculopathy, lumbar region (08/26/24) Other specified postprocedural states (08/26/24) Physical Therapy Progress Note PT-OP-A Visit Information Start: 04/29/24 12:57 Freq: Status: Active Protocol: Document 08/26/24 11:30 LFG (Rec: 08/26/24 12:26 LFG [id number]) Out-Patient Physical Therapy Visit Information Visit Information Visit Type Progress Note Visit Start Time 11:30 Visit Stop Time 12:14 Visit Number 22 Number of MESMERIST Visits 0 Evaluation Information Evaluation Date 04/29/24 PT-OP-B Current Condition Start: 04/29/24 12:57 Freq: Status: Active Protocol: Document 04/29/24 12:20 DCW (Rec: 04/30/24 15:40 DCW [id number]) Current Condition History of Current Condition Onset Date Multi-year history Current Complaints Low back pain, occasional radicular symptoms History of Current Pt is a 58 year old female presenting with a multi-year Condition history of low back pain, complicated by multiple surgeries, including multi-level laminectomies, the most recent being in May 2023, which was an L1-2 lami decompression. Pt notes this most recent surgery seemed to help a lot with her radicular symptoms, as well as prior left foot drop, although she does still have occasional left-sided symptoms. Reports her lumbar pain is constant, but Gabapentin and Celebrex seem to help a lot. Admits most of her preferred activities, including gardening, driving, and hiking, all aggravate her back. Has been in PT previously off and on at a different clinic, but felt like she needed a fresh start elsewhere. Treatment Goals Patient/Caregiver I want to get stronger and be better able to do things Goals that I need to do. PT-OP-C Subjective Start: 04/29/24 12:57 Freq: Status: Active Protocol: Document 08/26/24 11:30 LFG (Rec: 08/26/24 12:26 LFG [id number]) OP-PT Subjective Patient Comments Patient Comments Patient reports feeling better in the lower back especially on the left side since receiving injection 3 weeks ago but now is starting to notice the R side more. Has a next appt with Dr Bean in Nov. Aware more visits may not be approved. PT-OP-K Range of Motion Start: 04/29/24 12:57 Freq: Status: Active Protocol: Document 04/29/24 12:20 DCW (Rec: 04/30/24 15:40 DCW [id number]) Lumbar Spine Range of Motion Lumbar Spine Active Degrees Testing Position Standing Flexion 83 Extension 10 Lateral Flexion Left 52 Lateral Flexion 53 Right Comments Lateral flexion measured in cm from fingertips to floor PT-OP-L Special Tests Start: 04/29/24 12:57 Freq: Status: Active Protocol: Document 04/29/24 12:20 DCW (Rec: 04/30/24 15:40 DCW [id number]) Special Tests Lumbar Spine Special Tests ROSARIO Test Results Negative Straight Leg Raise Test Results Negative Slump Test Results Negative Compression Test Results Positive with left rotation and left lateral flexion A-P Shearing Test Results Mildly positive PT-OP-M Strength Start: 04/29/24 12:57 Freq: Status: Active Protocol: Document 08/26/24 11:30 LFG (Rec: 08/26/24 11:39 LFG [id number]) Hip Strength Hip Manual Muscle Testing Right Flexion (L2) 4+ Good+ Abduction 4+ Good+ Adduction 4+ Good+ External Rotation 4+ Good+ Internal Rotation 4+ Good+ Left Flexion (L2) 4 Good Abduction 4 Good Adduction 4 Good External Rotation 4 Good Internal Rotation 4 Good Knee Strength Knee Manual Muscle Testing Right Flexion (S2) 4+ Good+ Extension (L3) 4+ Good+ Left Flexion (S2) 4 Good Extension (L3) 4 Good Ankle/Foot Strength Ankle and Foot Manual Muscle Testing Right Dorsiflexion (L4) 4+ Good+ Left Dorsiflexion (L4) 4- Good- PT-OP-T Assessment and Plan Start: 04/29/24 12:57 Freq: Status: Active Protocol: Document 08/26/24 11:30 LFG (Rec: 08/26/24 12:26 LFG [id number]) Physical Therapy Assessment Goals Three Impairment Pt unable to hike uphill without pain Anesthesiology Technologist Goal (LTG) Pt to report ability to hike uphill for 10 minutes with <3/10 lumbar pain 07/28/24: Pt has not yet challenged this goal and will try to. LTG Duration 11/12/24 Two Impairment Pt must restrict gardening to 20 minutes due to pain Anesthesiology Technologist Goal (LTG) Pt to improve hip MMT to at least 4/5 in all planes and improved core stabilization in order to increase amount of time she can spend doing gardening pain-free to >45 minutes 06/24/24: Pt reports takes breaks after about 20 minutes when gardening. 07/21/24: Pt reports can garden pain-free up to 30 minutes. 08/26/24: Goal MET LTG Duration MET One Impairment Pt does not have an appropriate home exercise program Short Term Goal (STG Pt to be independent and compliant with an appropriate ) HEP 06/12/24: QL doorway stretch and Core progression ex's added to HEP: PPT w/ TrA, BKFO, Heel Slides, - HO given . Pt i/s to focus on core progression ex's working up to . STG Duration Met Assessment Summary Assessment Patient demonstrated improved bilateral LE strength in retesting, and reports lower sxs have significantly improved since injections. Patient able to handle increased resistance in shuttle recovery. Patient was challenged in introduction to new core exercise but was able perform with minimal sxs flare ups. Good breath work recall throughout the session. Patient continues to demonstrate difficulties in folder machine like vacuuming, laundry, and carrying it upstairs. Recommend continuing core/hip/LE strengthening, activity tolerance, and pain management. Continues Physical Therapy Plan Frequency and Duration Frequency of 2x/Week Treatment Plan of Care Start 08/26/24 Date Plan of Care End 11/12/24 Date Therapeutic Interventions Therapeutic Home Exercise Program,Joint Mobilizations,Manual Interventions Therapy,Neuromuscular Re-education,Patient/Caregiver Education,Self-Care/Home Management,Soft Tissue Mobilization,Therapeutic Activities,Therapeutic Exercises Modalities Cold Pack/Ice Massage,Electric Stimulation,Hot Packs Next Visit Focus/Plan Next Note Type Treatment Note Next Visit Plan Next: Increase Shuttle Recovery resistance as tolerated . Continue ankle strengthening/stability for L DF weakness. Consider laser, STM. POC: Hip/core strengthening, flexibility, activity tolerance, pain control
--- NOTE | 2024-08-26 16:33 | PT.OPPOC ---
Addendum entered and electronically signed by Regino Graff PT 08/26/24 16:40: PT direct supervision and direction to student PT Amador Holliday throughout session Original Note: Physical, Occupational & Speech Therapy At [facility] Current Diagnoses Spondylosis without myelopathy or radiculopathy, lumbar region (08/26/24) Other specified postprocedural states (08/26/24) Visit Care Team Role Provider Type Rajani Leyva DO Family Provider Physician Primary Care Provider Specialty: Medical Address: [address] [place] [address], [address], [place], [address] Email: [email or web address] Mike Bean DO Attending Provider Physician Referring Provider Specialty: Interventional Radiology Physiatry Pain Management Address: [address] [place], [address] Email: [email or web address] Plan Of Care PT-OP-B Current Condition Start: 04/29/24 12:57 Freq: Status: Active Protocol: Document 04/29/24 12:20 DCW (Rec: 04/30/24 15:40 DCW [id number]) Current Condition History of Current Condition Onset Date Multi-year history Current Complaints Low back pain, occasional radicular symptoms History of Current Pt is a 58 year old female presenting with a multi-year Condition history of low back pain, complicated by multiple surgeries, including multi-level laminectomies, the most recent being in May 2023, which was an L1-2 lami decompression. Pt notes this most recent surgery seemed to help a lot with her radicular symptoms, as well as prior left foot drop, although she does still have occasional left-sided symptoms. Reports her lumbar pain is constant, but Gabapentin and Celebrex seem to help a lot. Admits most of her preferred activities, including gardening, driving, and hiking, all aggravate her back. Has been in PT previously off and on at a different clinic, but felt like she needed a fresh start elsewhere. Treatment Goals Patient/Caregiver I want to get stronger and be better able to do things Goals that I need to do. PT-OP-T Assessment and Plan Start: 04/29/24 12:57 Freq: Status: Active Protocol: Document 08/26/24 11:30 LFG (Rec: 08/26/24 12:26 LFG [id number]) Physical Therapy Assessment Goals Three Impairment Pt unable to hike uphill without pain Senior Living Goal (LTG) Pt to report ability to hike uphill for 10 minutes with <3/10 lumbar pain 07/28/24: Pt has not yet challenged this goal and will try to. LTG Duration 11/12/24 Two Impairment Pt must restrict gardening to 20 minutes due to pain Senior Living Goal (LTG) Pt to improve hip MMT to at least 4/5 in all planes and improved core stabilization in order to increase amount of time she can spend doing gardening pain-free to >45 minutes 06/24/24: Pt reports takes breaks after about 20 minutes when gardening. 07/21/24: Pt reports can garden pain-free up to 30 minutes. 08/26/24: Goal MET LTG Duration MET One Impairment Pt does not have an appropriate home exercise program Short Term Goal (STG Pt to be independent and compliant with an appropriate ) HEP 06/12/24: QL doorway stretch and Core progression ex's added to HEP: PPT w/ TrA, BKFO, Heel Slides, - HO given . Pt i/s to focus on core progression ex's working up to marching. STG Duration Met Assessment Summary Assessment Patient demonstrated improved bilateral LE strength in retesting, and reports lower sxs have significantly improved since injections. Patient able to handle increased resistance in shuttle recovery. Patient was challenged in introduction to new core exercise but was able perform with minimal sxs flare ups. Good breath work recall throughout the session. 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 Recommend continuing core/hip/LE strengthening, activity tolerance, and pain management. Continues Physical Therapy Plan Frequency and Duration Frequency of 2x/Week Treatment Plan of Care Start 08/26/24 Date Plan of Care End 11/12/24 Date Therapeutic Interventions Therapeutic Home Exercise Program,Joint Mobilizations,Manual Interventions Therapy,Neuromuscular Re-education,Patient/Caregiver Education,Self-Care/Home Management,Soft Tissue Mobilization,Therapeutic Activities,Therapeutic Exercises Modalities Cold Pack/Ice Massage,Electric Stimulation,Hot Packs Next Visit Focus/Plan Next Note Type Treatment Note Next Visit Plan Next: Increase Shuttle Recovery resistance as tolerated . Continue ankle strengthening/stability for L DF weakness. Consider laser, STM. POC: Hip/core strengthening, flexibility, activity tolerance, pain control Plan of Care Dates Plan of Care Start Date 08/26/24 Plan of Care End Date 11/12/24 Electronically Signed by: Amador Alfaro, PT 08/26/24 2127 If you are in agreement with this Plan of Care, please return a signed and dated copy. I have reviewed this Plan of Care and certify that the skilled therapy services above are required to meet the patient?s needs. Physician Signature Date Printed Name and Credentials Clinical Instructor Signature Printed Name and Credentials
--- NOTE | 2024-08-31 17:28 | PT.OTN ---
Addendum entered and electronically signed by Regino Graff, PT 08/31/24 17:34: PT direct supervision and direction to student PT Amador Holliday throughout session Original Note: Current Diagnoses Spondylosis without myelopathy or radiculopathy, lumbar region (08/31/24) Other specified postprocedural states (08/31/24) Physical Therapy Treatment Note PT-OP-A Visit Information Start: 04/29/24 12:57 Freq: Status: Active Protocol: Document 08/31/24 13:46 LFG (Rec: 08/31/24 14:32 LFG [id number]) Out-Patient Physical Therapy Visit Information Visit Information Visit Type Treatment Note Visit Start Time 13:46 Visit Stop Time 14:29 Visit Number 23 Number of GEOLOGICAL SURVEY FIELD ASSISTANT Visits 0 Evaluation Information Evaluation Date 04/29/24 PT-OP-B Current Condition Start: 04/29/24 12:57 Freq: Status: Active Protocol: Document 04/29/24 12:20 DCW (Rec: 04/30/24 15:40 DCW [id number]) Current Condition History of Current Condition Onset Date Multi-year history Current Complaints Low back pain, occasional radicular symptoms History of Current Pt is a 58 year old female presenting with a multi-year Condition history of low back pain, complicated by multiple surgeries, including multi-level laminectomies, the most recent being in May 2023, which was an L1-2 lami decompression. Pt notes this most recent surgery seemed to help a lot with her radicular symptoms, as well as prior left foot drop, although she does still have occasional left-sided symptoms. Reports her lumbar pain is constant, but Gabapentin and Celebrex seem to help a lot. Admits most of her preferred activities, including gardening, driving, and hiking, all aggravate her back. Has been in PT previously off and on at a different clinic, but felt like she needed a fresh start elsewhere. Treatment Goals Patient/Caregiver I want to get stronger and be better able to do things Goals that I need to do. PT-OP-C Subjective Start: 04/29/24 12:57 Freq: Status: Active Protocol: Document 08/31/24 13:46 LFG (Rec: 08/31/24 14:35 LFG [id number]) OP-PT Subjective Patient Comments Patient Comments Back is doing okay. Walked 2 miles today around [employer]. Came in today wearing hiking boots to revisit gait. PT-OP-K Range of Motion Start: 04/29/24 12:57 Freq: Status: Active Protocol: Document 04/29/24 12:20 DCW (Rec: 04/30/24 15:40 DCW [id number]) Lumbar Spine Range of Motion Lumbar Spine Active Degrees Testing Position Standing Flexion 83 Extension 10 Lateral Flexion Left 52 Lateral Flexion 53 Right Comments Lateral flexion measured in cm from fingertips to floor PT-OP-L Special Tests Start: 04/29/24 12:57 Freq: Status: Active Protocol: Document 04/29/24 12:20 DCW (Rec: 04/30/24 15:40 DCW [id number]) Special Tests Lumbar Spine Special Tests ROSARIO Test Results Negative Straight Leg Raise Test Results Negative Slump Test Results Negative Compression Test Results Positive with left rotation and left lateral flexion A-P Shearing Test Results Mildly positive PT-OP-M Strength Start: 04/29/24 12:57 Freq: Status: Active Protocol: Document 08/26/24 11:30 LFG (Rec: 08/26/24 11:39 LFG [id number]) Hip Strength Hip Manual Muscle Testing Right Flexion (L2) 4+ Good+ Abduction 4+ Good+ Adduction 4+ Good+ External Rotation 4+ Good+ Internal Rotation 4+ Good+ Left Flexion (L2) 4 Good Abduction 4 Good Adduction 4 Good External Rotation 4 Good Internal Rotation 4 Good Knee Strength Knee Manual Muscle Testing Right Flexion (S2) 4+ Good+ Extension (L3) 4+ Good+ Left Flexion (S2) 4 Good Extension (L3) 4 Good Ankle/Foot Strength Ankle and Foot Manual Muscle Testing Right Dorsiflexion (L4) 4+ Good+ Left Dorsiflexion (L4) 4- Good- PT-OP-Q Treatments Start: 04/29/24 12:57 Freq: Status: Active Protocol: Document 08/31/24 13:46 LFG (Rec: 08/31/24 14:32 LFG [id number]) Gym Equipment Shuttle Recovery Unilateral Squats Details low back complaints Resistance 50# Shuttle Recovery Unstable Platform Reps/Time 2x15 L, 1x20 R Bilateral Squats Details no low back complaints Resistance 75# Shuttle Recovery Unstable Platform Reps/Time x20 Shuttle Balance Red Details SBA Comments DF/PF, E/I staggered stance Red Therapeutic Exercises Supine Exercises Lumbar rotation Supine Exercise Name Lumbar rotations - legs crossed Side bilateral Reps/Minutes x5 Comments pt reports feeling good, QL stretch Hip Flexor stretch Supine Exercise Name 1. slime position 2. kneeling on ground Side bilateral Equipment Used SPT assisted in holding slime stretch Reps/Minutes 60 ea Comments stretch felt good, tighter L>R piriformis Supine Exercise Name from hooklying Side bilateral Reps/Minutes 60 sec Comments reports feeling it in piriformis, more with rocking Sidelying Exercises Open Book Sidelying Exercise Open Book Name Side bilateral Reps/Minutes x5 Comments cues to hold for 5 breath count PT-OP-T Assessment and Plan Start: 04/29/24 12:57 Freq: Status: Active Protocol: Document 08/31/24 13:46 LFG (Rec: 08/31/24 14:32 LFG [id number]) Physical Therapy Assessment Goals Three Impairment Pt unable to hike uphill without pain 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 08/31/24: Pt reports this has improved LTG Duration 11/12/24 Two Impairment Pt must restrict gardening to 20 minutes due to pain Nursing Home Goal (LTG) Pt to improve hip MMT to at least 4/5 in all planes and improved core stabilization in order to increase amount of time she can spend doing gardening pain-free to >45 minutes 06/24/24: Pt reports takes breaks after about 20 minutes when gardening. 07/21/24: Pt reports can garden pain-free up to 30 minutes. 08/26/24: Goal MET LTG Duration MET One Impairment Pt does not have an appropriate home exercise program Short Term Goal (STG Pt to be independent and compliant with an appropriate ) HEP 06/12/24: QL doorway stretch and Core progression ex's added to HEP: PPT w/ TrA, BKFO, Heel Slides, - HO given . Pt i/s to focus on core progression ex's working up to marching. STG Duration Met Assessment Summary Assessment Reviewed stretches and exercises in todays session that pt agreed to keep up at home in the event insurance does not approve any more visits. Recommend continuing core/hip/LE strengthening, activity tolerance, and pain management pending insurance authorization. Physical Therapy Plan Frequency and Duration Frequency of 2x/Week Treatment Plan of Care Start 08/26/24 Date Plan of Care End 11/12/24 Date Therapeutic Interventions Therapeutic Home Exercise Program,Joint Mobilizations,Manual Interventions Therapy,Neuromuscular Re-education,Patient/Caregiver Education,Self-Care/Home Management,Soft Tissue Mobilization,Therapeutic Activities,Therapeutic Exercises Modalities Cold Pack/Ice Massage,Electric Stimulation,Hot Packs Next Visit Focus/Plan Next Note Type Treatment Note Next Visit Plan Next: Increase Shuttle Recovery resistance as tolerated . Continue ankle strengthening/stability for L DF weakness. Consider laser, STM. POC: Hip/core strengthening, flexibility, activity tolerance, pain control
--- NOTE | 2024-09-18 17:12 | PT.OTN ---
Current Diagnoses Spondylosis without myelopathy or radiculopathy, lumbar region (09/18/24) Other specified postprocedural states (09/18/24) Physical Therapy Treatment Note PT-OP-A Visit Information Start: 04/29/24 12:57 Freq: Status: Active Protocol: Document 09/18/24 11:39 NBM (Rec: 09/18/24 12:42 NBM Laptop) Out-Patient Physical Therapy Visit Information Visit Information Visit Type Treatment Note Visit Start Time 11:35 Visit Stop Time 12:20 Visit Number 24 Number of SOIL SCIENTIST Visits 1 Evaluation Information Evaluation Date 04/29/24 PT-OP-B Current Condition Start: 04/29/24 12:57 Freq: Status: Active Protocol: Document 04/29/24 12:20 DCW (Rec: 04/30/24 15:40 DCW [id number]) Current Condition History of Current Condition Onset Date Multi-year history Current Complaints Low back pain, occasional radicular symptoms History of Current Pt is a 58 year old female presenting with a multi-year Condition history of low back pain, complicated by multiple surgeries, including multi-level laminectomies, the most recent being in May 2023, which was an L1-2 lami decompression. Pt notes this most recent surgery seemed to help a lot with her radicular symptoms, as well as prior left foot drop, although she does still have occasional left-sided symptoms. Reports her lumbar pain is constant, but Gabapentin and Celebrex seem to help a lot. Admits most of her preferred activities, including gardening, driving, and hiking, all aggravate her back. Has been in PT previously off and on at a different clinic, but felt like she needed a fresh start elsewhere. Treatment Goals Patient/Caregiver I want to get stronger and be better able to do things Goals that I need to do. PT-OP-C Subjective Start: 04/29/24 12:57 Freq: Status: Active Protocol: Document 09/18/24 11:39 NBM (Rec: 09/18/24 12:42 NBM Laptop) OP-PT Subjective Patient Comments Patient Comments Елена reports she doesn't like the standing sidestepping and feels like the triple threat on her side is harder so does that more. When hiking she's trying to make sure she walks with her heel striking first. She's doing the bug on her back with feet staying in air instead of marching because it feels harder. PT-OP-K Range of Motion Start: 04/29/24 12:57 Freq: Status: Active Protocol: Document 04/29/24 12:20 DCW (Rec: 04/30/24 15:40 DCW [id number]) Lumbar Spine Range of Motion Lumbar Spine Active Degrees Testing Position Standing Flexion 83 Extension 10 Lateral Flexion Left 52 Lateral Flexion 53 Right Comments Lateral flexion measured in cm from fingertips to floor PT-OP-L Special Tests Start: 04/29/24 12:57 Freq: Status: Active Protocol: Document 04/29/24 12:20 DCW (Rec: 04/30/24 15:40 DCW [id number]) Special Tests Lumbar Spine Special Tests ROSARIO Test Results Negative Straight Leg Raise Test Results Negative Slump Test Results Negative Compression Test Results Positive with left rotation and left lateral flexion A-P Shearing Test Results Mildly positive PT-OP-M Strength Start: 04/29/24 12:57 Freq: Status: Active Protocol: Document 08/26/24 11:30 LFG (Rec: 08/26/24 11:39 LFG [id number]) Hip Strength Hip Manual Muscle Testing Right Flexion (L2) 4+ Good+ Abduction 4+ Good+ Adduction 4+ Good+ External Rotation 4+ Good+ Internal Rotation 4+ Good+ Left Flexion (L2) 4 Good Abduction 4 Good Adduction 4 Good External Rotation 4 Good Internal Rotation 4 Good Knee Strength Knee Manual Muscle Testing Right Flexion (S2) 4+ Good+ Extension (L3) 4+ Good+ Left Flexion (S2) 4 Good Extension (L3) 4 Good Ankle/Foot Strength Ankle and Foot Manual Muscle Testing Right Dorsiflexion (L4) 4+ Good+ Left Dorsiflexion (L4) 4- Good- PT-OP-Q Treatments Start: 04/29/24 12:57 Freq: Status: Active Protocol: Document 09/18/24 11:39 NBM (Rec: 09/18/24 12:42 NBM Laptop) Gym Equipment Shuttle Recovery Unilateral Squats Details no LBP, good breathwork, cues maintain forefoot contact Resistance 50# Shuttle Recovery Unstable Platform Reps/Time 2x15 ea Bilateral Squats Details no low back complaints, good breathwork Resistance 75# Shuttle Recovery Stable,Unstable Platform Reps/Time S: x10, U: 2x15 Shuttle Balance Red Details SBA Comments a/p WBOS, NBOS -stilling platform, weightshifting w/ ecc focus m/l WBOS, Staggered stance B -stilling platform (LLE back challenging), weightshifting w/ ecc focus (L challenging) Therapeutic Exercises Supine Exercises Stretch Supine Exercise Name 1. Hamstring 2. Piriformis Fig 4, Knee to opp roberta Side bilateral Equipment Used Shuttle Recovery Reps/Minutes 10 breaths ea Comments vc for dorsiflexion w/ HS bugs Supine Exercise Name bugs UE/LE marching wo contact >LE only Side bilateral Equipment Used self-monitoring medial to ASIS for oblique overactivation vs TrA only Reps/Minutes UE/LE x8, LE only x15 Comments cues for TrA focus w/ slower pacing and alt march w/ mat contact and breath Standing Exercises arch lift Standing Exercise shoes doffed: no wall> back at wall, feet forward HEP Name Side bilateral Reps/Minutes x10, at wall x20 Comments following plantar fatigue from Shuttle Balance, HO unavailable Self-Care/Home Management Treatment Education Patient Education Body Mechanics,Home Exercise Program,Pain Management Other Education Edu to pt how resisted sidestepping provides functional strengthening for Gluteus medius ms. vs. sidelying Triple Threat again gravity and so both helpful for HEP . Pt reports plantar arch fatigue following Shuttle Balance activity. Added standing arch lifts back to wall x20 to HEP - no HO given d/t computer issue. PT-OP-T Assessment and Plan Start: 04/29/24 12:57 Freq: Status: Active Protocol: Document 09/18/24 11:39 NBM (Rec: 09/18/24 12:42 NBM Laptop) Physical Therapy Assessment Assessment Summary Assessment Treatment focus on core/hip/LE strengthening and balance. Елена is educated w/ self-monitoring Transverse abdominis m. medially to ASIS how to differentiate between activation of abdominal obliques vs TrA m. focus with improved understanding for performing bug w/ lower extremities only with alternate marching with foot to mat contact. L LE continues to demonstrate greater weakness than R LE on Shuttle Balance. Pt reports plantar arch fatigue following Shuttle Balance activity. Added standing arch lifts back to wall x20 to HEP. Physical Therapy Plan Frequency and Duration Frequency of 2x/Week Treatment Plan of Care Start 08/26/24 Date Plan of Care End 11/12/24 Date Therapeutic Interventions Therapeutic Home Exercise Program,Joint Mobilizations,Manual Interventions Therapy,Neuromuscular Re-education,Patient/Caregiver Education,Self-Care/Home Management,Soft Tissue Mobilization,Therapeutic Activities,Therapeutic Exercises Modalities Cold Pack/Ice Massage,Electric Stimulation,Hot Packs Next Visit Focus/Plan Next Note Type Treatment Note Next Visit Plan Next: Increase Shuttle Recovery resistance as tolerated . Continue ankle strengthening/stability for L DF weakness. Consider laser, STM. POC: Hip/core strengthening, flexibility, activity tolerance, pain control
--- NOTE | 2025-01-04 16:49 | PT.OPDS ---
Current Diagnoses Spondylosis without myelopathy or radiculopathy, lumbar region (09/18/24) Other specified postprocedural states (09/18/24) Visit Care Team Role Provider Type Rajani Leyva DO Family Provider Physician Primary Care Provider Specialty: Medical Address: [address], [place], [address] Email: [email or web address] Mike Bean DO Attending Provider Physician Referring Provider Specialty: Interventional Radiology Physiatry Pain Management Address: [address] [place], [address] Email: [email or web address] Visit Number Visit Number 24 Discharge Summary PT-OP-T Assessment and Plan Start: 04/29/24 12:57 Freq: Status: Active Protocol: Document 01/04/25 16:48 DCW (Rec: 01/04/25 16:49 DCW [id number]) Physical Therapy Assessment Assessment Summary Assessment Pt has not been seen in three months, the POC has since . Pt will be discharged from skilled therapy at this time, will require a new referral in order to return in the future. Physical Therapy Plan Discharge Physical Therapy Discharge Reasons No Longer Attending PT
== END 2025-01-05 08:48 | disposition home or self-care (01) ==
LOC: PHYS 11:30
PROVIDERS: Family Provider Family Medicine; PCP Family Medicine; Referring Provider Physical Medicine & Rehabilitation; Visit Provider Physical Medicine & Rehabilitation
DX: M47.816 Spondylosis without myelopathy or radiculopathy, lumbar region (principal); Z98.890 Other specified postprocedural states
CPT/HCPCS: 97110; 97112; 97116; 97140; 97161; 97530; 97535

== ENCOUNTER 2025-01-07 12:30 | Outpatient (CLI) | payer OTHER, SELFPAY ==
[2024-03-11 15:52] VITALS: BMI 29.9
[2025-01-07] VITALS (8 sets, daily range): BP systolic 119–142; BP diastolic 69–79; PULSE 62–73; RESP 16–18; TEMP 36.7; O2SAT 95–99
[2025-01-07] MEDS: MIDAZOLAM 2 MG/2 ML VIAL IV (13:51)
[2025-01-07] MEDS: LIDOCAINE 2% INJ MDV 20ML 5 ML INJ (13:57)
--- NOTE | 2025-01-07 14:08 | P.PCN_ITS ---
Date/Time/Diagnoses Date of procedure: 01/07/25 Time of procedure: 14:08 Pre-procedure diagnosis: FACET ARTHROPATHY Post-procedure diagnosis: same Procedure Notes Procedure: 1. Left L4, L5 and S1 MB BLOCKS SA Indications: Елена is referred by Dr. Leyva for treatment of Left Axial LBP. Physician: Mike Bean Total Fluoroscopy time (seconds): 7 Total sedation minutes: 12 Complications: none Procedure in detail & Post-procedure care: DESCRIPTION OF PROCEDURE Fluoroscopically guided, contrast-controlled left L4, L5 and S1 medial branch blocks with 0.5cc of 2% Lidocaine. Following review of allergy and review of potential side effects and complications, including, but not necessarily limited to, infection, allergic reaction, local tissue breakdown, nerve injury, paralysis, stroke and possible , the patient indicated that the patient understood and agreed to proceed. An informed consent document was signed by the patient, witnessed by a nurse, and placed in the patient's chart. After review of previous anaesthesic history and IV conscious sedation the patient was deemed safe to proceed with today?s procedure with IV conscious sedation as ASA class II designation. Safety time-out was performed to confirm patient ID, procedure to be performed and site of procedure. IV sedation was accomplished with a combination of 2mg of Versed was administered by the RN after DO order, titrated to patient comfort during the course of the procedure while the patient remained responsive to all verbal commands. In the prone position, following sterile prep and drape of the lumbar region, the left L4, L5 and S1 anatomical location of the medial branch of the dorsal ramus was identified fluoroscopically. Subsequently an anesthetic skin wheal using 1% lidocaine solution was initiated at each of the anatomical spots. Subsequently then a 22-gauge 3.5-inch spinal needle was atraumatically introduced and advanced under fluoroscopic guidance at each of the corresponding sites at the left L4, L5 and S1 MB. After negative aspiration, 0.2cc of Isovue 200 was injected, confirming placement without vascular or intrathecal uptake. Subsequently then 0.5cc of 2% Lidocaine solution was injected at each of the corresponding sites at the left L4, L5 and S1 medial branch locations. The patient tolerated the procedure well without signs or symptoms of complications. The patient tolerated the procedure well without signs or symptoms of complications prior to transfer to the recovery area continued monitoring without incident. Post-procedure, the patient was monitored initiating provocative activities to measure the amount of relief from block of the facetogenic pain. The patient reported a VAS of 7 prior to the procedure and a post-procedure VAS of 1. It has been a pleasure to assist in the diagnostic and therapeutic care of your patient. POST OP INSTRUCTIONS The patient was provided with a Pain Log to complete over the next several hours and subsequent days prior to the patient's follow up with the ordering physician. If the patient has personal injury legal assistant relief to the solution applied, then they may be a candidate for medial branch rhizotomy. The patient is aware, was provided, once again, with a Pain Log and will follow up with the referring physician for review and clinical correlation.
== END 2025-01-07 14:27 | disposition home or self-care (01) ==
LOC: RAD 12:30
PROVIDERS: PCP Family Medicine; Referring Provider Physical Medicine & Rehabilitation; Visit Provider Physical Medicine & Rehabilitation
DX: M47.816 Spondylosis without myelopathy or radiculopathy, lumbar region (principal); M47.817 Spondylosis without myelopathy or radiculopathy, lumbosacral region
CPT/HCPCS: 64493; 64494; 99152; J2250

== ENCOUNTER → 2025-01-19 07:51 | Outpatient (CLI) | payer MEDICARE, SELFPAY ==
[2024-03-11 15:52] VITALS: BMI 29.9
[2025-01-19 08:43] LABS: Add Manual Diff / Slide Review NO; Hematocrit 41.1 % (36-46); Hemoglobin 14.1 g/dL (12.0-16.0); Lymphocytes Absolute Auto 1500 /uL (1100-4500); Mean Corpuscular HGB Conc 34.4 % (30-36); Mean Corpuscular Hemoglobin 33.6 PG (26-34); Mean Corpuscular Volume 97.8 fL (80-100); Platelet Count 225 X10^3/uL (150-400)
[2025-01-19 09:02] LABS: Hemoglobin A1C% w Est Avg Glu 4.4 % (4.0-6.0)
[2025-01-19 09:03] LABS: Alanine Aminotransferase 17 IU/L (<35); Albumin 4.4 g/dL (3.5-5.0); Albumin Globulin Ratio 1.7 (1.0-2.8); Alkaline Phosphatase 46 U/L (38-126); Blood Urea Nitrogen 14 mg/dL (7-17); Calcium 9.4 mg/dL (8.4-10.2); Carbon Dioxide 27 mmol/L (22-32); Chloride 105 mmol/L (98-107); Cholesterol 205 mg/dL (140-199); Estimated Glomerular Filt Rate > 60 mL/min (>60); Globulin 2.6 g/dL (1.7-4.1); Glucose 92 mg/dL (70-99); HDL Cholesterol 76 mg/dL (40-60); HEMOLYSIS < 15 (0-50); Potassium 4.1 mmol/L (3.4-5.1); Sodium 138 mmol/L (137-145); Total Protein 7.0 g/dL (6.3-8.2); Triglycerides 155 mg/dL (35-150)
[2025-01-19 09:21] LABS: Free T4, Direct Thyroxine 1.43 ng/dL (0.78-2.19)
[2025-01-19 09:35] LABS: Thyroid Stimulating Hormone < 0.015 uIU/mL (0.47-4.68)
== END ==
PROVIDERS: PCP Family Medicine; Referring Provider Family Medicine; Visit Provider Family Medicine
DX: M85.80 Other specified disorders of bone density and structure, unspecified site (principal); E78.2 Mixed hyperlipidemia; E03.9 Hypothyroidism, unspecified; I10 Essential (primary) hypertension; R73.01 Impaired fasting glucose; E66.9 Obesity, unspecified; Z79.890 Hormone replacement therapy; Z78.0 Asymptomatic menopausal state
CPT/HCPCS: 36415; 80053; 80061; 82523; 82627; 82670; 83036; 84402; 84403; 84439; 84443; 85025